=== PATIENT | male | born 1980 | race Caucasian/White ===

== ENCOUNTER 2016-05-23 23:56 | Emergency (ER) | payer OTHER ==
[~2016-05-23 23:56] MED LIST: /SENOSTA PO; AMBI10TA OR; AMBI5TAB; AMBIEN; ANAFRANIL; ANAFRANIL PO; ASPI325T OR; ATARAX OR; CAMPRAL PO; CLAR5CHW; CLAR5CHW OR; Campral PO; DEPA500T2 PO; FLEXERIL OR; HALO2TA PO; HYDR50TA8; HYDR50TA8 OR; HYDRO50TAB PO; INVE3TAB2 OR; INVE6TAB3 OR; KLON1TAB PO; LORA10TA2 PO; METO200T3 OR; NABU-42 PO; NABU750T OR; OXYC10TA97 OR; PAXI10TA; PAXI20TA OR; PAXI30TA; PAXI40TA; PAXIL; PERC5TAB8 OR; PRIL20CA; PRIL20CA PO; RISP1TAB21 PO; SERO200T PO; SERO400T PO; SEROQUEL PO; TOPR100T; TOPR200T; TOPR200T PO; TRAZ100T; TRAZ150T; TRAZ50TA; TRAZODONE; ZIPR80CAP PO; ZYPR10TA PO
[2016-05-24 01:40] LABS: BASO % 0.5 % (0.0-1.0); EOS % 0.5 % (0.0-3.0); LARGE UNSTAINED CELL # 0.2 K/mm3 (0.0-0.4); LARGE UNSTAINED CELL % 4.5 % (0.0-4.0); LYMPH # 1.3 K/mm3 (1.5-4.5); LYMPH % 23.2 % (24.0-44.0); MEAN CORPUSCULAR HEMOGLOBIN 31.1 pg (27.0-33.0); MEAN CORPUSCULAR HGB CONC 35.2 g/dl (32.0-36.5); MEAN CORPUSCULAR VOLUME 88.5 fl (80.0-96.0); MONO # 0.6 K/mm3 (0.0-0.8); MONO % 11.5 % (0.0-5.0); NEUTROPHILS # 3.2 K/mm3 (1.8-7.7); NEUTROPHILS % 59.8 % (36.0-66.0); PLATELET COUNT, AUTOMATED 113 k/mm3 (150-450); RED CELL DISTRIBUTION WIDTH 12.3 % (11.5-14.5); WHITE BLOOD COUNT 5.4 K/mm3 (4.0-10.0)
[2016-05-24 02:00] LABS: ANION GAP 11 MEQ/L (8-16); BLOOD UREA NITROGEN 17 MG/DL (7-18); CALCIUM LEVEL 9.1 MG/DL (8.5-10.1); CARBON DIOXIDE LEVEL 25 MEQ/L (21-32); CHLORIDE LEVEL 98 MEQ/L (98-107); CREATININE FOR GFR 1.26 MG/DL (0.70-1.30); GLOMERULAR FILTRATION RATE > 60.0 (>60); GLUCOSE, FASTING 106 MG/DL (70-105); POTASSIUM SERUM 3.7 MEQ/L (3.5-5.1); SODIUM LEVEL 134 MEQ/L (136-145)
--- NOTE | 2016-05-24 04:06 | EDDOCDS ---
Physician Documentation [facility] Name: Vishal Salmeron Age: 35 yrs Sex: Male : 1980 Arrival Date: 05/23/2016 Time: 23:56 Bed 5 Private MD: Jayla Abdalla Disposition: 05/24/16 03:52 Discharged to Home/Self Care. Impression: Other specified noninfective gastroenteritis and colitis. - Condition is Stable. - Discharge Instructions: Clear Liquid Diet. - Medication Reconciliation, Local Pharmacy Hours form. - Follow up: Private Physician; When: Call to arrange an appointment; Reason: Recheck today's complaints. - Problem is an ongoing problem. - Symptoms have improved. Historical: - Allergies: SULFA (SULFONAMIDES) (Hives); - Home Meds: 1. trazodone 50 mg Oral tab 1 tab at bedtime couple days ago 2. metoprolol succinate 200 mg Tb24 1 tab once daily (Last dose: 05/23/2016) 3. clonidine HCl 0.2 mg Oral tab 2 tabs 2 times per day (Last dose: 05/23/2016) 4. omeprazole 20 mg Oral TbEC (Last dose: 05/23/2016) 5. Ambien 10 mg Oral tab 1 tab once daily (Last dose: 05/23/2016) - PMHx: Hypertension; Anxiety Disorder; GERD; Bipolar disorder; Schizophrenia; - PSHx: right elbow; right ankle; Appendectomy; - Social history: Smoking status: Patient states was never smoker of tobacco. No barriers to communication noted, The patient speaks fluent Japanese, Speaks appropriately for age. - Family history: Not pertinent. - : The pt / caregiver states he / she is not on anticoagulants. Home medication list is obtained from the patient. - Exposure Risk Screening:: None identified. Vital Signs: 05/24 00:22 BP 146 / 90; Pulse 109; Resp 18; Temp 97.9(TE); Pulse Ox 97% ; Weight 154.22 kg / 340 ko2 lbs; Height 6 ft. 8 in. (203.20 cm); Pain 10/10; 01:35 BP 152 / 103 Supine; Pulse 107; mv5 01:35 BP 150 / 100 Sitting; Pulse 102; mv5 01:35 BP 144 / 98 Standing; Pulse 129; mv5 02:23 BP 166 / 109 (auto/); mv5 02:25 Pulse 76 MON; Pulse Ox 98% ; mv5 03:15 BP 166 / 102 (auto/); Pulse 69; Resp 16; Pulse Ox 99% ; mv5 03:44 BP 169 / 87 Supine; Pulse 73; mv5 03:44 BP 169 / 88 Sitting; Pulse 82; mv5 03:44 BP 147 / 93 Standing; Pulse 103; mv5 03:57 Temp 99.3(TE); cln 04:04 BP 164 / 104; Pulse 81; Resp 18; Temp 99.6(O); Pulse Ox 98% on R/A; Pain 10/10; nn1 00:22 Body Mass Index 37.35 (154.22 kg, 203.20 cm) ko2 MDM: 00:53 Orthostatic VS ordered. cs11 00:53 IV Saline Lock ordered. cs11 00:53 NS 0.9% 1000 ml IV at bolus once ordered. cs11 00:53 CBC with Diff Ordered. EDMS 00:53 MED Profile Ordered. EDMS 01:54 CBC with Diff Reviewed. cs11 02:20 MED Profile Reviewed. cs11 02:20 NS 0.9% 1000 ml IV at bolus once ordered. cs11 02:39 Financial registration complete. hs2 02:46 [facility] Payment Agreement was scanned into [employer] and attached to record. hs2 Administered Medications: 01:33 Drug: NS 0.9% 1000 ml [sodium chloride 0.9 % intravenous solution] Route: IV; Rate: mv5 bolus; Site: left antecubital; 02:26 Follow up: IV Status: Completed infusion mv5 02:25 Drug: NS 0.9% 1000 ml [sodium chloride 0.9 % intravenous solution] Route: IV; Rate: mv5 bolus; Site: left antecubital; 03:16 Follow up: IV Status: Completed infusion mv5 Signatures: Dispatcher [employer] EDMS Adolph Barroso DO DO cs11 Brenda Wyman RN RN ko2 Fior Boateng RN RN nn1 Agnieszka Ngo, Reg Reg hs2 Lynn Burgos RN RN mv5 The chart was reviewed and I authenticate all verbal orders and agree with the evaluation and treatment provided.Attachments: 02:46 [facility] Payment Agreement hs2 MTDD
--- NOTE | 2016-05-24 04:06 | EDDOCDS ---
Nurse's Notes [facility] Name: Vishal Salmeron Age: 35 yrs Sex: Male : 1980 Arrival Date: 05/23/2016 Time: 23:56 Bed 5 Private MD: Jayla Abdalla Diagnosis: Other specified noninfective gastroenteritis and colitis Presentation: 05/24 00:14 Presenting complaint: Patient states: has been taking ibuprofen 600 mgs three times a ko2 day for his back. Started having pain in stomach and had a dark tarry stool so quit taking ibuprofen. Started getting diarrhea and watery stools. Took an anti diarrhea medication today and "felt like his stomach was being sucked in and was dry heaving foam." Pt states he feels a constant pressure on the top of his head. Risk factors: the patient reports not having a history of previous torsion. Suicide/Homicide risk assessment- the patient denies having any suicidal and/or homicidal ideations and does not present with any other emotional, behavioral or mental health complaints. 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 Transition of care: patient was not received from another setting of care. 00:14 Acuity: ROBBIE Level 3 ko2 00:14 Method Of Arrival: Walkin/Carried/Asstd ko2 Triage Assessment: 00:21 General: Appears in no apparent distress. Pain: Location: abdomen Pain currently is 10 ko2 out of 10 on a pain scale. HIV screening NA for this visit Offered previously. Neurological: Level of Consciousness is awake, alert. Respiratory: Airway is patent Respiratory effort is even, unlabored. GI: Reports "stomach feels like its being sucked in". Derm: Skin is normal. Historical: - Allergies: SULFA (SULFONAMIDES) (Hives); - Home Meds: 1. trazodone 50 mg Oral tab 1 tab at bedtime couple days ago 2. metoprolol succinate 200 mg Tb24 1 tab once daily (Last dose: 05/23/2016) 3. clonidine HCl 0.2 mg Oral tab 2 tabs 2 times per day (Last dose: 05/23/2016) 4. omeprazole 20 mg Oral TbEC (Last dose: 05/23/2016) 5. Ambien 10 mg Oral tab 1 tab once daily (Last dose: 05/23/2016) - PMHx: Hypertension; Anxiety Disorder; GERD; Bipolar disorder; Schizophrenia; - PSHx: right elbow; right ankle; Appendectomy; - Social history: Smoking status: Patient states was never smoker of tobacco. No barriers to communication noted, The patient speaks fluent Wolof, Speaks appropriately for age. - Family history: Not pertinent. - : The pt / caregiver states he / she is not on anticoagulants. Home medication list is obtained from the patient. - Exposure Risk Screening:: None identified. Screenin:33 Screening information is obtained from the patient. Fall risk: No risks identified. mv5 Assistance ADL's: requires no assistance with activities of daily living. Abuse/DV Screen: The patient / caregiver reports he/she is: not in a situation that causes fear, pain or injury. Nutritional screening: No deficits noted. Advance Directives: There is no active DNR order. home support is adequate. Assessment: 01:33 General: Appears in no apparent distress, Behavior is cooperative, pleasant. mv5 Neurological: Level of Consciousness is awake, alert, Oriented to person, place, time. Cardiovascular: Capillary refill < 3 seconds. Respiratory: Airway is patent Respiratory effort is even, unlabored, Respiratory pattern is regular, symmetrical. GI: Abdomen is obese, Bowel sounds present X 4 quads. Abd is soft X 4 quads. Derm: Skin is pink, warm & dry. 02:26 General: Appears in no apparent distress, comfortable, Behavior is cooperative, mv5 pleasant. Neurological: Level of Consciousness is awake, alert, Oriented to person, place, time. Respiratory: Airway is patent Respiratory effort is even, unlabored, Respiratory pattern is regular, symmetrical. Derm: Skin is pink, warm & dry. 03:17 General: Appears in no apparent distress, comfortable. General: Behavior is mv5 cooperative, pleasant. Neurological: Level of Consciousness is awake, alert. Respiratory: Airway is patent Respiratory effort is even, unlabored, Respiratory pattern is regular, symmetrical. Derm: Skin is pink, warm & dry. 04:03 General: Appears in no apparent distress, comfortable, Behavior is appropriate for age, nn1 cooperative, pleasant. Pain: Location: abdomen Pain currently is 10 out of 10 on a pain scale. Respiratory: Airway is patent Respiratory effort is even, unlabored, Respiratory pattern is regular, symmetrical. Derm: Skin is pink, warm & dry. 04:05 Adult Sepsis Screening: The patient does not have new or worsening altered mentation. nn1 Patient's respiratory rate is less than 22. Systolic blood pressure is greater than 100. Patient has a qSOFA score of 0- Negative Sepsis Screen. Vital Signs: 00:22 BP 146 / 90; Pulse 109; Resp 18; Temp 97.9(TE); Pulse Ox 97% ; Weight 154.22 kg; Height ko2 6 ft. 8 in. (203.20 cm); Pain 10/10; 01:35 BP 152 / 103 Supine; Pulse 107; mv5 01:35 BP 150 / 100 Sitting; Pulse 102; mv5 01:35 BP 144 / 98 Standing; Pulse 129; mv5 02:23 BP 166 / 109 (auto/); mv5 02:25 Pulse 76 MON; Pulse Ox 98% ; mv5 03:15 BP 166 / 102 (auto/); Pulse 69; Resp 16; Pulse Ox 99% ; mv5 03:44 BP 169 / 87 Supine; Pulse 73; mv5 03:44 BP 169 / 88 Sitting; Pulse 82; mv5 03:44 BP 147 / 93 Standing; Pulse 103; mv5 03:57 Temp 99.3(TE); cln 04:04 BP 164 / 104; Pulse 81; Resp 18; Temp 99.6(O); Pulse Ox 98% on R/A; Pain 10/10; nn1 00:22 Body Mass Index 37.35 (154.22 kg, 203.20 cm) ko2 Vitals: 00:22 Log In Time: May 23, 2016 at 23:56. ko2 ED Course: 05/23 23:58 Patient visited by Rinku Rangel Reg. pm4 23:58 Jayla Abdalla is Private Physician. pm4 23:58 Patient moved to Waiting pm4 05/24 00:12 Patient moved to Triage 1 ko2 00:17 Triage Initiated ko2 00:30 Lynn Burgos,JACY is Primary Nurse. ko2 00:30 Patient moved to 5 ko2 00:52 Adolph Barroso DO is Attending Physician. cs11 00:52 Patient visited by Adolph Barroso DO. cs11 01:33 The patient / caregiver is instructed regarding the plan of care and ED course. mv5 01:33 MED Profile Sent. mv5 01:33 CBC with Diff Sent. mv5 01:33 Inserted saline lock: 20 gauge in left antecubital area and blood collected. The mv5 patient tolerated the procedure well. 01:37 Patient visited by Lynn Burgos RN. mv5 02:19 Patient visited by Lynn Burgos RN. mv5 02:46 [facility] Agreement was scanned into [employer] and attached to record. hs2 02:54 Patient visited by Lynn Burgos RN. mv5 03:36 Patient visited by Lynn Burgos RN. mv5 03:57 Patient visited by Georgiana Thakkar PCA. cln 04:04 Discontinued IV lock bleeding controlled, pressure dressing applied, No nn1 redness/swelling at site. No procedures done that require assistance. Administered Medications: 01:33 Drug: NS 0.9% 1000 ml [sodium chloride 0.9 % intravenous solution] Route: IV; Rate: mv5 bolus; Site: left antecubital; 02:26 Follow up: IV Status: Completed infusion mv5 02:25 Drug: NS 0.9% 1000 ml [sodium chloride 0.9 % intravenous solution] Route: IV; Rate: mv5 bolus; Site: left antecubital; 03:16 Follow up: IV Status: Completed infusion mv5 Order Results: Lab Order: CBC with Diff; SPEC'M 05/24/16 01:12 Test: WHITE BLOOD COUNT; Value: 5.4; Range: 4.0-10.0; Units: K/mm3; Status: F Test: RED BLOOD COUNT; Value: 5.82; Range: 4.30-6.10; Units: M/mm3; Status: F Test: HEMOGLOBIN; Value: 18.1; Range: 14.0-18.0; Abnormal: Above high normal; Units: g/dl; Status: F Test: HEMATOCRIT; Value: 51.5; Range: 42.0-52.0; Units: %; Status: F Test: MEAN CORPUSCULAR VOLUME; Value: 88.5; Range: 80.0-96.0; Units: fl; Status: F Test: MEAN CORPUSCULAR HEMOGLOBIN; Value: 31.1; Range: 27.0-33.0; Units: pg; Status: F Test: MEAN CORPUSCULAR HGB CONC; Value: 35.2; Range: 32.0-36.5; Units: g/dl; Status: F Test: RED CELL DISTRIBUTION WIDTH; Value: 12.3; Range: 11.5-14.5; Units: %; Status: F Test: PLATELET COUNT, AUTOMATED; Value: 113; Range: 150-450; Abnormal: Below low normal; Units: k/mm3; Status: F Test: NEUTROPHILS %; Value: 59.8; Range: 36.0-66.0; Units: %; Status: F Test: LYMPH %; Value: 23.2; Range: 24.0-44.0; Abnormal: Below low normal; Units: %; Status: F Test: MONO %; Value: 11.5; Range: 0.0-5.0; Abnormal: Above high normal; Units: %; Status: F Test: EOS %; Value: 0.5; Range: 0.0-3.0; Units: %; Status: F Test: BASO %; Value: 0.5; Range: 0.0-1.0; Units: %; Status: F Test: LARGE UNSTAINED CELL %; Value: 4.5; Range: 0.0-4.0; Abnormal: Above high normal; Units: %; Status: F Test: NEUTROPHILS #; Value: 3.2; Range: 1.8-7.7; Units: K/mm3; Status: F Test: LYMPH #; Value: 1.3; Range: 1.5-4.5; Abnormal: Below low normal; Units: K/mm3; Status: F Test: MONO #; Value: 0.6; Range: 0.0-0.8; Units: K/mm3; Status: F Test: EOS #; Value: 0.0; Range: 0.0-0.50; Units: K/mm3; Status: F Test: BASO #; Value: 0.0; Range: 0.0-0.2; Units: K/mm3; Status: F Test: LARGE UNSTAINED CELL #; Value: 0.2; Range: 0.0-0.4; Units: K/mm3; Status: F Lab Order: MED Profile; SPEC'05/24/16 01:12 Test: GLUCOSE, FASTING; Value: 106; Range: 70-105; Abnormal: Above high normal; Units: MG/DL; Status: F Test: BLOOD UREA NITROGEN; Value: 17; Range: 7-18; Units: MG/DL; Status: F Test: CREATININE FOR GFR; Value: 1.26; Range: 0.70-1.30; Units: MG/DL; Status: F Test: GLOMERULAR FILTRATION RATE; Value: > 60.0; Range: >60; Status: F Test: SODIUM LEVEL; Value: 134; Range: 136-145; Abnormal: Below low normal; Units: MEQ/L; Status: F Test: POTASSIUM SERUM; Value: 3.7; Range: 3.5-5.1; Units: MEQ/L; Status: F Test: CHLORIDE LEVEL; Value: 98; Range: 98-107; Units: MEQ/L; Status: F Test: CARBON DIOXIDE LEVEL; Value: 25; Range: 21-32; Units: MEQ/L; Status: F Test: ANION GAP; Value: 11; Range: 8-16; Units: MEQ/L; Status: F Test: CALCIUM LEVEL; Value: 9.1; Range: 8.5-10.1; Units: MG/DL; Status: F Test Note: ; Units are mL/min/1.73 m2 Chronic Kidney Disease Staging per NKF: Stage I & II GFR >=60 Normal to Mildly Decreased Stage III GFR 30-59 Moderately Decreased Stage IV GFR 15-29 Severely Decreased Stage V GFR <15 Very Little GFR Left ESRD GFR <15 on SKIN CARE THERAPIST Outcome: 03:52 Discharge ordered by Provider. cs11 04:04 Discharge Assessment: Patient awake, alert and oriented x 3. No cognitive and/or nn1 functional deficits noted. Patient verbalized understanding of disposition instructions. patient administered narcotics - no. The following High Risk Discharge criteria are identified: None. Discharged to home ambulatory, with parent. Condition: stable. No special radiology studies were completed. Property :Personal belongings accompany Pt. 04:05 Patient left the ED. nn1 Signatures: Adolph Barroso DO DO cs11 Brenda Wyman RN RN ko2 Fior Boateng RN RN nn1 Agnieszka Ngo, Reg Reg hs2 Georgiana Thakkar, CROP GRAIN OR LIVESTOCK FARMER CROP GRAIN OR LIVESTOCK FARMER cln Rinku Rangel, Reg Reg pm4 Lynn Burgos,RN RN mv5 MTDD
--- NOTE | 2016-05-26 05:06 | EDDOCDS ---
Physician Documentation [facility] Name: Vishal Salmeron Age: 35 yrs Sex: Male : 1980 Arrival Date: 05/23/2016 Time: 23:56 Bed 5 Private MD: Jayla Abdalla Disposition: 05/24/16 03:52 Discharged to Home/Self Care. Impression: Other specified noninfective gastroenteritis and colitis. - Condition is Stable. - Discharge Instructions: Clear Liquid Diet. - Medication Reconciliation, Local Pharmacy Hours form. - Follow up: Private Physician; When: Call to arrange an appointment; Reason: Recheck today's complaints. - Problem is an ongoing problem. - Symptoms have improved. Historical: - Allergies: SULFA (SULFONAMIDES) (Hives); - Home Meds: 1. trazodone 50 mg Oral tab 1 tab at bedtime couple days ago 2. metoprolol succinate 200 mg Tb24 1 tab once daily (Last dose: 05/23/2016) 3. clonidine HCl 0.2 mg Oral tab 2 tabs 2 times per day (Last dose: 05/23/2016) 4. omeprazole 20 mg Oral TbEC (Last dose: 05/23/2016) 5. Ambien 10 mg Oral tab 1 tab once daily (Last dose: 05/23/2016) - PMHx: Hypertension; Anxiety Disorder; GERD; Bipolar disorder; Schizophrenia; - PSHx: right elbow; right ankle; Appendectomy; - Social history: Smoking status: Patient states was never smoker of tobacco. No barriers to communication noted, The patient speaks fluent Romanian, Speaks appropriately for age. - Family history: Not pertinent. - : The pt / caregiver states he / she is not on anticoagulants. Home medication list is obtained from the patient. - Exposure Risk Screening:: None identified. Vital Signs: 05/24 00:22 BP 146 / 90; Pulse 109; Resp 18; Temp 97.9(TE); Pulse Ox 97% ; Weight 154.22 kg / 340 ko2 lbs; Height 6 ft. 8 in. (203.20 cm); Pain 10/10; 01:35 BP 152 / 103 Supine; Pulse 107; mv5 01:35 BP 150 / 100 Sitting; Pulse 102; mv5 01:35 BP 144 / 98 Standing; Pulse 129; mv5 02:23 BP 166 / 109 (auto/); mv5 02:25 Pulse 76 MON; Pulse Ox 98% ; mv5 03:15 BP 166 / 102 (auto/); Pulse 69; Resp 16; Pulse Ox 99% ; mv5 03:44 BP 169 / 87 Supine; Pulse 73; mv5 03:44 BP 169 / 88 Sitting; Pulse 82; mv5 03:44 BP 147 / 93 Standing; Pulse 103; mv5 03:57 Temp 99.3(TE); cln 04:04 BP 164 / 104; Pulse 81; Resp 18; Temp 99.6(O); Pulse Ox 98% on R/A; Pain 10/10; nn1 00:22 Body Mass Index 37.35 (154.22 kg, 203.20 cm) ko2 MDM: 00:53 Orthostatic VS ordered. cs11 00:53 IV Saline Lock ordered. cs11 00:53 NS 0.9% 1000 ml IV at bolus once ordered. cs11 00:53 CBC with Diff Ordered. EDMS 00:53 MED Profile Ordered. EDMS 01:54 CBC with Diff Reviewed. cs11 02:20 MED Profile Reviewed. cs11 02:20 NS 0.9% 1000 ml IV at bolus once ordered. cs11 02:39 Financial registration complete. hs2 02:46 [facility] Payment Agreement was scanned into [email or web address] and attached to record. hs2 09:52 T-Sheet-- Draft Copy was scanned into [email or web address] and attached to record. gb Administered Medications: 01:33 Drug: NS 0.9% 1000 ml [sodium chloride 0.9 % intravenous solution] Route: IV; Rate: mv5 bolus; Site: left antecubital; 02:26 Follow up: IV Status: Completed infusion mv5 02:25 Drug: NS 0.9% 1000 ml [sodium chloride 0.9 % intravenous solution] Route: IV; Rate: mv5 bolus; Site: left antecubital; 03:16 Follow up: IV Status: Completed infusion mv5 Signatures: Dispatcher [employer] EDMS Trupti Prather, Reg Reg gb Adolph Barroso, DO cs11 Brenda Wyman RN RN ko2 Fior Boateng RN RN nn1 Agnieszka Ngo, Reg Reg hs2 Lynn BurgosRN RN mv5 The chart was reviewed and I authenticate all verbal orders and agree with the evaluation and treatment provided.Attachments: 02:46 [facility] Payment Agreement hs2 09:52 T-Sheet-- Draft Copy gb Chart Complete MTDD
--- NOTE | 2016-05-26 05:06 | EDDOCDS ---
Nurse's Notes [facility] Name: Vishal Salmeron Age: 35 yrs Sex: Male : 1980 Arrival Date: 05/23/2016 Time: 23:56 Bed 5 Private MD: Jayla Abdalla Diagnosis: Other specified noninfective gastroenteritis and colitis Presentation: 05/24 00:14 Presenting complaint: Patient states: has been taking ibuprofen 600 mgs three times a ko2 day for his back. Started having pain in stomach and had a dark tarry stool so quit taking ibuprofen. Started getting diarrhea and watery stools. Took an anti diarrhea medication today and "felt like his stomach was being sucked in and was dry heaving foam." Pt states he feels a constant pressure on the top of his head. Risk factors: the patient reports not having a history of previous torsion. Suicide/Homicide risk assessment- the patient denies having any suicidal and/or homicidal ideations and does not present with any other emotional, behavioral or mental health complaints. Status: Patient is not a service delivery director or dependent. Transition of care: patient was not received from another setting of care. 00:14 Acuity: ROBBIE Level 3 ko2 00:14 Method Of Arrival: Walkin/Carried/Asstd ko2 Triage Assessment: 00:21 General: Appears in no apparent distress. Pain: Location: abdomen Pain currently is 10 ko2 out of 10 on a pain scale. HIV screening NA for this visit Offered previously. Neurological: Level of Consciousness is awake, alert. Respiratory: Airway is patent Respiratory effort is even, unlabored. GI: Reports "stomach feels like its being sucked in". Derm: Skin is normal. Historical: - Allergies: SULFA (SULFONAMIDES) (Hives); - Home Meds: 1. trazodone 50 mg Oral tab 1 tab at bedtime couple days ago 2. metoprolol succinate 200 mg Tb24 1 tab once daily (Last dose: 05/23/2016) 3. clonidine HCl 0.2 mg Oral tab 2 tabs 2 times per day (Last dose: 05/23/2016) 4. omeprazole 20 mg Oral TbEC (Last dose: 05/23/2016) 5. Ambien 10 mg Oral tab 1 tab once daily (Last dose: 05/23/2016) - PMHx: Hypertension; Anxiety Disorder; GERD; Bipolar disorder; Schizophrenia; - PSHx: right elbow; right ankle; Appendectomy; - Social history: Smoking status: Patient states was never smoker of tobacco. No barriers to communication noted, The patient speaks fluent Setswana, Speaks appropriately for age. - Family history: Not pertinent. - : The pt / caregiver states he / she is not on anticoagulants. Home medication list is obtained from the patient. - Exposure Risk Screening:: None identified. Screenin:33 Screening information is obtained from the patient. Fall risk: No risks identified. mv5 Assistance ADL's: requires no assistance with activities of daily living. Abuse/DV Screen: The patient / caregiver reports he/she is: not in a situation that causes fear, pain or injury. Nutritional screening: No deficits noted. Advance Directives: There is no active DNR order. home support is adequate. Assessment: 01:33 General: Appears in no apparent distress, Behavior is cooperative, pleasant. mv5 Neurological: Level of Consciousness is awake, alert, Oriented to person, place, time. Cardiovascular: Capillary refill < 3 seconds. Respiratory: Airway is patent Respiratory effort is even, unlabored, Respiratory pattern is regular, symmetrical. GI: Abdomen is obese, Bowel sounds present X 4 quads. Abd is soft X 4 quads. Derm: Skin is pink, warm & dry. 02:26 General: Appears in no apparent distress, comfortable, Behavior is cooperative, mv5 pleasant. Neurological: Level of Consciousness is awake, alert, Oriented to person, place, time. Respiratory: Airway is patent Respiratory effort is even, unlabored, Respiratory pattern is regular, symmetrical. Derm: Skin is pink, warm & dry. 03:17 General: Appears in no apparent distress, comfortable. General: Behavior is mv5 cooperative, pleasant. Neurological: Level of Consciousness is awake, alert. Respiratory: Airway is patent Respiratory effort is even, unlabored, Respiratory pattern is regular, symmetrical. Derm: Skin is pink, warm & dry. 04:03 General: Appears in no apparent distress, comfortable, Behavior is appropriate for age, nn1 cooperative, pleasant. Pain: Location: abdomen Pain currently is 10 out of 10 on a pain scale. Respiratory: Airway is patent Respiratory effort is even, unlabored, Respiratory pattern is regular, symmetrical. Derm: Skin is pink, warm & dry. 04:05 Adult Sepsis Screening: The patient does not have new or worsening altered mentation. nn1 Patient's respiratory rate is less than 22. Systolic blood pressure is greater than 100. Patient has a qSOFA score of 0- Negative Sepsis Screen. Vital Signs: 00:22 BP 146 / 90; Pulse 109; Resp 18; Temp 97.9(TE); Pulse Ox 97% ; Weight 154.22 kg; Height ko2 6 ft. 8 in. (203.20 cm); Pain 10/10; 01:35 BP 152 / 103 Supine; Pulse 107; mv5 01:35 BP 150 / 100 Sitting; Pulse 102; mv5 01:35 BP 144 / 98 Standing; Pulse 129; mv5 02:23 BP 166 / 109 (auto/); mv5 02:25 Pulse 76 MON; Pulse Ox 98% ; mv5 03:15 BP 166 / 102 (auto/); Pulse 69; Resp 16; Pulse Ox 99% ; mv5 03:44 BP 169 / 87 Supine; Pulse 73; mv5 03:44 BP 169 / 88 Sitting; Pulse 82; mv5 03:44 BP 147 / 93 Standing; Pulse 103; mv5 03:57 Temp 99.3(TE); cln 04:04 BP 164 / 104; Pulse 81; Resp 18; Temp 99.6(O); Pulse Ox 98% on R/A; Pain 10/10; nn1 00:22 Body Mass Index 37.35 (154.22 kg, 203.20 cm) ko2 Vitals: 00:22 Log In Time: May 23, 2016 at 23:56. ko2 ED Course: 05/23 23:58 Patient visited by Rinku Rangel Reg. pm4 23:58 Jayla Abdalla is Private Physician. pm4 23:58 Patient moved to Waiting pm4 05/24 00:12 Patient moved to Triage 1 ko2 00:17 Triage Initiated ko2 00:30 Lynn Burgos,JACY is Primary Nurse. ko2 00:30 Patient moved to 5 ko2 00:52 Adolph Barroso DO is Attending Physician. cs11 00:52 Patient visited by Adolph Barroso DO. cs11 01:33 The patient / caregiver is instructed regarding the plan of care and ED course. mv5 01:33 MED Profile Sent. mv5 01:33 CBC with Diff Sent. mv5 01:33 Inserted saline lock: 20 gauge in left antecubital area and blood collected. The mv5 patient tolerated the procedure well. 01:37 Patient visited by Lynn Burgos RN. mv5 02:19 Patient visited by Lynn Burgos RN. mv5 02:46 REPLACED BY [facility] Payment Agreement was scanned into [employer] and attached to record. hs2 02:54 Patient visited by Lynn Burgos RN. mv5 03:36 Patient visited by Lynn Burgos RN. mv5 03:57 Patient visited by Georgiana Thakkar PCA. cln 04:04 Discontinued IV lock bleeding controlled, pressure dressing applied, No nn1 redness/swelling at site. No procedures done that require assistance. 09:52 T-Sheet-- Draft Copy was scanned into [employer] and attached to record. gb Administered Medications: 01:33 Drug: NS 0.9% 1000 ml [sodium chloride 0.9 % intravenous solution] Route: IV; Rate: mv5 bolus; Site: left antecubital; 02:26 Follow up: IV Status: Completed infusion mv5 02:25 Drug: NS 0.9% 1000 ml [sodium chloride 0.9 % intravenous solution] Route: IV; Rate: mv5 bolus; Site: left antecubital; 03:16 Follow up: IV Status: Completed infusion mv5 Order Results: Lab Order: CBC with Diff; SPEC'M 05/24/16 01:12 Test: WHITE BLOOD COUNT; Value: 5.4; Range: 4.0-10.0; Units: K/mm3; Status: F Test: RED BLOOD COUNT; Value: 5.82; Range: 4.30-6.10; Units: M/mm3; Status: F Test: HEMOGLOBIN; Value: 18.1; Range: 14.0-18.0; Abnormal: Above high normal; Units: g/dl; Status: F Test: HEMATOCRIT; Value: 51.5; Range: 42.0-52.0; Units: %; Status: F Test: MEAN CORPUSCULAR VOLUME; Value: 88.5; Range: 80.0-96.0; Units: fl; Status: F Test: MEAN CORPUSCULAR HEMOGLOBIN; Value: 31.1; Range: 27.0-33.0; Units: pg; Status: F Test: MEAN CORPUSCULAR HGB CONC; Value: 35.2; Range: 32.0-36.5; Units: g/dl; Status: F Test: RED CELL DISTRIBUTION WIDTH; Value: 12.3; Range: 11.5-14.5; Units: %; Status: F Test: PLATELET COUNT, AUTOMATED; Value: 113; Range: 150-450; Abnormal: Below low normal; Units: k/mm3; Status: F Test: NEUTROPHILS %; Value: 59.8; Range: 36.0-66.0; Units: %; Status: F Test: LYMPH %; Value: 23.2; Range: 24.0-44.0; Abnormal: Below low normal; Units: %; Status: F Test: MONO %; Value: 11.5; Range: 0.0-5.0; Abnormal: Above high normal; Units: %; Status: F Test: EOS %; Value: 0.5; Range: 0.0-3.0; Units: %; Status: F Test: BASO %; Value: 0.5; Range: 0.0-1.0; Units: %; Status: F Test: LARGE UNSTAINED CELL %; Value: 4.5; Range: 0.0-4.0; Abnormal: Above high normal; Units: %; Status: F Test: NEUTROPHILS #; Value: 3.2; Range: 1.8-7.7; Units: K/mm3; Status: F Test: LYMPH #; Value: 1.3; Range: 1.5-4.5; Abnormal: Below low normal; Units: K/mm3; Status: F Test: MONO #; Value: 0.6; Range: 0.0-0.8; Units: K/mm3; Status: F Test: EOS #; Value: 0.0; Range: 0.0-0.50; Units: K/mm3; Status: F Test: BASO #; Value: 0.0; Range: 0.0-0.2; Units: K/mm3; Status: F Test: LARGE UNSTAINED CELL #; Value: 0.2; Range: 0.0-0.4; Units: K/mm3; Status: F Lab Order: MED Profile; SPEC05/24/16 01:12 Test: GLUCOSE, FASTING; Value: 106; Range: 70-105; Abnormal: Above high normal; Units: MG/DL; Status: F Test: BLOOD UREA NITROGEN; Value: 17; Range: 7-18; Units: MG/DL; Status: F Test: CREATININE FOR GFR; Value: 1.26; Range: 0.70-1.30; Units: MG/DL; Status: F Test: GLOMERULAR FILTRATION RATE; Value: > 60.0; Range: >60; Status: F Test: SODIUM LEVEL; Value: 134; Range: 136-145; Abnormal: Below low normal; Units: MEQ/L; Status: F Test: POTASSIUM SERUM; Value: 3.7; Range: 3.5-5.1; Units: MEQ/L; Status: F Test: CHLORIDE LEVEL; Value: 98; Range: 98-107; Units: MEQ/L; Status: F Test: CARBON DIOXIDE LEVEL; Value: 25; Range: 21-32; Units: MEQ/L; Status: F Test: ANION GAP; Value: 11; Range: 8-16; Units: MEQ/L; Status: F Test: CALCIUM LEVEL; Value: 9.1; Range: 8.5-10.1; Units: MG/DL; Status: F Test Note: ; Units are mL/min/1.73 m2 Chronic Kidney Disease Staging per NKF: Stage I & II GFR >=60 Normal to Mildly Decreased Stage III GFR 30-59 Moderately Decreased Stage IV GFR 15-29 Severely Decreased Stage V GFR <15 Very Little GFR Left ESRD GFR <15 on RN RADIATION Outcome: 03:52 Discharge ordered by Provider. cs11 04:04 Discharge Assessment: Patient awake, alert and oriented x 3. No cognitive and/or nn1 functional deficits noted. Patient verbalized understanding of disposition instructions. patient administered narcotics - no. The following High Risk Discharge criteria are identified: None. Discharged to home ambulatory, with parent. Condition: stable. No special radiology studies were completed. Property :Personal belongings accompany Pt. 04:05 Patient left the ED. nn1 Signatures: Trupti Prather, Reg Reg gb Adolph Barroso, DO cs11 Brenda Wyman RN RN ko2 Fior Boateng RN RN nn1 Agnieszka Ngo, Reg Reg hs2 Georgiana Thakkar, CRUCIBLE PACKER CRUCIBLE PACKER cln Rinku Rangel, Reg Reg pm4 Lynn Burgos,RN RN mv5 Chart Complete MTDD
--- NOTE | 2016-05-26 05:06 | EDDOCDS ---
Physician Documentation [facility] Name: Vishal Salmeron Age: 35 yrs Sex: Male : 1980 Arrival Date: 05/23/2016 Time: 23:56 Bed 5 Private MD: Jayla Abdalla Disposition: 05/24/16 03:52 Discharged to Home/Self Care. Impression: Other specified noninfective gastroenteritis and colitis. - Condition is Stable. - Discharge Instructions: Clear Liquid Diet. - Medication Reconciliation, Local Pharmacy Hours form. - Follow up: Private Physician; When: Call to arrange an appointment; Reason: Recheck today's complaints. - Problem is an ongoing problem. - Symptoms have improved. Historical: - Allergies: SULFA (SULFONAMIDES) (Hives); - Home Meds: 1. trazodone 50 mg Oral tab 1 tab at bedtime couple days ago 2. metoprolol succinate 200 mg Tb24 1 tab once daily (Last dose: 05/23/2016) 3. clonidine HCl 0.2 mg Oral tab 2 tabs 2 times per day (Last dose: 05/23/2016) 4. omeprazole 20 mg Oral TbEC (Last dose: 05/23/2016) 5. Ambien 10 mg Oral tab 1 tab once daily (Last dose: 05/23/2016) - PMHx: Hypertension; Anxiety Disorder; GERD; Bipolar disorder; Schizophrenia; - PSHx: right elbow; right ankle; Appendectomy; - Social history: Smoking status: Patient states was never smoker of tobacco. No barriers to communication noted, The patient speaks fluent Welsh, Speaks appropriately for age. - Family history: Not pertinent. - : The pt / caregiver states he / she is not on anticoagulants. Home medication list is obtained from the patient. - Exposure Risk Screening:: None identified. Vital Signs: 05/24 00:22 BP 146 / 90; Pulse 109; Resp 18; Temp 97.9(TE); Pulse Ox 97% ; Weight 154.22 kg / 340 ko2 lbs; Height 6 ft. 8 in. (203.20 cm); Pain 10/10; 01:35 BP 152 / 103 Supine; Pulse 107; mv5 01:35 BP 150 / 100 Sitting; Pulse 102; mv5 01:35 BP 144 / 98 Standing; Pulse 129; mv5 02:23 BP 166 / 109 (auto/); mv5 02:25 Pulse 76 MON; Pulse Ox 98% ; mv5 03:15 BP 166 / 102 (auto/); Pulse 69; Resp 16; Pulse Ox 99% ; mv5 03:44 BP 169 / 87 Supine; Pulse 73; mv5 03:44 BP 169 / 88 Sitting; Pulse 82; mv5 03:44 BP 147 / 93 Standing; Pulse 103; mv5 03:57 Temp 99.3(TE); cln 04:04 BP 164 / 104; Pulse 81; Resp 18; Temp 99.6(O); Pulse Ox 98% on R/A; Pain 10/10; nn1 00:22 Body Mass Index 37.35 (154.22 kg, 203.20 cm) ko2 MDM: 00:53 Orthostatic VS ordered. cs11 00:53 IV Saline Lock ordered. cs11 00:53 NS 0.9% 1000 ml IV at bolus once ordered. cs11 00:53 CBC with Diff Ordered. EDMS 00:53 MED Profile Ordered. EDMS 01:54 CBC with Diff Reviewed. cs11 02:20 MED Profile Reviewed. cs11 02:20 NS 0.9% 1000 ml IV at bolus once ordered. cs11 02:39 Financial registration complete. hs2 02:46 [facility] Payment Agreement was scanned into [employer] and attached to record. hs2 09:52 T-Sheet-- Draft Copy was scanned into [employer] and attached to record. gb Administered Medications: 01:33 Drug: NS 0.9% 1000 ml [sodium chloride 0.9 % intravenous solution] Route: IV; Rate: mv5 bolus; Site: left antecubital; 02:26 Follow up: IV Status: Completed infusion mv5 02:25 Drug: NS 0.9% 1000 ml [sodium chloride 0.9 % intravenous solution] Route: IV; Rate: mv5 bolus; Site: left antecubital; 03:16 Follow up: IV Status: Completed infusion mv5 Signatures: Dispatcher [employer] EDMS Trupti Prather, Reg Reg gb Adolph Barroso, DO cs11 Brenda Wyman RN RN ko2 Fior Boateng RN RN nn1 Agnieszka Ngo, Reg Reg hs2 Lynn BurgosRN RN mv5 The chart was reviewed and I authenticate all verbal orders and agree with the evaluation and treatment provided.Attachments: 02:46 [facility] Payment Agreement hs2 09:52 T-Sheet-- Draft Copy gb Chart Complete MTDD
== END 2016-05-24 04:05 | disposition home or self-care (01) ==
LOC: M ED 23:56
DX: K52.9 Noninfective gastroenteritis and colitis, unspecified (principal); I10 Essential (primary) hypertension; F31.9 Bipolar disorder, unspecified; F41.9 Anxiety disorder, unspecified; K21.9 Gastro-esophageal reflux disease without esophagitis; F20.9 Schizophrenia, unspecified; Z79.899 Other long term (current) drug therapy; Z88.2 Allergy status to sulfonamides

== ENCOUNTER 2016-06-14 23:27 | Emergency (ER) | payer OTHER ==
[~2016-06-14] VITALS: Ht 203.2 cm; Wt 163.3 kg
[2016-06-14] MEDS ORDERED: TRAZ50TA4 (23:44)
[2016-06-14] MEDS ORDERED: LATA5OPD (23:44)
[2016-06-14] MEDS ORDERED: ANTI2TAB (23:44)
[2016-06-14] MEDS ORDERED: CLON0.2T (23:44)
[2016-06-14] MEDS ORDERED: ZOLP10TA2 (23:44)
[2016-06-14] MEDS ORDERED: OMEP20CA3 (23:44)
[2016-06-15 02:19] LABS: BASO % 0.4 % (0.0-1.0); EOS % 0.4 % (0.0-3.0); LARGE UNSTAINED CELL % 0.5 % (0.0-4.0); LYMPH % 12.7 % (24.0-44.0); MEAN CORPUSCULAR HEMOGLOBIN 30.2 pg (27.0-33.0); MEAN CORPUSCULAR HGB CONC 34.3 g/dl (32.0-36.5); MEAN CORPUSCULAR VOLUME 87.8 fl (80.0-96.0); MONO # 0.4 K/mm3 (0.0-0.8); MONO % 4.7 % (0.0-5.0); NEUTROPHILS # 6.3 K/mm3 (1.8-7.7); NEUTROPHILS % 81.3 % (36.0-66.0); PLATELET COUNT, AUTOMATED 182 k/mm3 (150-450); RED CELL DISTRIBUTION WIDTH 12.6 % (11.5-14.5); WHITE BLOOD COUNT 7.8 K/mm3 (4.0-10.0)
[2016-06-15 02:34] LABS: ALBUMIN 3.9 GM/DL (3.2-5.2); ALBUMIN/GLOBULIN RATIO 1.15 (1.00-1.93); ALKALINE PHOSPHATASE 89 U/L (45-117); ALT/SGPT 48 U/L (12-78); ANION GAP 9 MEQ/L (8-16); AST/SGOT 46 U/L (15-37); BILIRUBIN,DIRECT 0.4 MG/DL (0.0-0.2); BILIRUBIN,TOTAL 1.5 MG/DL (0.2-1.0); BLOOD UREA NITROGEN 7 MG/DL (7-18); CALCIUM LEVEL 9.1 MG/DL (8.5-10.1); CARBON DIOXIDE LEVEL 26 MEQ/L (21-32); CHLORIDE LEVEL 94 MEQ/L (98-107); CREATININE FOR GFR 0.98 MG/DL (0.70-1.30); GLOMERULAR FILTRATION RATE > 60.0 (>60); GLUCOSE, FASTING 105 MG/DL (70-105); POTASSIUM SERUM 3.5 MEQ/L (3.5-5.1); SODIUM LEVEL 129 MEQ/L (136-145); TOTAL PROTEIN 7.3 GM/DL (6.4-8.2)
[2016-06-15] MEDS ORDERED: NS 1,000 ML IV ONE (02:45)
[2016-06-15] MEDS ORDERED: MORPHINE 4 MG/ML 1ML SYRINGE IV ONE (02:45)
[2016-06-15] MEDS ORDERED: ONDANSETRON 4MG/2ML VIAL (J2405) IV ONE (02:45)
[2016-06-15] MEDS ORDERED: GASTROGRAFIN SOLUTION 30ML (Q9963) PO ONE ×2 (03:00→03:30)
[2016-06-15] MEDS ORDERED: ISOVUE-370 76% 100ML VIAL (Q9967) As Ordered ONE (04:01)
--- NOTE | 2016-06-15 04:30 | REPUSA ---
CLINICAL HISTORY: Abdominal pain. TECHNIQUE: Multiple axial, sagittal and coronal CT images were obtained through the abdomen and pelvi s after administration of oral and intravenous contrast material. COMMENTS: The liver is of uniform attenuation without mass or defect. Mild hepatomegaly. There is no intra or e xtrahepatic biliary ductal dilatation. The spleen is normal. The gallbladder is within normal limits. The pancreas is of normal contour and attenuation characteristics. There is no evidence of adrenal m ass. Both kidneys demonstrate prompt and equal nephrograms. The kidneys are normal in size, shape and conf iguration. There is no evidence of renal or ureteral mass. No renal or ureteral calculi are identifie d. There is no hydroureter or hydronephrosis. No evidence for appendicitis. There is no bowel wall thickening. No evidence for small or large paulette l obstruction. There is no evidence of abdominal ascites or lymphadenopathy. There is no evidence of intrinsic or extrinsic bladder mass. There is no pelvic ascites or lymphadeno dmitry. Prior appendectomy. Images of the lung bases show no evidence of pleural or parenchymal mass. There are no pleural effusi ons. The bony structures are free of lytic or blastic lesions. Multilevel degenerative changes are seen in volving the thoracolumbar spine. Scattered calcifications are seen involving the aorta and major bran ches compatible with atherosclerosis. IMPRESSION: Mild hepatomegaly. Prior appendectomy. No evidence of acute abdominal or pelvic pathology. Thank you for your kind referral of this patient.
[2016-06-15 04:55] VITALS: BP 165/82
--- NOTE | 2016-06-15 09:42 | ED PDOC ---
Provider Note thompson curry faxed formal report of ct abd/p for fu Kortney Griffin MD Jun 15, 2016 09:41
== END 2016-06-15 04:58 | disposition home or self-care (01) ==
LOC: M ED 06-15 00:55
DX: R10.9 Unspecified abdominal pain (principal); I10 Essential (primary) hypertension; K21.9 Gastro-esophageal reflux disease without esophagitis; F31.9 Bipolar disorder, unspecified; F41.9 Anxiety disorder, unspecified; F20.9 Schizophrenia, unspecified; Z88.2 Allergy status to sulfonamides; Z79.899 Other long term (current) drug therapy
CPT/HCPCS: 74177; 80048; 80076; 81001; 83690; 85025; 87086; 96361; 96374; 96375; 99283; J2405; Q9963; Q9967

== ENCOUNTER → 2016-08-23 | Outpatient (REF) | payer OTHER ==
[~2016-08-23] MED LIST changes: +ANTI2TAB; +CLON0.2T; +LATA5OPD; +OMEP20CA3; +TRAZ50TA4; +ZOLP10TA2
[2016-08-23 12:07] LABS: BLOOD UREA NITROGEN 12 MG/DL (7-18); CREATININE FOR GFR 0.92 MG/DL (0.70-1.30); GLOMERULAR FILTRATION RATE > 60.0 (>60)
[2016-08-23 12:22] LABS: ERYTHROCYTE SEDIMENTATION RATE 1 mm/hr (0-15)
[2016-08-23 12:24] LABS: BASO % 0.7 % (0.0-1.0); EOS # 0.1 K/mm3 (0.0-0.50); LARGE UNSTAINED CELL # 0.1 K/mm3 (0.0-0.4); LARGE UNSTAINED CELL % 1.6 % (0.0-4.0); LYMPH # 2.5 K/mm3 (1.5-4.5); LYMPH % 42.1 % (24.0-44.0); MEAN CORPUSCULAR HEMOGLOBIN 32.4 pg (27.0-33.0); MEAN CORPUSCULAR HGB CONC 34.1 g/dl (32.0-36.5); MEAN CORPUSCULAR VOLUME 95.1 fl (80.0-96.0); MONO # 0.5 K/mm3 (0.0-0.8); MONO % 8.1 % (0.0-5.0); NEUTROPHILS # 2.7 K/mm3 (1.8-7.7); NEUTROPHILS % 45.5 % (36.0-66.0); PLATELET COUNT, AUTOMATED 204 k/mm3 (150-450); RED CELL DISTRIBUTION WIDTH 12.7 % (11.5-14.5); WHITE BLOOD COUNT 5.9 K/mm3 (4.0-10.0)
== END ==
LOC: M LABDRAW1 11:29
PROVIDERS: ATTEND Orthopaedic Surgery
DX: M54.5 Low back pain (principal)

== ENCOUNTER → 2016-09-02 | Outpatient (CLI) | payer OTHER ==
--- NOTE | 2016-09-02 10:58 | REP ---
MRI LUMBAR SPINE WITHOUT AND WITH CONTRAST: HISTORY: Back pain. CONTRAST: ProHance 20 mL COMPARISON: CT 06/07/2013. Decreased signal intensity on T2-weighted images is present in the L4-5 and L5-S1 intervertebral discs. The discs are decreased in height. These findings are consistent with disc degeneration. There is no disc bulge or herniation at the L1-2 through L3-4 levels. The nerves exit the neural foramina without compression. A diffuse disc bulge asymmetric to the left is present at the L4-5 level. There is mild compression of the thecal sac. The L4 nerves exit the neural foramina without compression. A diffuse disc bulge and small left paracentral and intraforaminal disc protrusion are present at the L5-S1 level. There is minimal compression of the thecal sac and left S1 nerve as it exits the thecal sac. The L5 nerves exit the neural foramina without compression. The conus medullaris is normal in appearance terminating at the level of the L1-2 intervertebral disc. Increased signal intensity on T2-weighted images is present in the endplates of the L4 and L5 vertebral bodies. This represents degenerative change. IMPRESSION: 1. Diffuse disc bulge at the L4-5 level with mild thecal sac compression. 2. Diffuse disc bulge and small left paracentral and intraforaminal disc protrusion at the L5-S1 level with minimal compression of the thecal sac and left S1 nerve as it exits the thecal sac. There is no significant change compared to the previous study. Signed by Manuel Nunez MD 09/02/2016 11:00 A
== END ==
LOC: M RAD 08:52
PROVIDERS: ATTEND Orthopaedic Surgery
DX: M54.5 Low back pain (principal)

== ENCOUNTER 2017-03-31 12:48 | Emergency (ER) | payer OTHER | END 2017-03-31 15:55 | disposition home or self-care (01) | LOC: M ED 12:48 | DX: S42.401A Unspecified fracture of lower end of right humerus, initial encounter for closed fracture (principal); W01.0XXA Fall on same level from slipping, tripping and stumbling without subsequent striking against object, initial encounter; Y92.410 Unspecified street and highway as the place of occurrence of the external cause; Y93.89 Activity, other specified; Y99.8 Other external cause status; I10 Essential (primary) hypertension; K21.9 Gastro-esophageal reflux disease without esophagitis; F31.9 Bipolar disorder, unspecified; M51.36 Other intervertebral disc degeneration, lumbar region; Z79.899 Other long term (current) drug therapy; Z88.2 Allergy status to sulfonamides; F17.210 Nicotine dependence, cigarettes, uncomplicated | CPT/HCPCS: 73080 ==

== ENCOUNTER → 2017-05-12 | Outpatient (CLI) | payer OTHER | LOC: M PAIN 14:00 | DX: M51.26 Other intervertebral disc displacement, lumbar region (principal); M54.16 Radiculopathy, lumbar region; I10 Essential (primary) hypertension; K21.9 Gastro-esophageal reflux disease without esophagitis; F17.290 Nicotine dependence, other tobacco product, uncomplicated; R51 Headache; Z79.899 Other long term (current) drug therapy; Z88.2 Allergy status to sulfonamides | CPT/HCPCS: G0463 ==

== ENCOUNTER → 2017-05-19 | Outpatient (CLI) | payer OTHER | LOC: M RAD 15:12 | DX: M51.26 Other intervertebral disc displacement, lumbar region (principal) | CPT/HCPCS: 72082 ==

== ENCOUNTER → 2017-05-26 | Outpatient (REF) | payer OTHER ==
[2017-05-26 12:45] LABS: BASO # 0.1 10^3/uL (0.0-0.2); BASO % 0.8 % (0.0-1.0); EOS # 0.2 10^3/uL (0.0-0.50); EOS % 3.3 % (0.0-3.0); HEMATOCRIT 47.6 % (42.0-52.0); HEMOGLOBIN 15.8 g/dl (14.0-18.0); IMMATURE GRANULOCYTE % 0.2 % (0-3.0); LYMPH # 1.8 10^3/uL (1.5-4.5); LYMPH % 28.8 % (24.0-44.0); MEAN CORPUSCULAR HEMOGLOBIN 28.8 pg (27.0-33.0); MEAN CORPUSCULAR HGB CONC 33.2 g/dl (32.0-36.5); MEAN CORPUSCULAR VOLUME 86.9 fl (80.0-96.0); MONO # 0.6 10^3/uL (0.0-0.8); MONO % 9.5 % (0.0-5.0); NEUTROPHILS # 3.5 10^3/uL (1.8-7.7); NEUTROPHILS % 57.4 % (36.0-66.0); PLATELET COUNT, AUTOMATED 178 10^3/uL (150-450); RED BLOOD COUNT 5.48 10^6/uL (4.30-6.10); RED CELL DISTRIBUTION WIDTH 11.8 % (11.5-14.5); WHITE BLOOD COUNT 6.1 10^3/uL (4.0-10.0)
[2017-05-26 13:13] LABS: ALBUMIN 3.5 GM/DL (3.2-5.2); ALBUMIN/GLOBULIN RATIO 1.06 (1.00-1.93); ALKALINE PHOSPHATASE 93 U/L (45-117); ALT/SGPT 18 U/L (12-78); ANION GAP 7 MEQ/L (8-16); AST/SGOT 13 U/L (7-37); BILIRUBIN,TOTAL 0.3 MG/DL (0.2-1.0); BLOOD UREA NITROGEN 18 MG/DL (7-18); CALCIUM LEVEL 8.4 MG/DL (8.5-10.1); CARBON DIOXIDE LEVEL 30 MEQ/L (21-32); CHLORIDE LEVEL 102 MEQ/L (98-107); CREATININE FOR GFR 0.92 MG/DL (0.70-1.30); GLOMERULAR FILTRATION RATE > 60.0 (>60); GLUCOSE, FASTING 98 MG/DL (70-100); RHEUMATOID FACTOR QUANT < 10.0 IU/ML (0-15.0); SODIUM LEVEL 139 MEQ/L (136-145); TOTAL PROTEIN 6.8 GM/DL (6.4-8.2)
[2017-05-26 13:34] LABS: ERYTHROCYTE SEDIMENTATION RATE 2 mm/hr (0-15)
[2017-05-27 14:10] LABS: ANTINUCLEAR ANTIBODIES DIRECT Negative (Negative)
== END ==
LOC: M LABNEURO 10:24
DX: R51 Headache (principal)

== ENCOUNTER → 2017-06-08 | Outpatient (CLI) | payer OTHER ==
[~2017-06-08] MED LIST changes: -/SENOSTA PO; -AMBI10TA OR; -AMBI5TAB; -AMBIEN; -ANAFRANIL; -ANAFRANIL PO; -ANTI2TAB; -ASPI325T OR; -ATARAX OR; -CAMPRAL PO; -CLAR5CHW; -CLAR5CHW OR; -CLON0.2T; -Campral PO; -DEPA500T2 PO; -FLEXERIL OR; -HALO2TA PO; -HYDR50TA8; -HYDR50TA8 OR; -HYDRO50TAB PO; -INVE3TAB2 OR; -INVE6TAB3 OR; +ISOVUE-M 300 61% 15ML VIAL (Q9967) As Ordered; -KLON1TAB PO; -LATA5OPD; +LIDOCAINE 1% SDV INJ 30 ML VIAL As Ordered; -LORA10TA2 PO; -METO200T3 OR; -NABU-42 PO; -NABU750T OR; -OMEP20CA3; -OXYC10TA97 OR; -PAXI10TA; -PAXI20TA OR; -PAXI30TA; -PAXI40TA; -PAXIL; -PERC5TAB8 OR; -PRIL20CA; -PRIL20CA PO; -RISP1TAB21 PO; -SERO200T PO; -SERO400T PO; -SEROQUEL PO; -TOPR100T; -TOPR200T; -TOPR200T PO; -TRAZ100T; -TRAZ150T; -TRAZ50TA; -TRAZ50TA4; -TRAZODONE; -ZIPR80CAP PO; -ZOLP10TA2; -ZYPR10TA PO; +diazePAM 5 MG TAB As Ordered; +methylPREDNISolone SUSP 40 MG/ML (DEPO-medrol) VIAL (J1030) As Ordered; +oxyCODONE 5MG TAB As Ordered
== END | disposition home or self-care (01) ==
LOC: M PAIN 13:45
DX: G89.29 Other chronic pain (principal); M51.26 Other intervertebral disc displacement, lumbar region; M51.16 Intervertebral disc disorders with radiculopathy, lumbar region; I10 Essential (primary) hypertension; K21.9 Gastro-esophageal reflux disease without esophagitis; Z79.899 Other long term (current) drug therapy; Z88.2 Allergy status to sulfonamides; F17.210 Nicotine dependence, cigarettes, uncomplicated
CPT/HCPCS: J1030

== ENCOUNTER → 2017-06-09 | Outpatient (CLI) | payer OTHER | LOC: M PLARAD 10:31 | DX: R51 Headache (principal) | CPT/HCPCS: 70551 ==

== ENCOUNTER → 2017-06-23 | Outpatient (CLI) | payer OTHER | LOC: M PAIN 13:45 | DX: M51.26 Other intervertebral disc displacement, lumbar region (principal); M51.16 Intervertebral disc disorders with radiculopathy, lumbar region; I10 Essential (primary) hypertension; K21.9 Gastro-esophageal reflux disease without esophagitis; F17.290 Nicotine dependence, other tobacco product, uncomplicated; Z79.899 Other long term (current) drug therapy; Z88.2 Allergy status to sulfonamides; Z88.8 Allergy status to other drugs, medicaments and biological substances; Z86.59 Personal history of other mental and behavioral disorders | CPT/HCPCS: G0463 ==

== ENCOUNTER → 2017-07-11 | Outpatient (CLI) | payer OTHER ==
[~2017-07-11] MED LIST changes: +BUPIVACAINE HCL 0.25% 10 ML VIAL As Ordered; +BUPIVACAINE HCL 0.25% 30 ML VIAL As Ordered; -ISOVUE-M 300 61% 15ML VIAL (Q9967) As Ordered; -LIDOCAINE 1% SDV INJ 30 ML VIAL As Ordered; +TRIAMCINOLONE ACETONIDE SUSP 40 MG/ML VIAL (J3301) As Ordered; -methylPREDNISolone SUSP 40 MG/ML (DEPO-medrol) VIAL (J1030) As Ordered
== END ==
LOC: M PAIN 10:15
DX: G89.29 Other chronic pain (principal); M79.1 Myalgia; M54.5 Low back pain; I10 Essential (primary) hypertension; K21.9 Gastro-esophageal reflux disease without esophagitis; F17.220 Nicotine dependence, chewing tobacco, uncomplicated; F17.290 Nicotine dependence, other tobacco product, uncomplicated; Z79.899 Other long term (current) drug therapy; Z88.2 Allergy status to sulfonamides; Z88.8 Allergy status to other drugs, medicaments and biological substances
CPT/HCPCS: J3301

== ENCOUNTER → 2017-07-25 | Outpatient (CLI) | payer OTHER | LOC: M PAIN 14:30 | DX: M79.1 Myalgia (principal); M51.26 Other intervertebral disc displacement, lumbar region; M51.16 Intervertebral disc disorders with radiculopathy, lumbar region; M25.552 Pain in left hip; I10 Essential (primary) hypertension; K21.9 Gastro-esophageal reflux disease without esophagitis; F17.228 Nicotine dependence, chewing tobacco, with other nicotine-induced disorders; Z79.899 Other long term (current) drug therapy; Z88.2 Allergy status to sulfonamides; Z88.8 Allergy status to other drugs, medicaments and biological substances | CPT/HCPCS: G0463 ==

== ENCOUNTER → 2017-08-01 | Outpatient (CLI) | payer OTHER | LOC: M RAD 15:49 | DX: M79.1 Myalgia (principal) | CPT/HCPCS: 73502 ==

== ENCOUNTER → 2017-08-10 | Outpatient (CLI) | payer OTHER ==
[~2017-08-10] MED LIST changes: -BUPIVACAINE HCL 0.25% 10 ML VIAL As Ordered; -BUPIVACAINE HCL 0.25% 30 ML VIAL As Ordered; +ISOVUE-M 300 61% 15ML VIAL (Q9967) As Ordered; +LIDOCAINE 1% SDV INJ 30 ML VIAL As Ordered; -TRIAMCINOLONE ACETONIDE SUSP 40 MG/ML VIAL (J3301) As Ordered; +methylPREDNISolone SUSP 40 MG/ML (DEPO-medrol) VIAL (J1030) As Ordered
== END ==
LOC: M PAIN 11:15
DX: G89.29 Other chronic pain (principal); M51.16 Intervertebral disc disorders with radiculopathy, lumbar region; I10 Essential (primary) hypertension; K21.9 Gastro-esophageal reflux disease without esophagitis; I73.00 Raynaud's syndrome without gangrene; H40.9 Unspecified glaucoma; E04.2 Nontoxic multinodular goiter; Z87.891 Personal history of nicotine dependence; Z79.891 Long term (current) use of opiate analgesic; Z79.899 Other long term (current) drug therapy; Z88.2 Allergy status to sulfonamides; Z88.8 Allergy status to other drugs, medicaments and biological substances
CPT/HCPCS: J1030

== ENCOUNTER → 2017-08-22 | Outpatient (CLI) | payer OTHER | LOC: M PAIN 14:00 | DX: M51.16 Intervertebral disc disorders with radiculopathy, lumbar region (principal); M25.552 Pain in left hip; I10 Essential (primary) hypertension; K21.9 Gastro-esophageal reflux disease without esophagitis; I73.00 Raynaud's syndrome without gangrene; Z79.899 Other long term (current) drug therapy; Z88.2 Allergy status to sulfonamides; Z88.8 Allergy status to other drugs, medicaments and biological substances; Z87.891 Personal history of nicotine dependence | CPT/HCPCS: G0463 ==

== ENCOUNTER → 2017-09-11 | Outpatient (REF) | payer OTHER | LOC: M LAB REF 18:34 | DX: E04.1 Nontoxic single thyroid nodule (principal) ==

== ENCOUNTER → 2017-09-12 | Outpatient (CLI) | payer OTHER ==
[~2017-09-12] MED LIST changes: +BUPIVACAINE HCL 0.25% 30 ML VIAL As Ordered; +TRIAMCINOLONE ACETONIDE SUSP 40 MG/ML VIAL (J3301) As Ordered; +dexameTHASONE 10 MG/1 ML VIAL PRES.FREE (J1100) As Ordered; -methylPREDNISolone SUSP 40 MG/ML (DEPO-medrol) VIAL (J1030) As Ordered
== END ==
LOC: M PAIN 14:00
DX: G89.29 Other chronic pain (principal); M51.16 Intervertebral disc disorders with radiculopathy, lumbar region; M51.17 Intervertebral disc disorders with radiculopathy, lumbosacral region; I10 Essential (primary) hypertension; K21.9 Gastro-esophageal reflux disease without esophagitis; I73.00 Raynaud's syndrome without gangrene; E04.1 Nontoxic single thyroid nodule; Z87.891 Personal history of nicotine dependence; Z79.891 Long term (current) use of opiate analgesic; Z79.899 Other long term (current) drug therapy; Z88.2 Allergy status to sulfonamides; Z88.8 Allergy status to other drugs, medicaments and biological substances
CPT/HCPCS: J1100

== ENCOUNTER → 2017-09-26 | Outpatient (CLI) | payer OTHER | LOC: M PAIN 14:30 | DX: M79.1 Myalgia (principal); M51.16 Intervertebral disc disorders with radiculopathy, lumbar region; I10 Essential (primary) hypertension; K21.9 Gastro-esophageal reflux disease without esophagitis; F17.210 Nicotine dependence, cigarettes, uncomplicated; Z79.891 Long term (current) use of opiate analgesic; Z79.899 Other long term (current) drug therapy; Z88.8 Allergy status to other drugs, medicaments and biological substances | CPT/HCPCS: G0463 ==

== ENCOUNTER → 2017-09-29 | Outpatient (CLI) | payer OTHER | LOC: M PLARAD 15:20 | DX: M51.16 Intervertebral disc disorders with radiculopathy, lumbar region (principal); M51.36 Other intervertebral disc degeneration, lumbar region; M51.26 Other intervertebral disc displacement, lumbar region | CPT/HCPCS: 72148 ==

== ENCOUNTER → 2017-11-15 | Outpatient (CLI) | payer OTHER | LOC: M PAIN 14:00 | DX: M54.14 Radiculopathy, thoracic region (principal); M54.6 Pain in thoracic spine; G89.29 Other chronic pain; I10 Essential (primary) hypertension; K21.9 Gastro-esophageal reflux disease without esophagitis; Z79.891 Long term (current) use of opiate analgesic; Z79.899 Other long term (current) drug therapy; Z88.2 Allergy status to sulfonamides; Z88.8 Allergy status to other drugs, medicaments and biological substances; Z90.89 Acquired absence of other organs; Z87.891 Personal history of nicotine dependence | CPT/HCPCS: G0463 ==

== ENCOUNTER → 2017-11-27 | Outpatient (CLI) | payer OTHER ==
[2017-11-27 18:23] LABS: FREE T4 0.98 NG/DL (0.76-1.46)
[2017-11-29 14:25] LABS: THRYOGLOBULIN ANTIBODIES (ATA) < 1.0 IU/mL (0.0-0.9); THYROGLOBULIN QUANTITATIVE 1.8 ng/mL (1.4-29.2)
== END ==
LOC: M LAB 17:06
DX: C73 Malignant neoplasm of thyroid gland (principal)
CPT/HCPCS: 84443

== ENCOUNTER → 2018-01-10 | Outpatient (CLI) | payer OTHER | LOC: M PAIN 14:00 | DX: G89.29 Other chronic pain (principal); M51.16 Intervertebral disc disorders with radiculopathy, lumbar region; M79.10 Myalgia, unspecified site; G43.709 Chronic migraine without aura, not intractable, without status migrainosus; I10 Essential (primary) hypertension; K21.9 Gastro-esophageal reflux disease without esophagitis; I73.00 Raynaud's syndrome without gangrene; E89.0 Postprocedural hypothyroidism; Z87.891 Personal history of nicotine dependence; Z88.2 Allergy status to sulfonamides; Z88.8 Allergy status to other drugs, medicaments and biological substances | CPT/HCPCS: G0463 ==

== ENCOUNTER → 2018-01-24 | Outpatient (CLI) | payer OTHER ==
[~2018-01-24] MED LIST changes: -BUPIVACAINE HCL 0.25% 30 ML VIAL As Ordered; -TRIAMCINOLONE ACETONIDE SUSP 40 MG/ML VIAL (J3301) As Ordered; -dexameTHASONE 10 MG/1 ML VIAL PRES.FREE (J1100) As Ordered; +methylPREDNISolone SUSP 40 MG/ML (DEPO-medrol) VIAL (J1030) As Ordered
== END ==
LOC: M PAIN 11:45
DX: G89.29 Other chronic pain (principal); M51.16 Intervertebral disc disorders with radiculopathy, lumbar region; I10 Essential (primary) hypertension; K21.9 Gastro-esophageal reflux disease without esophagitis; I73.00 Raynaud's syndrome without gangrene; Z79.891 Long term (current) use of opiate analgesic; Z79.899 Other long term (current) drug therapy; Z88.2 Allergy status to sulfonamides; Z88.8 Allergy status to other drugs, medicaments and biological substances; Z86.59 Personal history of other mental and behavioral disorders
CPT/HCPCS: J1030

== ENCOUNTER → 2018-01-26 | Outpatient (CLI) | payer OTHER | LOC: M PLARAD 13:07 | DX: M54.14 Radiculopathy, thoracic region (principal); R93.7 Abnormal findings on diagnostic imaging of other parts of musculoskeletal system | CPT/HCPCS: 72146 ==

== ENCOUNTER → 2018-02-07 | Outpatient (CLI) | payer OTHER | LOC: M PAIN 14:15 | DX: G89.29 Other chronic pain (principal); M51.16 Intervertebral disc disorders with radiculopathy, lumbar region; M79.18 Myalgia, other site; G43.709 Chronic migraine without aura, not intractable, without status migrainosus; I10 Essential (primary) hypertension; K21.9 Gastro-esophageal reflux disease without esophagitis; H40.9 Unspecified glaucoma; I73.00 Raynaud's syndrome without gangrene; E89.0 Postprocedural hypothyroidism; Z90.49 Acquired absence of other specified parts of digestive tract; Z87.891 Personal history of nicotine dependence; Z88.2 Allergy status to sulfonamides; Z88.8 Allergy status to other drugs, medicaments and biological substances; Z79.899 Other long term (current) drug therapy | CPT/HCPCS: G0463 ==

== ENCOUNTER → 2018-02-14 | Outpatient (CLI) | payer OTHER ==
[~2018-02-14] MED LIST changes: +BOTULINUM INJ 100 UNITS (J0585) IM; -ISOVUE-M 300 61% 15ML VIAL (Q9967) As Ordered; -LIDOCAINE 1% SDV INJ 30 ML VIAL As Ordered; -methylPREDNISolone SUSP 40 MG/ML (DEPO-medrol) VIAL (J1030) As Ordered
== END ==
LOC: M PAIN 14:00
DX: G43.709 Chronic migraine without aura, not intractable, without status migrainosus (principal); I10 Essential (primary) hypertension; K21.9 Gastro-esophageal reflux disease without esophagitis; M54.5 Low back pain; F17.210 Nicotine dependence, cigarettes, uncomplicated; H40.9 Unspecified glaucoma; I73.00 Raynaud's syndrome without gangrene; E04.2 Nontoxic multinodular goiter; Z88.2 Allergy status to sulfonamides; Z88.8 Allergy status to other drugs, medicaments and biological substances; Z79.891 Long term (current) use of opiate analgesic; Z79.899 Other long term (current) drug therapy
CPT/HCPCS: J0585

== ENCOUNTER → 2018-04-02 | Outpatient (REF) | payer OTHER ==
[~2018-04-02] MED LIST changes: +/SENOSTA PO; +AMBI10TA OR; +AMBI5TAB; +AMBIEN; +ANAFRANIL; +ANAFRANIL PO; +ANTI2TAB; +ASPI325T OR; +ATARAX OR; -BOTULINUM INJ 100 UNITS (J0585) IM; +CAMPRAL PO; +CLAR5CHW; +CLAR5CHW OR; +CLON0.2T; +Campral PO; +DEPA500T2 PO; +FLEXERIL OR; +GABA-843; +HALO2TA PO; +HYDR50TA8; +HYDR50TA8 OR; +HYDRO50TAB PO; +INVE3TAB2 OR; +INVE6TAB3 OR; +KLON1TAB PO; +LATA5OPD; +LORA10TA2 PO; +METO200T3 OR; +NABU-42 PO; +NABU750T OR; +OMEP20CA3; +OXYC10TA97 OR; +PAXI10TA; +PAXI20TA OR; +PAXI30TA; +PAXI40TA; +PAXIL; +PERC5TAB12 PO; +PERC5TAB8 OR; +PRIL20CA; +PRIL20CA PO; +RISP1TAB21 PO; +SERO200T PO; +SERO400T PO; +SEROQUEL PO; +TOPR100T; +TOPR200T; +TOPR200T PO; +TRAZ-160; +TRAZ100T; +TRAZ150T; +TRAZ50TA; +TRAZODONE; +ZIPR80CAP PO; +ZOLP10TA2; +ZYPR10TA PO; -diazePAM 5 MG TAB As Ordered; -oxyCODONE 5MG TAB As Ordered
[2018-04-02 13:19] LABS: THYROGLOBULIN ANTIBODY 46.8 U/ML (<60.0); THYROID PEROXIDASE ANTIBODY 942.8 U/ML (<60.0)
== END ==
LOC: M LAB REF 12:49
PROVIDERS: ATTEND Nurse Practitioner Adult Health
DX: E89.0 Postprocedural hypothyroidism (principal); C73 Malignant neoplasm of thyroid gland

== ENCOUNTER → 2018-04-09 | Outpatient (CLI) | payer OTHER ==
[2018-04-09 16:29] LABS: FREE T4 1.16 NG/DL (0.76-1.46); THYROID STIMULATING HORMONE 2.02 uIU/ML (0.358-3.740)
[2018-04-11 10:48] LABS: THYROGLOBULIN ANTIBODY 26.6 U/ML (<60.0)
[2018-04-12 10:12] LABS: THRYOGLOBULIN ANTIBODIES (ATA) < 1.0 IU/mL (0.0-0.9); THYROGLOBULIN QUANTITATIVE 0.3 ng/mL (1.4-29.2)
== END ==
LOC: M WUC 14:06
PROVIDERS: ATTEND Nurse Practitioner Family
DX: C73 Malignant neoplasm of thyroid gland (principal); E89.0 Postprocedural hypothyroidism

== ENCOUNTER → 2018-04-23 | Outpatient (CLI) | payer OTHER ==
[~2018-04-23] MED LIST changes: +ISOVUE-M 300 61% 15ML VIAL (Q9967) As Ordered ONE; +LIDOCAINE 1% SDV INJ 30 ML VIAL As Ordered ONE; +diazePAM 5 MG TAB As Ordered ONE; +methylPREDNISolone SUSP 40 MG/ML (DEPO-medrol) VIAL (J1030) As Ordered ONE; +oxyCODONE 5MG TAB As Ordered ONE
--- NOTE | 2018-04-23 17:13 | REP ---
Partial thoracic spine series: Two views. History: Thoracic epidural for pain. 9 seconds of fluoroscopy time is reported. Findings: Two last image hold fluoroscopically obtained spot radiographs of the thoracic spine document needle position and contrast injection associated with thoracic epidural injection procedure. Electronically Signed by Baltazar Hwang MD 04/23/2018 08:25 P
--- NOTE | 2018-05-08 01:35 | ECWPNPC ---
PATIENT NAME: MARCY AMOS : 1980 GENDER: MALE VISIT DATE: 04/23/2018 DISCHARGE DATE: 04/23/18 1449 VISIT LOCKED DATE TIME: PHYSICIAN: OSBALDO LOPEZ MD RESOURCE: OSBALDO LOPEZ MD REASON FOR APPOINTMENT 1. THORACIC EPIDURAL HISTORY OF PRESENT ILLNESS HISTORY OF PRESENT ILLNESS: PAIN THE PATIENT DESCRIBES THE PAIN... FALL RISK SCREENING: SCREENING :NO FALLS IN THE PAST YEAR CURRENT MEDICATIONS TAKING TRAZODONE HCL 50 MG TABLET 1 TABLET AT BEDTIME NEEDED ORALLY ONCE A DAY, NOTES: 04/22/18 PM TAKING ZOLPIDEM TARTRATE 10 MG TABLET 1 TABLET AT BEDTIME NEEDED ORALLY ONCE A DAY, NOTES: 04/22/18 PM TAKING CLONIDINE HCL 0.2 MG TABLET 2 ORALLY BID, NOTES: 04/22/18 PM TAKING METOPROLOL SUCCINATE 200 MG TABLET EXTENDED RELEASE ORALLY BEFORE BEDTIME, NOTES: 04/22/18 PM TAKING OMEPRAZOLE 40 MG CAPSULE DELAYED RELEASE 1 CAPSULE ORALLY ONCE A DAY, NOTES: 04/22/18 PM TAKING LATANOPROST 0.005 % SOLUTION 1 DROP INTO AFFECTED EYE IN THE EVENING OPHTHALMIC ONCE A DAY, NOTES: 04/22/18 PM TAKING AMLODIPINE BESYLATE 5 MG TABLET 1 TABLET ORALLY ONCE A DAY, NOTES: 04/22/18 PM TAKING BENTYL 10 MG CAPSULE 1 CAPSULES ORALLY ONCE DAILY, NOTES: NONE IN 3 DAYS TAKING LEVOTHROYXINE 200 MCG 1 TAB DAILY, NOTES: TO TOTAL 300MCG 04/23/18 900 TAKING LEVOTHYROXINE SODIUM 100 MCG TABLET 1 TABLET ON AN EMPTY STOMACH IN THE MORNING ORALLY ONCE A DAY, NOTES: TO TOTAL 300MCG 04/23/18 0900 TAKING REQUIP 1 MG TABLET 1 TABLET 1 TO 3 HOURS BEFORE BEDTIME ORALLY ONCE A DAY NEEDED, NOTES: NONE IN 3 DAYS TAKING TRAMADOL HCL 50 MG TABLET 1 -2 TABLET ORALLY TAKE 1-2 TABS Q 6 HRS PRN MDD=6, NOTES: 04/23/18 0400 TAKING CARISOPRODOL 350 MG TABLET 1 TABLET NEEDED ORALLY BID FOR PAIN/SPASM MDD=2, NOTES: 04/22/18 PM TAKING PAXIL 10 MG TABLET 1 TABLET IN THE MORNING ORALLY ONCE A DAY, NOTES: 04/22/18 NOT-TAKING VALIUM 10 MG TABLET 1 TABLET NEEDED ORALLY TAKE 1 TAB 1 HOUR PRIOR TO MRI, ONE ON ARRIVE AND 1 TAB DURING/AFTER IF NEEDED, NOTES: NONE RECENT NOT-TAKING FISH OIL OMEGA-3 1000 MG CAPSULE 1 CAPSULE ORALLY ONCE A DAY NOT-TAKING MAGNESIUM OXIDE 250 MG TABLET 1 TABLET NEEDED ORALLY ONCE A DAY NOT-TAKING DIAZEPAM 5 MG TABLET 1 TABLET NEEDED ORALLY TAKE 1 TAB 1 HR PRIOR TO TEST, AND 1 ON ARRIVE MDD=2 MEDICATION LIST REVIEWED AND RECONCILED WITH THE PATIENT PAST MEDICAL HISTORY HTN GERD LOW BACK PAIN GLAUCOMA - PER PT 3 CYSTS ON THYROID RAYNAUD'S ALLERGIES SULFA (FOR ALLERGY USE ONLY): HIVES: ALLERGY CYMBALTA: LEGS TITCHING: SIDE EFFECTS GABAPENTIN: ALTERED BALANCE: SIDE EFFECTS BACLOFEN: RESTLESS LEGS: SIDE EFFECTS ZANAFLEX: RESTLESS LEGS: SIDE EFFECTS TOPAMAX: "MESSED WITH HIS EYES": SIDE EFFECTS ROBAXIN: NAUSEA/VOMITING: ALLERGY SKELAXIN LYRICA: INSOMNIA: SIDE EFFECTS SURGICAL HISTORY T&A APPENDECTOMY REPAIR OF RIGHT ELBOW FRACTURE REPAIR OF RIGHT ANKLE FRACTURE 2000 THYROID REMOVAL 2017 FAMILY HISTORY FATHER: UNKNOWN MOTHER: UNKNOWN SIBLINGS: UNKNOWN 1 SISTER(S) . NO KNOWN FAMILY HISTORY OF ANY UROLOGICALLY RELATED DISEASES/CANCERS. SOCIAL HISTORY GENERAL: TOBACCO USE ARE YOU A:FORMER SMOKER ADDITIONAL FINDINGS: TOBACCO USERCIGAR SMOKER SMOKING CESSATION INFORMATION GIVEN01/10/2018 ADDITIONAL FINDINGS: TOBACCO CFA-JAJSSR-ZEDIOCE CIGARETTE SMOKER (<1/DAY) LUNG CANCER SCREENING SMOKING STATUS:CURRENT SMOKER ALCOHOL SCREENING DID YOU HAVE A DRINK CONTAINING ALCOHOL IN THE PAST YEAR?NO POINTS0 INTERPRETATIONNEGATIVE RECREATIONAL DRUG USE DRUG USE?NO CAFFEINE CAFFEINE USE?YES CHRISTIAN [id number] AGNOSTIC LANGUAGE LANGUAGES SPOKEN:KINYARWANDA EDUCATION LEVEL OF EDUCATION:NOT FINISHED HIGH SCHOOL LEARNING BARRIERS / SPECIAL NEEDS BARRIERS TO LEARNING?NO HEARING IMPAIRED?NO VISION IMPAIRED?YES :CORRECTIVE LENSES COGNITIVELY IMPAIRED?NO READINESS TO LEARN?YES LEARNING PREFERENCES?NO LEARNING CAPABILITIES PRESENT?YES EMOTIONAL BARRIERS?NO SPECIAL DEVICES?NO TRUCK STRIKER NEEDED?NO DOMESTIC VIOLENCE DO YOU FEEL SAFE IN YOUR ENVIRONMENT?YES OCCUPATION: UNEMPLOYED. DIET: REGULAR. EXERCISE: NONE. MARITAL STATUS: SINGLE. OTHERS AT HOME: NONE. NEW PATIENT PAIN DIARY FROM 0-10, WHAT LEVEL IS YOUR PAIN TODAY?8 PAIN CLINIC PFS, CLERGY, PUBLIC HEALTH REFERRALS PFS REFERRAL NEEDED?NO CLERGY REFERRAL NEEDED?NO PUBLIC HEALTH REFERRAL NEEDED?NO HAS THE PATIENT BEEN EDUCATED REGARDING HIS/HER PLAN OF CARE?YES HAS THE PATIENT BEEN EDUCATED REGARDING PAIN, THE RISK FOR PAIN, THE IMPORTANCE OF EFFECTIVE PAIN MANAGEMENT, AND THE PAIN ASSESSMENT PROCESS?YES ADVANCE DIRECTIVE ADVANCE DIRECTIVE DISCUSSED WITH PATIENT:YES NARENDRA BALDWIN [phone] REVEIWED WITH PT 02/14/18 1426 BVREVIEWED WITH PT 04/23/18 1318 BV. HOSPITALIZATION/MAJOR DIAGNOSTIC PROCEDURE SEVERAL [facility] REVIEW OF SYSTEMS REVIEWED BY: PROVIDER: . CONSTITUTIONAL: ANY CHANGE IN YOUR MEDICAL CONDITION? NO . CHILLS NO . FEVER NO . INFECTION: DO YOU HAVE NEW INFECTIONS? NO . DO YOU HAVE HISTORY OF MRSA? NO . MUSCULOSKELETAL: ANY NEW PATTERNS OF PAIN OR NUMBNESS? PT COMPLAINS OF INCREASING NUMBNESS/TINGLING IN BILATERAL ARMS, ESPECIALLY AT NIGHT . GASTROENTEROLOGY: ANY NEW CHANGE IN BOWEL CONTROL? NO . GENITOURINARY: ANY NEW CHANGE IN BLADDER CONTROL? NO . IS THERE A CHANCE YOU COULD BE ? NO . HEMATOLOGY/LYMPH: DO YOU TAKE ANY BLOOD THINNERS? (FOR EXAMPLE- COUMADIN, PLAVIX, AGGRENOX, PLATEL, PRADAXA, OR XARELTO) NO . WHEN WAS YOUR LAST DOSE? DATE: TIME: . NEUROLOGY: HAVE YOU FALLEN IN THE PAST 6 MONTHS? NO . ANY NEW EXTREMITY NUMBNESS OR WEAKNESS? NO . CARDIOLOGY: DO YOU HAVE A PACEMAKER OR DEFIBRILLATOR? NO . RESPIRATORY: HAVE YOU BEEN SICK IN THE PAST WEEK? NO . FEVER NO . FLU LIKE SYMPTOMS? NO . COUGH NO . INTEGUMENTARY: DO YOU HAVE ANY RASHES OR OPEN SORES? NO . ALLERGIC/IMMUNO: ARE YOU ALLERGIC TO SHELLFISH OR IV DYE? NO . ANY NEW ALLERGIES? NO . PSYCHIATRIC: DO YOU HAVE THOUGHTS OF HURTING YOURSELF OR SOMEONE ELSE? NO . ARE YOU ABUSED, NEGLECTED, OR IN AN UNSAFE ENVIRONMENT? NO . ENDOCRINOLOGY: ARE YOU DIABETIC? NO . OTHER: DO YOU NEED ANY PRESCRIPTIONS? NO . IF YES, PLEASE LIST: ____ . ANY NEW PROBLEMS WITH YOUR MEDICATIONS? NO . WHEN DID YOU LAST EAT? 04/23/18 0000 . WHEN DID YOU LAST DRINK? 04/23/18 0800 . WHAT DID YOU LAST DRINK? WATER . NAME OF PERSON DRIVING YOU HOME? PALMER FATHER . DO YOU HAVE ANY OTHER QUESTIONS OR CONCERNS NO . VITAL SIGNS WT 359.8 LBS, HT 6'8", BMI 39.52 INDEX, BP 140/94 MM HG, HR 64 /MIN, RR 18 /MIN, TEMP 97.5 F, OXYGEN SAT % 99%, NA INITIALS SC 11:50, REVIEWED BY: BV. 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 OSBALDO LOPEZ BIOINFORMATICS ASSOCIATE NONE ANESTHESIA LOCAL PRE PROCEDURE NOTE THE PATIENT HAS A HISTORY OF CHRONIC THORACIC PAIN. I EVALUATE THE PATIENT AND REVIEWED THE CHART. I WENT OVER THE RISKS, ALTERNATIVES, AND BENEFITS ASSOCIATED WITH THIS PROCEDURE. THE PATIENT WOULD LIKE TO PROCEED AND GIVE CONSENT TO PERFORMED THE PROCEDURE. THE PATIENT DENIES UNEXPLAINABLE WEIGHT LOSS, FEVER, CHILLS, OR NEW CHANGES IN URINARY OR BOWEL CONTROL. DESCRIPTION OF PROCEDURE THE PATIENT WAS BROUGHT TO THE PROCEDURE ROOM AND PLACED IN THE PRONE POSITION. THE THORACIC AREA WAS CLEANED WITH BETADINE SOLUTION AND DRAPED ASEPTICALLY. THE PROCEDURE WAS DONE UNDER STERILE CONDITIONS. I CHECKED LATERALITY AND THE LEVEL WHERE THE PROCEDURE WAS GOING TO BE PERFORMED WITH THE PATIENT AND THE SUPPORTING STAFF AT THE MOMENT OF THE TIME OUT IN THE PROCEDURE ROOM. UNDER FLUOROSCOPIC GUIDANCE, THE TARGET POINT WAS SELECTED AT THE INTERLAMINAR LEVEL OF T8-T9. LIDOCAINE WAS USED TO NUMB THE SKIN AND THE SUBCUTANEOUS TISSUE BELOW IT. EPIDURAL TUOHY NEEDLE, 17-GAUGE, WAS ADVANCED UNDER FLUOROSCOPIC GUIDANCE AND FOLLOWING PATIENT FEEDBACK UNTIL THE EPIDURAL SPACE WAS REACHED 6 CM DEEP INTO THE SKIN BY THE LOSS OF RESISTANCE TECHNIQUE. ISOVUE M DYE 30%, 0.25 ML, WAS INJECTED SHOWING ADEQUATE SPREAD OF THE DYE. THEN, A SOLUTION OF 3 ML OF NORMAL SALINE WITH DEPO-MEDROL 60 MG WAS INJECTED SLOWLY FOLLOWING PATIENT FEEDBACK. THERE WAS NO EVIDENCE OF BLOOD, PARESTHESIA OR CEREBROSPINAL FLUID DURING THE PROCEDURE. THE PATIENT WAS SENT TO THE RECOVERY ROOM. THE PATIENT WAS MOVING THE EXTREMITIES AND DOING WELL. THERE WAS NO COMPLICATION DURING THE PROCEDURE. FLUOROSCOPY TIME WAS 9 SECONDS POST PROCEDURE NOTE THE PATIENT WILL BE SEEN IN A FOLLOW UP IN THE NEXT FEW WEEKS. INSTRUCTIONS WERE GIVEN, QUESTIONS WERE ANSWERED, AND THE PATIENT EXPRESSED UNDERSTANDING AND AGREED WITH THE PLAN. I, ROSALVA RUVALCABA, DOCUMENTED THE ABOVE INFORMATION ACTING A SCRIBE FOR DR. LOPEZ. I HAVE REVIEWED THE ABOVE DOCUMENT, WRITTEN BY ROSALVA CARBONE AND I VERIFY THAT IT IS ACCURATE. DIAGNOSTIC IMAGING [facility] FLUORO GUIDE SPINE INJECTION (PAIN)[id number] PROCEDURE CODES 6045F RADXPS IN END [id number] PXD [id number] CERVICAL/THORACIC W/ IMAGING DISPOSITION & COMMUNICATION FOLLOW UP 3 WEEKS ELECTRONICALLY SIGNED BY OSBALDO LOPEZ MD, MD ON 05/07/2018 AT 11:41 AM EST DISCLAIMER : THIS IS A VISIT SUMMARY EXTRACTED FROM THE [employer] CHART. IT IS NOT A COPY OF THE [employer] PROGRESS NOTE. MTDD
== END ==
LOC: M PAIN 11:45
PROVIDERS: ATTEND Anesthesiology
DX: M51.14 Intervertebral disc disorders with radiculopathy, thoracic region (principal); I10 Essential (primary) hypertension; K21.9 Gastro-esophageal reflux disease without esophagitis; H40.9 Unspecified glaucoma; I73.00 Raynaud's syndrome without gangrene; F17.210 Nicotine dependence, cigarettes, uncomplicated; E89.0 Postprocedural hypothyroidism; Z90.49 Acquired absence of other specified parts of digestive tract; Z79.899 Other long term (current) drug therapy; Z88.2 Allergy status to sulfonamides; Z88.8 Allergy status to other drugs, medicaments and biological substances
CPT/HCPCS: 62321; J1030; Q9967

== ENCOUNTER → 2018-05-01 | Outpatient (CLI) | payer OTHER ==
[~2018-05-01] MED LIST changes: -ISOVUE-M 300 61% 15ML VIAL (Q9967) As Ordered ONE; -LIDOCAINE 1% SDV INJ 30 ML VIAL As Ordered ONE; -diazePAM 5 MG TAB As Ordered ONE; -methylPREDNISolone SUSP 40 MG/ML (DEPO-medrol) VIAL (J1030) As Ordered ONE; -oxyCODONE 5MG TAB As Ordered ONE
--- NOTE | 2018-05-02 06:13 | REP ---
Clinical: Back pain . Technique: AP, lateral, bilateral oblique, and coned-down views. Findings: Alignment and lordosis is maintained. There is no evidence for acute fracture / compression injury or subluxation. No obvious spondylolysis or spondylolisthesis. There is moderate focal degenerative disease at the L4-5 level including endplate sclerosis, marginal spurring, and disc space narrowing. There is mild disc space narrowing and endplate sclerosis at L5-S1. Impression: Mild to moderate degenerative disease at L5-S1 and L4-5 Electronically Signed by Sean Mancuso MD 05/02/2018 06:04 A
== END ==
LOC: M RAD 15:35
PROVIDERS: ATTEND Internal Medicine
DX: M51.37 Other intervertebral disc degeneration, lumbosacral region (principal); M51.36 Other intervertebral disc degeneration, lumbar region

== ENCOUNTER → 2018-05-02 | Outpatient (CLI) | payer OTHER ==
--- NOTE | 2018-05-15 02:02 | ECWPNPC ---
PATIENT NAME: MARCY AMOS : 1980 GENDER: MALE VISIT DATE: 05/02/2018 DISCHARGE DATE: 05/02/18 1532 VISIT LOCKED DATE TIME: PHYSICIAN: CALVIN CHAN RESOURCE: CALVIN CHAN REASON FOR APPOINTMENT 1. POST PROCSW PATIENT,BACK PAIN/MIGRAINE-PER RHYS''S 02-07-18 OV NOTE HISTORY OF PRESENT ILLNESS HISTORY OF PRESENT ILLNESS: HERE FOR F/U OF CHRONIC GENERALIZED BODY PAIN.RATING PAIN VAS 7/10.DESCRIBES PAIN CONTINUOUS,ACHING AND BURNING. PAIN THE PATIENT DESCRIBES THE PAIN... FALL RISK SCREENING: SCREENING :NO FALLS IN THE PAST YEAR CURRENT MEDICATIONS TAKING TRAZODONE HCL 50 MG TABLET 1 TABLET AT BEDTIME NEEDED ORALLY ONCE A DAY TAKING ZOLPIDEM TARTRATE 10 MG TABLET 1 TABLET AT BEDTIME NEEDED ORALLY ONCE A DAY TAKING CLONIDINE HCL 0.2 MG TABLET 2 ORALLY BID TAKING METOPROLOL SUCCINATE 200 MG TABLET EXTENDED RELEASE ORALLY BEFORE BEDTIME TAKING OMEPRAZOLE 40 MG CAPSULE DELAYED RELEASE 1 CAPSULE ORALLY ONCE A DAY TAKING LATANOPROST 0.005 % SOLUTION 1 DROP INTO AFFECTED EYE IN THE EVENING OPHTHALMIC ONCE A DAY TAKING AMLODIPINE BESYLATE 5 MG TABLET 1 TABLET ORALLY ONCE A DAY TAKING BENTYL 10 MG CAPSULE 1 CAPSULES ORALLY ONCE DAILY, NOTES: TAKES NEEDED TAKING LEVOTHROYXINE 200 MCG 1 TAB DAILY, NOTES: TO TOTAL 300MCG TAKING LEVOTHYROXINE SODIUM 100 MCG TABLET 1 TABLET ON AN EMPTY STOMACH IN THE MORNING ORALLY ONCE A DAY, NOTES: TO TOTAL 300MCG TAKING REQUIP 1 MG TABLET 1 TABLET 1 TO 3 HOURS BEFORE BEDTIME ORALLY ONCE A DAY NEEDED, NOTES: NONE IN 3 DAYS TAKING TRAMADOL HCL 50 MG TABLET 1 -2 TABLET ORALLY TAKE 1-2 TABS Q 6 HRS PRN MDD=6, NOTES: 04/23/18 0400 TAKING CARISOPRODOL 350 MG TABLET 1 TABLET NEEDED ORALLY BID FOR PAIN/SPASM MDD=2, NOTES: 04/22/18 PM TAKING PAXIL 20 MG TABLET 1 TABLET IN THE MORNING ORALLY ONCE A DAY NOT-TAKING VALIUM 10 MG TABLET 1 TABLET NEEDED ORALLY TAKE 1 TAB 1 HOUR PRIOR TO MRI, ONE ON ARRIVE AND 1 TAB DURING/AFTER IF NEEDED, NOTES: NONE RECENT NOT-TAKING FISH OIL OMEGA-3 1000 MG CAPSULE 1 CAPSULE ORALLY ONCE A DAY NOT-TAKING MAGNESIUM OXIDE 250 MG TABLET 1 TABLET NEEDED ORALLY ONCE A DAY NOT-TAKING DIAZEPAM 5 MG TABLET 1 TABLET NEEDED ORALLY TAKE 1 TAB 1 HR PRIOR TO TEST, AND 1 ON ARRIVE MDD=2 MEDICATION LIST REVIEWED AND RECONCILED WITH THE PATIENT PAST MEDICAL HISTORY HTN GERD LOW BACK PAIN GLAUCOMA - PER PT 3 CYSTS ON THYROID RAYNAUD'S ALLERGIES SULFA (FOR ALLERGY USE ONLY): HIVES: ALLERGY CYMBALTA: LEGS TITCHING: SIDE EFFECTS GABAPENTIN: ALTERED BALANCE: SIDE EFFECTS BACLOFEN: RESTLESS LEGS: SIDE EFFECTS ZANAFLEX: RESTLESS LEGS: SIDE EFFECTS TOPAMAX: "MESSED WITH HIS EYES": SIDE EFFECTS ROBAXIN: NAUSEA/VOMITING: ALLERGY SKELAXIN LYRICA: INSOMNIA: SIDE EFFECTS SURGICAL HISTORY T&A APPENDECTOMY REPAIR OF RIGHT ELBOW FRACTURE REPAIR OF RIGHT ANKLE FRACTURE 1999 THYROID REMOVAL 2017 FAMILY HISTORY FATHER: UNKNOWN MOTHER: UNKNOWN SIBLINGS: UNKNOWN 1 SISTER(S) . NO KNOWN FAMILY HISTORY OF ANY UROLOGICALLY RELATED DISEASES/CANCERS. SOCIAL HISTORY GENERAL: TOBACCO USE ARE YOU A:FORMER SMOKER ADDITIONAL FINDINGS: TOBACCO USERCIGAR SMOKER SMOKING CESSATION INFORMATION GIVEN01/10/2018 ADDITIONAL FINDINGS: TOBACCO [place]-COXHWD-U[place] CIGARETTE SMOKER (<1/DAY) LUNG CANCER SCREENING SMOKING STATUS:CURRENT SMOKER ALCOHOL SCREENING DID YOU HAVE A DRINK CONTAINING ALCOHOL IN THE PAST YEAR?NO POINTS0 INTERPRETATIONNEGATIVE RECREATIONAL DRUG USE DRUG USE?NO CAFFEINE CAFFEINE USE?YES RESTORATION [id number] AGNOSTIC LANGUAGE LANGUAGES SPOKEN:GREEK EDUCATION LEVEL OF EDUCATION:NOT FINISHED HIGH SCHOOL LEARNING BARRIERS / SPECIAL NEEDS BARRIERS TO LEARNING?NO HEARING IMPAIRED?NO VISION IMPAIRED?YES :CORRECTIVE LENSES COGNITIVELY IMPAIRED?NO READINESS TO LEARN?YES LEARNING PREFERENCES?NO LEARNING CAPABILITIES PRESENT?YES EMOTIONAL BARRIERS?NO SPECIAL DEVICES?NO ADULT MANAGER NEEDED?NO DOMESTIC VIOLENCE DO YOU FEEL SAFE IN YOUR ENVIRONMENT?YES OCCUPATION: UNEMPLOYED. DIET: REGULAR. EXERCISE: NONE. MARITAL STATUS: SINGLE. OTHERS AT HOME: NONE. NEW PATIENT PAIN DIARY FROM 0-10, WHAT LEVEL IS YOUR PAIN TODAY?7 PAIN CLINIC PFS, CLERGY, PUBLIC HEALTH REFERRALS PFS REFERRAL NEEDED?NO CLERGY REFERRAL NEEDED?NO PUBLIC HEALTH REFERRAL NEEDED?NO HAS THE PATIENT BEEN EDUCATED REGARDING HIS/HER PLAN OF CARE?YES HAS THE PATIENT BEEN EDUCATED REGARDING PAIN, THE RISK FOR PAIN, THE IMPORTANCE OF EFFECTIVE PAIN MANAGEMENT, AND THE PAIN ASSESSMENT PROCESS?YES ADVANCE DIRECTIVE ADVANCE DIRECTIVE DISCUSSED WITH PATIENT:YES NARENDRA AMOS-MOM [phone] REVEIWED WITH PT 02/14/18 1426 BVREVIEWED WITH PT 04/23/18 1318 BVREVIEWED WITH PT 05/02/18 1421 BV. HOSPITALIZATION/MAJOR DIAGNOSTIC PROCEDURE SEVERAL [facility] REVIEW OF SYSTEMS REVIEWED BY: PROVIDER: CALVIN INTERIANO . CONSTITUTIONAL: ANY CHANGE IN YOUR MEDICAL CONDITION? NO . CHILLS NO . FEVER NO . INFECTION: DO YOU HAVE NEW INFECTIONS? NO . DO YOU HAVE HISTORY OF MRSA? NO . MUSCULOSKELETAL: ANY NEW PATTERNS OF PAIN OR NUMBNESS? YES, PT HAS INTERMITENT PAIN IN POSTERIOR BILATERAL ARMS. ALSO COMPLAINS OF INCREASING NUMBNESS IN BILATERAL HANDS. . GASTROENTEROLOGY: ANY NEW CHANGE IN BOWEL CONTROL? NO . GENITOURINARY: ANY NEW CHANGE IN BLADDER CONTROL? NO . IS THERE A CHANCE YOU COULD BE ? NO . HEMATOLOGY/LYMPH: DO YOU TAKE ANY BLOOD THINNERS? (FOR EXAMPLE- COUMADIN, PLAVIX, AGGRENOX, PLATEL, PRADAXA, OR XARELTO) NO . WHEN WAS YOUR LAST DOSE? DATE: TIME: . NEUROLOGY: HAVE YOU FALLEN IN THE PAST 12 MONTHS? NO . ANY NEW EXTREMITY NUMBNESS OR WEAKNESS? NO . CARDIOLOGY: DO YOU HAVE A PACEMAKER OR DEFIBRILLATOR? NO . RESPIRATORY: HAVE YOU BEEN SICK IN THE PAST WEEK? NO . FEVER NO . FLU LIKE SYMPTOMS? NO . COUGH NO . INTEGUMENTARY: DO YOU HAVE ANY RASHES OR OPEN SORES? NO . ALLERGIC/IMMUNO: ARE YOU ALLERGIC TO IV DYE? NO . ANY NEW ALLERGIES? NO . PSYCHIATRIC: DO YOU HAVE THOUGHTS OF HURTING YOURSELF OR SOMEONE ELSE? NO . ARE YOU ABUSED, NEGLECTED, OR IN AN UNSAFE ENVIRONMENT? NO . ENDOCRINOLOGY: ARE YOU DIABETIC? NO . OTHER: DO YOU NEED ANY PRESCRIPTIONS? YES, TRAMADOL, SOMA . IF YES, PLEASE LIST: ____ . ANY NEW PROBLEMS WITH YOUR MEDICATIONS? NO . WHEN DID YOU LAST EAT? ____ . WHEN DID YOU LAST DRINK? ____ . WHAT DID YOU LAST DRINK? ____ . NAME OF PERSON DRIVING YOU HOME? ____ . DO YOU HAVE ANY OTHER QUESTIONS OR CONCERNS NO . VITAL SIGNS WT 359.8 LBS, HT 6'8", BMI 39.52 INDEX, BP 144/91 MM HG, HR 67 /MIN, RR 18 /MIN, TEMP 97.7 F, OXYGEN SAT % 99%, NA INITIALS SC 14:20, REVIEWED BY: BV. EXAMINATION GENERAL EXAMINATION: GENERAL APPEARANCE:AWAKE,ALERT ,PLEAASANT . PSYCHAFFECT NORMAL . LUNGS:LUNG CHLIDERS ARE CLEAR TO AUSCULTATION BILATERALLY. GOOD MOVEMENT OF AIR . HEART:S1, S2 IN A REGULAR RATE AND RHYTHM. NO SIGNIFICANT MURMURS, RUBS OR GALLOPS NOTED . 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 - M51.26 TREATMENT CERVICALGIA CONTINUE TRAMADOL HCL TABLET, 50 MG, 1 -2 TABLET, ORALLY, TAKE 1-2 TABS Q 6 HRS PRN MDD=6, 30 DAY(S), 180, REFILLS 1, NOTES: 04/23/18 0400 CONTINUE CARISOPRODOL TABLET, 350 MG, 1 TABLET NEEDED, ORALLY, BID FOR PAIN/SPASM MDD=2, 30 DAY(S), 60, REFILLS 1, NOTES: 04/22/18 PM REFILL VALIUM TABLET, 10 MG, 1 TABLET NEEDED, ORALLY, TAKE 1 TAB 1 HOUR PRIOR TO MRI, ONE ON ARRIVE AND 1 TAB DURING/AFTER IF NEEDED, 3 DOSES, 3, REFILLS 0, NOTES: NONE RECENT [facility] MRI SPINE, CERVICAL WITHOUT [id number] Nabila 05/07/2018 3:12:05 PM > JODY CASE 05/03/2018 11:45:09 AM > APPROVED FOR MRI C SPINE W/O CONTRAST ([id number]) REQUESTED TO GO TO THE MRI MACHINE AT [facility] NOTES: ISTOP REGISTRY REVIEWED AND DEMONSTRATES COMPLLIANCE. (REF #[id number] ) BRINGS IN MEDICATIONS WHICH IS APPROPRIATE FOR WHAT WAS DISPENSED. RECENT URINE TOXICOLOGY REVIEWED. NO UNAUTHORIZED MEDICATIONS. NO ILLICIT SUBSTANCES AND PRESCRIBED MEDICATIONS WERE PRESENT. , RISKS AND BENEFITS OF NARCOTIC/OPIOD MEDICATIONS WERE REVIEWED WITH PATIENT - THIS INCLUDES BUT IS NOT LIMITED TO RISK OF DEPENDANCE/DEVELOPMENT OF ADDICTION, MOOD DISTURBANCE AND DEPRESSION, OSTEOPOROSIS, HORMONAL AND LABIDAL CHANGES, RESPIRATORY DEPRESSION AND . PATIENT IS ADVISED NOT TO DRIVE OR DRINK ALCOHOL WHILE ON THESE MEDICATIONS. PROCEDURE CODES FA211 ESTABILISHED PATIENT [facility] FACILITY CHARGE DISPOSITION & COMMUNICATION FOLLOW UP 4-6WKS DR LOPEZ AND ALL FUTURE VISITS W DR LOPEZ ELECTRONICALLY SIGNED BY CALVIN INTERIANO, JAYDON ON 05/14/2018 AT 08:58 AM EST DISCLAIMER : THIS IS A VISIT SUMMARY EXTRACTED FROM THE [employer] CHART. IT IS NOT A COPY OF THE [employer] PROGRESS NOTE. ERENDIRA
== END ==
LOC: M PAIN 14:00
PROVIDERS: ATTEND Nurse Practitioner Family
DX: M54.2 Cervicalgia (principal); G43.709 Chronic migraine without aura, not intractable, without status migrainosus; M51.26 Other intervertebral disc displacement, lumbar region; G89.29 Other chronic pain; I10 Essential (primary) hypertension; K21.9 Gastro-esophageal reflux disease without esophagitis; I73.00 Raynaud's syndrome without gangrene; E03.9 Hypothyroidism, unspecified; F17.290 Nicotine dependence, other tobacco product, uncomplicated; E66.9 Obesity, unspecified; Z68.39 Body mass index [BMI] 39.0-39.9, adult; Z86.59 Personal history of other mental and behavioral disorders; Z88.2 Allergy status to sulfonamides; Z88.8 Allergy status to other drugs, medicaments and biological substances; Z79.891 Long term (current) use of opiate analgesic; Z79.899 Other long term (current) drug therapy

== ENCOUNTER → 2018-05-25 | Outpatient (CLI) | payer OTHER ==
--- NOTE | 2018-05-25 16:27 | REP ---
MR CERVICAL SPINE WITHOUT CONTRAST: HISTORY: Cervicalgia. A small left paracentral and intraforaminal disc protrusion is present at the C6-7 level. There is minimal effacement of the thecal sac without spinal cord compression. There is minimal narrowing of the left C6 neural foramen. The right C6 neural foramen is patent. There is no other disc bulge or herniation. The remaining neural foramina are patent. The spinal cord is normal in signal intensity. Normal signal intensity is present in the cervical vertebral bodies. IMPRESSION: There is cervical spondylosis at the C6-7 level without spinal cord compression. Electronically Signed by Manuel Nunez MD 05/25/2018 04:29 P
== END ==
LOC: M PLARAD 15:11
PROVIDERS: ATTEND Nurse Practitioner Family
DX: M47.812 Spondylosis without myelopathy or radiculopathy, cervical region (principal)

== ENCOUNTER → 2018-06-11 | Outpatient (CLI) | payer OTHER ==
--- NOTE | 2018-06-25 00:10 | ECWPNPC ---
PATIENT NAME: MARCY AMOS : 1980 GENDER: MALE VISIT DATE: 06/11/2018 DISCHARGE DATE: 06/11/18 1608 VISIT LOCKED DATE TIME: PHYSICIAN: OSBALDO LOPEZ MD RESOURCE: OSBALDO LOPEZ MD REASON FOR APPOINTMENT 1. 4-6WKS DR LOPEZ AND ALL FUTURE ISITS W DR LOPEZ HISTORY OF PRESENT ILLNESS HISTORY OF PRESENT ILLNESS: PAIN THE PATIENT DESCRIBES THE PAIN... 37 YEAR OLD MALE PATIENT WITH A HISTORY OF CHRONIC MULTIPLE BODY PAIN. THE PATIENT DESCRIBES THE PAIN ACHING, BURNING, SORE, TENDER, SHARP, STABBING, AND CONTINUOUS WITH A PAIN SCORE OF 7-10/10 DEPENDING ON PHYSICAL ACTIVITIES. THE PATIENT SAYS THAT HE HAS PAIN IN HIS HEAD, NECK, THORACIC, AND LOW BACK. THE PATIENT SAYS HIS PAIN IN HIS NECK RADIATES UP INTO HIS HEAD CAUSING HEADACHES AND HE ALSO HAS CHRONIC MIGRAINES. THE PATIENT SAYS THE PAIN IN HIS THORACIC AREA RADIATES AROUND TO HIS CHEST AND STOMACH. THE PATIENT HAD A LUMBAR EPIDURAL ON 01/24/2018 AND SAYS THAT HELPED HIS LOW BACK PAIN. PATIENT DENIES UNEXPLAINABLE WEIGHT LOSS, FEVER, CHILLS, NEW CHANGES ON HIS URINARY OR BOWEL CONTROL. FALL RISK SCREENING: SCREENING : NO FALLS IN THE PAST YEAR. CURRENT MEDICATIONS TAKING TRAZODONE HCL 50 MG TABLET 1 TABLET AT BEDTIME NEEDED ORALLY ONCE A DAY TAKING ZOLPIDEM TARTRATE 10 MG TABLET 1 TABLET AT BEDTIME NEEDED ORALLY ONCE A DAY TAKING CLONIDINE HCL 0.2 MG TABLET 2 ORALLY BID TAKING METOPROLOL SUCCINATE 200 MG TABLET EXTENDED RELEASE ORALLY BEFORE BEDTIME TAKING OMEPRAZOLE 40 MG CAPSULE DELAYED RELEASE 1 CAPSULE ORALLY ONCE A DAY TAKING LATANOPROST 0.005 % SOLUTION 1 DROP INTO AFFECTED EYE IN THE EVENING OPHTHALMIC ONCE A DAY TAKING AMLODIPINE BESYLATE 5 MG TABLET 1 TABLET ORALLY ONCE A DAY TAKING BENTYL 10 MG CAPSULE 1 CAPSULES ORALLY ONCE DAILY, NOTES: TAKES NEEDED TAKING LEVOTHROYXINE 200 MCG 1 TAB DAILY, NOTES: TO TOTAL 350MCG TAKING LEVOTHYROXINE SODIUM 150 MCG TABLET 1 TABLET ON AN EMPTY STOMACH IN THE MORNING ORALLY ONCE A DAY, NOTES: TO TOTAL 350MCG TAKING REQUIP 1 MG TABLET 1 TABLET 1 TO 3 HOURS BEFORE BEDTIME ORALLY ONCE A DAY NEEDED TAKING PAXIL 20 MG TABLET 1 TABLET IN THE MORNING ORALLY ONCE A DAY TAKING VALIUM 10 MG TABLET 1 TABLET NEEDED ORALLY TAKE 1 TAB 1 HOUR PRIOR TO MRI, ONE ON ARRIVE AND 1 TAB DURING/AFTER IF NEEDED, NOTES: NONE RECENT, FOR MRI'S TAKING CARISOPRODOL 350 MG TABLET 1 TABLET NEEDED ORALLY BID FOR PAIN/SPASM MDD=2 TAKING TRAMADOL HCL 50 MG TABLET 1 -2 TABLET ORALLY TAKE 1-2 TABS Q 6 HRS PRN MDD=6 NOT-TAKING FISH OIL OMEGA-3 1000 MG CAPSULE 1 CAPSULE ORALLY ONCE A DAY NOT-TAKING MAGNESIUM OXIDE 250 MG TABLET 1 TABLET NEEDED ORALLY ONCE A DAY NOT-TAKING DIAZEPAM 5 MG TABLET 1 TABLET NEEDED ORALLY TAKE 1 TAB 1 HR PRIOR TO TEST, AND 1 ON ARRIVE MDD=2 MEDICATION LIST REVIEWED AND RECONCILED WITH THE PATIENT PAST MEDICAL HISTORY HTN GERD LOW BACK PAIN GLAUCOMA - PER PT 3 CYSTS ON THYROID RAYNAUD'S THYROID CANCER ALLERGIES SULFA (FOR ALLERGY USE ONLY): HIVES: ALLERGY CYMBALTA: LEGS TITCHING: SIDE EFFECTS GABAPENTIN: ALTERED BALANCE: SIDE EFFECTS BACLOFEN: RESTLESS LEGS: SIDE EFFECTS ZANAFLEX: RESTLESS LEGS: SIDE EFFECTS TOPAMAX: "MESSED WITH HIS EYES": SIDE EFFECTS ROBAXIN: NAUSEA/VOMITING: ALLERGY SKELAXIN LYRICA: INSOMNIA: SIDE EFFECTS SURGICAL HISTORY T&A APPENDECTOMY REPAIR OF RIGHT ELBOW FRACTURE REPAIR OF RIGHT ANKLE FRACTURE 2000 THYROID REMOVAL 2017 FAMILY HISTORY FATHER: UNKNOWN MOTHER: UNKNOWN SIBLINGS: UNKNOWN 1 SISTER(S) . NO KNOWN FAMILY HISTORY OF ANY UROLOGICALLY RELATED DISEASES/CANCERS. SOCIAL HISTORY GENERAL: TOBACCO USE ARE YOU A:FORMER SMOKER ADDITIONAL FINDINGS: TOBACCO USERCIGAR SMOKER SMOKING CESSATION INFORMATION GIVEN01/10/2018 ADDITIONAL FINDINGS: TOBACCO [id number] CIGARETTE SMOKER (<1/DAY) LATEX QUESTIONNAIRE LATEX ALLERGY : HAVE YOU EVER DEVELOPED ANY TYPE OF REACTION AFTER HANDLING LATEX PRODUCTS SUCH RUBBER GLOVES, CONDOMS, DIAPHRAGMS, BALLOONS, SOCKS, OR UNDERWEAR?NO LATEX ALLERGY : HAVE YOU EVER DEVELOPED ANY TYPE OF REACTION DURING OR AFTER DENTAL APPOINTMENT, VAGINAL/RECTAL EXAMINATION, SURGICAL PROCEDURE, OR ANY OTHER EXPOSURE?NO LATEX RISK : HAVE YOU EVER HAD ANY DIFFICULTY BREATHING OR HIVES AFTER EATING OR HANDLING ANY FRUITS, OR VEGETABLES; SUCH KIWI, BANANAS, STONE FRUITS, OR CHESTNUTSNO LATEX RISK : DO YOU HAVE A PREVIOUS PERSONAL HISTORY OF MORE THAN NINE SURGERIES, SPINA BIFIDA, OR REPEATED CATHERTIZATIONS? NO LATEX RISK : ARE YOU FREQUENTLY EXPOSED TO LATEX PRODUCTS IN YOUR OCCUPATION?NO DATE ASKED : 06/11/2018 LUNG CANCER SCREENING SMOKING STATUS:FORMER SMOKER ALCOHOL SCREENING DID YOU HAVE A DRINK CONTAINING ALCOHOL IN THE PAST YEAR?NO POINTS0 INTERPRETATIONNEGATIVE RECREATIONAL DRUG USE DRUG USE?NO CAFFEINE CAFFEINE USE?YES [employer] [id number] AGNOSTIC LANGUAGE LANGUAGES SPOKEN:BELARUSIAN EDUCATION LEVEL OF EDUCATION:NOT FINISHED HIGH SCHOOL LEARNING BARRIERS / SPECIAL NEEDS BARRIERS TO LEARNING?NO HEARING IMPAIRED?NO VISION IMPAIRED?YES :CORRECTIVE LENSES COGNITIVELY IMPAIRED?NO READINESS TO LEARN?YES LEARNING PREFERENCES?NO LEARNING CAPABILITIES PRESENT?YES EMOTIONAL BARRIERS?NO SPECIAL DEVICES?NO SWAMPER NEEDED?NO DOMESTIC VIOLENCE DO YOU FEEL SAFE IN YOUR ENVIRONMENT?YES OCCUPATION: UNEMPLOYED. DIET: REGULAR. EXERCISE: NONE. MARITAL STATUS: SINGLE. OTHERS AT HOME: NONE. NEW PATIENT PAIN DIARY FROM 0-10, WHAT LEVEL IS YOUR PAIN TODAY?7 PAIN CLINIC PFS, CLERGY, PUBLIC HEALTH REFERRALS PFS REFERRAL NEEDED?NO CLERGY REFERRAL NEEDED?NO PUBLIC HEALTH REFERRAL NEEDED?NO HAS THE PATIENT BEEN EDUCATED REGARDING HIS/HER PLAN OF CARE?YES HAS THE PATIENT BEEN EDUCATED REGARDING PAIN, THE RISK FOR PAIN, THE IMPORTANCE OF EFFECTIVE PAIN MANAGEMENT, AND THE PAIN ASSESSMENT PROCESS?YES ADVANCE DIRECTIVE ADVANCE DIRECTIVE DISCUSSED WITH PATIENT:YES [facility] [place] [phone] REVEIWED WITH PT 02/14/18 1426 BVREVIEWED WITH PT 04/23/18 1318 BVREVIEWED WITH PT 05/02/18 1421 BVREVIEWED WITH PATIENT 06/11/18 1408 JS. HOSPITALIZATION/MAJOR DIAGNOSTIC PROCEDURE [facility] REVIEW OF SYSTEMS REVIEWED BY: PROVIDER: OSBALDO LOPEZ MD . CONSTITUTIONAL: ANY CHANGE IN YOUR MEDICAL CONDITION? NO . CHILLS NO . FEVER NO . INFECTION: DO YOU HAVE NEW INFECTIONS? NO . DO YOU HAVE HISTORY OF MRSA? NO . MUSCULOSKELETAL: ANY NEW PATTERNS OF PAIN OR NUMBNESS? YES, STATES NEW NUMBNESS TO RIGHT LEG, FROM HIP DOWN . GASTROENTEROLOGY: ANY NEW CHANGE IN BOWEL CONTROL? NO . GENITOURINARY: ANY NEW CHANGE IN BLADDER CONTROL? NO . IS THERE A CHANCE YOU COULD BE ? NO . HEMATOLOGY/LYMPH: DO YOU TAKE ANY BLOOD THINNERS? (FOR EXAMPLE- COUMADIN, PLAVIX, AGGRENOX, PLATEL, PRADAXA, OR XARELTO) NO . WHEN WAS YOUR LAST DOSE? DATE: TIME: . NEUROLOGY: HAVE YOU FALLEN IN THE PAST 12 MONTHS? NO . ANY NEW EXTREMITY NUMBNESS OR WEAKNESS? YES, STATES NEW NUMBNESS TO RIGHT LEG, FROM HIP DOWN. STATES IT STARTED ABOUT A WEEK AGO . CARDIOLOGY: DO YOU HAVE A PACEMAKER OR DEFIBRILLATOR? NO . RESPIRATORY: HAVE YOU BEEN SICK IN THE PAST WEEK? NO . FEVER NO . FLU LIKE SYMPTOMS? NO . COUGH NO . INTEGUMENTARY: DO YOU HAVE ANY RASHES OR OPEN SORES? NO . ALLERGIC/IMMUNO: ARE YOU ALLERGIC TO IV DYE? NO . ANY NEW ALLERGIES? NO . PSYCHIATRIC: DO YOU HAVE THOUGHTS OF HURTING YOURSELF OR SOMEONE ELSE? NO . ARE YOU ABUSED, NEGLECTED, OR IN AN UNSAFE ENVIRONMENT? NO . ENDOCRINOLOGY: ARE YOU DIABETIC? NO . OTHER: DO YOU NEED ANY PRESCRIPTIONS? NO . IF YES, PLEASE LIST: ____ . ANY NEW PROBLEMS WITH YOUR MEDICATIONS? NO . WHEN DID YOU LAST EAT? ____ . WHEN DID YOU LAST DRINK? ____ . WHAT DID YOU LAST DRINK? ____ . NAME OF PERSON DRIVING YOU HOME? ____ . DO YOU HAVE ANY OTHER QUESTIONS OR CONCERNS NO . VITAL SIGNS WT 364.2 LBS, HT 6'8", BMI 40.01 INDEX, BP 143/87 MM HG, HR 67 /MIN, RR 18 /MIN, TEMP 98.4 F, OXYGEN SAT % 99%, SAFE IN ENV? (Y/N) YES, NA INITIALS MI 13:57, REVIEWED BY: RADHA. EXAMINATION GENERAL EXAMINATION: PATIENT IS ALERT O X 3 AND COOPERATIVE. TENDERNESS OVER THE NECK AND THORACIC AREAS. PRESENCE OF TRIGGER POINTS AND BANDS OF TISSUE WITH RESTRICTION OF MOVEMENT OF THE NECK. MRI OF THE CERVICAL SPINE DONE ON 05/25/2018 SHOWS FACET ARTHROPATHY CHANGES AT C6-C7. MRI OF THE THORACIC SPINE DONE ON 01/26/2018 SHOWS BULGING DISCS AT FACET ARTHROPATHY CHANGES AT MULTIPLE LEVELS. 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 TREATMENT MYALGIA, OTHER SITE CLINICAL NOTES: WE DISCUSSED SEVERAL ISSUES WITH MR. AMOS'S PAIN MANAGEMENT CASE. DUE TO THE TRIGGER POINTS, BANDS OF TISSUE, AND RESTRICTION OF MOVEMENT, I WOULD LIKE TO MOVE FORWARD WITH A TRIGGER POINT INJECTION OVER THE NECK AT THIS TIME. WE DISCUSSED THE BENEFITS, RISKS, AND ALTERNATIVES OF THE INJECTION AND THE PATIENT WOULD LIKE TO PROCEED. I WOULD LIKE TO DISCUSS THE CASE WITH THE PATIENT'S PRIMARY CARE PHYSICIAN AND PSYCHOLOGIST. I WILL REFER THE PATIENT TO A NEUROLOGIST IN [place] AND A BIOLOGY ADJUNCT INSTRUCTOR FOR FURTHER EVALUATION. I WOULD LIKE TO GET COPIES OF THE PATIENT'S PREVIOUS NOTES FROM DR. GARRISON'S OFFICE. THE PATIENT WILL FOLLOW UP IN A FEW WEEKS. I WAS WITH THE PATIENT FOR OVER 25 MINUTES AND MORE THAN HALF OF THE TIME WAS SPENT IN COORDINATION OF CARE DISCUSSING THE PATIENT'S OPTIONS FOR MEDICATION MANAGEMENT, INJECTION THERAPY, AND SEEING OTHER SPECIALISTS. INSTRUCTIONS WERE GIVEN, QUESTIONS WERE ANSWERED, PATIENT REPORTS UNDERSTANDING AND AGREES WITH THE PLAN. I, ROSALVA RUVALCABA, DOCUMENTED THE ABOVE INFORMATION ACTING A SCRIBE FOR DR. LOPEZ. I HAVE REVIEWED THE ABOVE DOCUMENT, WRITTEN BY ROSALVA CARBONE AND I VERIFY THAT IT IS ACCURATE. OTHERS NOTES: TRIGGER POINT INJECTION: YOUR EXPERIENCE MATERIAL WAS PRINTED,TRIGGER POINT INJECTION MATERIAL WAS PRINTED. PREVENTIVE MEDICINE PAIN CLINIC TEACHING: PROCEDURE TEACHING PRINTED AND REVIEWED TRIGGER POINT INJECTION INFORMATION WITH PATIENT. ALSO REVIEWED PRE-PROCEDURE INSTRUCTIONS. PATIENT VERBALIZED AN UNDERSTANDING. JANETTE BHAGAT 06/11/2018 5:12:09 PM > . PROCEDURE CODES FA211 ESTABILISHED PATIENT [facility] FACILITY CHARGE G8427 CURRENT MEDS W/DOSAGES DOCUMENTED G8730 PAIN ASSESS POS TOOL F/U PLAN DOC DISPOSITION & COMMUNICATION FOLLOW UP 2 WEEKS ELECTRONICALLY SIGNED BY OSBALDO LOPEZ MD, MD ON 06/23/2018 AT 07:20 PM EDT DISCLAIMER : THIS IS A VISIT SUMMARY EXTRACTED FROM THE [employer] CHART. IT IS NOT A COPY OF THE [employer] PROGRESS NOTE. ERENDIRA
== END ==
LOC: M PAIN 13:15
PROVIDERS: ATTEND Anesthesiology
DX: M79.18 Myalgia, other site (principal); M54.2 Cervicalgia; M47.812 Spondylosis without myelopathy or radiculopathy, cervical region; M51.14 Intervertebral disc disorders with radiculopathy, thoracic region; I10 Essential (primary) hypertension; K21.9 Gastro-esophageal reflux disease without esophagitis; I73.00 Raynaud's syndrome without gangrene; F17.290 Nicotine dependence, other tobacco product, uncomplicated; E66.01 Morbid (severe) obesity due to excess calories; Z68.41 Body mass index [BMI] 40.0-44.9, adult; Z79.891 Long term (current) use of opiate analgesic; Z79.899 Other long term (current) drug therapy; Z88.2 Allergy status to sulfonamides; Z88.8 Allergy status to other drugs, medicaments and biological substances; Z86.59 Personal history of other mental and behavioral disorders

== ENCOUNTER → 2018-06-12 | Outpatient (CLI) | payer OTHER ==
[~2018-06-12] MED LIST changes: +BUPIVACAINE HCL 0.25% 10 ML VIAL As Ordered ONE; +BUPIVACAINE HCL 0.25% 30 ML VIAL As Ordered ONE; +TRIAMCINOLONE ACETONIDE SUSP 40 MG/ML VIAL (J3301) As Ordered ONE; +diazePAM 5 MG TAB As Ordered ONE; +oxyCODONE 5MG TAB As Ordered ONE
--- NOTE | 2018-06-24 00:01 | ECWPNPC ---
PATIENT NAME: MARCY AMOS : 1980 GENDER: MALE VISIT DATE: 06/12/2018 DISCHARGE DATE: 06/12/18 1300 VISIT LOCKED DATE TIME: PHYSICIAN: OSBALDO LOPEZ MD RESOURCE: OSBALDO LOPEZ MD REASON FOR APPOINTMENT 1. TPI NECK HISTORY OF PRESENT ILLNESS HISTORY OF PRESENT ILLNESS: PAIN THE PATIENT DESCRIBES THE PAIN... FALL RISK SCREENING: SCREENING : NO FALLS IN THE PAST YEAR. CURRENT MEDICATIONS TAKING TRAZODONE HCL 50 MG TABLET 1 TABLET AT BEDTIME NEEDED ORALLY ONCE A DAY, NOTES: 0000 TAKING ZOLPIDEM TARTRATE 10 MG TABLET 1 TABLET AT BEDTIME NEEDED ORALLY ONCE A DAY, NOTES: 06/11/18@2320 TAKING CLONIDINE HCL 0.2 MG TABLET 2 ORALLY BID, NOTES: 0000 TAKING METOPROLOL SUCCINATE 200 MG TABLET EXTENDED RELEASE ORALLY BEFORE BEDTIME, NOTES: 06/11/18@2245 TAKING OMEPRAZOLE 40 MG CAPSULE DELAYED RELEASE 1 CAPSULE ORALLY ONCE A DAY, NOTES: 06/11/18@2245 TAKING LATANOPROST 0.005 % SOLUTION 1 DROP INTO AFFECTED EYE IN THE EVENING OPHTHALMIC ONCE A DAY, NOTES: 06/11/18@2330 TAKING AMLODIPINE BESYLATE 5 MG TABLET 1 TABLET ORALLY ONCE A DAY, NOTES: 06/11/18@2245 TAKING BENTYL 10 MG CAPSULE 1 CAPSULES ORALLY ONCE DAILY, NOTES: TAKES NEEDED NONE RECENTLY TAKING LEVOTHROYXINE 200 MCG 1 TAB DAILY, NOTES: TO TOTAL 350MCG @0600 TAKING LEVOTHYROXINE SODIUM 150 MCG TABLET 1 TABLET ON AN EMPTY STOMACH IN THE MORNING ORALLY ONCE A DAY, NOTES: TO TOTAL 350MCG@0600 TAKING REQUIP 1 MG TABLET 1 TABLET 1 TO 3 HOURS BEFORE BEDTIME ORALLY ONCE A DAY NEEDED, NOTES: 0000 TAKING PAXIL 20 MG TABLET 1 TABLET IN THE MORNING ORALLY ONCE A DAY, NOTES: 0800 TAKING CARISOPRODOL 350 MG TABLET 1 TABLET NEEDED ORALLY BID FOR PAIN/SPASM MDD=2, NOTES: 0000 TAKING TRAMADOL HCL 50 MG TABLET 1 -2 TABLET ORALLY TAKE 1-2 TABS Q 6 HRS PRN MDD=6, NOTES: 0400 NOT-TAKING VALIUM 10 MG TABLET 1 TABLET NEEDED ORALLY TAKE 1 TAB 1 HOUR PRIOR TO MRI, ONE ON ARRIVE AND 1 TAB DURING/AFTER IF NEEDED, NOTES: NONE RECENT, FOR MRI'S DISCONTINUED FISH OIL OMEGA-3 1000 MG CAPSULE 1 CAPSULE ORALLY ONCE A DAY DISCONTINUED MAGNESIUM OXIDE 250 MG TABLET 1 TABLET NEEDED ORALLY ONCE A DAY DISCONTINUED DIAZEPAM 5 MG TABLET 1 TABLET NEEDED ORALLY TAKE 1 TAB 1 HR PRIOR TO TEST, AND 1 ON ARRIVE MDD=2 PAST MEDICAL HISTORY HTN GERD LOW BACK PAIN GLAUCOMA - PER PT 3 CYSTS ON THYROID RAYNAUD'S THYROID CANCER ALLERGIES SULFA (FOR ALLERGY USE ONLY): HIVES: ALLERGY CYMBALTA: LEGS TITCHING: SIDE EFFECTS GABAPENTIN: ALTERED BALANCE: SIDE EFFECTS BACLOFEN: RESTLESS LEGS: SIDE EFFECTS ZANAFLEX: RESTLESS LEGS: SIDE EFFECTS TOPAMAX: "MESSED WITH HIS EYES": SIDE EFFECTS ROBAXIN: NAUSEA/VOMITING: ALLERGY SKELAXIN LYRICA: INSOMNIA: SIDE EFFECTS SURGICAL HISTORY T&A APPENDECTOMY REPAIR OF RIGHT ELBOW FRACTURE REPAIR OF RIGHT ANKLE FRACTURE 2000 THYROID REMOVAL 2018 FAMILY HISTORY FATHER: ALIVE, UNKNOWN MOTHER: ALIVE, UNKNOWN SIBLINGS: UNKNOWN 1 SISTER(S) . NO KNOWN FAMILY HISTORY OF ANY UROLOGICALLY RELATED DISEASES/CANCERS. SOCIAL HISTORY GENERAL: TOBACCO USE ARE YOU A:FORMER SMOKER ADDITIONAL FINDINGS: [facility] SMO[facility] CESSATION INFORMATION GIVEN01/10/2018 ADDITIONAL FINDINGS: TOBACCO [id number] CIGARETTE SMOKER (<1/DAY) LATEX QUESTIONNAIRE LATEX ALLERGY : HAVE YOU EVER DEVELOPED ANY TYPE OF REACTION AFTER HANDLING LATEX PRODUCTS SUCH RUBBER GLOVES, CONDOMS, DIAPHRAGMS, BALLOONS, SOCKS, OR UNDERWEAR?NO LATEX ALLERGY : HAVE YOU EVER DEVELOPED ANY TYPE OF REACTION DURING OR AFTER DENTAL APPOINTMENT, VAGINAL/RECTAL EXAMINATION, SURGICAL PROCEDURE, OR ANY OTHER EXPOSURE?NO LATEX RISK : HAVE YOU EVER HAD ANY DIFFICULTY BREATHING OR HIVES AFTER EATING OR HANDLING ANY FRUITS, OR VEGETABLES; SUCH KIWI, BANANAS, STONE FRUITS, OR CHESTNUTSNO LATEX RISK : DO YOU HAVE A PREVIOUS PERSONAL HISTORY OF MORE THAN NINE SURGERIES, SPINA BIFIDA, OR REPEATED CATHERTIZATIONS? NO LATEX RISK : ARE YOU FREQUENTLY EXPOSED TO LATEX PRODUCTS IN YOUR OCCUPATION?NO DATE ASKED : 06/11/2018 LUNG CANCER SCREENING SMOKING STATUS:FORMER SMOKER ALCOHOL SCREENING DID YOU HAVE A DRINK CONTAINING ALCOHOL IN THE PAST YEAR?NO POINTS0 INTERPRETATIONNEGATIVE RECREATIONAL DRUG USE DRUG USE?NO CAFFEINE CAFFEINE USE?YES ISLAM [id number] AGNOSTIC LANGUAGE LANGUAGES SPOKEN:GREEK EDUCATION LEVEL OF EDUCATION:NOT FINISHED HIGH SCHOOL LEARNING BARRIERS / SPECIAL NEEDS BARRIERS TO LEARNING?NO HEARING IMPAIRED?NO VISION IMPAIRED?YES :CORRECTIVE LENSES COGNITIVELY IMPAIRED?NO READINESS TO LEARN?YES LEARNING PREFERENCES?NO LEARNING CAPABILITIES PRESENT?YES EMOTIONAL BARRIERS?NO SPECIAL DEVICES?NO RACK PULLER NEEDED?NO DOMESTIC VIOLENCE DO YOU FEEL SAFE IN YOUR ENVIRONMENT?YES OCCUPATION: UNEMPLOYED. DIET: REGULAR. EXERCISE: NONE. MARITAL STATUS: SINGLE. OTHERS AT HOME: NONE. NEW PATIENT PAIN DIARY FROM 0-10, WHAT LEVEL IS YOUR PAIN TODAY?7 PAIN CLINIC PFS, CLERGY, PUBLIC HEALTH REFERRALS PFS REFERRAL NEEDED?NO CLERGY REFERRAL NEEDED?NO PUBLIC HEALTH REFERRAL NEEDED?NO HAS THE PATIENT BEEN EDUCATED REGARDING HIS/HER PLAN OF CARE?YES HAS THE PATIENT BEEN EDUCATED REGARDING PAIN, THE RISK FOR PAIN, THE IMPORTANCE OF EFFECTIVE PAIN MANAGEMENT, AND THE PAIN ASSESSMENT PROCESS?YES ADVANCE DIRECTIVE ADVANCE DIRECTIVE DISCUSSED WITH PATIENT:YES NARENDRA AMOS-MOM [phone] REVEIWED WITH PT 02/14/18 1426 BVREVIEWED WITH PT 04/23/18 1318 BVREVIEWED WITH PT 05/02/18 1421 BVREVIEWED WITH PATIENT 06/11/18 1408 JS. HOSPITALIZATION/MAJOR DIAGNOSTIC PROCEDURE [facility] RE[facility] OF SYSTEMS REVIEWED BY: PROVIDER: . CONSTITUTIONAL: ANY CHANGE IN YOUR MEDICAL CONDITION? NO . CHILLS NO . FEVER NO . INFECTION: DO YOU HAVE NEW INFECTIONS? NO . DO YOU HAVE HISTORY OF MRSA? NO . MUSCULOSKELETAL: ANY NEW PATTERNS OF PAIN OR NUMBNESS? YES . GASTROENTEROLOGY: ANY NEW CHANGE IN BOWEL CONTROL? NO . GENITOURINARY: ANY NEW CHANGE IN BLADDER CONTROL? NO . IS THERE A CHANCE YOU COULD BE ? NO . HEMATOLOGY/LYMPH: DO YOU TAKE ANY BLOOD THINNERS? (FOR EXAMPLE- COUMADIN, PLAVIX, AGGRENOX, PLATEL, PRADAXA, OR XARELTO) NO . WHEN WAS YOUR LAST DOSE? DATE: TIME: . NEUROLOGY: HAVE YOU FALLEN IN THE PAST 12 MONTHS? NO . ANY NEW EXTREMITY NUMBNESS OR WEAKNESS? YES, RIGHT LEG NUMBNESS . CARDIOLOGY: DO YOU HAVE A PACEMAKER OR DEFIBRILLATOR? NO . RESPIRATORY: HAVE YOU BEEN SICK IN THE PAST WEEK? NO . FEVER NO . FLU LIKE SYMPTOMS? NO . COUGH NO . INTEGUMENTARY: DO YOU HAVE ANY RASHES OR OPEN SORES? NO . ALLERGIC/IMMUNO: ARE YOU ALLERGIC TO IV DYE? NO . ANY NEW ALLERGIES? NO . PSYCHIATRIC: DO YOU HAVE THOUGHTS OF HURTING YOURSELF OR SOMEONE ELSE? NO . ARE YOU ABUSED, NEGLECTED, OR IN AN UNSAFE ENVIRONMENT? NO . ENDOCRINOLOGY: ARE YOU DIABETIC? NO . OTHER: DO YOU NEED ANY PRESCRIPTIONS? NO . IF YES, PLEASE LIST: ____ . ANY NEW PROBLEMS WITH YOUR MEDICATIONS? NO . WHEN DID YOU LAST EAT? ____00000 . WHEN DID YOU LAST DRINK? ____0800 . WHAT DID YOU LAST DRINK? ____WATER . NAME OF PERSON DRIVING YOU HOME? ____ . DO YOU HAVE ANY OTHER QUESTIONS OR CONCERNS NO . VITAL SIGNS WT 364.2 LBS, HT 6'8", BMI 40.01 INDEX, BP 139/85 MM HG, HR 71 /MIN, RR 18 /MIN, TEMP 97.1 F, OXYGEN SAT % 98%, SAFE IN ENV? (Y/N) Y, NA INITIALS DE 11:01, REVIEWED BY: VD. ASSESSMENTS MYALGIA, OTHER SITE - M79.18 (PRIMARY) PROCEDURES PN TRIGGER POINT INJECTION WITH STEROIDS PRE PROCEDURE DIAGNOSIS 1. MYALGIA 2. PAIN AT BILATERAL NECK AREA POST PROCEDURE DIAGNOSIS 1. MYALGIA 2. PAIN AT BILATERAL NECK AREA PROCEDURE TRIGGER POINT INJECTION AT BILATERAL NECK AREA SURGEON DR. OSBALDO LOPEZ HANDY WORKER NONE ANESTHESIA LOCAL PRE PROCEDURE NOTE THE PATIENT HAS A HISTORY OF CHRONIC PAIN AT THE RIGHT AND LEFT NECK AREA. I EVALUATE THE PATIENT AND REVIEWED THE CHART. THERE IS EVIDENCE OF BANDS OF TISSUE WITH RESTRICTION OF MOVEMENT AND PRESENCE OF TRIGGER POINT AT THE AFFECTED AREA. I WENT OVER THE RISKS, ALTERNATIVES, AND BENEFITS ASSOCIATED WITH THIS PROCEDURE. THE PATIENT WOULD LIKE TO PROCEED AND GIVE CONSENT TO PERFORMED THE PROCEDURE. THE PATIENT DENIES UNEXPLAINABLE WEIGHT LOSS, FEVER, CHILLS, OR NEW CHANGES IN URINARY OR BOWEL CONTROL DESCRIPTION OF PROCEDURE THE PATIENT WAS BROUGHT TO THE PROCEDURE ROOM AND PLACED IN THE SITTING POSITION. THE AREA WAS CLEANED WITH ALCOHOL. THE PROCEDURE WAS DONE USING ASEPTIC STERILE TECHNIQUE. I CHECKED LATERALITY AND THE LEVEL WHERE THE PROCEDURE WAS GOING TO BE PERFORMED WITH THE PATIENT AND THE SUPPORTING STAFF AT THE MOMENT OF THE TIME OUT IN THE PROCEDURE ROOM. USING A 25-GAUGE NEEDLE, TRIGGER POINTS WERE INJECTED AT THE RIGHT AND LEFT NECK AREA WITH A TOTAL OF 40 ML OF BUPIVACAINE 0.25% AND KENALOG 40 MG. THERE WAS NO EVIDENCE OF BLOOD, PARESTHESIA OR CEREBROSPINAL FLUID DURING THE PROCEDURE. THE PATIENT WAS SENT TO THE RECOVERY ROOM. THE PATIENT WAS MOVING THE EXTREMITIES AND DOING WELL. THERE WAS NO COMPLICATION DURING THE PROCEDURE POST PROCEDURE NOTE THE PATIENT WILL BE SEEN IN A FOLLOW UP IN THE NEXT FEW WEEKS. INSTRUCTIONS WERE GIVEN, QUESTIONS WERE ANSWERED, AND THE PATIENT EXPRESSED UNDERSTANDING AND AGREES WITH THE PLAN. I, ROSALVA RUVALCABA, DOCUMENTED THE ABOVE INFORMATION ACTING A SCRIBE FOR DR. LOPEZ. I HAVE REVIEWED THE ABOVE DOCUMENT, WRITTEN BY ROSALVA AUSTINIBMichael AND I VERIFY THAT IT IS ACCURATE. PROCEDURE CODES 25669 INJ TRIGGER POINT / [facility] [place] DISPOSITION & COMMUNICATION FOLLOW UP 3 WEEKS ELECTRONICALLY SIGNED BY OSBALDO LOPEZ MD, MD ON 06/23/2018 AT 07:36 PM EDT DISCLAIMER : THIS IS A VISIT SUMMARY EXTRACTED FROM THE [employer] CHART. IT IS NOT A COPY OF THE [employer] PROGRESS NOTE. ERENDIRA
== END ==
LOC: M PAIN 10:45
PROVIDERS: ATTEND Anesthesiology
DX: M79.18 Myalgia, other site (principal); M54.2 Cervicalgia; I10 Essential (primary) hypertension; K21.9 Gastro-esophageal reflux disease without esophagitis; I73.00 Raynaud's syndrome without gangrene; E03.9 Hypothyroidism, unspecified; F17.290 Nicotine dependence, other tobacco product, uncomplicated; E66.01 Morbid (severe) obesity due to excess calories; Z68.41 Body mass index [BMI] 40.0-44.9, adult; Z79.891 Long term (current) use of opiate analgesic; Z79.899 Other long term (current) drug therapy; Z88.2 Allergy status to sulfonamides; Z88.8 Allergy status to other drugs, medicaments and biological substances; Z86.59 Personal history of other mental and behavioral disorders
CPT/HCPCS: 20552; J3301

== ENCOUNTER → 2018-06-26 | Outpatient (CLI) | payer OTHER ==
[~2018-06-26] MED LIST changes: -BUPIVACAINE HCL 0.25% 10 ML VIAL As Ordered ONE; -BUPIVACAINE HCL 0.25% 30 ML VIAL As Ordered ONE; +CARI1TAB7; +DICY10CA13; +LEVO300T21; +PARO20TA3; +ROPI1TAB; -TRIAMCINOLONE ACETONIDE SUSP 40 MG/ML VIAL (J3301) As Ordered ONE; -diazePAM 5 MG TAB As Ordered ONE; -oxyCODONE 5MG TAB As Ordered ONE
--- NOTE | 2018-07-06 01:07 | ECWPNPC ---
PATIENT NAME: MARCY AMOS : 1980 GENDER: MALE VISIT DATE: 06/26/2018 DISCHARGE DATE: 06/26/18 162 VISIT LOCKED DATE TIME: PHYSICIAN: OSBALDO LOPEZ MD RESOURCE: OSBALDO LOPEZ MD REASON FOR APPOINTMENT 1. POST TPI HISTORY OF PRESENT ILLNESS GENERAL: 37 YEAR OLD MALE PATIENT WITH A HISTORY OF CHRONIC LOW BACK PAIN. THE PATIENT DESCRIBES THE PAIN ACHING, BURNING, SORE, TENDER, SHARP, AND CONTINUOUS WITH A PAIN SCORE OF 5-7/10 DEPENDING ON PHYSICAL ACTIVITY. THE PATIENT SAYS THAT THE PAIN IS LOCATED MAINLY ON BOTH SIDES OF HIS LOW BACK AREA. THE PATIENT SAYS THAT THE PAIN WAKES HIM UP AT NIGHT WHEN IT IS SEVERE. PATIENT DENIES UNEXPLAINABLE WEIGHT LOSS, FEVER, CHILLS, NEW CHANGES ON HIS URINARY OR BOWEL CONTROL. CURRENT MEDICATIONS TAKING TRAZODONE HCL 50 MG TABLET 1 TABLET AT BEDTIME NEEDED ORALLY ONCE A DAY TAKING ZOLPIDEM TARTRATE 10 MG TABLET 1 TABLET AT BEDTIME NEEDED ORALLY ONCE A DAY TAKING CLONIDINE HCL 0.2 MG TABLET 2 ORALLY BID TAKING METOPROLOL SUCCINATE 200 MG TABLET EXTENDED RELEASE ORALLY BEFORE BEDTIME TAKING OMEPRAZOLE 40 MG CAPSULE DELAYED RELEASE 1 CAPSULE ORALLY ONCE A DAY TAKING LATANOPROST 0.005 % SOLUTION 1 DROP INTO AFFECTED EYE IN THE EVENING OPHTHALMIC ONCE A DAY TAKING AMLODIPINE BESYLATE 5 MG TABLET 1 TABLET ORALLY ONCE A DAY TAKING BENTYL 10 MG CAPSULE 1 CAPSULES ORALLY ONCE DAILY TAKING LEVOTHROYXINE 200 MCG 1 TAB DAILY TAKING LEVOTHYROXINE SODIUM 150 MCG TABLET 1 TABLET ON AN EMPTY STOMACH IN THE MORNING ORALLY ONCE A DAY TAKING REQUIP 1 MG TABLET 1 TABLET 1 TO 3 HOURS BEFORE BEDTIME ORALLY ONCE A DAY NEEDED TAKING PAXIL 20 MG TABLET 1 TABLET IN THE MORNING ORALLY ONCE A DAY TAKING CARISOPRODOL 350 MG TABLET 1 TABLET NEEDED ORALLY BID FOR PAIN/SPASM MDD=2 TAKING TRAMADOL HCL 50 MG TABLET 1 -2 TABLET ORALLY TAKE 1-2 TABS Q 6 HRS PRN MDD=6 NOT-TAKING VALIUM 10 MG TABLET 1 TABLET NEEDED ORALLY TAKE 1 TAB 1 HOUR PRIOR TO MRI, ONE ON ARRIVE AND 1 TAB DURING/AFTER IF NEEDED, NOTES: NONE RECENT, FOR MRI'S MEDICATION LIST REVIEWED AND RECONCILED WITH THE PATIENT PAST MEDICAL HISTORY HTN GERD LOW BACK PAIN GLAUCOMA - PER PT 3 CYSTS ON THYROID RAYNAUD'S THYROID CANCER ALLERGIES SULFA (FOR ALLERGY USE ONLY): HIVES - ALLERGY CYMBALTA: LEGS TITCHING - SIDE EFFECTS GABAPENTIN: ALTERED BALANCE - SIDE EFFECTS BACLOFEN: RESTLESS LEGS - SIDE EFFECTS ZANAFLEX: RESTLESS LEGS - SIDE EFFECTS TOPAMAX: "MESSED WITH HIS EYES" - SIDE EFFECTS ROBAXIN: NAUSEA/VOMITING - ALLERGY SKELAXIN LYRICA: INSOMNIA - SIDE EFFECTS SURGICAL HISTORY T&A APPENDECTOMY REPAIR OF RIGHT ELBOW FRACTURE REPAIR OF RIGHT ANKLE FRACTURE 2000 THYROID REMOVAL 2017 FAMILY HISTORY FATHER: ALIVE, UNKNOWN MOTHER: ALIVE, UNKNOWN SIBLINGS: UNKNOWN 1 SISTER(S) . NO KNOWN FAMILY HISTORY OF ANY UROLOGICALLY RELATED DISEASES\\/CANCERS. SOCIAL HISTORY GENERAL: TOBACCO USE ARE YOU A:FORMER SMOKER ADDITIONAL FINDINGS: TOBACCO USERCIGAR SMOKER SMOKING CESSATION INFORMATION GIVEN01/10/2018 ADDITIONAL FINDINGS: TOBACCO [id number] CIGARETTE SMOKER (<1/DAY) LATEX QUESTIONNAIRE LATEX ALLERGY : HAVE YOU EVER DEVELOPED ANY TYPE OF REACTION AFTER HANDLING LATEX PRODUCTS SUCH RUBBER GLOVES, CONDOMS, DIAPHRAGMS, BALLOONS, SOCKS, OR UNDERWEAR?NO LATEX ALLERGY : HAVE YOU EVER DEVELOPED ANY TYPE OF REACTION DURING OR AFTER DENTAL APPOINTMENT, VAGINAL/RECTAL EXAMINATION, SURGICAL PROCEDURE, OR ANY OTHER EXPOSURE?NO LATEX RISK : HAVE YOU EVER HAD ANY DIFFICULTY BREATHING OR HIVES AFTER EATING OR HANDLING ANY FRUITS, OR VEGETABLES; SUCH KIWI, BANANAS, STONE FRUITS, OR CHESTNUTSNO LATEX RISK : DO YOU HAVE A PREVIOUS PERSONAL HISTORY OF MORE THAN NINE SURGERIES, SPINA BIFIDA, OR REPEATED CATHERTIZATIONS? NO LATEX RISK : ARE YOU FREQUENTLY EXPOSED TO LATEX PRODUCTS IN YOUR OCCUPATION?NO DATE ASKED : 06/11/2018 LUNG CANCER SCREENING SMOKING STATUS:FORMER SMOKER ALCOHOL SCREENING DID YOU HAVE A DRINK CONTAINING ALCOHOL IN THE PAST YEAR?NO POINTS0 INTERPRETATIONNEGATIVE RECREATIONAL DRUG USE DRUG USE?NO CAFFEINE CAFFEINE USE?YES LATTER DAY [id number] AGNOSTIC LANGUAGE LANGUAGES SPOKEN:[place] EDUCATION LEVEL OF EDUCATION:NOT FINISHED HIGH SCHOOL LEARNING BARRIERS / SPECIAL NEEDS BARRIERS TO LEARNING?NO HEARING IMPAIRED?NO VISION IMPAIRED?YES :CORRECTIVE LENSES COGNITIVELY IMPAIRED?NO READINESS TO LEARN?YES LEARNING PREFERENCES?NO LEARNING CAPABILITIES PRESENT?YES EMOTIONAL BARRIERS?NO SPECIAL DEVICES?NO BRIDGE REPAIR CREW PERSON NEEDED?NO DOMESTIC VIOLENCE DO YOU FEEL SAFE IN YOUR ENVIRONMENT?YES OCCUPATION: UNEMPLOYED. DIET: REGULAR. EXERCISE: NONE. MARITAL STATUS: SINGLE. OTHERS AT HOME: NONE. NEW PATIENT PAIN DIARY FROM 0-10, WHAT LEVEL IS YOUR PAIN TODAY?7 PAIN CLINIC PFS, CLERGY, PUBLIC HEALTH REFERRALS PFS REFERRAL NEEDED?NO CLERGY REFERRAL NEEDED?NO PUBLIC HEALTH REFERRAL NEEDED?NO HAS THE PATIENT BEEN EDUCATED REGARDING HIS/HER PLAN OF CARE?YES HAS THE PATIENT BEEN EDUCATED REGARDING PAIN, THE RISK FOR PAIN, THE IMPORTANCE OF EFFECTIVE PAIN MANAGEMENT, AND THE PAIN ASSESSMENT PROCESS?YES ADVANCE DIRECTIVE ADVANCE DIRECTIVE DISCUSSED WITH PATIENT:YES NARENDRA AMOS-[facility] [phone] REVEIWED WITH PT 02/14/18 1426 BVREVIEWED WITH PT 04/23/18 1318 BVREVIEWED WITH PT 05/02/18 1421 BVREVIEWED WITH PATIENT 06/11/18 1408 JSREVEIWED WITH PATIENT 06/26/18 1510 BV. HOSPITALIZATION/MAJOR DIAGNOSTIC PROCEDURE SEVERAL HU REVIEW OF SYSTEMS REVIEWED BY: PROVIDER: OSBALDO LOPEZ MD . VITAL SIGNS WT 357.8 LBS, HT 6'8", BMI 39.30 INDEX, BP 139/90 MM HG, HR 73 /MIN, RR 18 /MIN, TEMP 96.0 F, OXYGEN SAT % 96%, NA INITIALS AW 1452, REVIEWED BY: BV. EXAMINATION GENERAL: PATIENT IS ALERT O X 3 AND COOPERATIVE. TENDERNESS IN THE LOW BACK AREA. PAIN INCREASES OVER THE LUMBAR FACET JOINTS WITH EXTENSION AND LATERAL ROTATION OF THE BACK. MRI OF THE LUMBAR SPINE DONE ON 09/29/2017 SHOWS FACET ARTHROPATHY CHANGES AT MULTIPLE LEVELS. ASSESSMENTS SPONDYLOSIS OF LUMBAR REGION WITHOUT MYELOPATHY OR RADICULOPATHY - M47.816 (PRIMARY) TREATMENT SPONDYLOSIS OF LUMBAR REGION WITHOUT MYELOPATHY OR RADICULOPATHY CLINICAL NOTES: WE DISCUSSED SEVERAL ISSUES WITH MR. AMOS'S PAIN MANAGEMENT CASE. DUE TO THE LUMBAR SPONDYLOSIS, I WOULD LIKE TO MOVE FORWARD WITH A BILATERAL DIAGNOSTIC LUMBAR FACET BLOCK AT THIS TIME TO CONSIDER RADIOFREQUENCY. WE DISCUSSED THE BENEFITS, RISKS, AND ALTERNATIVES OF THE PROCEDURE AND THE PATIENT WOULD LIKE TO PROCEED. THE PATIENT WILL FOLLOW UP WITH A NURSE PRACTITIONER 1 WEEK AFTER THE PROCEDURE. WE ALSO HAVE A LONG CONVERSATION IN HIS MEDICAL PAIN CONDITIONS, INCLUDING HEADACHES, JAW PAIN, BACK PAIN. ALSO DISCUSSED INVOLVEMENT AND COORDINATION OF SERVICE WITH OTHER PROVIDERS. INSTRUCTIONS WERE GIVEN, QUESTIONS WERE ANSWERED, PATIENT REPORTS UNDERSTANDING AND AGREES WITH THE PLAN. I, ROSALVA RUVALCABA, DOCUMENTED THE ABOVE INFORMATION ACTING A SCRIBE FOR DR. LOPEZ. I HAVE REVIEWED THE ABOVE DOCUMENT, WRITTEN BY ROSALVA CARBONE AND I VERIFY THAT IT IS ACCURATE. . OTHERS NOTES: FACET JOINT INJECTION MATERIAL WAS PRINTED,FACET JOINT INJECTION: YOUR EXPERIENCE MATERIAL WAS PRINTED. PREVENTIVE MEDICINE PAIN CLINIC TEACHING: PROCEDURE TEACHING PRE DIAGNOSTIC LUMBAR FACET BLOCK INSTRUCTIONS REVIEWED WITH PT. VERBALIZED UNDERSTANDING.. PROCEDURE CODES FA211 ESTABILISHED PATIENT [facility] CHARGE G8427 CURRENT MEDS W/DOSAGES DOCUMENTED G8730 PAIN ASSESS POS TOOL F/U PLAN DOC DISPOSITION & COMMUNICATION FOLLOW UP 1 WEEK AFTER WITH STEPHANI (REASON: BILATERAL LFBD #1) ELECTRONICALLY SIGNED BY OSBALDO LOPEZ MD, MD ON 07/05/2018 AT 10:27 AM EDT DISCLAIMER : THIS IS A VISIT SUMMARY EXTRACTED FROM THE [employer] CHART. IT IS NOT A COPY OF THE [employer] PROGRESS NOTE. ERENDIRA
== END ==
LOC: M PAIN 14:45
PROVIDERS: ATTEND Anesthesiology
DX: M47.816 Spondylosis without myelopathy or radiculopathy, lumbar region (principal); G89.29 Other chronic pain; I10 Essential (primary) hypertension; K21.9 Gastro-esophageal reflux disease without esophagitis; I73.00 Raynaud's syndrome without gangrene; F17.290 Nicotine dependence, other tobacco product, uncomplicated; Z79.891 Long term (current) use of opiate analgesic; Z79.899 Other long term (current) drug therapy; Z88.2 Allergy status to sulfonamides; Z88.8 Allergy status to other drugs, medicaments and biological substances

== ENCOUNTER 2018-07-02 14:45 | Emergency (ER) | payer OTHER ==
[~2018-07-02] VITALS: Ht 203.2 cm; Wt 163.6 kg
[~2018-07-02 14:45] MED LIST changes: -/SENOSTA PO; -ANTI2TAB; +ANTI2TAB16; -CARI1TAB7; -DICY10CA13; -HALO2TA PO; +HALO2TAB26 PO; +HYDR-4274 PO; -HYDRO50TAB PO; +LATA0.0013; -LATA5OPD; -LEVO300T21; +METO-745; +METO200T41; +METO200T41 PO; -PARO20TA3; -ROPI1TAB; +SENO1TAB PO; -TOPR100T; -TOPR200T; -TOPR200T PO
[2018-07-02] MEDS ORDERED: DICY10CA13 (14:55)
[2018-07-02] MEDS ORDERED: CARI1TAB7 (14:55)
[2018-07-02] MEDS ORDERED: PARO20TA3 (14:55)
[2018-07-02] MEDS ORDERED: ROPI1TAB (14:55)
[2018-07-02] MEDS ORDERED: LEVO300T21 (14:55)
[2018-07-02] MEDS ORDERED: KETOROLAC 30 MG/ML VIAL (J1885) IM ONE (16:15)
[2018-07-02 17:27] VITALS: BP 142/88
== END 2018-07-02 17:28 | disposition home or self-care (01) ==
LOC: M ED 14:45
DX: R68.84 Jaw pain (principal); I10 Essential (primary) hypertension; Z88.2 Allergy status to sulfonamides; Z79.899 Other long term (current) drug therapy
CPT/HCPCS: 96372; 99283; J1885

== ENCOUNTER → 2018-07-18 | Outpatient (CLI) | payer OTHER ==
[~2018-07-18] MED LIST changes: +BUPIVACAINE HCL 0.25% 30 ML VIAL As Ordered ONE; +CARI1TAB7; +DICY10CA13; +ISOVUE-M 300 61% 15ML VIAL (Q9967) As Ordered ONE; +LEVO300T21; +LIDOCAINE 1% SDV INJ 30 ML VIAL As Ordered ONE; +PARO20TA3; +ROPI1TAB
--- NOTE | 2018-07-18 14:58 | REP ---
Partial lumbar spine series: Two views . History: Injection procedure for pain. 52 seconds of fluoroscopy time is reported. Findings: A sequence of two fluoroscopically obtained last image hold procedural spot radiographs of the lumbar spine document needle position and contrast injection associated with injection procedure. Electronically Signed by Baltazar Hwang MD 07/18/2018 02:39 P
--- NOTE | 2018-08-06 00:41 | ECWPNPC ---
PATIENT NAME: MARCY AMOS : 1980 GENDER: MALE VISIT DATE: 07/18/2018 DISCHARGE DATE: 07/18/18 1407 VISIT LOCKED DATE TIME: PHYSICIAN: OSBALDO LOPEZ MD RESOURCE: OSBALDO LOPEZ MD REASON FOR APPOINTMENT 1. BILATERAL LFBD #1 HISTORY OF PRESENT ILLNESS HISTORY OF PRESENT ILLNESS: PAIN THE PATIENT DESCRIBES THE PAIN... FALL RISK SCREENING: SCREENING :NO FALLS REPORTED IN THE LAST YEAR CURRENT MEDICATIONS TAKING TRAZODONE HCL 50 MG TABLET 1 TABLET AT BEDTIME NEEDED ORALLY ONCE A DAY, NOTES: 07/18/18 0000 TAKING ZOLPIDEM TARTRATE 10 MG TABLET 1 TABLET AT BEDTIME NEEDED ORALLY ONCE A DAY, NOTES: 07/17/18 1120 PM TAKING CLONIDINE HCL 0.2 MG TABLET 2 ORALLY BID, NOTES: 07/18/18 0000 TAKING METOPROLOL SUCCINATE 200 MG TABLET EXTENDED RELEASE ORALLY BEFORE BEDTIME, NOTES: 07/17/18 TAKING OMEPRAZOLE 40 MG CAPSULE DELAYED RELEASE 1 CAPSULE ORALLY ONCE A DAY, NOTES: 07/17/18 TAKING LATANOPROST 0.005 % SOLUTION 1 DROP INTO AFFECTED EYE IN THE EVENING OPHTHALMIC ONCE A DAY, NOTES: 07/17/18 TAKING AMLODIPINE BESYLATE 5 MG TABLET 1 TABLET ORALLY ONCE A DAY, NOTES: 07/17/18 TAKING BENTYL 10 MG CAPSULE 1 CAPSULES ORALLY ONCE DAILY, NOTES: NONE LATELY TAKING LEVOTHROYXINE 200 MCG 1 TAB DAILY, NOTES: 07/18/18 TAKING LEVOTHYROXINE SODIUM 150 MCG TABLET 1 TABLET ON AN EMPTY STOMACH IN THE MORNING ORALLY ONCE A DAY, NOTES: 07/18/18 TAKING REQUIP 1 MG TABLET 1 TABLET 1 TO 3 HOURS BEFORE BEDTIME ORALLY ONCE A DAY NEEDED, NOTES: 07/17/18 TAKING PAXIL 20 MG TABLET 1 TABLET IN THE MORNING ORALLY ONCE A DAY, NOTES: 07/17/18 TAKING CARISOPRODOL 350 MG TABLET 1 TABLET NEEDED ORALLY BID FOR PAIN/SPASM MDD=2, NOTES: 07/17/18 TAKING TRAMADOL HCL 50 MG TABLET 1 -2 TABLET ORALLY TAKE 1-2 TABS Q 6 HRS PRN MDD=6, NOTES: 07/18/18 0400 TAKING VALIUM 10 MG TABLET 1 TABLET NEEDED ORALLY TAKE 1 TAB 1 HOUR PRIOR TO MRI, ONE ON ARRIVE AND 1 TAB DURING/AFTER IF NEEDED, NOTES: NONE RECENT, FOR MRI'S MEDICATION LIST REVIEWED AND RECONCILED WITH THE PATIENT PAST MEDICAL HISTORY HTN GERD LOW BACK PAIN GLAUCOMA - PER PT 3 CYSTS ON THYROID RAYNAUD'S THYROID CANCER ALLERGIES SULFA (FOR ALLERGY USE ONLY): HIVES - ALLERGY CYMBALTA: LEGS TITCHING - SIDE EFFECTS GABAPENTIN: ALTERED BALANCE - SIDE EFFECTS BACLOFEN: RESTLESS LEGS - SIDE EFFECTS ZANAFLEX: RESTLESS LEGS - SIDE EFFECTS TOPAMAX: "MESSED WITH HIS EYES" - SIDE EFFECTS ROBAXIN: NAUSEA/VOMITING - ALLERGY SKELAXIN LYRICA: INSOMNIA - SIDE EFFECTS SURGICAL HISTORY T&A APPENDECTOMY REPAIR OF RIGHT ELBOW FRACTURE REPAIR OF RIGHT ANKLE FRACTURE 2000 THYROID REMOVAL 2018 FAMILY HISTORY FATHER: ALIVE, UNKNOWN MOTHER: ALIVE, UNKNOWN SIBLINGS: UNKNOWN 1 SISTER(S) . NO KNOWN FAMILY HISTORY OF ANY UROLOGICALLY RELATED DISEASES\\\\\\/CANCERS. SOCIAL HISTORY GENERAL: TOBACCO USE ARE YOU A:FORMER SMOKER ADDITIONAL FINDINGS: TOBACCO USERCIGAR SMOKER SMOKING CESSATION INFORMATION GIVEN07/18/2018 ADDITIONAL FINDINGS: TOBACCO [id number] CIGARETTE SMOKER (<1/DAY) LATEX QUESTIONNAIRE LATEX ALLERGY : HAVE YOU EVER DEVELOPED ANY TYPE OF REACTION AFTER HANDLING LATEX PRODUCTS SUCH RUBBER GLOVES, CONDOMS, DIAPHRAGMS, BALLOONS, SOCKS, OR UNDERWEAR?NO LATEX ALLERGY : HAVE YOU EVER DEVELOPED ANY TYPE OF REACTION DURING OR AFTER DENTAL APPOINTMENT, VAGINAL/RECTAL EXAMINATION, SURGICAL PROCEDURE, OR ANY OTHER EXPOSURE?NO LATEX RISK : HAVE YOU EVER HAD ANY DIFFICULTY BREATHING OR HIVES AFTER EATING OR HANDLING ANY FRUITS, OR VEGETABLES; SUCH KIWI, BANANAS, STONE FRUITS, OR CHESTNUTSNO LATEX RISK : DO YOU HAVE A PREVIOUS PERSONAL HISTORY OF MORE THAN NINE SURGERIES, SPINA BIFIDA, OR REPEATED CATHERTIZATIONS? NO LATEX RISK : ARE YOU FREQUENTLY EXPOSED TO LATEX PRODUCTS IN YOUR OCCUPATION?NO DATE ASKED : 06/11/2018 LUNG CANCER SCREENING SMOKING STATUS:FORMER SMOKER ALCOHOL SCREENING DID YOU HAVE A DRINK CONTAINING ALCOHOL IN THE PAST YEAR?NO POINTS0 INTERPRETATIONNEGATIVE RECREATIONAL DRUG USE DRUG USE?NO CAFFEINE CAFFEINE USE?YES ALEVISM [id number] AGNOSTIC LANGUAGE LANGUAGES SPOKEN:NORTHER[place] IRISH EDUCATION LEVEL OF EDUCATION:NOT FINISHED HIGH SCHOOL LEARNING BARRIERS / SPECIAL NEEDS BARRIERS TO LEARNING?NO HEARING IMPAIRED?NO VISION IMPAIRED?YES :CORRECTIVE LENSES COGNITIVELY IMPAIRED?NO READINESS TO LEARN?YES LEARNING PREFERENCES?NO LEARNING CAPABILITIES PRESENT?YES EMOTIONAL BARRIERS?NO SPECIAL DEVICES?NO RN INTAKE NEEDED?NO DOMESTIC VIOLENCE DO YOU FEEL SAFE IN YOUR ENVIRONMENT?YES OCCUPATION: UNEMPLOYED. DIET: REGULAR. EXERCISE: NONE. MARITAL STATUS: SINGLE. OTHERS AT HOME: NONE. NEW PATIENT PAIN DIARY FROM 0-10, WHAT LEVEL IS YOUR PAIN TODAY?7 PAIN CLINIC PFS, CLERGY, PUBLIC HEALTH REFERRALS PFS REFERRAL NEEDED?NO CLERGY REFERRAL NEEDED?NO PUBLIC HEALTH REFERRAL NEEDED?NO HAS THE PATIENT BEEN EDUCATED REGARDING HIS/HER PLAN OF CARE?YES HAS THE PATIENT BEEN EDUCATED REGARDING PAIN, THE RISK FOR PAIN, THE IMPORTANCE OF EFFECTIVE PAIN MANAGEMENT, AND THE PAIN ASSESSMENT PROCESS?YES ADVANCE DIRECTIVE ADVANCE DIRECTIVE DISCUSSED WITH PATIENT:YES NARENDRA CHRISTENSENMOM [phone] REVEIWED WITH PT 02/14/18 1426 BVREVIEWED WITH PT 04/23/18 1318 BVREVIEWED WITH PT 05/02/18 1421 BVREVIEWED WITH PATIENT 06/11/18 1408 JSREVEIWED WITH PATIENT 06/26/18 1510 BV. HOSPITALIZATION/MAJOR DIAGNOSTIC PROCEDURE SEVERAL [facility] REVIEW OF SYSTEMS REVIEWED BY: PROVIDER: . CONSTITUTIONAL: ANY CHANGE IN YOUR MEDICAL CONDITION? NO . CHILLS NO . FEVER NO . INFECTION: DO YOU HAVE NEW INFECTIONS? NO . DO YOU HAVE HISTORY OF MRSA? NO . MUSCULOSKELETAL: ANY NEW PATTERNS OF PAIN OR NUMBNESS? YES, BILAT JAW PAIN UPPER AND LOWER . GASTROENTEROLOGY: ANY NEW CHANGE IN BOWEL CONTROL? NO . GENITOURINARY: ANY NEW CHANGE IN BLADDER CONTROL? NO . IS THERE A CHANCE YOU COULD BE ? NO . HEMATOLOGY/LYMPH: DO YOU TAKE ANY BLOOD THINNERS? (FOR EXAMPLE- COUMADIN, PLAVIX, AGGRENOX, PLATEL, PRADAXA, OR XARELTO) NO . WHEN WAS YOUR LAST DOSE? DATE: TIME: . NEUROLOGY: HAVE YOU FALLEN IN THE PAST 12 MONTHS? NO . ANY NEW EXTREMITY NUMBNESS OR WEAKNESS? NO . CARDIOLOGY: DO YOU HAVE A PACEMAKER OR DEFIBRILLATOR? NO . RESPIRATORY: HAVE YOU BEEN SICK IN THE PAST WEEK? NO . FEVER NO . FLU LIKE SYMPTOMS? NO . COUGH NO . INTEGUMENTARY: DO YOU HAVE ANY RASHES OR OPEN SORES? NO . ALLERGIC/IMMUNO: ARE YOU ALLERGIC TO IV DYE? NO . ANY NEW ALLERGIES? NO . PSYCHIATRIC: DO YOU HAVE THOUGHTS OF HURTING YOURSELF OR SOMEONE ELSE? NO . ARE YOU ABUSED, NEGLECTED, OR IN AN UNSAFE ENVIRONMENT? NO . ENDOCRINOLOGY: ARE YOU DIABETIC? NO . OTHER: DO YOU NEED ANY PRESCRIPTIONS? NO . IF YES, PLEASE LIST: ____ . ANY NEW PROBLEMS WITH YOUR MEDICATIONS? NO . WHEN DID YOU LAST EAT? 07/18/18 1200 . WHEN DID YOU LAST DRINK? 07/18/18 0800 . WHAT DID YOU LAST DRINK? WATER . NAME OF PERSON DRIVING YOU HOME? PALMER . DO YOU HAVE ANY OTHER QUESTIONS OR CONCERNS NO . VITAL SIGNS WT 359.8 LBS, HT 6'8", BMI 39.52 INDEX, BP 117/75 MM HG, HR 64 /MIN, RR 18 /MIN, TEMP 98.2 F, OXYGEN SAT % 99%, NA INITIALS AW 1147, REVIEWED BY: EM. ASSESSMENTS SPONDYLOSIS OF LUMBAR REGION WITHOUT MYELOPATHY OR RADICULOPATHY - M47.816 (PRIMARY) SPONDYLOSIS OF LUMBOSACRAL REGION WITHOUT MYELOPATHY OR RADICULOPATHY - M47.817 TREATMENT SPONDYLOSIS OF LUMBAR REGION WITHOUT MYELOPATHY OR RADICULOPATHY [facility] GUIDANCE (PAIN)[id number] PROCEDURES PN LUMBAR FACET BLOCK DIAGNOSTIC PRE PROCEDURE DIAGNOSIS LUMBAR SPONDYLOSIS, LUMBOSACRAL SPONDYLOSIS POST PROCEDURE DIAGNOSIS LUMBAR SPONDYLOSIS, LUMBOSACRAL SPONDYLOSIS PROCEDURE BILATERAL L4-L5 AND BILATERAL L5-S1 FACET BLOCK DIAGNOSTIC NUMBER [address] OSBALDO LOPEZ SHUTTLE FINAL INSPECTOR NONE ANESTHESIA LOCAL PRE PROCEDURE NOTE THE PATIENT WITH HISTORY OF CHRONIC LOW BACK PAIN. I EVALUATED THE PATIENT AND REVIEWED THE CHART. I WENT OVER THE RISKS, ALTERNATIVES, AND BENEFITS ASSOCIATED WITH THIS PROCEDURE. THE PATIENT WOULD LIKE TO PROCEED AND GAVE CONSENT TO PERFORM THE PROCEDURE. AGREED WITH THE PATIENT WE ARE DOING THIS PROCEDURE TO DETERMINE IF THE PATIENT IS A CANDIDATE FOR A RADIOFREQUENCY ABLATION OF THE FACETS JOINTS. THE PATIENT DENIES UNEXPLAINABLE WEIGHT LOSS, FEVER, CHILLS, OR NEW CHANGES IN URINARY OR BOWEL CONTROL DESCRIPTION OF PROCEDURE THE PATIENT WAS BROUGHT TO THE PROCEDURE ROOM AND PLACED IN THE PRONE POSITION. THE LUMBOSACRAL AREA WAS CLEANED WITH CHLORAPREP SOLUTION AND DRAPED ASEPTICALLY. THE PROCEDURE WAS DONE UNDER STERILE CONDITIONS. I CHECKED LATERALITY AND THE LEVEL WHERE THE PROCEDURE WAS GOING TO BE PERFORMED WITH THE PATIENT AND THE SUPPORTING STAFF AT THE MOMENT OF THE TIME OUT IN THE PROCEDURE ROOM. UNDER FLUOROSCOPIC GUIDANCE, TARGETS WERE SELECTED AT THE INTERSECTION OF THE RIGHT AND LEFT TRANSVERSE PROCESS OF L4, L5 AND ALA OF S1 WITH ITS RESPECTIVE SUPERIOR ARTICULAR PROCESS. LIDOCAINE WAS USED TO NUMB THE SKIN AND THE SUBCUTANEOUS TISSUE BELOW IT. SPINAL NEEDLE, 22-GAUGE WAS ADVANCED UNDER FLUOROSCOPIC GUIDANCE AND FOLLOWING PATIENT FEEDBACK UNTIL THE TARGETS WERE REACHED. POSITION OF THE NEEDLES WAS VERIFIED WITH AP AND LATERAL VIEWS. AFTER PROPER POSITION OF THE NEEDLES WAS ACHIEVED, ISOVUE-M DYE 30% 0.1 ML WAS INJECTED AT EACH SITE SHOWING ADEQUATE SPREAD OF THE DYE. THEN A SOLUTION OF 0.4 ML OF BUPIVACAINE 0.25% WAS INJECTED AT EACH SITE. THERE WAS NO EVIDENCE OF BLOOD, PARESTHESIA OR CEREBROSPINAL FLUID DURING THE PROCEDURE. THE PATIENT WAS SENT TO THE RECOVERY ROOM. THE PATIENT WAS MOVING THE EXTREMITIES AND DOING WELL. THERE WAS NO COMPLICATION DURING THE PROCEDURE. FLUOROSCOPY TIME WAS 52 SECONDS POST PROCEDURE NOTE THE PATIENT WILL DOCUMENT HIS PAIN LEVEL AND RESPONSE TO THIS PROCEDURE EVERY 30 MINUTES. THE PATIENT WILL BE SEEN IN A FOLLOW UP IN THE NEXT FEW WEEKS. FURTHER DETERMINATION FOR HIS CASE WILL BE DONE AT THE NEXT VISIT. INSTRUCTIONS WERE GIVEN, QUESTIONS WERE ANSWERED, AND THE PATIENT EXPRESSED UNDERSTANDING AND AGREED WITH THE PLAN. I, ROSALVA RUVALCABA, DOCUMENTED THE ABOVE INFORMATION ACTING A SCRIBE FOR DR. LOPEZ. I HAVE REVIEWED THE ABOVE DOCUMENT, WRITTEN BY ROSALVA RUVALCABA SCRIBMichael AND I VERIFY THAT IT IS ACCURATE. PROCEDURE CODES 6045F RADXPS IN END [id number] PXD [id number] INJ PARAVERT F JNT L/S 1 LEV, MODIFIERS: 50 [id number] INJ PARAVERT F JNT L/S 2 LEV, MODIFIERS: 50 DISPOSITION & COMMUNICATION FOLLOW UP 3 WEEKS ELECTRONICALLY SIGNED BY OSBALDO LOPEZ MD, MD ON 08/05/2018 AT 06:55 PM EDT DISCLAIMER : THIS IS A VISIT SUMMARY EXTRACTED FROM THE [employer] CHART. IT IS NOT A COPY OF THE [employer] PROGRESS NOTE. MTDD
== END ==
LOC: M PAIN 11:45
PROVIDERS: ATTEND Anesthesiology
DX: G89.29 Other chronic pain (principal); M47.816 Spondylosis without myelopathy or radiculopathy, lumbar region; M47.817 Spondylosis without myelopathy or radiculopathy, lumbosacral region; I10 Essential (primary) hypertension; K21.9 Gastro-esophageal reflux disease without esophagitis; I73.00 Raynaud's syndrome without gangrene; F17.290 Nicotine dependence, other tobacco product, uncomplicated; Z79.891 Long term (current) use of opiate analgesic; Z79.899 Other long term (current) drug therapy; Z88.2 Allergy status to sulfonamides; Z88.8 Allergy status to other drugs, medicaments and biological substances; Z86.59 Personal history of other mental and behavioral disorders
CPT/HCPCS: 64493; 64494; Q9967

== ENCOUNTER → 2018-07-27 | Outpatient (CLI) | payer OTHER ==
[~2018-07-27] MED LIST changes: -BUPIVACAINE HCL 0.25% 30 ML VIAL As Ordered ONE; -ISOVUE-M 300 61% 15ML VIAL (Q9967) As Ordered ONE; -LIDOCAINE 1% SDV INJ 30 ML VIAL As Ordered ONE
--- NOTE | 2018-08-08 23:44 | ECWPNPC ---
PATIENT NAME: MARCY AMOS : 1980 GENDER: MALE VISIT DATE: 07/27/2018 DISCHARGE DATE: 07/27/18 1705 VISIT LOCKED DATE TIME: PHYSICIAN: OSBALDO LOPEZ MD RESOURCE: OSBALDO LOPEZ MD REASON FOR APPOINTMENT 1. F/U [place]/ [facility] HISTORY OF PRESENT ILLNESS HISTORY OF PRESENT ILLNESS: PAIN THE PATIENT DESCRIBES THE PAIN... 37 YEAR OLD MALE PATIENT WITH A HISTORY OF CHRONIC MULTIPLE BODY PAIN. THE PATIENT DESCRIBES THE PAIN ACHING, BURNING, SORE, TENDER, SHARP, AND CONTINUOUS WITH A PAIN SCORE OF 7-10/10 DEPENDING ON PHYSICAL ACTIVITY. THE PATIENT SAID THE PAIN IS MAINLY IN HIS LOW BACK, THORACIC, NECK, AND HEAD AREAS. THE PATIENT HAS HAD DIFFERENT PROCEDURES PERFORMED IN THE PAST, BUT HE SAYS HIS PAIN STILL PERSISTS. THE PATIENT IS CURRENTLY USING 6 TRAMADOL AND 2 SOMAS DURING THE NIGHT, TRAZODONE, AMBIEN, CLONIDINE, AND PAXIL. HE HAS TRIED OTHER MEDICATIONS, INCLUDING TYLENOL WITH LITTLE IMPROVEMENT. HE SAID HE SUFFERS FROM STIFFNESS AND PAIN IN THE MORNING, PAIN IN LOCALIZED AREAS AT NIGHT, AND CONSTANT HEADACHES ON ALL SIDES OF HIS HEAD FOR 5 YEARS. PATIENT DENIES UNEXPLAINABLE WEIGHT LOSS, FEVER, CHILLS, NEW CHANGES ON HIS URINARY OR BOWEL CONTROL. FALL RISK SCREENING: SCREENING :NO FALLS REPORTED IN THE LAST YEAR CURRENT MEDICATIONS TAKING TRAZODONE HCL 50 MG TABLET 1 TABLET AT BEDTIME NEEDED ORALLY ONCE A DAY TAKING ZOLPIDEM TARTRATE 10 MG TABLET 1 TABLET AT BEDTIME NEEDED ORALLY ONCE A DAY TAKING CLONIDINE HCL 0.2 MG TABLET 2 ORALLY BID TAKING METOPROLOL SUCCINATE 200 MG TABLET EXTENDED RELEASE ORALLY BEFORE BEDTIME TAKING OMEPRAZOLE 40 MG CAPSULE DELAYED RELEASE 1 CAPSULE ORALLY ONCE A DAY TAKING LATANOPROST 0.005 % SOLUTION 1 DROP INTO AFFECTED EYE IN THE EVENING OPHTHALMIC ONCE A DAY TAKING AMLODIPINE BESYLATE 10 MG TABLET 1 TABLET ORALLY ONCE A DAY TAKING BENTYL 10 MG CAPSULE 1 CAPSULES ORALLY ONCE DAILY TAKING LEVOTHROYXINE 200 MCG 1 TAB DAILY TAKING LEVOTHYROXINE SODIUM 150 MCG TABLET 1 TABLET ON AN EMPTY STOMACH IN THE MORNING ORALLY ONCE A DAY TAKING REQUIP 1 MG TABLET 1 TABLET 1 TO 3 HOURS BEFORE BEDTIME ORALLY ONCE A DAY NEEDED TAKING PAXIL 20 MG TABLET 1 TABLET IN THE MORNING ORALLY ONCE A DAY TAKING CARISOPRODOL 350 MG TABLET 1 TABLET NEEDED ORALLY BID FOR PAIN/SPASM MDD=2 TAKING TRAMADOL HCL 50 MG TABLET 1 -2 TABLET ORALLY TAKE 1-2 TABS Q 6 HRS PRN MDD=6 TAKING VALIUM 10 MG TABLET 1 TABLET NEEDED ORALLY TAKE 1 TAB 1 HOUR PRIOR TO MRI, ONE ON ARRIVE AND 1 TAB DURING/AFTER IF NEEDED, NOTES: NONE RECENT, FOR MRI'S MEDICATION LIST REVIEWED AND RECONCILED WITH THE PATIENT PAST MEDICAL HISTORY HTN GERD LOW BACK PAIN GLAUCOMA - PER PT 3 CYSTS ON THYROID RAYNAUD'S THYROID CANCER ALLERGIES SULFA (FOR ALLERGY USE ONLY): HIVES - ALLERGY CYMBALTA: LEGS TITCHING - SIDE EFFECTS GABAPENTIN: ALTERED BALANCE - SIDE EFFECTS BACLOFEN: RESTLESS LEGS - SIDE EFFECTS ZANAFLEX: RESTLESS LEGS - SIDE EFFECTS TOPAMAX: "MESSED WITH HIS EYES" - SIDE EFFECTS ROBAXIN: NAUSEA/VOMITING - ALLERGY SKELAXIN LYRICA: INSOMNIA - SIDE EFFECTS SURGICAL HISTORY T&A APPENDECTOMY REPAIR OF RIGHT ELBOW FRACTURE REPAIR OF RIGHT ANKLE FRACTURE 2000 THYROID REMOVAL 2018 FAMILY HISTORY FATHER: ALIVE, UNKNOWN MOTHER: ALIVE, UNKNOWN SIBLINGS: UNKNOWN 1 SISTER(S) . NO KNOWN FAMILY HISTORY OF ANY UROLOGICALLY RELATED DISEASES\\\\\\\\\\\\\\/CANCERS. SOCIAL HISTORY GENERAL: TOBACCO USE ARE YOU A:FORMER SMOKER ADDITIONAL FINDINGS: TOBACCO USERCIGAR SMOKER SMOKING CESSATION INFORMATION GIVEN07/18/2018 ADDITIONAL FINDINGS: TOBACCO [id number] CIGARETTE SMOKER (<1/DAY) LATEX QUESTIONNAIRE LATEX ALLERGY : HAVE YOU EVER DEVELOPED ANY TYPE OF REACTION AFTER HANDLING LATEX PRODUCTS SUCH RUBBER GLOVES, CONDOMS, DIAPHRAGMS, BALLOONS, SOCKS, OR UNDERWEAR?NO LATEX ALLERGY : HAVE YOU EVER DEVELOPED ANY TYPE OF REACTION DURING OR AFTER DENTAL APPOINTMENT, VAGINAL/RECTAL EXAMINATION, SURGICAL PROCEDURE, OR ANY OTHER EXPOSURE?NO LATEX RISK : HAVE YOU EVER HAD ANY DIFFICULTY BREATHING OR HIVES AFTER EATING OR HANDLING ANY FRUITS, OR VEGETABLES; SUCH KIWI, BANANAS, STONE FRUITS, OR CHESTNUTSNO LATEX RISK : DO YOU HAVE A PREVIOUS PERSONAL HISTORY OF MORE THAN NINE SURGERIES, SPINA BIFIDA, OR REPEATED CATHERTIZATIONS? NO LATEX RISK : ARE YOU FREQUENTLY EXPOSED TO LATEX PRODUCTS IN YOUR OCCUPATION?NO DATE ASKED : 06/11/2018 LUNG CANCER SCREENING SMOKING STATUS:FORMER SMOKER ALCOHOL SCREENING DID YOU HAVE A DRINK CONTAINING ALCOHOL IN THE PAST YEAR?NO POINTS0 INTERPRETATIONNEGATIVE RECREATIONAL DRUG USE DRUG USE?NO CAFFEINE CAFFEINE USE?YES MUSLIM [id number] AGNOSTIC LANGUAGE LANGUAGES SPOKEN:[place] EDUCATION LEVEL OF EDUCATION:NOT FINISHED HIGH SCHOOL LEARNING BARRIERS / SPECIAL NEEDS BARRIERS TO LEARNING?NO HEARING IMPAIRED?NO VISION IMPAIRED?YES :CORRECTIVE LENSES COGNITIVELY IMPAIRED?NO READINESS TO LEARN?YES LEARNING PREFERENCES?NO LEARNING CAPABILITIES PRESENT?YES EMOTIONAL BARRIERS?NO SPECIAL DEVICES?NO SEISMIC ENGINEER NEEDED?NO DOMESTIC VIOLENCE DO YOU FEEL SAFE IN YOUR ENVIRONMENT?YES OCCUPATION: UNEMPLOYED. DIET: REGULAR. EXERCISE: NONE. MARITAL STATUS: SINGLE. OTHERS AT HOME: NONE. NEW PATIENT PAIN DIARY FROM 0-10, WHAT LEVEL IS YOUR PAIN TODAY?7 PAIN CLINIC PFS, CLERGY, PUBLIC HEALTH REFERRALS PFS REFERRAL NEEDED?NO CLERGY REFERRAL NEEDED?NO PUBLIC HEALTH REFERRAL NEEDED?NO HAS THE PATIENT BEEN EDUCATED REGARDING HIS/HER PLAN OF CARE?YES HAS THE PATIENT BEEN EDUCATED REGARDING PAIN, THE RISK FOR PAIN, THE IMPORTANCE OF EFFECTIVE PAIN MANAGEMENT, AND THE PAIN ASSESSMENT PROCESS?YES ADVANCE DIRECTIVE ADVANCE DIRECTIVE DISCUSSED WITH PATIENT:YES [facility] [place] [phone] REVEIWED WITH PT 02/14/18 1426 BVREVIEWED WITH PT 04/23/18 1318 BVREVIEWED WITH PT 05/02/18 1421 BVREVIEWED WITH PATIENT 06/11/18 1408 JSREVEIWED WITH PATIENT 06/26/18 1510 BVREVIEWED WITH PATIENT 07/27/18 1507 JS. HOSPITALIZATION/MAJOR DIAGNOSTIC PROCEDURE [facility] REVIEW OF SYSTEMS REVIEWED BY: PROVIDER: OSBALDO LOPEZ MD . CONSTITUTIONAL: ANY CHANGE IN YOUR MEDICAL CONDITION? NO . CHILLS NO . FEVER NO . INFECTION: DO YOU HAVE NEW INFECTIONS? NO . DO YOU HAVE HISTORY OF MRSA? NO . MUSCULOSKELETAL: ANY NEW PATTERNS OF PAIN OR NUMBNESS? NO . GASTROENTEROLOGY: ANY NEW CHANGE IN BOWEL CONTROL? NO . GENITOURINARY: ANY NEW CHANGE IN BLADDER CONTROL? NO . IS THERE A CHANCE YOU COULD BE ? NO . HEMATOLOGY/LYMPH: DO YOU TAKE ANY BLOOD THINNERS? (FOR EXAMPLE- COUMADIN, PLAVIX, AGGRENOX, PLATEL, PRADAXA, OR XARELTO) NO . WHEN WAS YOUR LAST DOSE? DATE: TIME: . NEUROLOGY: HAVE YOU FALLEN IN THE PAST 12 MONTHS? NO . ANY NEW EXTREMITY NUMBNESS OR WEAKNESS? NO . CARDIOLOGY: DO YOU HAVE A PACEMAKER OR DEFIBRILLATOR? NO . RESPIRATORY: HAVE YOU BEEN SICK IN THE PAST WEEK? NO . FEVER NO . FLU LIKE SYMPTOMS? NO . COUGH NO . INTEGUMENTARY: DO YOU HAVE ANY RASHES OR OPEN SORES? NO . ALLERGIC/IMMUNO: ARE YOU ALLERGIC TO IV DYE? NO . ANY NEW ALLERGIES? NO . PSYCHIATRIC: DO YOU HAVE THOUGHTS OF HURTING YOURSELF OR SOMEONE ELSE? NO . ARE YOU ABUSED, NEGLECTED, OR IN AN UNSAFE ENVIRONMENT? NO . ENDOCRINOLOGY: ARE YOU DIABETIC? NO . OTHER: DO YOU NEED ANY PRESCRIPTIONS? NO . IF YES, PLEASE LIST: ____ . ANY NEW PROBLEMS WITH YOUR MEDICATIONS? NO . WHEN DID YOU LAST EAT? ____ . WHEN DID YOU LAST DRINK? ____ . WHAT DID YOU LAST DRINK? ____ . NAME OF PERSON DRIVING YOU HOME? ____ . DO YOU HAVE ANY OTHER QUESTIONS OR CONCERNS NO . VITAL SIGNS WT 359.8 LBS, HT 6'8", BMI 39.52 INDEX, BP 147/93 MM HG, HR 81 /MIN, RR 20 /MIN, TEMP 98.6 F, OXYGEN SAT % 100%, SAFE IN ENV? (Y/N) YES, NA INITIALS HI 14:48, REVIEWED BY: RADHA/ DISCUSSED PATIENT'S ELEVATED BP. PATIENT STATES HIS AMLODIPINE WAS INCREASED RECENTLY TO 10 MG AND HE WILL CONTINUE TO MONITOR. JS. EXAMINATION GENERAL EXAMINATION: PATIENT IS ALERT O X 3 AND COOPERATIVE. GOOD SYMMETRY OF FACIAL MUSCLE MOVEMENT. TENDERNESS AND PAIN OVER THE THORACIC AREA. MRI OF THE CERVICAL SPINE DONE ON 05/25/2018 SHOWS FACET ARTHROPATHY CHANGES AT C6-C7. ASSESSMENTS SPONDYLOSIS OF CERVICAL REGION WITHOUT MYELOPATHY OR RADICULOPATHY - M47.812 (PRIMARY) CERVICALGIA - M54.2 PAIN IN THORACIC SPINE - M54.6 OTHER CHRONIC PAIN - G89.29 CHRONIC INTRACTABLE HEADACHE, UNSPECIFIED HEADACHE TYPE - R51 TREATMENT SPONDYLOSIS OF CERVICAL REGION WITHOUT MYELOPATHY OR RADICULOPATHY CLINICAL NOTES: WE DISCUSSED MANY ISSUES WITH MR. AMOS' PAIN MANAGEMENT CASE. I AM REFERRING THE PATIENT TO [facility] FOR ADVICE ON THE PATIENT'S CASE. THE PATIENT IS PENDING TO SEE A NEUROLOGIST FOR HIS HEADACHES. THE PATIENT HAS TRIED BOTOX IN THE PAST WITHOUT AVAIL. I SUGGESTED AIMOVIG AND MEDICAL MARIJUANA FOR THE PATIENT TO TRY PAIN RELIEF AND A RADIOFREQUENCY PROCEDURE AN ALTERNATIVE IN THE FUTURE. FOR NOW, THE PATIENT WILL STOP TRAMADOL AND START ON HYDROCODONE 5/325 MG. I WOULD LIKE TO DISCUSS THE CASE FURTHER WITH THE PATIENTS PRIMARY CARE, PABLO CADENA. THE PATIENT WILL FOLLOWUP IN 1 WEEK. I WAS THE PATIENT FOR OVER 45 MINUTES AND MORE THAN HALF OF THE TIME WAS SPENT IN COORDINATION OF CARE DISCUSSING THE PATIENT'S OPTIONS FOR MEDICATION MANAGEMENT, USE AND RISKS OF OPIOIDS, INJECTION THERAPY, REFERRING TO OTHER SPECIALISTS, AND PATIENT'S CONCERNS. INSTRUCTIONS WERE GIVEN, QUESTIONS WERE ANSWERED, PATIENT REPORTS UNDERSTANDING AND AGREES WITH THE PLAN. I, ANDRES MOORE, DOCUMENTED THE ABOVE INFORMATION ACTING A SCRIBE FOR DR. LOPEZ. I HAVE REVIEWED THE ABOVE DOCUMENT, WRITTEN BY ANDRES MOORE SCRIBMichael AND I VERIFY THAT IT IS ACCURATE. . OTHERS START HYDROCODONE-ACETAMINOPHEN TABLET, 5-325 MG, 1 TABLET NEEDED, ORALLY FOR PAIN, EVERY 8 HRS MDD3, 7 DAYS, 21, REFILLS 0 PREVENTIVE MEDICINE PAIN CLINIC TEACHING: MEDICATIONS PRINTED AND REVIEWED INFORMATION ON NEW MEDICATION, HYDROCODONE, WITH PATIENT. PATIENT VERBALIZED AN UNDERSTANDING. JANETTE BHAGAT 07/27/2018 5:04:30 PM > . PROCEDURE CODES FA211 ESTABILISHED PATIENT [facility] FACILITY CHARGE G8427 CURRENT MEDS W/DOSAGES DOCUMENTED G8730 PAIN ASSESS POS TOOL F/U PLAN DOC DISPOSITION & COMMUNICATION FOLLOW UP 1 WEEK ELECTRONICALLY SIGNED BY LEONIDAS MADDOX ON 08/08/2018 AT 12:37 PM EDT DISCLAIMER : THIS IS A VISIT SUMMARY EXTRACTED FROM THE [employer] CHART. IT IS NOT A COPY OF THE [employer]V PROGRESS NOTE. ERENDIRA
== END ==
LOC: M PAIN 14:30
PROVIDERS: ATTEND Anesthesiology
DX: M47.812 Spondylosis without myelopathy or radiculopathy, cervical region (principal); M54.2 Cervicalgia; M54.6 Pain in thoracic spine; G89.29 Other chronic pain; R51 Headache; I10 Essential (primary) hypertension; K21.9 Gastro-esophageal reflux disease without esophagitis; Z85.850 Personal history of malignant neoplasm of thyroid; Z87.891 Personal history of nicotine dependence; Z88.1 Allergy status to other antibiotic agents; Z88.2 Allergy status to sulfonamides; Z88.8 Allergy status to other drugs, medicaments and biological substances; Z86.59 Personal history of other mental and behavioral disorders; Z79.891 Long term (current) use of opiate analgesic; Z79.899 Other long term (current) drug therapy

== ENCOUNTER → 2018-08-02 | Outpatient (CLI) | payer OTHER ==
--- NOTE | 2018-08-19 23:55 | ECWPNPC ---
PATIENT NAME: MARCY AMOS : 1980 GENDER: MALE VISIT DATE: 08/02/2018 DISCHARGE DATE: 08/02/18 1616 VISIT LOCKED DATE TIME: PHYSICIAN: OSBALDO LOPEZ MD RESOURCE: OSBALDO LOPEZ MD REASON FOR APPOINTMENT 1. F/U BACK PAIN HISTORY OF PRESENT ILLNESS HISTORY OF PRESENT ILLNESS: PAIN THE PATIENT DESCRIBES THE PAIN... 37 YEAR OLD MALE PATIENT WITH A HISTORY OF CHRONIC MULTIPLE BODY PAIN. THE PATIENT DESCRIBES THE PAIN ACHING, BURNING, SORE, TENDER, SHARP, AND CONTINUOUS WITH A PAIN SCORE OF 6-9/10 DEPENDING ON PHYSICAL ACTIVITY. THE PATIENT SAYS THAT HIS PAIN IS LOCATED AT HIS NECK WITH HEADACHES, THORACIC AREA, AND HIS LOW BACK AREA WITH RADIATION TOWARDS HIS HIPS. THE PATIENT SAYS THAT HE HAS HAD THIS PAIN FOR SEVERAL YEARS. THE PATIENT SAYS THAT HE HAS DIFFICULTY SLEEPING DUE TO THIS PAIN IN HIS HIPS FROM HIS LOW BACK. THE PATIENT SAYS THAT DURING THE DAY HE HAS LINGERING HEADACHES FROM THE PAIN IN HIS NECK. THE PATIENT SAYS THAT TRIGGER POINT INJECTIONS HAVE HELPED HIS NECK PAIN AND REDUCED HIS HEADACHES IN THE PAST. THE PATIENT CURRENTLY USING 3 HYDROCODONE PER DAY, BUT SAYS THAT IT HAS NOT BEEN HELPING. THE PATIENT ALSO USES 2 SOMA PER DAY. THE PATIENT HAS SEEN MULTIPLE PROVIDERS AND TRIED SEVERAL MEDICATIONS, BUT SAYS HIS PAIN HAS PERSISTED. PATIENT DENIES UNEXPLAINABLE WEIGHT LOSS, FEVER, CHILLS, NEW CHANGES ON HIS URINARY OR BOWEL CONTROL. FALL RISK SCREENING: SCREENING :NO FALLS REPORTED IN THE LAST YEAR CURRENT MEDICATIONS TAKING TRAZODONE HCL 50 MG TABLET 1 TABLET AT BEDTIME NEEDED ORALLY ONCE A DAY TAKING ZOLPIDEM TARTRATE 10 MG TABLET 1 TABLET AT BEDTIME NEEDED ORALLY ONCE A DAY TAKING CLONIDINE HCL 0.2 MG TABLET 2 ORALLY BID TAKING METOPROLOL SUCCINATE 200 MG TABLET EXTENDED RELEASE ORALLY BEFORE BEDTIME TAKING OMEPRAZOLE 40 MG CAPSULE DELAYED RELEASE 1 CAPSULE ORALLY ONCE A DAY TAKING LATANOPROST 0.005 % SOLUTION 1 DROP INTO AFFECTED EYE IN THE EVENING OPHTHALMIC ONCE A DAY TAKING AMLODIPINE BESYLATE 10 MG TABLET 1 TABLET ORALLY ONCE A DAY TAKING BENTYL 10 MG CAPSULE 1 CAPSULES ORALLY ONCE DAILY TAKING LEVOTHROYXINE 200 MCG 1 TAB DAILY TAKING LEVOTHYROXINE SODIUM 150 MCG TABLET 1 TABLET ON AN EMPTY STOMACH IN THE MORNING ORALLY ONCE A DAY TAKING REQUIP 1 MG TABLET 1 TABLET 1 TO 3 HOURS BEFORE BEDTIME ORALLY ONCE A DAY NEEDED TAKING PAXIL 20 MG TABLET 1 TABLET IN THE MORNING ORALLY ONCE A DAY TAKING CARISOPRODOL 350 MG TABLET 1 TABLET NEEDED ORALLY BID FOR PAIN/SPASM MDD=2 TAKING TRAMADOL HCL 50 MG TABLET 1 -2 TABLET ORALLY TAKE 1-2 TABS Q 6 HRS PRN MDD=6 TAKING VALIUM 10 MG TABLET 1 TABLET NEEDED ORALLY TAKE 1 TAB 1 HOUR PRIOR TO MRI, ONE ON ARRIVE AND 1 TAB DURING/AFTER IF NEEDED, NOTES: NONE RECENT, FOR MRI'S TAKING HYDROCODONE-ACETAMINOPHEN 5-325 MG TABLET 1 TABLET NEEDED ORALLY FOR PAIN EVERY 8 HRS MDD3 MEDICATION LIST REVIEWED AND RECONCILED WITH THE PATIENT PAST MEDICAL HISTORY HTN GERD LOW BACK PAIN GLAUCOMA - PER PT 3 CYSTS ON THYROID RAYNAUD'S THYROID CANCER ALLERGIES SULFA (FOR ALLERGY USE ONLY): HIVES - ALLERGY CYMBALTA: LEGS TITCHING - SIDE EFFECTS GABAPENTIN: ALTERED BALANCE - SIDE EFFECTS BACLOFEN: RESTLESS LEGS - SIDE EFFECTS ZANAFLEX: RESTLESS LEGS - SIDE EFFECTS TOPAMAX: "MESSED WITH HIS EYES" - SIDE EFFECTS ROBAXIN: NAUSEA/VOMITING - ALLERGY SKELAXIN LYRICA: INSOMNIA - SIDE EFFECTS SURGICAL HISTORY T&A APPENDECTOMY REPAIR OF RIGHT ELBOW FRACTURE REPAIR OF RIGHT ANKLE FRACTURE 1999 THYROID REMOVAL 2018 FAMILY HISTORY FATHER: ALIVE, UNKNOWN MOTHER: ALIVE, UNKNOWN SIBLINGS: UNKNOWN 1 SISTER(S) . NO KNOWN FAMILY HISTORY OF ANY UROLOGICALLY RELATED DISEASES\\\\\\\\\\\\\\\\\\\\\\\\\\\\\\/CANCERS. SOCIAL HISTORY GENERAL: TOBACCO USE ARE YOU A:FORMER SMOKER ADDITIONAL FINDINGS: TOBACCO USERCIGAR SMOKER SMOKING CESSATION INFORMATION GIVEN07/18/2018 ADDITIONAL FINDINGS: TOBACCO EER-[id number] CIGARETTE SMOKER (<1/DAY) OTHERS AT HOME: NONE. EDUCATION LEVEL OF EDUCATION:NOT FINISHED HIGH SCHOOL DIET: REGULAR. LANGUAGE LANGUAGES SPOKEN:[place]AN DOMESTIC VIOLENCE DO YOU FEEL SAFE IN YOUR ENVIRONMENT?YES NEW PATIENT PAIN DIARY FROM 0-10, WHAT LEVEL IS YOUR PAIN TODAY?7 RECREATIONAL DRUG USE DRUG USE?NO EXERCISE: NONE. LEARNING BARRIERS / SPECIAL NEEDS BARRIERS TO LEARNING?NO HEARING IMPAIRED?NO VISION IMPAIRED?YES :CORRECTIVE LENSES COGNITIVELY IMPAIRED?NO READINESS TO LEARN?YES LEARNING PREFERENCES?NO LEARNING CAPABILITIES PRESENT?YES EMOTIONAL BARRIERS?NO SPECIAL DEVICES?NO ROPE MAKER NEEDED?NO LUNG CANCER SCREENING SMOKING STATUS:FORMER SMOKER PAIN CLINIC PFS, CLERGY, PUBLIC HEALTH REFERRALS PFS REFERRAL NEEDED?NO CLERGY REFERRAL NEEDED?NO PUBLIC HEALTH REFERRAL NEEDED?NO HAS THE PATIENT BEEN EDUCATED REGARDING HIS/HER PLAN OF CARE?YES HAS THE PATIENT BEEN EDUCATED REGARDING PAIN, THE RISK FOR PAIN, THE IMPORTANCE OF EFFECTIVE PAIN MANAGEMENT, AND THE PAIN ASSESSMENT PROCESS?YES LATEX QUESTIONNAIRE LATEX ALLERGY : HAVE YOU EVER DEVELOPED ANY TYPE OF REACTION AFTER HANDLING LATEX PRODUCTS SUCH RUBBER GLOVES, CONDOMS, DIAPHRAGMS, BALLOONS, SOCKS, OR UNDERWEAR?NO LATEX ALLERGY : HAVE YOU EVER DEVELOPED ANY TYPE OF REACTION DURING OR AFTER DENTAL APPOINTMENT, VAGINAL/RECTAL EXAMINATION, SURGICAL PROCEDURE, OR ANY OTHER EXPOSURE?NO LATEX RISK : HAVE YOU EVER HAD ANY DIFFICULTY BREATHING OR HIVES AFTER EATING OR HANDLING ANY FRUITS, OR VEGETABLES; SUCH KIWI, BANANAS, STONE FRUITS, OR CHESTNUTSNO LATEX RISK : DO YOU HAVE A PREVIOUS PERSONAL HISTORY OF MORE THAN NINE SURGERIES, SPINA BIFIDA, OR REPEATED CATHERTIZATIONS? NO LATEX RISK : ARE YOU FREQUENTLY EXPOSED TO LATEX PRODUCTS IN YOUR OCCUPATION?NO DATE ASKED : 06/11/2018 CAFFEINE CAFFEINE USE?YES ADVANCE DIRECTIVE ADVANCE DIRECTIVE DISCUSSED WITH PATIENT:YES NARENDRA AMOS-[facility] [phone] [facility] [id number] AGNOSTIC MARITAL STATUS: SINGLE. ALCOHOL SCREENING DID YOU HAVE A DRINK CONTAINING ALCOHOL IN THE PAST YEAR?NO POINTS0 INTERPRETATIONNEGATIVE OCCUPATION: UNEMPLOYED. REVEIWED WITH PT 02/14/18 1426 BVREVIEWED WITH PT 04/23/18 1318 BVREVIEWED WITH PT 05/02/18 1421 BVREVIEWED WITH PATIENT 06/11/18 1408 JSREVEIWED WITH PATIENT 06/26/18 1510 BVREVIEWED WITH PATIENT 08/02/18 1308 JSREVIEWED WITH PATIENT 07/27/18 1507 JS. HOSPITALIZATION/MAJOR DIAGNOSTIC PROCEDURE SEVERAL [facility] REVIEW OF SYSTEMS REVIEWED BY: PROVIDER: OSBALDO LOPEZ MD . CONSTITUTIONAL: ANY CHANGE IN YOUR MEDICAL CONDITION? NO . CHILLS NO . FEVER NO . INFECTION: DO YOU HAVE NEW INFECTIONS? NO . DO YOU HAVE HISTORY OF MRSA? NO . MUSCULOSKELETAL: ANY NEW PATTERNS OF PAIN OR NUMBNESS? NO . GASTROENTEROLOGY: ANY NEW CHANGE IN BOWEL CONTROL? NO . GENITOURINARY: ANY NEW CHANGE IN BLADDER CONTROL? NO . IS THERE A CHANCE YOU COULD BE ? NO . HEMATOLOGY/LYMPH: DO YOU TAKE ANY BLOOD THINNERS? (FOR EXAMPLE- COUMADIN, PLAVIX, AGGRENOX, PLATEL, PRADAXA, OR XARELTO) NO . WHEN WAS YOUR LAST DOSE? DATE: TIME: . NEUROLOGY: HAVE YOU FALLEN IN THE PAST 12 MONTHS? NO . ANY NEW EXTREMITY NUMBNESS OR WEAKNESS? YES, STATES WEAKNESS TO BILATERAL LEGS, WORSE IN WARMER WEATHER . CARDIOLOGY: DO YOU HAVE A PACEMAKER OR DEFIBRILLATOR? NO . RESPIRATORY: HAVE YOU BEEN SICK IN THE PAST WEEK? NO . FEVER NO . FLU LIKE SYMPTOMS? NO . COUGH NO . INTEGUMENTARY: DO YOU HAVE ANY RASHES OR OPEN SORES? NO . ALLERGIC/IMMUNO: ARE YOU ALLERGIC TO IV DYE? NO . ANY NEW ALLERGIES? NO . PSYCHIATRIC: DO YOU HAVE THOUGHTS OF HURTING YOURSELF OR SOMEONE ELSE? NO . ARE YOU ABUSED, NEGLECTED, OR IN AN UNSAFE ENVIRONMENT? NO . ENDOCRINOLOGY: ARE YOU DIABETIC? NO . OTHER: DO YOU NEED ANY PRESCRIPTIONS? YES . IF YES, PLEASE LIST: ____HYDROCODONE . ANY NEW PROBLEMS WITH YOUR MEDICATIONS? NO . WHEN DID YOU LAST EAT? ____ . WHEN DID YOU LAST DRINK? ____ . WHAT DID YOU LAST DRINK? ____ . NAME OF PERSON DRIVING YOU HOME? ____ . DO YOU HAVE ANY OTHER QUESTIONS OR CONCERNS NO . VITAL SIGNS WT 363.4 LBS, HT 6'8", BMI 39.92 INDEX, BP 146/85 MM HG, HR 64 /MIN, RR 18 /MIN, TEMP 98.0 F, OXYGEN SAT % 99%, SAFE IN ENV? (Y/N) YES, NA INITIALS AW 1310, REVIEWED BY: RADHA. EXAMINATION GENERAL EXAMINATION: PATIENT IS ALERT O X 3 AND COOPERATIVE. TENDERNESS IN THE NECK AREA. PRESENCE OF TRIGGER POINTS AND BANDS OF TISSUE WITH RESTRICTION OF MOVEMENT OF THE NECK. TENDERNESS IN THE LOW BACK AREA. WEAKNESS IN BOTH LEGS. MRI OF THE LUMBAR SPINE DONE ON 09/29/2017 SHOWS A BULGING DISC AT L4-L5, FACET ARTHROPATHY CHANGES, AND STENOSIS. 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 TREATMENT INTERVERTEBRAL DISC DISORDER WITH RADICULOPATHY OF LUMBAR REGION CLINICAL NOTES: WE DISCUSSED SEVERAL ISSUE WITH MR. AMOS'S PAIN MANAGEMENT CASE. I WILL REFER THE PATIENT TO A FOLDED CLOTH TAPER FOR FURTHER EVALUATION BECAUSE HE IS A YOUNG PATIENT AND HAS PAIN OVER SEVERAL AREAS. THE PATIENT SAYS THAT HE IS GOING TO BE SEEING A NEUROLOGIST IN NOVEMBER. THE PATIENT IS GOING TO CONSIDER MEDICAL MARIJUANA, SEEING ENT FOR HIS TMJ, AND POSSIBLY PALLIATIVE CARE IN THE FUTURE. THE PATIENT HAS TRIED IBUPROFEN, DICLOFENAC, AND NAPROXEN IN THE PAST BUT THEY HAVE NOT HELPED SO I WOULD LIKE THE PATIENT TO START USING CELEBREX. THE PATIENT HAS HAD SIDE EFFECTS FROM SEVERAL MEDICATIONS INCLUDING CYMBALTA, GABAPENTIN, BACLOFEN, ZANAFLEX, TOPAMAX, AND LYRICA IN THE PAST, SO I WOULD LIKE THE PATIENT TO USE OXYCODONE MDD3 AND A TRIAL OF BELBUCA WITH THE INTENTION OF REDUCING THE OXYCODONE TO 1 TABLET PER DAY WITH THE BELBUCA. DUE TO THE LUMBAR RADICULOPATHY, I WOULD LIKE TO MOVE FORWARD WITH A LUMBAR EPIDURAL STEROID INJECTION AT THIS TIME. WE DISCUSSED THE BENEFITS, RISKS, AND ALTERNATIVES OF THE INJECTION AND THE PATIENT WOULD LIKE TO PROCEED. THE PATIENT WILL CONSIDER A TRIGGER POINT INJECTION IN THE FUTURE. THE PATIENT WILL FOLLOW UP NEXT WEEK. I WAS WITH THE PATIENT FOR OVER 45 MINUTES AND MORE THAN HALF OF THE TIME WAS SPENT DISCUSSING ALTERNATIVES WITH THE PATIENT AND HIS MOTHER. INSTRUCTIONS WERE GIVEN, QUESTIONS WERE ANSWERED, PATIENT REPORTS UNDERSTANDING AND AGREES WITH THE PLAN. I, ROSALVA RUVALCABA, DOCUMENTED THE ABOVE INFORMATION ACTING A SCRIBE FOR DR. LOPEZ. I HAVE REVIEWED THE ABOVE DOCUMENT, WRITTEN BY ROSALVA CARBONE AND I VERIFY THAT IT IS ACCURATE. . CERVICALGIA REFILL CARISOPRODOL TABLET, 350 MG, 1 TABLET NEEDED, ORALLY, BID FOR PAIN/SPASM MDD=2, 30 DAY(S), 60, REFILLS 1 START CELEBREX CAPSULE, 200 MG, 1 CAPSULE WITH FOOD, ORALLY FOR FOOD, ONCE A DAY, 30 DAY(S), 30, REFILLS 0 START BUPRENORPHINE HCL FILM, 75 MCG, 1 FILM TO THE GUM, BUCALLY FOR PAIN, EVERY 12 HRS, 30 DAYS, 60, REFILLS 0 CLINICAL NOTES: BELBUCA IS MEDICALLY NECESSARY FOR MARCY TO TREAT HIS CHRONIC PAIN THAT REQUIRES AROUND THE CLOCK MEDICATION MANAGENET. HE HAS TRIED AND FAILED MULTIPLE MEDICATIONS AND HAS MULTIPLE ALLERGIES/ADVERSE REACTIONS TO MULTIPLE MEDICATIONS. OTHERS START BUPRENORPHINE HCL SOLUTION, 0.3 MG/ML, 0.5 ML NEEDED, INJECTION, EVERY 8 HRS START OXYCODONE HCL TABLET, 5 MG, 1 TABLET NEEDED, ORALLY FOR PAIN, EVERY 8 HRS MDD3, 7 DAYS, 21, REFILLS 0 PREVENTIVE MEDICINE PAIN CLINIC TEACHING: MEDICATIONS CELEBREX, OXYCODONE, BALBUCA HANDOUTS PRINTED, REVIEWED AND GIVEN TO PT. EM. PROCEDURE CODES FA211 ESTABILISHED PATIENT [facility] CHARGE G8427 CURRENT MEDS W/DOSAGES DOCUMENTED G8730 PAIN ASSESS POS TOOL F/U PLAN DOC DISPOSITION & COMMUNICATION FOLLOW UP 1 WEEK ELECTRONICALLY SIGNED BY OSBALDO LOPEZ MD, ON 08/19/2018 AT 04:16 PM EDT DISCLAIMER : THIS IS A VISIT SUMMARY EXTRACTED FROM THE [employer] CHART. IT IS NOT A COPY OF THE [employer] PROGRESS NOTE. ERENDIRA
== END ==
LOC: M PAIN 13:00
PROVIDERS: ATTEND Anesthesiology
DX: M51.16 Intervertebral disc disorders with radiculopathy, lumbar region (principal); M54.2 Cervicalgia; M79.18 Myalgia, other site; M26.609 Unspecified temporomandibular joint disorder, unspecified side; I10 Essential (primary) hypertension; K21.9 Gastro-esophageal reflux disease without esophagitis; I73.00 Raynaud's syndrome without gangrene; Z79.891 Long term (current) use of opiate analgesic; Z79.899 Other long term (current) drug therapy; Z88.2 Allergy status to sulfonamides; Z88.8 Allergy status to other drugs, medicaments and biological substances; Z87.891 Personal history of nicotine dependence; Z86.59 Personal history of other mental and behavioral disorders

== ENCOUNTER → 2018-08-07 | Outpatient (CLI) | payer OTHER ==
--- NOTE | 2018-08-19 23:42 | ECWPNPC ---
PATIENT NAME: MARCY AMOS : 1980 GENDER: MALE VISIT DATE: 08/07/2018 DISCHARGE DATE: 08/07/18 1627 VISIT LOCKED DATE TIME: PHYSICIAN: OSBALDO LOPEZ MD RESOURCE: OSBALDO LOPEZ MD REASON FOR APPOINTMENT 1. THORACIC PAIN HISTORY OF PRESENT ILLNESS HISTORY OF PRESENT ILLNESS: PAIN THE PATIENT DESCRIBES THE PAIN... 37 YEAR OLD MALE PATIENT WITH A HISTORY OF CHRONIC MULTIPLE BODY PAIN. THE PATIENT DESCRIBES THE PAIN ACHING, BURNING, SHARP, SORE, TENDER, AND CONTINUOUS WITH A PAIN SCORE OF 6-9/10 DEPENDING ON PHYSICAL ACTIVITY. THE PATIENT SAYS HIS PAIN IS LOCATED IN HIS NECK WITH HEADACHES, THORACIC AREA, LOW BACK AREA, AND HIPS. THE PATIENT IS CURRENTLY USING OXYCODONE AND SAYS HE NO LONGER EXPERIENCES HIP PAIN BECAUSE OF THE MEDICATION. PATIENT DENIES UNEXPLAINABLE WEIGHT LOSS, FEVER, CHILLS, NEW CHANGES ON HIS URINARY OR BOWEL CONTROL. FALL RISK SCREENING: SCREENING :NO FALLS REPORTED IN THE LAST YEAR CURRENT MEDICATIONS TAKING TRAZODONE HCL 50 MG TABLET 1 TABLET AT BEDTIME NEEDED ORALLY ONCE A DAY TAKING ZOLPIDEM TARTRATE 10 MG TABLET 1 TABLET AT BEDTIME NEEDED ORALLY ONCE A DAY TAKING CLONIDINE HCL 0.2 MG TABLET 2 ORALLY BID TAKING METOPROLOL SUCCINATE 200 MG TABLET EXTENDED RELEASE ORALLY BEFORE BEDTIME TAKING OMEPRAZOLE 40 MG CAPSULE DELAYED RELEASE 1 CAPSULE ORALLY ONCE A DAY TAKING LATANOPROST 0.005 % SOLUTION 1 DROP INTO AFFECTED EYE IN THE EVENING OPHTHALMIC ONCE A DAY TAKING AMLODIPINE BESYLATE 10 MG TABLET 1 TABLET ORALLY ONCE A DAY TAKING LEVOTHROYXINE _ 300 MCGS 1 TAB ORALLY DAILY TAKING LEVOTHYROXINE SODIUM 50 MCG TABLET 1 TABLET ON AN EMPTY STOMACH IN THE MORNING ORALLY ONCE A DAY TAKING REQUIP 1 MG TABLET 1 TABLET 1 TO 3 HOURS BEFORE BEDTIME ORALLY ONCE A DAY NEEDED TAKING PAXIL 40 MG TABLET 1 TABLET IN THE MORNING ORALLY ONCE A DAY TAKING TRAMADOL HCL 50 MG TABLET 1 -2 TABLET ORALLY TAKE 1-2 TABS Q 6 HRS PRN MDD=6 TAKING OXYCODONE HCL 5 MG TABLET 1 TABLET NEEDED ORALLY FOR PAIN EVERY 8 HRS MDD3 TAKING CARISOPRODOL 350 MG TABLET 1 TABLET NEEDED ORALLY BID FOR PAIN/SPASM MDD=2 NOT-TAKING BENTYL 10 MG CAPSULE 1 CAPSULES ORALLY ONCE DAILY NOT-TAKING VALIUM 10 MG TABLET 1 TABLET NEEDED ORALLY TAKE 1 TAB 1 HOUR PRIOR TO MRI, ONE ON ARRIVE AND 1 TAB DURING/AFTER IF NEEDED, NOTES: NONE RECENT, FOR MRI'S NOT-TAKING HYDROCODONE-ACETAMINOPHEN 5-325 MG TABLET 1 TABLET NEEDED ORALLY FOR PAIN EVERY 8 HRS MDD3 NOT-TAKING CELEBREX 200 MG CAPSULE 1 CAPSULE WITH FOOD ORALLY FOR FOOD ONCE A DAY, NOTES: INSURANCE HASN'T AUTHORIZED YET DISCONTINUED BUPRENORPHINE HCL 0.3 MG/ML SOLUTION 0.5 ML NEEDED INJECTION EVERY 8 HRS, NOTES: INSURANCE HASN'T AUTHORIZED YET DISCONTINUED BUPRENORPHINE HCL 75 MCG FILM 1 FILM TO THE GUM BUCALLY FOR PAIN EVERY 12 HRS, NOTES: INSURANCE HASN'T AUTHORIZED YET DISCONTINUED BELBUCA 75 MCG 75 MCG FILM 1 FILM BUCCAL FOR PAIN Q12H DISCONTINUED BUPRENORPHINE HCL 75 MCG FILM 1 FILM TO THE GUM BUCALLY FOR PAIN BID DISCONTINUED BUPRENORPHINE HCL 75 MCG FILM 1 FILM TO THE GUM BUCALLY FOR PAIN BID MEDICATION LIST REVIEWED AND RECONCILED WITH THE PATIENT PAST MEDICAL HISTORY HTN GERD BACK PAIN GLAUCOMA - PER PT 3 CYSTS ON THYROID RAYNAUD'S THYROID CANCER NECK PAIN BILATERAL HIP PAIN CHRONIC HEADACHES ALLERGIES SULFA (FOR ALLERGY USE ONLY): HIVES - ALLERGY CYMBALTA: LEGS TWITCHING - SIDE EFFECTS GABAPENTIN: ALTERED BALANCE - SIDE EFFECTS BACLOFEN: RESTLESS LEGS - SIDE EFFECTS ZANAFLEX: RESTLESS LEGS - SIDE EFFECTS TOPAMAX: "MESSED WITH HIS EYES" - SIDE EFFECTS ROBAXIN: NAUSEA/SEVERE DIARRHEA - SIDE EFFECTS SKELAXIN: NAUSEA/SEVERE DIARRHEA LYRICA: INSOMNIA - SIDE EFFECTS SURGICAL HISTORY T&A APPENDECTOMY REPAIR OF RIGHT ELBOW FRACTURE REPAIR OF RIGHT ANKLE FRACTURE 1999 THYROID REMOVAL 2018 FAMILY HISTORY FATHER: ALIVE, UNKNOWN MOTHER: ALIVE, UNKNOWN SIBLINGS: UNKNOWN 1 SISTER(S) . NO KNOWN FAMILY HISTORY OF ANY UROLOGICALLY RELATED DISEASES\\\\\\\\\\\\\\\\\\\\\\\\\\\\\\\\\\\\\\\\\\\\\\\\\\\\\\\\\\\\\\/CANCERS. SOCIAL HISTORY GENERAL: TOBACCO USE ARE YOU A:FORMER SMOKER OTHERS AT HOME: NONE. EDUCATION LEVEL OF EDUCATION:NOT FINISHED HIGH SCHOOL DIET: REGULAR. LANGUAGE LANGUAGES SPOKEN:CZECH DOMESTIC VIOLENCE DO YOU FEEL SAFE IN YOUR ENVIRONMENT?YES NEW PATIENT PAIN DIARY PATIENT DESCRIBES PAIN :ACHING, BURNING, SHARP, TENDER, SORE FROM 0-10, WHAT LEVEL IS YOUR PAIN TODAY?6 RECREATIONAL DRUG USE DRUG USE?NO EXERCISE: NONE. LEARNING BARRIERS / SPECIAL NEEDS BARRIERS TO LEARNING?NO HEARING IMPAIRED?NO VISION IMPAIRED?YES :CORRECTIVE LENSES COGNITIVELY IMPAIRED?NO READINESS TO LEARN?YES LEARNING PREFERENCES?NO LEARNING CAPABILITIES PRESENT?YES EMOTIONAL BARRIERS?NO SPECIAL DEVICES?NO BANQUET LINE COOK NEEDED?NO LUNG CANCER SCREENING SMOKING STATUS:FORMER SMOKER PAIN CLINIC PFS, CLERGY, PUBLIC HEALTH REFERRALS PFS REFERRAL NEEDED?NO CLERGY REFERRAL NEEDED?NO PUBLIC HEALTH REFERRAL NEEDED?NO HAS THE PATIENT BEEN EDUCATED REGARDING HIS/HER PLAN OF CARE?YES HAS THE PATIENT BEEN EDUCATED REGARDING PAIN, THE RISK FOR PAIN, THE IMPORTANCE OF EFFECTIVE PAIN MANAGEMENT, AND THE PAIN ASSESSMENT PROCESS?YES LATEX QUESTIONNAIRE LATEX ALLERGY : HAVE YOU EVER DEVELOPED ANY TYPE OF REACTION AFTER HANDLING LATEX PRODUCTS SUCH RUBBER GLOVES, CONDOMS, DIAPHRAGMS, BALLOONS, SOCKS, OR UNDERWEAR?NO LATEX ALLERGY : HAVE YOU EVER DEVELOPED ANY TYPE OF REACTION DURING OR AFTER DENTAL APPOINTMENT, VAGINAL/RECTAL EXAMINATION, SURGICAL PROCEDURE, OR ANY OTHER EXPOSURE?NO LATEX RISK : HAVE YOU EVER HAD ANY DIFFICULTY BREATHING OR HIVES AFTER EATING OR HANDLING ANY FRUITS, OR VEGETABLES; SUCH KIWI, BANANAS, STONE FRUITS, OR CHESTNUTSNO LATEX RISK : DO YOU HAVE A PREVIOUS PERSONAL HISTORY OF MORE THAN NINE SURGERIES, SPINA BIFIDA, OR REPEATED CATHERTIZATIONS? NO LATEX RISK : ARE YOU FREQUENTLY EXPOSED TO LATEX PRODUCTS IN YOUR OCCUPATION?NO DATE ASKED : 08/07/2018 CAFFEINE CAFFEINE USE?YES ADVANCE DIRECTIVE ADVANCE DIRECTIVE DISCUSSED WITH PATIENT:YES [facility] [place] [phone] [facility] [id number] AGNOSTIC MARITAL STATUS: SINGLE. ALCOHOL SCREENING DID YOU HAVE A DRINK CONTAINING ALCOHOL IN THE PAST YEAR?NO POINTS0 INTERPRETATIONNEGATIVE OCCUPATION: UNEMPLOYED. REVEIWED WITH PT 02/14/18 1426 BVREVIEWED WITH PT 04/23/18 1318 BVREVIEWED WITH PT 05/02/18 1421 BVREVIEWED WITH PATIENT 06/11/18 1408 JSREVEIWED WITH PATIENT 06/26/18 1510 BVREVIEWED WITH PATIENT 08/02/18 1308 JSREVIEWED WITH PATIENT 07/27/18 1507 JS. HOSPITALIZATION/MAJOR DIAGNOSTIC PROCEDURE [facility] TH[facility] SURGERY REVIEW OF SYSTEMS REVIEWED BY: PROVIDER: OSBALDO LOPEZ MD . CONSTITUTIONAL: ANY CHANGE IN YOUR MEDICAL CONDITION? NO . CHILLS NO . FEVER NO . INFECTION: DO YOU HAVE NEW INFECTIONS? NO . DO YOU HAVE HISTORY OF MRSA? NO . MUSCULOSKELETAL: ANY NEW PATTERNS OF PAIN OR NUMBNESS? NO . GASTROENTEROLOGY: ANY NEW CHANGE IN BOWEL CONTROL? NO . GENITOURINARY: ANY NEW CHANGE IN BLADDER CONTROL? NO . IS THERE A CHANCE YOU COULD BE ? NO . HEMATOLOGY/LYMPH: DO YOU TAKE ANY BLOOD THINNERS? (FOR EXAMPLE- COUMADIN, PLAVIX, AGGRENOX, PLATEL, PRADAXA, OR XARELTO) NO . WHEN WAS YOUR LAST DOSE? DATE: TIME: . NEUROLOGY: HAVE YOU FALLEN IN THE PAST 12 MONTHS? NO . ANY NEW EXTREMITY NUMBNESS OR WEAKNESS? NO . CARDIOLOGY: DO YOU HAVE A PACEMAKER OR DEFIBRILLATOR? NO . RESPIRATORY: HAVE YOU BEEN SICK IN THE PAST WEEK? NO . FEVER NO . FLU LIKE SYMPTOMS? NO . COUGH NO . INTEGUMENTARY: DO YOU HAVE ANY RASHES OR OPEN SORES? NO . ALLERGIC/IMMUNO: ARE YOU ALLERGIC TO IV DYE? NO . ANY NEW ALLERGIES? NO . PSYCHIATRIC: DO YOU HAVE THOUGHTS OF HURTING YOURSELF OR SOMEONE ELSE? NO . ARE YOU ABUSED, NEGLECTED, OR IN AN UNSAFE ENVIRONMENT? NO . ENDOCRINOLOGY: ARE YOU DIABETIC? NO . OTHER: DO YOU NEED ANY PRESCRIPTIONS? NO . IF YES, PLEASE LIST: ____ . ANY NEW PROBLEMS WITH YOUR MEDICATIONS? NO . WHEN DID YOU LAST EAT? ____ . WHEN DID YOU LAST DRINK? ____ . WHAT DID YOU LAST DRINK? ____ . NAME OF PERSON DRIVING YOU HOME? ____ . DO YOU HAVE ANY OTHER QUESTIONS OR CONCERNS NO INSURANCE HASN'T AUTHORIZED BELBUCA OR CELEBREX . VITAL SIGNS WT 361.8 LBS, HT 6'8", BMI 39.74 INDEX, BP 146/101 MM HG, REPEAT BP 148/83 MM HG, HR 68 /MIN, RR 20 /MIN, TEMP 97.7 F, OXYGEN SAT % 94%, SAFE IN ENV? (Y/N) Y, NA INITIALS SC 15:00, REVIEWED BY: ADRN IS AWARE OF PT'S BP .WILL REPEAT IT. EXAMINATION GENERAL EXAMINATION: PATIENT IS ALERT O X 3 AND COOPERATIVE. TENDERNESS IN BACK. PAIN WITH PRESSURE NEAR T6-T7 THAT INCREASES TOWARDS CHEST WALL. MRI OF THE THORACIC SPINE DONE ON 01/26/2018 SHOWS BULGING DISCS AT MULTIPLE LEVELS. 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 AMOS' PAIN MANAGEMENT CASE. DUE TO THE THORACIC RADICULOPATHY, I WOULD LIKE TO MOVE FORWARD WITH A THORACIC EPIDURAL STEROID INJECTION AT THIS TIME. WE DISCUSSED THE BENEFITS, RISKS, AND ALTERNATIVES OF THE INJECTION AND THE PATIENT WOULD LIKE TO PROCEED. THE PATIENT WILL CONTINUE WITH OXYCODONE 3 TABLETS NEEDED, WITH NO MORE THAN 80 TABLETS PER MONTH. THE PATIENT WILL ALSO BE REFERRED FOR PHYSICAL THERAPY AND A COTTON TIPPER. THE PATIENT WILL BE SEEN BY A NEUROLOGIST IN NOVEMBER. I WOULD LIKE THE PATIENT TO SEE AN ENT FOR HIS TMJ DISORDER, HOWEVER THE PATIENT IS NOT INTERESTED AT THIS TIME. I AM PRESCRIBING CELEBREX 200 MG, 1 CAPSULE, PER DAY. THE PATIENT WILL TRY A TENS UNIT TO SEE IF IT AIDS WITH PAIN RELIEF. THE PATIENT WILL FOLLOW UP IN 3 WEEKS AFTER THE INJECTION. I, ANDRES MOORE, DOCUMENTED THE ABOVE INFORMATION ACTING A SCRIBE FOR DR. LOPEZ. I HAVE REVIEWED THE ABOVE DOCUMENT, WRITTEN BY ANDRES CARBONE AND I VERIFY THAT IT IS ACCURATE.. OTHERS REFILL OXYCODONE HCL TABLET, 5 MG, 1 TABLET NEEDED, ORALLY FOR PAIN, EVERY 8 HRS MDD3, 30 DAYS, 80, REFILLS 0 PROCEDURE CODES FA211 ESTABILISHED PATIENT [facility] FACILITY CHARGE G8427 CURRENT MEDS W/DOSAGES DOCUMENTED G8730 PAIN ASSESS POS TOOL F/U PLAN DOC DISPOSITION & COMMUNICATION FOLLOW UP 3 WEEKS ELECTRONICALLY SIGNED BY OSBALDO LOPEZ MD, MD ON 08/19/2018 AT 05:06 PM EDT DISCLAIMER : THIS IS A VISIT SUMMARY EXTRACTED FROM THE [employer] CHART. IT IS NOT A COPY OF THE [employer] PROGRESS NOTE. MTDD
== END ==
LOC: M PAIN 14:45
PROVIDERS: ATTEND Anesthesiology
DX: M51.14 Intervertebral disc disorders with radiculopathy, thoracic region (principal); M54.2 Cervicalgia; G89.29 Other chronic pain; I10 Essential (primary) hypertension; K21.9 Gastro-esophageal reflux disease without esophagitis; I73.00 Raynaud's syndrome without gangrene; Z79.891 Long term (current) use of opiate analgesic; Z79.899 Other long term (current) drug therapy; Z88.2 Allergy status to sulfonamides; Z88.8 Allergy status to other drugs, medicaments and biological substances; Z87.891 Personal history of nicotine dependence

== ENCOUNTER → 2018-08-13 | Outpatient (REF) | payer OTHER | LOC: M LAB REF 16:59 | PROVIDERS: ATTEND Nurse Practitioner Adult Health | DX: C73 Malignant neoplasm of thyroid gland (principal) ==

== ENCOUNTER → 2018-08-21 | Outpatient (REF) | payer OTHER ==
[2018-08-27 08:08] LABS: THRYOGLOBULIN ANTIBODIES (ATA) 4.5 IU/mL (0.0-0.9); THYROGLOBULIN RIA < 2.0 ng/mL (.)
== END ==
LOC: M LAB REF 16:53
PROVIDERS: ATTEND Nurse Practitioner Family
DX: C73 Malignant neoplasm of thyroid gland (principal)

== ENCOUNTER → 2018-10-05 | Outpatient (CLI) | payer OTHER ==
[~2018-10-05] MED LIST changes: -OMEP20CA3; +OMEP20CA4; -TRAZ-160; +TRAZ-252
--- NOTE | 2018-11-01 00:38 | ECWPNPC ---
PATIENT NAME: MARCY AMOS : 1980 GENDER: MALE VISIT DATE: 10/05/2018 DISCHARGE DATE: 10/05/18 1702 VISIT LOCKED DATE TIME: PHYSICIAN: LONA HOLLOWAY RESOURCE: LONA HOLLOWAY REASON FOR APPOINTMENT 1. POST LESI HISTORY OF PRESENT ILLNESS HISTORY OF PRESENT ILLNESS: 37 YEAR OLD MALE PATIENT WITH A HISTORY OF CHRONIC MULTIPLE BODY PAIN. THE PATIENT DESCRIBES THE PAIN ACHING, BURNING, SHARP, SORE, TENDER, AND CONTINUOUS WITH A PAIN SCORE OF 7/10 DEPENDING ON PHYSICAL ACTIVITY. THE PATIENT SAYS HIS PAIN IS LOCATED IN HIS NECK WITH HEADACHES, THORACIC AREA, LOW BACK AREA, AND HIPS. THE PATIENT IS CURRENTLY USING OXYCODONE AND ADMITS THAT HIS SLEEP HAS BEEN BETTER. HE PRESENTS TODAY POST THORACIC EPIDURAL STATING HE RECEIVED NO RELIEF FROM THE PROCEDURE. PAIN THE PATIENT DESCRIBES THE PAIN... THE PATIENT DESCRIBES THE PAIN... FALL RISK SCREENING: SCREENING :NO FALLS REPORTED IN THE LAST YEAR CURRENT MEDICATIONS TAKING CELEBREX 200 MG CAPSULE 1 CAPSULE WITH FOOD ORALLY FOR FOOD ONCE A DAY TAKING TRAZODONE HCL 50 MG TABLET 1 TABLET AT BEDTIME NEEDED ORALLY ONCE A DAY TAKING ZOLPIDEM TARTRATE 10 MG TABLET 1 TABLET AT BEDTIME NEEDED ORALLY ONCE A DAY TAKING CLONIDINE HCL 0.2 MG TABLET 2 ORALLY BID TAKING METOPROLOL SUCCINATE 200 MG TABLET EXTENDED RELEASE ORALLY BEFORE BEDTIME TAKING OMEPRAZOLE 40 MG CAPSULE DELAYED RELEASE 1 CAPSULE ORALLY ONCE A DAY TAKING LATANOPROST 0.005 % SOLUTION 1 DROP INTO AFFECTED EYE IN THE EVENING OPHTHALMIC ONCE A DAY TAKING AMLODIPINE BESYLATE 10 MG TABLET 1 TABLET ORALLY ONCE A DAY TAKING LEVOTHROYXINE _ 300 MCGS 1 TAB ORALLY DAILY TAKING LEVOTHYROXINE SODIUM 50 MCG TABLET 1 TABLET ON AN EMPTY STOMACH IN THE MORNING ORALLY ONCE A DAY, NOTES: 08/29/18 AM TAKING REQUIP 1 MG TABLET 1 TABLET 1 TO 3 HOURS BEFORE BEDTIME ORALLY ONCE A DAY NEEDED, NOTES: 08/28/18 TAKING PAXIL 30 MG TABLET 1 TABLET IN THE MORNING ORALLY ONCE A DAY, NOTES: 08/29/18 AM TAKING OXYCODONE HCL 5 MG TABLET 1 TABLET NEEDED ORALLY FOR PAIN EVERY 8 HRS MDD3, NOTES: 08/28/18 TAKING CARISOPRODOL 350 MG TABLET 1 TABLET NEEDED ORALLY BID FOR PAIN/SPASM MDD=2, NOTES: 08/28/18 NOT-TAKING TRAMADOL HCL 50 MG TABLET 1 -2 TABLET ORALLY TAKE 1-2 TABS Q 6 HRS PRN MDD=6, NOTES: 08/28/18 NOT-TAKING BENTYL 10 MG CAPSULE 1 CAPSULES ORALLY ONCE DAILY NOT-TAKING VALIUM 10 MG TABLET 1 TABLET NEEDED ORALLY TAKE 1 TAB 1 HOUR PRIOR TO MRI, ONE ON ARRIVE AND 1 TAB DURING/AFTER IF NEEDED, NOTES: NONE RECENT, FOR MRI'S NOT-TAKING HYDROCODONE-ACETAMINOPHEN 5-325 MG TABLET 1 TABLET NEEDED ORALLY FOR PAIN EVERY 8 HRS MDD3 MEDICATION LIST REVIEWED AND RECONCILED WITH THE PATIENT ALLERGIES NO[ALLERGIES VERIFIED] REVIEW OF SYSTEMS REVIEWED BY: PROVIDER: BRISA MORFIN . CONSTITUTIONAL: ANY CHANGE IN YOUR MEDICAL CONDITION? NO . CHILLS NO . FEVER NO . INFECTION: DO YOU HAVE NEW INFECTIONS? NO . DO YOU HAVE HISTORY OF MRSA? NO . MUSCULOSKELETAL: ANY NEW PATTERNS OF PAIN OR NUMBNESS? NO . GASTROENTEROLOGY: ANY NEW CHANGE IN BOWEL CONTROL? NO . GENITOURINARY: ANY NEW CHANGE IN BLADDER CONTROL? NO . IS THERE A CHANCE YOU COULD BE ? NO . HEMATOLOGY/LYMPH: DO YOU TAKE ANY BLOOD THINNERS? (FOR EXAMPLE- COUMADIN, PLAVIX, AGGRENOX, PLATEL, PRADAXA, OR XARELTO) NO . WHEN WAS YOUR LAST DOSE? DATE: TIME: . NEUROLOGY: HAVE YOU FALLEN IN THE PAST 12 MONTHS? NO . ANY NEW EXTREMITY NUMBNESS OR WEAKNESS? NO . CARDIOLOGY: DO YOU HAVE A PACEMAKER OR DEFIBRILLATOR? NO . RESPIRATORY: HAVE YOU BEEN SICK IN THE PAST WEEK? NO . FEVER NO . FLU LIKE SYMPTOMS? NO . COUGH NO . INTEGUMENTARY: DO YOU HAVE ANY RASHES OR OPEN SORES? NO . ALLERGIC/IMMUNO: ARE YOU ALLERGIC TO IV DYE? NO . ANY NEW ALLERGIES? NO . PSYCHIATRIC: DO YOU HAVE THOUGHTS OF HURTING YOURSELF OR SOMEONE ELSE? NO . ARE YOU ABUSED, NEGLECTED, OR IN AN UNSAFE ENVIRONMENT? NO . ENDOCRINOLOGY: ARE YOU DIABETIC? NO . OTHER: DO YOU NEED ANY PRESCRIPTIONS? YES . IF YES, PLEASE LIST: ____ . ANY NEW PROBLEMS WITH YOUR MEDICATIONS? NO . WHEN DID YOU LAST EAT? ____ . WHEN DID YOU LAST DRINK? ____ . WHAT DID YOU LAST DRINK? ____ . NAME OF PERSON DRIVING YOU HOME? ____ . DO YOU HAVE ANY OTHER QUESTIONS OR CONCERNS NO . VITAL SIGNS WT 366.4 LBS, HT 6'8", BMI 40.25 INDEX, BP 145/100 MM HG, HR 70 /MIN, RR 20 /MIN, TEMP 97.5 F, OXYGEN SAT % 100%, NA INITIALS SC 14:53, REVIEWED BY: KGRN IS AWARE OF PT'S BP. EXAMINATION GENERAL EXAMINATION: GENERALNO ACUTE DISTRESS, WELL NOURISHED AND HYDRATED. PSYCHAPPROPRIATE MOOD AND AFFECT . LUNGS:CLEAR TO AUSCULTATION BILATERALLY, NO WHEEZES, RHONCHI, RALES. HEART:NO MURMURS, REGULAR RATE AND RHYTHM. BACK: POINT TENDER THORACIC REGION. SURROUNDING SKIN SHOWS NO SIGNS OF ERYTHEMA, INCREASED REDNESS, AND/OR SKIN ERUPTIONS. DOES HAVE INCREASED PAIN WITH FACET LOADING.. ASSESSMENTS CERVICALGIA - M54.2 (PRIMARY) TREATMENT CERVICALGIA REFILL CARISOPRODOL TABLET, 350 MG, 1 TABLET NEEDED, ORALLY, BID FOR PAIN/SPASM MDD=2, 30 DAY(S), 60, REFILLS 0, NOTES: 08/28/18 NOTES: THORACIC EPIDURAL. CLINICAL NOTES: 37 YEAR OLD MALE IN POST THROACIC EPIDURAL. WHEN ASKED HE STATES THE PROCEDURE WAS INEFFECTIVE AND DID NOT HELP HIS PAIN AT ALL. CONSULT WITH DR. LOPEZ AND IT WAS SUGGESTED THAT WE TRY THE THORACIC EPDIURAL AGAIN WITH A STIFFER CATHETER. ATTEMPTED TO START PATIENT ON ARTHROTEC HOWEVER HIS INSURANCE COMPANY WOULD NOT COVER IT SO AN ORDER FOR 75MG OF DICLOFENAC AND 40MG OF PANTROPRAZOLE WAS SENT. PATIENT TO START MEDICATION AND THEN FOLLOW UP POST PROCEDURE. PATIENT HAS EXPRESSED UNDERSTANDING OF AND WAS IN AGREEMENT WITH TX PLAN. , ISTOP REGISTRY REVIEWED AND DEMONSTRATES COMPLLIANCE. (REF # ) BRINGS IN MEDICATIONS WHICH IS APPROPRIATE FOR WHAT WAS DISPENSED. RECENT URINE TOXICOLOGY REVIEWED. NO UNAUTHORIZED MEDICATIONS. NO ILLICIT SUBSTANCES AND PRESCRIBED MEDICATIONS WERE PRESENT. , RISKS AND BENEFITS OF NARCOTIC/OPIOD MEDICATIONS WERE REVIEWED WITH PATIENT - THIS INCLUDES BUT IS NOT LIMITED TO RISK OF DEPENDANCE/DEVELOPMENT OF ADDICTION, MOOD DISTURBANCE AND DEPRESSION, OSTEOPOROSIS, HORMONAL AND LABIDAL CHANGES, RESPIRATORY DEPRESSION AND . PATIENT IS ADVISED NOT TO DRIVE OR DRINK ALCOHOL WHILE ON THESE MEDICATIONSADDENDUM: PATIENT ALREADY ON PPI SO PANTOPRAZOLE NOT NEEDED PATIENT MADEA AWARE. OTHERS STOP ARTHROTEC TABLET DELAYED RELEASE, 75-0.2 MG, 1 TABLET WITH FOOD, ORALLY FOR PAIN, TWICE A DAY MDD2, 30 DAY(S), 60 REFILL OXYCODONE HCL TABLET, 5 MG, 1 TABLET NEEDED, ORALLY FOR PAIN, EVERY 8 HRS MDD3, 30 DAYS, 90, REFILLS 0, NOTES: 08/28/18 START DICLOFENAC SODIUM TABLET DELAYED RELEASE, 75 MG, 1 TABLET WITH FOOD OR MILK, ORALLY, TWICE A DAY, 30 DAY(S), 60 START PANTOPRAZOLE SODIUM TABLET DELAYED RELEASE, 40 MG, 1 TABLET, ORALLY, ONCE A DAY, 30 DAY(S), 30 PROCEDURE CODES [id number] ESTABILISHED PATIENT [facility] CHARGE DISPOSITION & COMMUNICATION FOLLOW UP POST PROCEDURE (REASON: THORACIC EPIDURAL ) ELECTRONICALLY SIGNED BY JAYDON HENRY ON 10/31/2018 AT 12:37 PM EDT DISCLAIMER : THIS IS A VISIT SUMMARY EXTRACTED FROM THE [employer] CHART. IT IS NOT A COPY OF THE [employer] PROGRESS NOTE. ERENDIRA
== END ==
LOC: M PAIN 14:30
PROVIDERS: ATTEND Family Medicine
DX: M54.2 Cervicalgia (principal); G89.29 Other chronic pain; Z79.891 Long term (current) use of opiate analgesic; Z79.899 Other long term (current) drug therapy; Z88.2 Allergy status to sulfonamides; Z88.8 Allergy status to other drugs, medicaments and biological substances

== ENCOUNTER → 2018-10-09 | Outpatient (CLI) | payer OTHER ==
[~2018-10-09] MED LIST changes: +OMEP1CAP73; -OMEP20CA4
--- NOTE | 2018-10-17 23:41 | ECWPNPC ---
PATIENT NAME: MARCY AMOS : 1980 GENDER: MALE VISIT DATE: 10/09/2018 DISCHARGE DATE: 10/09/18 1349 VISIT LOCKED DATE TIME: PHYSICIAN: LONA HOLLOWAY RESOURCE: LONA HOLLOWAY REASON FOR APPOINTMENT 1. MEDICATION MANAGEMENT HISTORY OF PRESENT ILLNESS HISTORY OF PRESENT ILLNESS: 37 YEAR OLD MALE PATIENT WITH A HISTORY OF CHRONIC MULTIPLE BODY PAIN. THE PATIENT DESCRIBES THE PAIN ACHING, BURNING, SHARP, SORE, TENDER, AND CONTINUOUS WITH A PAIN SCORE OF 7/10 DEPENDING ON PHYSICAL ACTIVITY. THE PATIENT SAYS HIS PAIN IS LOCATED IN HIS NECK WITH HEADACHES, THORACIC AREA, LOW BACK AREA, AND HIPS. PAIN THE PATIENT DESCRIBES THE PAIN... THE PATIENT DESCRIBES THE PAIN... THE PATIENT DESCRIBES THE PAIN... FALL RISK SCREENING: SCREENING :NO FALLS REPORTED IN THE LAST YEAR CURRENT MEDICATIONS TAKING TRAZODONE HCL 50 MG TABLET 1 TABLET AT BEDTIME NEEDED ORALLY ONCE A DAY TAKING ZOLPIDEM TARTRATE 10 MG TABLET 1 TABLET AT BEDTIME NEEDED ORALLY ONCE A DAY TAKING CLONIDINE HCL 0.2 MG TABLET 2 ORALLY BID TAKING METOPROLOL SUCCINATE 200 MG TABLET EXTENDED RELEASE ORALLY BEFORE BEDTIME TAKING OMEPRAZOLE 40 MG CAPSULE DELAYED RELEASE 1 CAPSULE ORALLY ONCE A DAY TAKING LATANOPROST 0.005 % SOLUTION 1 DROP INTO AFFECTED EYE IN THE EVENING OPHTHALMIC ONCE A DAY TAKING AMLODIPINE BESYLATE 10 MG TABLET 1 TABLET ORALLY ONCE A DAY TAKING LEVOTHROYXINE _ 300 MCGS 1 TAB ORALLY DAILY TAKING LEVOTHYROXINE SODIUM 50 MCG TABLET 1 TABLET ON AN EMPTY STOMACH IN THE MORNING ORALLY ONCE A DAY TAKING REQUIP 1 MG TABLET 1 TABLET 1 TO 3 HOURS BEFORE BEDTIME ORALLY ONCE A DAY NEEDED TAKING PAXIL 30 MG TABLET 1 TABLET IN THE MORNING ORALLY ONCE A DAY TAKING CARISOPRODOL 350 MG TABLET 1 TABLET NEEDED ORALLY BID FOR PAIN/SPASM MDD=2 TAKING OXYCODONE HCL 5 MG TABLET 1 TABLET NEEDED ORALLY FOR PAIN EVERY 8 HRS MDD3 TAKING DICLOFENAC SODIUM 75 MG TABLET DELAYED RELEASE 1 TABLET WITH FOOD OR MILK ORALLY TWICE A DAY TAKING PANTOPRAZOLE SODIUM 40 MG TABLET DELAYED RELEASE 1 TABLET ORALLY ONCE A DAY NOT-TAKING CELEBREX 200 MG CAPSULE 1 CAPSULE WITH FOOD ORALLY FOR FOOD ONCE A DAY NOT-TAKING TRAMADOL HCL 50 MG TABLET 1 -2 TABLET ORALLY TAKE 1-2 TABS Q 6 HRS PRN MDD=6 NOT-TAKING BENTYL 10 MG CAPSULE 1 CAPSULES ORALLY ONCE DAILY NOT-TAKING VALIUM 10 MG TABLET 1 TABLET NEEDED ORALLY TAKE 1 TAB 1 HOUR PRIOR TO MRI, ONE ON ARRIVE AND 1 TAB DURING/AFTER IF NEEDED, NOTES: NONE RECENT, FOR MRI'S NOT-TAKING HYDROCODONE-ACETAMINOPHEN 5-325 MG TABLET 1 TABLET NEEDED ORALLY FOR PAIN EVERY 8 HRS MDD3 MEDICATION LIST REVIEWED AND RECONCILED WITH THE PATIENT PAST MEDICAL HISTORY HTN GERD BACK PAIN GLAUCOMA - PER PT 3 CYSTS ON THYROID RAYNAUD'S THYROID CANCER NECK PAIN BILATERAL HIP PAIN CHRONIC HEADACHES ALLERGIES SULFA (FOR ALLERGY USE ONLY): HIVES - ALLERGY CYMBALTA: LEGS TWITCHING - SIDE EFFECTS GABAPENTIN: ALTERED BALANCE - SIDE EFFECTS BACLOFEN: RESTLESS LEGS - SIDE EFFECTS ZANAFLEX: RESTLESS LEGS - SIDE EFFECTS TOPAMAX: "MESSED WITH HIS EYES" - SIDE EFFECTS ROBAXIN: NAUSEA/SEVERE DIARRHEA - SIDE EFFECTS SKELAXIN: NAUSEA/SEVERE DIARRHEA - SIDE EFFECTS LYRICA: INSOMNIA - SIDE EFFECTS SURGICAL HISTORY T&A APPENDECTOMY REPAIR OF RIGHT ELBOW FRACTURE REPAIR OF RIGHT ANKLE FRACTURE 1999 THYROID REMOVAL 2018 FAMILY HISTORY FATHER: ALIVE, UNKNOWN MOTHER: ALIVE, UNKNOWN SIBLINGS: UNKNOWN 1 SISTER(S) . NO KNOWN FAMILY HISTORY OF ANY UROLOGICALLY RELATED DISEASES CANCERS. SOCIAL HISTORY GENERAL: TOBACCO USE ARE YOU A:FORMER SMOKER OTHERS AT HOME: NONE. EDUCATION LEVEL OF EDUCATION:NOT FINISHED HIGH SCHOOL DIET: REGULAR. LANGUAGE LANGUAGES SPOKEN:CUB[place] DOMESTIC VIOLENCE DO YOU FEEL SAFE IN YOUR ENVIRONMENT?YES RECREATIONAL DRUG USE DRUG USE?NO EXERCISE: NONE. LEARNING BARRIERS / SPECIAL NEEDS BARRIERS TO LEARNING?NO HEARING IMPAIRED?NO VISION IMPAIRED?YES :CORRECTIVE LENSES COGNITIVELY IMPAIRED?NO READINESS TO LEARN?YES LEARNING PREFERENCES?NO LEARNING CAPABILITIES PRESENT?YES EMOTIONAL BARRIERS?NO SPECIAL DEVICES?NO APPLICATION COORDINATOR NEEDED?NO LUNG CANCER SCREENING SMOKING STATUS:FORMER SMOKER PAIN CLINIC PFS, CLERGY, PUBLIC HEALTH REFERRALS PFS REFERRAL NEEDED?NO CLERGY REFERRAL NEEDED?NO PUBLIC HEALTH REFERRAL NEEDED?NO HAS THE PATIENT BEEN EDUCATED REGARDING HIS/HER PLAN OF CARE?YES HAS THE PATIENT BEEN EDUCATED REGARDING PAIN, THE RISK FOR PAIN, THE IMPORTANCE OF EFFECTIVE PAIN MANAGEMENT, AND THE PAIN ASSESSMENT PROCESS?YES LATEX QUESTIONNAIRE LATEX ALLERGY : HAVE YOU EVER DEVELOPED ANY TYPE OF REACTION AFTER HANDLING LATEX PRODUCTS SUCH RUBBER GLOVES, CONDOMS, DIAPHRAGMS, BALLOONS, SOCKS, OR UNDERWEAR?NO LATEX ALLERGY : HAVE YOU EVER DEVELOPED ANY TYPE OF REACTION DURING OR AFTER DENTAL APPOINTMENT, VAGINAL/RECTAL EXAMINATION, SURGICAL PROCEDURE, OR ANY OTHER EXPOSURE?NO LATEX RISK : HAVE YOU EVER HAD ANY DIFFICULTY BREATHING OR HIVES AFTER EATING OR HANDLING ANY FRUITS, OR VEGETABLES; SUCH KIWI, BANANAS, STONE FRUITS, OR CHESTNUTSNO LATEX RISK : DO YOU HAVE A PREVIOUS PERSONAL HISTORY OF MORE THAN NINE SURGERIES, SPINA BIFIDA, OR REPEATED CATHERTIZATIONS? NO LATEX RISK : ARE YOU FREQUENTLY EXPOSED TO LATEX PRODUCTS IN YOUR OCCUPATION?NO DATE ASKED : 10/09/2018 CAFFEINE CAFFEINE USE?YES ADVANCE DIRECTIVE ADVANCE DIRECTIVE DISCUSSED WITH PATIENT:YES NARENDRA BALDWIN [phone] [employer] [id number] AGNOSTIC MARITAL STATUS: SINGLE. ALCOHOL SCREENING DID YOU HAVE A DRINK CONTAINING ALCOHOL IN THE PAST YEAR?NO POINTS0 INTERPRETATIONNEGATIVE OCCUPATION: UNEMPLOYED. REVEIWED WITH PT 02/14/18 1426 BVREVIEWED WITH PT 04/23/18 1318 BVREVIEWED WITH PT 05/02/18 1421 BVREVIEWED WITH PATIENT 06/11/18 1408 JSREVEIWED WITH PATIENT 06/26/18 1510 BVREVIEWED WITH PT. 10/09/18 ADREVIEWED WITH PATIENT 08/02/18 1308 JSREVIEWED WITH PATIENT 07/27/18 1507 JS. HOSPITALIZATION/MAJOR DIAGNOSTIC PROCEDURE SEVERAL [facility] THYROID SURGERY REVIEW OF SYSTEMS REVIEWED BY: PROVIDER: BRISA INTERIANO-[place] . CONSTITUTIONAL: ANY CHANGE IN YOUR MEDICAL CONDITION? NO . CHILLS NO . FEVER NO . INFECTION: DO YOU HAVE NEW INFECTIONS? NO . DO YOU HAVE HISTORY OF MRSA? NO . MUSCULOSKELETAL: ANY NEW PATTERNS OF PAIN OR NUMBNESS? NO . GASTROENTEROLOGY: ANY NEW CHANGE IN BOWEL CONTROL? NO . GENITOURINARY: ANY NEW CHANGE IN BLADDER CONTROL? NO . IS THERE A CHANCE YOU COULD BE ? NO . HEMATOLOGY/LYMPH: DO YOU TAKE ANY BLOOD THINNERS? (FOR EXAMPLE- COUMADIN, PLAVIX, AGGRENOX, PLATEL, PRADAXA, OR XARELTO) NO . WHEN WAS YOUR LAST DOSE? DATE: TIME: . NEUROLOGY: HAVE YOU FALLEN IN THE PAST 12 MONTHS? NO . ANY NEW EXTREMITY NUMBNESS OR WEAKNESS? NO . CARDIOLOGY: DO YOU HAVE A PACEMAKER OR DEFIBRILLATOR? NO . RESPIRATORY: HAVE YOU BEEN SICK IN THE PAST WEEK? NO . FEVER NO . FLU LIKE SYMPTOMS? NO . COUGH NO . INTEGUMENTARY: DO YOU HAVE ANY RASHES OR OPEN SORES? NO . ALLERGIC/IMMUNO: ARE YOU ALLERGIC TO IV DYE? NO . ANY NEW ALLERGIES? NO . PSYCHIATRIC: DO YOU HAVE THOUGHTS OF HURTING YOURSELF OR SOMEONE ELSE? NO . ARE YOU ABUSED, NEGLECTED, OR IN AN UNSAFE ENVIRONMENT? NO . ENDOCRINOLOGY: ARE YOU DIABETIC? NO . OTHER: DO YOU NEED ANY PRESCRIPTIONS? NO . IF YES, PLEASE LIST: ____ . ANY NEW PROBLEMS WITH YOUR MEDICATIONS? NO . WHEN DID YOU LAST EAT? ____ . WHEN DID YOU LAST DRINK? ____ . WHAT DID YOU LAST DRINK? ____ . NAME OF PERSON DRIVING YOU HOME? ____ . DO YOU HAVE ANY OTHER QUESTIONS OR CONCERNS NO . VITAL SIGNS WT 366.4 LBS, HT 6'8", BMI 40.25 INDEX, BP 129/82 MM HG, HR 65 /MIN, RR 16 /MIN, TEMP 98 F, OXYGEN SAT % 95, SAFE IN ENV? (Y/N) Y, REVIEWED BY: AD 1320. EXAMINATION GENERAL EXAMINATION: GENERALNO ACUTE DISTRESS, WELL NOURISHED AND HYDRATED. PSYCHAPPROPRIATE MOOD AND AFFECT . LUNGS:CLEAR TO AUSCULTATION BILATERALLY, NO WHEEZES, RHONCHI, RALES. HEART:NO MURMURS, REGULAR RATE AND RHYTHM. ASSESSMENTS BULGING OF LUMBAR INTERVERTEBRAL DISC WITHOUT MYELOPATHY - M51.26 (PRIMARY) LUMBAR DISC DISPLACEMENT WITHOUT MYELOPATHY - M51.26 INTERVERTEBRAL DISC DISORDERS WITH RADICULOPATHY, LUMBAR REGION - M51.16 TREATMENT BULGING OF LUMBAR INTERVERTEBRAL DISC WITHOUT MYELOPATHY START BELBUCA FILM, 75 MCG, 1 FILM TO THE GUM, BUCALLY, ONCE A DAY, 30 DAYS, 30 CLINICAL NOTES: 37 YEAR OLD MALE WITH A HX OF CHRONIC PAIN. HE IS CURRENTLY TAKING OXYCODONE AT NIGHT WHICH HAS BEEN EFFECTIVE IN HELPING HIM MANAGE HIS PAIN AND SLEEP HOWEVER, HE ADMITS TO INCREASED PAIN THROUGHOUT THE DAY. DISCUSSED SYMPTOMS WITH PATIENT AND DR. LOPEZ AND GIVEN PRESENTING SYMPTOMS AND RESULTS OF PHYSICAL EXAMINATION BELBUCA 75MG DAILY IS RECOMMENDED. THE USE OF BELBUCA WOULD ASSIST IN MEETING CDC GUIDELINES WHICH RECOMMENDS THE LOWEST MORPHINE SULFATE EQUIVALENT BE USED. EVEN AT'S HIGHEST DOSAGE OF 900MCG EVERY 12 HRS MULTIPLIED BY A .03 FACTOR RESULTS IN A 54 MG EQUIVALENT DAILY. THE CDC FURTHER STATES "WHEN A LONG ACTING OPIOID IS PRESCRIBED , USING ONE WITH PREDICTABLE PHARMACOKINETICS AND PHARMACODYNAMICS IS PREFERRED TO MINIMIZE UNINTENTIONAL OVERDOSE RISK. PARTICULARLY THE UNUSUAL CHARACTERISTICS OF TRANSDERMAL FENTANYL AND METHADONE MAKE SAFE PRESCRIBING OF THESE MEDICATIONS CHALLENGING. FURTHERMORE, WE ARE IN THE MIDST OF AN OPIOID CRISIS; THEREFORE IT IS IRRESPONSIBLE OF THE INSURANCE COMPANY TO ASK OUR PATIENTS TO FAIL ON A SCHEDULE 2 DRUG PRIOR TO TRYING A SCHEDULE 3. PATIENT HAS EXPRESSED UNDERSTANDING OF AND WAS IN AGREEMENT WITH TX PLAN. GIVEN TIME TO ASK QUESTIONS AND EXPRESS CONCERNS. . PREVENTIVE MEDICINE PAIN CLINIC TEACHING: MEDICATIONS PT. DECLINED PRINTED INFORMATION ON [employer] STATING HE RECEIVED THE INFORMATION IN THE PAST. THE MEDICATION WAS REVIEWED WITH PT. AND HE VERBALIZED UNDERSTANDING. AD. PROCEDURE CODES FA211 ESTABILISHED PATIENT [facility] FACILITY CHARGE DISPOSITION & COMMUNICATION FOLLOW UP 4 WEEKS (REASON: MEDICATION EVALUATION ) ELECTRONICALLY SIGNED BY JAYDON HENRY ON 10/17/2018 AT 04:27 PM EDT DISCLAIMER : THIS IS A VISIT SUMMARY EXTRACTED FROM THE [employer] CHART. IT IS NOT A COPY OF THE [employer] PROGRESS NOTE. MTDD
== END ==
LOC: M PAIN 13:00
PROVIDERS: ATTEND Family Medicine
DX: M51.26 Other intervertebral disc displacement, lumbar region (principal); I10 Essential (primary) hypertension; K21.9 Gastro-esophageal reflux disease without esophagitis; H40.9 Unspecified glaucoma; E89.0 Postprocedural hypothyroidism; M54.2 Cervicalgia; M25.551 Pain in right hip; M25.552 Pain in left hip; R51 Headache; Z87.891 Personal history of nicotine dependence; I73.00 Raynaud's syndrome without gangrene; Z85.850 Personal history of malignant neoplasm of thyroid; Z79.891 Long term (current) use of opiate analgesic; Z79.899 Other long term (current) drug therapy; Z90.49 Acquired absence of other specified parts of digestive tract; Z88.2 Allergy status to sulfonamides; Z88.8 Allergy status to other drugs, medicaments and biological substances

== ENCOUNTER → 2018-10-17 | Outpatient (CLI) | payer OTHER ==
[~2018-10-17] MED LIST changes: -OMEP1CAP73; +OMEP20CA4
--- NOTE | 2018-10-17 21:59 | REP ---
Clinical: thoracic pain. Technique: AP, lateral, and swimmers views. Findings: Alignment and kyphosis is maintained. Vertebral bodies intact. No acute fracture / compression injury or subluxation. No degenerative changes. Paravertebral soft tissues are normal. Impression: Normal thoracic spine series. Electronically Signed by Sean Mancuso MD 10/17/2018 09:51 P
== END ==
LOC: M RAD 14:43
PROVIDERS: ATTEND Family Medicine
DX: M54.6 Pain in thoracic spine (principal)

== ENCOUNTER → 2018-10-24 | Outpatient (CLI) | payer OTHER ==
--- NOTE | 2018-10-26 00:22 | ECWPNPC ---
PATIENT NAME: MARCY AMOS : 1980 GENDER: MALE VISIT DATE: 10/24/2018 DISCHARGE DATE: 10/24/18 1434 VISIT LOCKED DATE TIME: PHYSICIAN: LONA HOLLOWAY RESOURCE: LONA HOLLOWAY REASON FOR APPOINTMENT 1. MEDICATION MANAGEMENT HISTORY OF PRESENT ILLNESS HISTORY OF PRESENT ILLNESS: 37 YEAR OLD MALE PATIENT WITH A HISTORY OF CHRONIC MULTIPLE BODY PAIN. THE PATIENT DESCRIBES THE PAIN ACHING, BURNING, SHARP, SORE, TENDER, AND CONTINUOUS WITH A PAIN SCORE OF 7/10 DEPENDING ON PHYSICAL ACTIVITY. THE PATIENT SAYS HIS PAIN IS LOCATED IN HIS NECK WITH HEADACHES, THORACIC AREA, LOW BACK AREA, AND HIPS. PAIN THE PATIENT DESCRIBES THE PAIN... THE PATIENT DESCRIBES THE PAIN... THE PATIENT DESCRIBES THE PAIN... THE PATIENT DESCRIBES THE PAIN... PAIN THE PATIENT DESCRIBES THE PAIN... THE PATIENT DESCRIBES THE PAIN... THE PATIENT DESCRIBES THE PAIN... THE PATIENT DESCRIBES THE PAIN... FALL RISK SCREENING: SCREENING :NO FALLS REPORTED IN THE LAST YEAR CURRENT MEDICATIONS TAKING TRAZODONE HCL 50 MG TABLET 1 TABLET AT BEDTIME NEEDED ORALLY ONCE A DAY TAKING ZOLPIDEM TARTRATE 10 MG TABLET 1 TABLET AT BEDTIME NEEDED ORALLY ONCE A DAY TAKING CLONIDINE HCL 0.2 MG TABLET 2 ORALLY BID TAKING METOPROLOL SUCCINATE 200 MG TABLET EXTENDED RELEASE ORALLY BEFORE BEDTIME TAKING OMEPRAZOLE 40 MG CAPSULE DELAYED RELEASE 1 CAPSULE ORALLY ONCE A DAY TAKING LATANOPROST 0.005 % SOLUTION 1 DROP INTO AFFECTED EYE IN THE EVENING OPHTHALMIC ONCE A DAY TAKING AMLODIPINE BESYLATE 10 MG TABLET 1 TABLET ORALLY ONCE A DAY TAKING LEVOTHROYXINE _ 300 MCGS 1 TAB ORALLY DAILY TAKING LEVOTHYROXINE SODIUM 50 MCG TABLET 1 TABLET ON AN EMPTY STOMACH IN THE MORNING ORALLY ONCE A DAY TAKING REQUIP 1 MG TABLET 1 TABLET 1 TO 3 HOURS BEFORE BEDTIME ORALLY ONCE A DAY NEEDED TAKING PAXIL 30 MG TABLET 1 TABLET IN THE MORNING ORALLY ONCE A DAY TAKING CARISOPRODOL 350 MG TABLET 1 TABLET NEEDED ORALLY BID FOR PAIN/SPASM MDD=2 TAKING OXYCODONE HCL 5 MG TABLET 1 TABLET NEEDED ORALLY FOR PAIN EVERY 8 HRS MDD3 TAKING PANTOPRAZOLE SODIUM 40 MG TABLET DELAYED RELEASE 1 TABLET ORALLY ONCE A DAY TAKING BUTRANS 5 MCG/HR PATCH WEEKLY 1 PATCH TO SKIN TRANSDERMAL WEEKLY NOT-TAKING CELEBREX 200 MG CAPSULE 1 CAPSULE WITH FOOD ORALLY FOR FOOD ONCE A DAY NOT-TAKING TRAMADOL HCL 50 MG TABLET 1 -2 TABLET ORALLY TAKE 1-2 TABS Q 6 HRS PRN MDD=6 NOT-TAKING BENTYL 10 MG CAPSULE 1 CAPSULES ORALLY ONCE DAILY NOT-TAKING VALIUM 10 MG TABLET 1 TABLET NEEDED ORALLY TAKE 1 TAB 1 HOUR PRIOR TO MRI, ONE ON ARRIVE AND 1 TAB DURING/AFTER IF NEEDED, NOTES: NONE RECENT, FOR MRI'S NOT-TAKING HYDROCODONE-ACETAMINOPHEN 5-325 MG TABLET 1 TABLET NEEDED ORALLY FOR PAIN EVERY 8 HRS MDD3 DISCONTINUED DICLOFENAC SODIUM 75 MG TABLET DELAYED RELEASE 1 TABLET WITH FOOD OR MILK ORALLY TWICE A DAY MEDICATION LIST REVIEWED AND RECONCILED WITH THE PATIENT PAST MEDICAL HISTORY HTN GERD BACK PAIN GLAUCOMA - PER PT 3 CYSTS ON THYROID RAYNAUD'S THYROID CANCER NECK PAIN BILATERAL HIP PAIN CHRONIC HEADACHES ALLERGIES SULFA (FOR ALLERGY USE ONLY): HIVES - ALLERGY CYMBALTA: LEGS TWITCHING - SIDE EFFECTS GABAPENTIN: ALTERED BALANCE - SIDE EFFECTS BACLOFEN: RESTLESS LEGS - SIDE EFFECTS ZANAFLEX: RESTLESS LEGS - SIDE EFFECTS TOPAMAX: "MESSED WITH HIS EYES" - SIDE EFFECTS ROBAXIN: NAUSEA/SEVERE DIARRHEA - SIDE EFFECTS SKELAXIN: NAUSEA/SEVERE DIARRHEA - SIDE EFFECTS LYRICA: INSOMNIA - SIDE EFFECTS SURGICAL HISTORY T&A APPENDECTOMY REPAIR OF RIGHT ELBOW FRACTURE REPAIR OF RIGHT ANKLE FRACTURE 2000 THYROID REMOVAL 2018 FAMILY HISTORY FATHER: ALIVE, UNKNOWN MOTHER: ALIVE, UNKNOWN SIBLINGS: UNKNOWN 1 SISTER(S) . NO KNOWN FAMILY HISTORY OF ANY UROLOGICALLY RELATED DISEASES CANCERS. SOCIAL HISTORY GENERAL: TOBACCO USE ARE YOU A:FORMER SMOKER OTHERS AT HOME: NONE. EDUCATION LEVEL OF EDUCATION:NOT FINISHED HIGH SCHOOL DIET: REGULAR. LANGUAGE LANGUAGES SPOKEN:ITALIAN DOMESTIC VIOLENCE DO YOU FEEL SAFE IN YOUR ENVIRONMENT?YES RECREATIONAL DRUG USE DRUG USE?NO EXERCISE: NONE. LEARNING BARRIERS / SPECIAL NEEDS BARRIERS TO LEARNING?NO HEARING IMPAIRED?NO VISION IMPAIRED?YES :CORRECTIVE LENSES COGNITIVELY IMPAIRED?NO READINESS TO LEARN?YES LEARNING PREFERENCES?NO LEARNING CAPABILITIES PRESENT?YES EMOTIONAL BARRIERS?NO SPECIAL DEVICES?NO CATHODIC PROTECTION TECHNICIAN NEEDED?NO LUNG CANCER SCREENING SMOKING STATUS:FORMER SMOKER PAIN CLINIC PFS, CLERGY, PUBLIC HEALTH REFERRALS PFS REFERRAL NEEDED?NO CLERGY REFERRAL NEEDED?NO PUBLIC HEALTH REFERRAL NEEDED?NO HAS THE PATIENT BEEN EDUCATED REGARDING HIS/HER PLAN OF CARE?YES HAS THE PATIENT BEEN EDUCATED REGARDING PAIN, THE RISK FOR PAIN, THE IMPORTANCE OF EFFECTIVE PAIN MANAGEMENT, AND THE PAIN ASSESSMENT PROCESS?YES LATEX QUESTIONNAIRE LATEX ALLERGY : HAVE YOU EVER DEVELOPED ANY TYPE OF REACTION AFTER HANDLING LATEX PRODUCTS SUCH RUBBER GLOVES, CONDOMS, DIAPHRAGMS, BALLOONS, SOCKS, OR UNDERWEAR?NO LATEX ALLERGY : HAVE YOU EVER DEVELOPED ANY TYPE OF REACTION DURING OR AFTER DENTAL APPOINTMENT, VAGINAL/RECTAL EXAMINATION, SURGICAL PROCEDURE, OR ANY OTHER EXPOSURE?NO LATEX RISK : HAVE YOU EVER HAD ANY DIFFICULTY BREATHING OR HIVES AFTER EATING OR HANDLING ANY FRUITS, OR VEGETABLES; SUCH KIWI, BANANAS, STONE FRUITS, OR CHESTNUTSNO LATEX RISK : DO YOU HAVE A PREVIOUS PERSONAL HISTORY OF MORE THAN NINE SURGERIES, SPINA BIFIDA, OR REPEATED CATHERTIZATIONS? NO LATEX RISK : ARE YOU FREQUENTLY EXPOSED TO LATEX PRODUCTS IN YOUR OCCUPATION?NO DATE ASKED : 10/09/2018 CAFFEINE CAFFEINE USE?YES ADVANCE DIRECTIVE ADVANCE DIRECTIVE DISCUSSED WITH PATIENT:YES NARENDRA BALDWIN [phone] TAOIST [id number] AGNOSTIC MARITAL STATUS: SINGLE. ALCOHOL SCREENING DID YOU HAVE A DRINK CONTAINING ALCOHOL IN THE PAST YEAR?NO POINTS0 INTERPRETATIONNEGATIVE OCCUPATION: UNEMPLOYED. REVEIWED WITH PT 02/14/18 1426 BVREVIEWED WITH PT 04/23/18 1318 BVREVIEWED WITH PT 05/02/18 1421 BVREVIEWED WITH PATIENT 06/11/18 1408 JSREVEIWED WITH PATIENT 06/26/18 1510 BVREVIEWED WITH PT. 10/09/18 ADREVIEWED WITH PATIENT 08/02/18 1308 JSREVIEWED WITH PATIENT 07/27/18 1507 JS. HOSPITALIZATION/MAJOR DIAGNOSTIC PROCEDURE SEVERAL [facility] THYROID SURGERY REVIEW OF SYSTEMS REVIEWED BY: PROVIDER: BRISA INTERIANO-C . CONSTITUTIONAL: ANY CHANGE IN YOUR MEDICAL CONDITION? NO . CHILLS NO . FEVER NO . INFECTION: DO YOU HAVE NEW INFECTIONS? NO . DO YOU HAVE HISTORY OF MRSA? NO . MUSCULOSKELETAL: ANY NEW PATTERNS OF PAIN OR NUMBNESS? NO . GASTROENTEROLOGY: ANY NEW CHANGE IN BOWEL CONTROL? NO . GENITOURINARY: ANY NEW CHANGE IN BLADDER CONTROL? NO . IS THERE A CHANCE YOU COULD BE ? NO . HEMATOLOGY/LYMPH: DO YOU TAKE ANY BLOOD THINNERS? (FOR EXAMPLE- COUMADIN, PLAVIX, AGGRENOX, PLATEL, PRADAXA, OR XARELTO) NO . WHEN WAS YOUR LAST DOSE? DATE: TIME: . NEUROLOGY: HAVE YOU FALLEN IN THE PAST 12 MONTHS? NO . ANY NEW EXTREMITY NUMBNESS OR WEAKNESS? NO . CARDIOLOGY: DO YOU HAVE A PACEMAKER OR DEFIBRILLATOR? NO . RESPIRATORY: HAVE YOU BEEN SICK IN THE PAST WEEK? NO . FEVER NO . FLU LIKE SYMPTOMS? NO . COUGH NO . INTEGUMENTARY: DO YOU HAVE ANY RASHES OR OPEN SORES? NO . ALLERGIC/IMMUNO: ARE YOU ALLERGIC TO IV DYE? NO . ANY NEW ALLERGIES? NO . PSYCHIATRIC: DO YOU HAVE THOUGHTS OF HURTING YOURSELF OR SOMEONE ELSE? NO . ARE YOU ABUSED, NEGLECTED, OR IN AN UNSAFE ENVIRONMENT? NO . ENDOCRINOLOGY: ARE YOU DIABETIC? NO . OTHER: DO YOU NEED ANY PRESCRIPTIONS? NOT SURE . IF YES, PLEASE LIST: ____ . ANY NEW PROBLEMS WITH YOUR MEDICATIONS? NO . WHEN DID YOU LAST EAT? ____ . WHEN DID YOU LAST DRINK? ____ . WHAT DID YOU LAST DRINK? ____ . NAME OF PERSON DRIVING YOU HOME? ____ . DO YOU HAVE ANY OTHER QUESTIONS OR CONCERNS NO . VITAL SIGNS WT 366.4 LBS, HT 6'8", BMI 40.25 INDEX, BP 133/84 MM HG, HR 72 /MIN, RR 16 /MIN, TEMP 96.6 F, OXYGEN SAT % 99%, NA INITIALS AW 1410, REVIEWED BY: EM. EXAMINATION GENERAL EXAMINATION: GENERALNO ACUTE DISTRESS, WELL NOURISHED AND HYDRATED. PSYCHAPPROPRIATE MOOD AND AFFECT . LUNGS:CLEAR TO AUSCULTATION BILATERALLY, NO WHEEZES, RHONCHI, RALES. HEART:NO MURMURS, REGULAR RATE AND RHYTHM. 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 UPON EXAM TODAY PATIENT REPORTS ADVERSE REACTIONS OF SLEEP DISTURBANCES WITH THE PATCH. GIVEN PRESENTING SYMPTOMS AND RESULTS OF PHYSICAL EXAMINATION RECOMMENDED BELBUCA WITH FOLLOW UP IN 1 MONTH TO DETERMINE EFFICACY OF TREATMENT. PATIENT HAS EXPRESSED UNDERSTANDING OF AND WAS IN AGREEMENT WITH TX PLAN. . OTHERS CONTINUE BELBUCA FILM, 75 MCG, 1 FILM TO THE GUM, BUCALLY, ONCE A DAY STOP BUTRANS PATCH WEEKLY, 5 MCG/HR, 1 PATCH TO SKIN, TRANSDERMAL, WEEKLY DISPOSITION & COMMUNICATION FOLLOW UP 4 WEEKS (REASON: NEW MEDICATION ) ELECTRONICALLY SIGNED BY JAYDON HENRY ON 10/25/2018 AT 08:59 AM EDT DISCLAIMER : THIS IS A VISIT SUMMARY EXTRACTED FROM THE ECLINICALWORKS CHART. IT IS NOT A COPY OF THE STWAINICAL[employer]KS PROGRESS NOTE. GUANAKITOD
== END ==
LOC: M PAIN 14:00
PROVIDERS: ATTEND Family Medicine
DX: M51.16 Intervertebral disc disorders with radiculopathy, lumbar region (principal); I10 Essential (primary) hypertension; K21.9 Gastro-esophageal reflux disease without esophagitis; H40.9 Unspecified glaucoma; E04.2 Nontoxic multinodular goiter; I73.00 Raynaud's syndrome without gangrene; R51 Headache; M25.551 Pain in right hip; M25.552 Pain in left hip; Z87.891 Personal history of nicotine dependence; Z79.899 Other long term (current) drug therapy; Z87.81 Personal history of (healed) traumatic fracture; Z90.49 Acquired absence of other specified parts of digestive tract; Z88.2 Allergy status to sulfonamides; Z88.8 Allergy status to other drugs, medicaments and biological substances

== ENCOUNTER → 2018-11-21 | Outpatient (CLI) | payer OTHER ==
--- NOTE | 2018-11-22 23:57 | ECWPNPC ---
PATIENT NAME: MARCY AMOS : 1980 GENDER: MALE VISIT DATE: 11/21/2018 DISCHARGE DATE: 11/21/18 1522 VISIT LOCKED DATE TIME: PHYSICIAN: LONA HOLLOWAY RESOURCE: LONA HOLLOWAY REASON FOR APPOINTMENT 1. MEDS HISTORY OF PRESENT ILLNESS HISTORY OF PRESENT ILLNESS: PAIN THE PATIENT DESCRIBES THE PAIN... 37 YEAR OLD MALE IN FOR CHRONIC PAIN FOLLOW UP. HE RATES HIS PAIN AT A 7/10 CURRENTLY AND DESCRIBES IT ACHING, BURNING, SORE, TENDER, SHARP, AND STABBING. HE STATES HE CANNOT TAKE THE MEDICATION AT NIGHT IT KEEPS HIM AWAKE. FALL RISK SCREENING: SCREENING :NO FALLS REPORTED IN THE LAST YEAR CURRENT MEDICATIONS TAKING TRAZODONE HCL 50 MG TABLET 1 TABLET AT BEDTIME NEEDED ORALLY ONCE A DAY TAKING ZOLPIDEM TARTRATE 10 MG TABLET 1 TABLET AT BEDTIME NEEDED ORALLY ONCE A DAY TAKING CLONIDINE HCL 0.2 MG TABLET 2 ORALLY BID TAKING METOPROLOL SUCCINATE 200 MG TABLET EXTENDED RELEASE ORALLY BEFORE BEDTIME TAKING OMEPRAZOLE 40 MG CAPSULE DELAYED RELEASE 1 CAPSULE ORALLY ONCE A DAY TAKING LATANOPROST 0.005 % SOLUTION 1 DROP INTO AFFECTED EYE IN THE EVENING OPHTHALMIC ONCE A DAY TAKING AMLODIPINE BESYLATE 10 MG TABLET 1 TABLET ORALLY ONCE A DAY TAKING LEVOTHROYXINE _ 300 MCGS 1 TAB ORALLY DAILY TAKING LEVOTHYROXINE SODIUM 50 MCG TABLET 1 TABLET ON AN EMPTY STOMACH IN THE MORNING ORALLY ONCE A DAY TAKING REQUIP 1 MG TABLET 1 TABLET 1 TO 3 HOURS BEFORE BEDTIME ORALLY ONCE A DAY NEEDED TAKING PAXIL 30 MG TABLET 1 TABLET IN THE MORNING ORALLY ONCE A DAY TAKING PANTOPRAZOLE SODIUM 40 MG TABLET DELAYED RELEASE 1 TABLET ORALLY ONCE A DAY TAKING CARISOPRODOL 350 MG TABLET 1 TABLET NEEDED ORALLY BID FOR PAIN/SPASM MDD=2 TAKING OXYCODONE HCL 5 MG TABLET 1 TABLET NEEDED ORALLY FOR PAIN EVERY 8 HRS MDD3 TAKING BELBUCA 75 MCG FILM 1 FILM TO THE GUM BUCALLY ONCE A DAY NOT-TAKING CELEBREX 200 MG CAPSULE 1 CAPSULE WITH FOOD ORALLY FOR FOOD ONCE A DAY NOT-TAKING TRAMADOL HCL 50 MG TABLET 1 -2 TABLET ORALLY TAKE 1-2 TABS Q 6 HRS PRN MDD=6 NOT-TAKING BENTYL 10 MG CAPSULE 1 CAPSULES ORALLY ONCE DAILY NOT-TAKING VALIUM 10 MG TABLET 1 TABLET NEEDED ORALLY TAKE 1 TAB 1 HOUR PRIOR TO MRI, ONE ON ARRIVE AND 1 TAB DURING/AFTER IF NEEDED, NOTES: NONE RECENT, FOR MRI'S NOT-TAKING HYDROCODONE-ACETAMINOPHEN 5-325 MG TABLET 1 TABLET NEEDED ORALLY FOR PAIN EVERY 8 HRS MDD3 MEDICATION LIST REVIEWED AND RECONCILED WITH THE PATIENT PAST MEDICAL HISTORY HTN GERD BACK PAIN GLAUCOMA - PER PT 3 CYSTS ON THYROID RAYNAUD'S THYROID CANCER NECK PAIN BILATERAL HIP PAIN CHRONIC HEADACHES ALLERGIES SULFA (FOR ALLERGY USE ONLY): HIVES - ALLERGY CYMBALTA: LEGS TWITCHING - SIDE EFFECTS GABAPENTIN: ALTERED BALANCE - SIDE EFFECTS BACLOFEN: RESTLESS LEGS - SIDE EFFECTS ZANAFLEX: RESTLESS LEGS - SIDE EFFECTS TOPAMAX: "MESSED WITH HIS EYES" - SIDE EFFECTS ROBAXIN: NAUSEA/SEVERE DIARRHEA - SIDE EFFECTS SKELAXIN: NAUSEA/SEVERE DIARRHEA - SIDE EFFECTS LYRICA: INSOMNIA - SIDE EFFECTS SURGICAL HISTORY T&A APPENDECTOMY REPAIR OF RIGHT ELBOW FRACTURE REPAIR OF RIGHT ANKLE FRACTURE 1999 THYROID REMOVAL 2018 FAMILY HISTORY FATHER: ALIVE, UNKNOWN MOTHER: ALIVE, UNKNOWN SIBLINGS: UNKNOWN 1 SISTER(S) . NO KNOWN FAMILY HISTORY OF ANY UROLOGICALLY RELATED DISEASES CANCERS. SOCIAL HISTORY GENERAL: TOBACCO USE ARE YOU A:FORMER SMOKER OTHERS AT HOME: NONE. EDUCATION LEVEL OF EDUCATION:NOT FINISHED HIGH SCHOOL DIET: REGULAR. LANGUAGE LANGUAGES SPOKEN:MARSHALLESE DOMESTIC VIOLENCE DO YOU FEEL SAFE IN YOUR ENVIRONMENT?YES RECREATIONAL DRUG USE DRUG USE?NO EXERCISE: NONE. LEARNING BARRIERS / SPECIAL NEEDS BARRIERS TO LEARNING?NO HEARING IMPAIRED?NO VISION IMPAIRED?YES :CORRECTIVE LENSES COGNITIVELY IMPAIRED?NO READINESS TO LEARN?YES LEARNING PREFERENCES?NO LEARNING CAPABILITIES PRESENT?YES EMOTIONAL BARRIERS?NO SPECIAL DEVICES?NO MACHINE SEWER NEEDED?NO LUNG CANCER SCREENING SMOKING STATUS:FORMER SMOKER PAIN CLINIC PFS, CLERGY, PUBLIC HEALTH REFERRALS PFS REFERRAL NEEDED?NO CLERGY REFERRAL NEEDED?NO PUBLIC HEALTH REFERRAL NEEDED?NO HAS THE PATIENT BEEN EDUCATED REGARDING HIS/HER PLAN OF CARE?YES HAS THE PATIENT BEEN EDUCATED REGARDING PAIN, THE RISK FOR PAIN, THE IMPORTANCE OF EFFECTIVE PAIN MANAGEMENT, AND THE PAIN ASSESSMENT PROCESS?YES LATEX QUESTIONNAIRE LATEX ALLERGY : HAVE YOU EVER DEVELOPED ANY TYPE OF REACTION AFTER HANDLING LATEX PRODUCTS SUCH RUBBER GLOVES, CONDOMS, DIAPHRAGMS, BALLOONS, SOCKS, OR UNDERWEAR?NO LATEX ALLERGY : HAVE YOU EVER DEVELOPED ANY TYPE OF REACTION DURING OR AFTER DENTAL APPOINTMENT, VAGINAL/RECTAL EXAMINATION, SURGICAL PROCEDURE, OR ANY OTHER EXPOSURE?NO LATEX RISK : HAVE YOU EVER HAD ANY DIFFICULTY BREATHING OR HIVES AFTER EATING OR HANDLING ANY FRUITS, OR VEGETABLES; SUCH KIWI, BANANAS, STONE FRUITS, OR CHESTNUTSNO LATEX RISK : DO YOU HAVE A PREVIOUS PERSONAL HISTORY OF MORE THAN NINE SURGERIES, SPINA BIFIDA, OR REPEATED CATHERIZATIONS? NO LATEX RISK : ARE YOU FREQUENTLY EXPOSED TO LATEX PRODUCTS IN YOUR OCCUPATION?NO DATE ASKED : 10/09/2018 CAFFEINE CAFFEINE USE?YES ADVANCE DIRECTIVE ADVANCE DIRECTIVE DISCUSSED WITH PATIENT:YES NARENDRA AMOS-MOM [phone] ANGLICAN [id number] AGNOSTIC MARITAL STATUS: SINGLE. ALCOHOL SCREENING DID YOU HAVE A DRINK CONTAINING ALCOHOL IN THE PAST YEAR?NO POINTS0 INTERPRETATIONNEGATIVE OCCUPATION: UNEMPLOYED. REVEIWED WITH PT 02/14/18 1426 BVREVIEWED WITH PT 04/23/18 1318 BVREVIEWED WITH PT 05/02/18 1421 BVREVIEWED WITH PATIENT 06/11/18 1408 JSREVEIWED WITH PATIENT 06/26/18 1510 BVREVIEWED WITH PATIENT 11/21/18 1443 NLJREVIEWED WITH PT. 10/09/18 ADREVIEWED WITH PATIENT 08/02/18 1308 JSREVIEWED WITH PATIENT 07/27/18 1507 JS. HOSPITALIZATION/MAJOR DIAGNOSTIC PROCEDURE SEVERAL [facility] THYROID SURGERY REVIEW OF SYSTEMS REVIEWED BY: PROVIDER: BRISA MORFIN . CONSTITUTIONAL: ANY CHANGE IN YOUR MEDICAL CONDITION? NO . CHILLS NO . FEVER NO . INFECTION: DO YOU HAVE NEW INFECTIONS? NO . DO YOU HAVE HISTORY OF MRSA? NO . MUSCULOSKELETAL: ANY NEW PATTERNS OF PAIN OR NUMBNESS? YES, LBP . GASTROENTEROLOGY: ANY NEW CHANGE IN BOWEL CONTROL? NO . GENITOURINARY: ANY NEW CHANGE IN BLADDER CONTROL? NO . IS THERE A CHANCE YOU COULD BE ? NO . HEMATOLOGY/LYMPH: DO YOU TAKE ANY BLOOD THINNERS? (FOR EXAMPLE- COUMADIN, PLAVIX, AGGRENOX, PLATEL, PRADAXA, OR XARELTO) NO . WHEN WAS YOUR LAST DOSE? DATE: TIME: . NEUROLOGY: HAVE YOU FALLEN IN THE PAST 12 MONTHS? NO . ANY NEW EXTREMITY NUMBNESS OR WEAKNESS? NO . CARDIOLOGY: DO YOU HAVE A PACEMAKER OR DEFIBRILLATOR? NO . RESPIRATORY: HAVE YOU BEEN SICK IN THE PAST WEEK? NO . FEVER NO . FLU LIKE SYMPTOMS? NO . COUGH NO . INTEGUMENTARY: DO YOU HAVE ANY RASHES OR OPEN SORES? NO . ALLERGIC/IMMUNO: ARE YOU ALLERGIC TO IV DYE? NO . ANY NEW ALLERGIES? NO . PSYCHIATRIC: DO YOU HAVE THOUGHTS OF HURTING YOURSELF OR SOMEONE ELSE? NO . ARE YOU ABUSED, NEGLECTED, OR IN AN UNSAFE ENVIRONMENT? NO . ENDOCRINOLOGY: ARE YOU DIABETIC? NO . OTHER: DO YOU NEED ANY PRESCRIPTIONS? NO . IF YES, PLEASE LIST: ____ . ANY NEW PROBLEMS WITH YOUR MEDICATIONS? NO . WHEN DID YOU LAST EAT? ____ . WHEN DID YOU LAST DRINK? ____ . WHAT DID YOU LAST DRINK? ____ . NAME OF PERSON DRIVING YOU HOME? ____ . DO YOU HAVE ANY OTHER QUESTIONS OR CONCERNS NO . VITAL SIGNS WT 378.2 LBS, HT 6'8", BMI 41.54 INDEX, BP 147/79 MM HG, HR 69 /MIN, RR 16 /MIN, TEMP 96.4 F, OXYGEN SAT % 98%, NA INITIALS AW 1439, REVIEWED BY: HAILEY. EXAMINATION GENERAL EXAMINATION: GENERALNO ACUTE DISTRESS, WELL NOURISHED AND HYDRATED. PSYCHAPPROPRIATE MOOD AND AFFECT . LUNGS:CLEAR TO AUSCULTATION BILATERALLY, NO WHEEZES, RHONCHI, RALES. HEART:NO MURMURS, REGULAR RATE AND RHYTHM. DIAGNOSTIC TESTS REVIEWEDTHORACIC X-RAY REVIEWED WITH PATIENT. ASSESSMENTS INTERVERTEBRAL DISC DISORDERS WITH RADICULOPATHY, LUMBAR REGION - M51.16 (PRIMARY) TREATMENT OTHERS REFILL BELBUCA FILM, 150 MCG, 1 FILM TO THE GUM, BUCALLY, ONCE A DAY, 30 DAYS, 30 CLINICAL NOTES: 37 YEAR OLD MALE IN FOR CHRONIC PAIN FOLLOW UP. GIVEN PRESENTING SYMPTOMS AND RESULTS OF PHYSICAL EXAMINATION RECOMMENDED BELBUCA 150 MCG ORALLY DAILY WITH FOLLOW UP IN 2 MONTHS. PATIENT HAS EXPRESSED UNDERSTANDING OF AND WAS IN AGREEMENT WITH TREATMENT PLAN. GIVEN TIME TO ASK QUESTIONS AND EXPRESS CONCERNS. , ISTOP REGISTRY REVIEWED AND DEMONSTRATES COMPLLIANCE. (REF #[id number] ) BRINGS IN MEDICATIONS WHICH IS APPROPRIATE FOR WHAT WAS DISPENSED. RECENT URINE TOXICOLOGY REVIEWED. NO UNAUTHORIZED MEDICATIONS. NO ILLICIT SUBSTANCES AND PRESCRIBED MEDICATIONS WERE PRESENT. PROCEDURE CODES FA211 ESTABILISHED PATIENT [facility] CHARGE DISPOSITION & COMMUNICATION FOLLOW UP 2 MONTHS (REASON: CHRONIC PAIN ) ELECTRONICALLY SIGNED BY JAYDON HENRY ON 11/22/2018 AT 10:52 AM EDT DISCLAIMER : THIS IS A VISIT SUMMARY EXTRACTED FROM THE [employer] CHART. IT IS NOT A COPY OF THE [employer] PROGRESS NOTE. ERENDIRA
== END ==
LOC: M PAIN 14:30
PROVIDERS: ATTEND Family Medicine
DX: M51.16 Intervertebral disc disorders with radiculopathy, lumbar region (principal); G89.29 Other chronic pain; I10 Essential (primary) hypertension; K21.9 Gastro-esophageal reflux disease without esophagitis; Z87.891 Personal history of nicotine dependence; Z88.1 Allergy status to other antibiotic agents; Z88.2 Allergy status to sulfonamides; Z88.8 Allergy status to other drugs, medicaments and biological substances; Z86.59 Personal history of other mental and behavioral disorders; E66.01 Morbid (severe) obesity due to excess calories; Z68.41 Body mass index [BMI] 40.0-44.9, adult; Z79.891 Long term (current) use of opiate analgesic; Z79.899 Other long term (current) drug therapy

== ENCOUNTER → 2018-12-13 | Outpatient (CLI) | payer OTHER ==
[2018-12-13 19:11] LABS: FREE T4 1.46 NG/DL (0.76-1.46); THYROID STIMULATING HORMONE < 0.005 uIU/ML (0.358-3.740)
== END ==
LOC: M LAB 18:13
PROVIDERS: ATTEND Nurse Practitioner Family
DX: E89.0 Postprocedural hypothyroidism (principal)

== ENCOUNTER → 2018-12-28 | Outpatient (CLI) | payer OTHER | LOC: M LAB 16:32 | PROVIDERS: ATTEND Nurse Practitioner Family | DX: C73 Malignant neoplasm of thyroid gland (principal) ==

== ENCOUNTER → 2019-01-21 | Outpatient (CLI) | payer OTHER | LOC: M PAIN 14:30 | PROVIDERS: ATTEND Family Medicine | DX: M51.14 Intervertebral disc disorders with radiculopathy, thoracic region (principal); G89.29 Other chronic pain; E66.01 Morbid (severe) obesity due to excess calories; Z68.41 Body mass index [BMI] 40.0-44.9, adult; Z79.891 Long term (current) use of opiate analgesic; Z79.899 Other long term (current) drug therapy ==

== ENCOUNTER → 2019-04-22 | Outpatient (CLI) | payer OTHER ==
[~2019-04-22] MED LIST changes: +OMEP1CAP73; -OMEP20CA4
--- NOTE | 2019-04-24 05:18 | ECWPNPC ---
PATIENT NAME: MARCY AMOS : 1980 GENDER: MALE VISIT DATE: 04/22/2019 DISCHARGE DATE: 04/22/19 1547 VISIT LOCKED DATE TIME: PHYSICIAN: LONA HOLLOWAY RESOURCE: LONA HOLLOWAY REASON FOR APPOINTMENT 1. 3 MONTHS HISTORY OF PRESENT ILLNESS HISTORY OF PRESENT ILLNESS: PAIN THE PATIENT DESCRIBES THE PAIN... 38-YEAR-OLD MALE PATIENT IN FOR CHRONIC PAIN FOLLOW-UP. HIS PAIN CURRENTLY AT A 7 OUT OF 10 AND DESCRIBES IT SHARP, AND BURNING, SORE, AND TENDER. HE DOES STATE TODAY THAT HE FEELS THE BELBUCA IS INEFFECTIVE IN CONTROLLING HIS PAIN. HE FURTHER STATES THAT AND REFERRAL HAS BEEN PLACED WITH A NEUROSURGEON REGARDING HIS BACK AND POTENTIAL SURGERY. FALL RISK SCREENING: SCREENING :NO FALLS REPORTED IN THE LAST YEAR CURRENT MEDICATIONS TAKING TRAZODONE HCL 50 MG TABLET 1 TABLET AT BEDTIME NEEDED ORALLY ONCE A DAY TAKING ZOLPIDEM TARTRATE 10 MG TABLET 1 TABLET AT BEDTIME NEEDED ORALLY ONCE A DAY TAKING CLONIDINE HCL 0.2 MG TABLET 2 ORALLY BID TAKING METOPROLOL SUCCINATE 200 MG TABLET EXTENDED RELEASE ORALLY BEFORE BEDTIME TAKING OMEPRAZOLE 40 MG CAPSULE DELAYED RELEASE 1 CAPSULE ORALLY ONCE A DAY TAKING LATANOPROST 0.005 % SOLUTION 1 DROP INTO AFFECTED EYE IN THE EVENING OPHTHALMIC ONCE A DAY TAKING AMLODIPINE BESYLATE 10 MG TABLET 1 TABLET ORALLY ONCE A DAY TAKING LEVOTHROYXINE _ 300 MCGS 1 TAB ORALLY DAILY TAKING LEVOTHYROXINE SODIUM 50 MCG TABLET 1 TABLET ON AN EMPTY STOMACH IN THE MORNING ORALLY ONCE A DAY TAKING REQUIP 1 MG TABLET 1 TABLET 1 TO 3 HOURS BEFORE BEDTIME ORALLY ONCE A DAY NEEDED TAKING PAXIL 30 MG TABLET 1 TABLET IN THE MORNING ORALLY ONCE A DAY TAKING BELBUCA 150 MCG FILM 1 FILM TO THE GUM BUCALLY ONCE A DAY TAKING OXYCODONE HCL 5 MG TABLET 1 TABLET NEEDED ORALLY FOR PAIN EVERY 8 HRS MDD3 TAKING CARISOPRODOL 350 MG TABLET 1 TABLET NEEDED ORALLY BID FOR PAIN/SPASM MDD=2 TAKING EPLERENONE 25 MG TABLET 1 TABLET ORALLY ONCE A DAY TAKING ENALAPRIL MALEATE 10 MG TABLET 1 TABLET ORALLY ONCE A DAY NOT-TAKING PANTOPRAZOLE SODIUM 40 MG TABLET DELAYED RELEASE 1 TABLET ORALLY ONCE A DAY NOT-TAKING CELEBREX 200 MG CAPSULE 1 CAPSULE WITH FOOD ORALLY FOR FOOD ONCE A DAY NOT-TAKING TRAMADOL HCL 50 MG TABLET 1 -2 TABLET ORALLY TAKE 1-2 TABS Q 6 HRS PRN MDD=6 NOT-TAKING BENTYL 10 MG CAPSULE 1 CAPSULES ORALLY ONCE DAILY NOT-TAKING VALIUM 10 MG TABLET 1 TABLET NEEDED ORALLY TAKE 1 TAB 1 HOUR PRIOR TO MRI, ONE ON ARRIVE AND 1 TAB DURING/AFTER IF NEEDED, NOTES: NONE RECENT, FOR MRI'S NOT-TAKING HYDROCODONE-ACETAMINOPHEN 5-325 MG TABLET 1 TABLET NEEDED ORALLY FOR PAIN EVERY 8 HRS MDD3 MEDICATION LIST REVIEWED AND RECONCILED WITH THE PATIENT PAST MEDICAL HISTORY HTN GERD BACK PAIN GLAUCOMA - PER PT 3 CYSTS ON THYROID RAYNAUD'S THYROID CANCER NECK PAIN BILATERAL HIP PAIN CHRONIC HEADACHES ALLERGIES SULFA (FOR ALLERGY USE ONLY): HIVES - ALLERGY CYMBALTA: LEGS TWITCHING - SIDE EFFECTS GABAPENTIN: ALTERED BALANCE - SIDE EFFECTS BACLOFEN: RESTLESS LEGS - SIDE EFFECTS ZANAFLEX: RESTLESS LEGS - SIDE EFFECTS TOPAMAX: "MESSED WITH HIS EYES" - SIDE EFFECTS ROBAXIN: NAUSEA/SEVERE DIARRHEA - SIDE EFFECTS SKELAXIN: NAUSEA/SEVERE DIARRHEA - SIDE EFFECTS LYRICA: INSOMNIA - SIDE EFFECTS SURGICAL HISTORY T&A APPENDECTOMY REPAIR OF RIGHT ELBOW FRACTURE REPAIR OF RIGHT ANKLE FRACTURE 2000 THYROID REMOVAL 2018 FAMILY HISTORY FATHER: ALIVE, UNKNOWN MOTHER: ALIVE, UNKNOWN SIBLINGS: UNKNOWN 1 SISTER(S) . NO KNOWN FAMILY HISTORY OF ANY UROLOGICALLY RELATED DISEASES CANCERS. SOCIAL HISTORY GENERAL: TOBACCO USE ARE YOU A:FORMER SMOKER OTHERS AT HOME: NONE. EDUCATION LEVEL OF EDUCATION:NOT FINISHED HIGH SCHOOL DIET: REGULAR. LANGUAGE LANGUAGES SPOKEN:UGANDAN DOMESTIC VIOLENCE DO YOU FEEL SAFE IN YOUR ENVIRONMENT?YES RECREATIONAL DRUG USE DRUG USE?NO EXERCISE: NONE. LEARNING BARRIERS / SPECIAL NEEDS BARRIERS TO LEARNING?NO HEARING IMPAIRED?NO VISION IMPAIRED?YES COGNITIVELY IMPAIRED?NO :CORRECTIVE LENSES READINESS TO LEARN?YES LEARNING PREFERENCES?NO LEARNING CAPABILITIES PRESENT?YES EMOTIONAL BARRIERS?NO SPECIAL DEVICES?NO EDUCATION NURSE NEEDED?NO LUNG CANCER SCREENING SMOKING STATUS:FORMER SMOKER PAIN CLINIC PFS, CLERGY, PUBLIC HEALTH REFERRALS PFS REFERRAL NEEDED?NO CLERGY REFERRAL NEEDED?NO PUBLIC HEALTH REFERRAL NEEDED?NO WAS THE PROVIDER NOTIFIED OF ANY PERTINENT INFO?YES HAS THE PATIENT BEEN EDUCATED REGARDING HIS/HER PLAN OF CARE?YES HAS THE PATIENT BEEN EDUCATED REGARDING PAIN, THE RISK FOR PAIN, THE IMPORTANCE OF EFFECTIVE PAIN MANAGEMENT, AND THE PAIN ASSESSMENT PROCESS?YES LATEX QUESTIONNAIRE LATEX ALLERGY : HAVE YOU EVER DEVELOPED ANY TYPE OF REACTION AFTER HANDLING LATEX PRODUCTS SUCH RUBBER GLOVES, CONDOMS, DIAPHRAGMS, BALLOONS, SOCKS, OR UNDERWEAR?NO LATEX ALLERGY : HAVE YOU EVER DEVELOPED ANY TYPE OF REACTION DURING OR AFTER DENTAL APPOINTMENT, VAGINAL/RECTAL EXAMINATION, SURGICAL PROCEDURE, OR ANY OTHER EXPOSURE?NO LATEX RISK : HAVE YOU EVER HAD ANY DIFFICULTY BREATHING OR HIVES AFTER EATING OR HANDLING ANY FRUITS, OR VEGETABLES; SUCH KIWI, BANANAS, STONE FRUITS, OR CHESTNUTSNO LATEX RISK : DO YOU HAVE A PREVIOUS PERSONAL HISTORY OF MORE THAN NINE SURGERIES, SPINA BIFIDA, OR REPEATED CATHERIZATIONS? NO LATEX RISK : ARE YOU FREQUENTLY EXPOSED TO LATEX PRODUCTS IN YOUR OCCUPATION?NO DATE ASKED : 04/22/2019 CAFFEINE CAFFEINE USE?YES ADVANCE DIRECTIVE ADVANCE DIRECTIVE DISCUSSED WITH PATIENT:YES NARENDRA AMOS-MOM [phone] CATHOLIC [id number] AGNOSTIC MARITAL STATUS: SINGLE. ALCOHOL SCREENING DID YOU HAVE A DRINK CONTAINING ALCOHOL IN THE PAST YEAR?NO POINTS0 INTERPRETATIONNEGATIVE OCCUPATION: UNEMPLOYED. REVEIWED WITH PT 02/14/18 1426 BVREVIEWED WITH PT 04/23/18 1318 BVREVIEWED WITH PT 05/02/18 1421 BVREVIEWED WITH PATIENT 06/11/18 1408 JSREVEIWED WITH PATIENT 06/26/18 1510 BVREVIEWED WITH PATIENT 11/21/18 1443 NLJREVIEWED WITH PT. 10/09/18 ADREVIEWED WITH PATIENT 08/02/18 1308 JSREVIEWED WITH PATIENT 07/27/18 1507 JSREVIEWED WITH PATIENT 04/22/19 DS. HOSPITALIZATION/MAJOR DIAGNOSTIC PROCEDURE SEVERAL [facility] THYROID SURGERY REVIEW OF SYSTEMS REVIEWED BY: PROVIDER: BRISA INTERIANO-[place] . CONSTITUTIONAL: ANY CHANGE IN YOUR MEDICAL CONDITION? NO . CHILLS NO . FEVER NO . INFECTION: DO YOU HAVE NEW INFECTIONS? NO . DO YOU HAVE HISTORY OF MRSA? NO . MUSCULOSKELETAL: ANY NEW PATTERNS OF PAIN OR NUMBNESS? NO . GASTROENTEROLOGY: ANY NEW CHANGE IN BOWEL CONTROL? NO . GENITOURINARY: ANY NEW CHANGE IN BLADDER CONTROL? NO . IS THERE A CHANCE YOU COULD BE ? NO . HEMATOLOGY/LYMPH: DO YOU TAKE ANY BLOOD THINNERS? (FOR EXAMPLE- COUMADIN, PLAVIX, AGGRENOX, PLATEL, PRADAXA, OR XARELTO) NO . WHEN WAS YOUR LAST DOSE? DATE: TIME: . NEUROLOGY: HAVE YOU FALLEN IN THE PAST 12 MONTHS? NO . ANY NEW EXTREMITY NUMBNESS OR WEAKNESS? NO . CARDIOLOGY: DO YOU HAVE A PACEMAKER OR DEFIBRILLATOR? NO . RESPIRATORY: HAVE YOU BEEN SICK IN THE PAST WEEK? NO . FEVER NO . FLU LIKE SYMPTOMS? NO . COUGH NO . INTEGUMENTARY: DO YOU HAVE ANY RASHES OR OPEN SORES? NO . ALLERGIC/IMMUNO: ARE YOU ALLERGIC TO IV DYE? NO . ANY NEW ALLERGIES? NO . PSYCHIATRIC: DO YOU HAVE THOUGHTS OF HURTING YOURSELF OR SOMEONE ELSE? NO . ARE YOU ABUSED, NEGLECTED, OR IN AN UNSAFE ENVIRONMENT? NO . ENDOCRINOLOGY: ARE YOU DIABETIC? NO . OTHER: DO YOU NEED ANY PRESCRIPTIONS? YES, BELBUCA, OXYCODONE, SOMA . IF YES, PLEASE LIST: ____ . ANY NEW PROBLEMS WITH YOUR MEDICATIONS? NO . WHEN DID YOU LAST EAT? ____ . WHEN DID YOU LAST DRINK? ____ . WHAT DID YOU LAST DRINK? ____ . NAME OF PERSON DRIVING YOU HOME? ____ . DO YOU HAVE ANY OTHER QUESTIONS OR CONCERNS YES, THORACIC PAIN THAT WRAPS AROUND INTO STOMACH . VITAL SIGNS WT 408.4 LBS, HT 6'8", BMI 44.86 INDEX, BP 155/92 MM HG, HR 77 /MIN, RR 16 /MIN, TEMP 98.2 F, OXYGEN SAT % 97, SAFE IN ENV? (Y/N) Y, REVIEWED BY: LAVELL. EXAMINATION GENERAL EXAMINATION: GENERALNO ACUTE DISTRESS, WELL NOURISHED AND HYDRATED. PSYCHAPPROPRIATE MOOD AND AFFECT . LUNGS:CLEAR TO AUSCULTATION BILATERALLY, NO WHEEZES, RHONCHI, RALES. HEART:NO MURMURS, REGULAR RATE AND RHYTHM. ASSESSMENTS INTERVERTEBRAL DISC DISORDERS WITH RADICULOPATHY, LUMBAR REGION - M51.16 (PRIMARY) THORACIC RADICULOPATHY - M54.14 TREATMENT INTERVERTEBRAL DISC DISORDERS WITH RADICULOPATHY, LUMBAR REGION STOP BELBUCA FILM, 150 MCG, 1 FILM TO THE GUM, BUCALLY, ONCE A DAY START LYRICA CAPSULE, 75 MG, 1 CAPSULE, ORALLY, ONCE A DAY, 30 DAYS, 30 CAPSULE REFILL OXYCODONE HCL TABLET, 5 MG, 1 TABLET NEEDED, ORALLY FOR PAIN, EVERY 8 HRS MDD3, 30 DAYS, 90, REFILLS 0 REFILL CARISOPRODOL TABLET, 350 MG, 1 TABLET NEEDED, ORALLY, BID FOR PAIN/SPASM MDD=2, 30 DAY(S), 60, REFILLS 0 NOTES: REVIEWED AND DISCUSSED TREATMENT PLAN WITH PATIENT, PT ACKNOWLEDGED UNDERSTANDING, DSDESTROYED BELBUCA PER EXECUTIVE DIRECTOR [employer]ING ORDER. DS . CLINICAL NOTES: 39-YEAR-OLD MALE IN FOR CHRONIC PAIN FOLLOW-UP. GIVEN PRESENTING SYMPTOMS AND RESULTS PHYSICAL EXAMINATION RECOMMENDED STOPPING BELBUCA AND STARTING LYRICA 75 MG DAILY. FURTHER RECOMMENDED FOLLOW-UP AFTER PATIENT'S CONSULT WITH NEUROSURGERY. PATIENT HAS EXPRESSED UNDERSTANDING OF AND WAS IN AGREEMENT WITH TREATMENT PLAN. GIVEN TIME TO ASK QUESTIONS AND EXPRESS CONCERNS., ISTOP REGISTRY REVIEWED AND DEMONSTRATES COMPLLIANCE. (REF # [id number] ) BRINGS IN MEDICATIONS WHICH IS APPROPRIATE FOR WHAT WAS DISPENSED. RECENT URINE TOXICOLOGY REVIEWED. NO UNAUTHORIZED MEDICATIONS. NO ILLICIT SUBSTANCES AND PRESCRIBED MEDICATIONS WERE PRESENT. PREVENTIVE MEDICINE PAIN CLINIC TEACHING: THE PATIENT HAS BEEN EDUCATED REGARDING PAIN, THE RISK FOR PAIN, THE IMPORTANCE OF EFFECTIVE PAIN MANAGEMENT, AND THE PAIN ASSESSMENT PROCESS. : REVIEWED WRITTEN AND VERBAL INSTRUCTION WITH PATIENT, DISCUSSED TREATMENT PLAN, PT ACKNOWLEDGED UNDERSTANDING. DS PROCEDURE CODES FA211 ESTABILISHED PATIENT [facility] CHARGE DISPOSITION & COMMUNICATION FOLLOW UP AFTER SEEN BY NEUROLOGIST ELECTRONICALLY SIGNED BY JAYDON HENRY ON 04/23/2019 AT 10:28 AM EST DISCLAIMER : THIS IS A VISIT SUMMARY EXTRACTED FROM THE [employer] CHART. IT IS NOT A COPY OF THE [employer] PROGRESS NOTE. GUANAKITOD
== END ==
LOC: M PAIN 14:30
PROVIDERS: ATTEND Family Medicine
DX: M51.16 Intervertebral disc disorders with radiculopathy, lumbar region (principal); M54.14 Radiculopathy, thoracic region

== ENCOUNTER → 2019-05-03 | Outpatient (CLI) | payer OTHER ==
--- NOTE | 2019-05-03 15:25 | REP ---
MRI THORACIC SPINE WITHOUT CONTRAST: HISTORY: Pain in the thoracic spine. Comparison radiographs, October 17, 2018. Comparison MRI thoracic spine study January 26, 2018. Technique: Sagittal and axial T1 and T2-weighted scans are acquired in the usual fashion with and without fat saturation. Sequences include spin echo, turbo spin-echo, and STIR imaging sequences. MRI FINDINGS: Thoracic vertebral body heights are preserved. Alignment is normal. Cortical and medullary bone signal intensity is normal. There is no evidence of fracture or collapse seen. No evidence of spinal stenosis is seen in the thoracic canal. The thoracic cord is normal in course, caliber, and signal intensity on T1- and T2-weighted scans. It extends off the bottom of the field of view at the mid L1 level. This is unchanged. There are minimal degenerative disc changes with narrowing of the T3-4, T4-5, T5-6, and T8-9 discs. This is mild and unchanged. At T3-4, axial T2-weighted scans and sagittal T2-weighted scans demonstrate a small left posterior focal disc protrusion. This appears slightly more prominent effacing the left ventral margin of the thecal sac. There is suggestion of left posterior uncovertebral spurring at T1-T2. There is mild diffuse disc bulging at the T8-9 disc level, unchanged from the prior study. No other focal disc protrusion is seen. No foraminal narrowing is observed. No paravertebral soft-tissue process is seen. IMPRESSION: Minimal degenerative disc changes. Small left posterior focal disc protrusion at T3-T4. Mild disc bulging and T8-T9. Electronically Signed by Baltazar Hwang MD 05/03/2019 06:39 P
== END ==
LOC: M PLARAD 10:56
PROVIDERS: ATTEND Nurse Practitioner Adult Health
DX: M51.24 Other intervertebral disc displacement, thoracic region (principal)

== ENCOUNTER → 2019-06-14 | Outpatient (CLI) | payer OTHER ==
[~2019-06-14] MED LIST changes: -ROPI1TAB; +ROPI1TAB3
[2019-06-14 16:40] LABS: FREE T4 1.46 NG/DL (0.76-1.46); THYROID STIMULATING HORMONE 0.024 uIU/ML (0.358-3.740)
[2019-06-14 16:42] LABS: THYROGLOBULIN ANTIBODY 32.7 U/ML (<60.0)
== END ==
LOC: M LAB 15:32
PROVIDERS: ATTEND Internal Medicine Endocrinology, Diabetes & Metabolism
DX: C73 Malignant neoplasm of thyroid gland (principal); E89.0 Postprocedural hypothyroidism

== ENCOUNTER → 2019-06-24 | Outpatient (CLI) | payer OTHER ==
--- NOTE | 2019-06-26 04:12 | ECWPNPC ---
PATIENT NAME: MARCY AMOS : 1980 GENDER: MALE VISIT DATE: 06/24/2019 DISCHARGE DATE: 06/24/19 1501 VISIT LOCKED DATE TIME: PHYSICIAN: LONA HOLLOWAY RESOURCE: LONA HOLLOWAY REASON FOR APPOINTMENT 1. 2 MONTHS- PT REQUESTING A RM WITH A WINDOW HE IS CLAUSTROPHOBIC HISTORY OF PRESENT ILLNESS HISTORY OF PRESENT ILLNESS: PAIN THE PATIENT DESCRIBES THE PAINDURING THE LAST MONTH SEVERITY - PAIN SCORE OF7/10 LOCATIONSHEAD, CERVICAL QUALITYACHING , BURNING, SHARP, TENDER, SORE DURATIONCONTINUOUS, ALL DAY, AWAKENS FROM SLEEEP 38-YEAR-OLD MALE IN FOR CHRONIC PAIN FOLLOW-UP. AT LAST CLINIC VISIT HE WAS STARTED ON LYRICA AND ADMITS THAT IT HAS BEEN HELPFUL HOWEVER HE IS QUESTIONING IF AN INCREASE IN DOSAGE WOULD BE MORE BENEFICIAL. HE RATES HIS PAIN CURRENTLY AT A 7 OUT OF 10 AND DESCRIBES IT ACHING, SHARP, BURNING, SORE, AND TENDER. FALL RISK SCREENING: SCREENING :NO FALLS REPORTED IN THE LAST YEAR CURRENT MEDICATIONS TAKING TRAZODONE HCL 50 MG TABLET 1 TABLET AT BEDTIME NEEDED ORALLY ONCE A DAY TAKING ZOLPIDEM TARTRATE 10 MG TABLET 1 TABLET AT BEDTIME NEEDED ORALLY ONCE A DAY TAKING CLONIDINE HCL 0.2 MG TABLET 2 ORALLY BID TAKING METOPROLOL SUCCINATE 200 MG TABLET EXTENDED RELEASE ORALLY BEFORE BEDTIME TAKING OMEPRAZOLE 40 MG CAPSULE DELAYED RELEASE 1 CAPSULE ORALLY ONCE A DAY TAKING LATANOPROST 0.005 % SOLUTION 1 DROP INTO AFFECTED EYE IN THE EVENING OPHTHALMIC ONCE A DAY TAKING AMLODIPINE BESYLATE 10 MG TABLET 1 TABLET ORALLY ONCE A DAY TAKING LEVOTHROYXINE _ 300 MCGS 1 TAB ORALLY DAILY TAKING LEVOTHYROXINE SODIUM 50 MCG TABLET 1 TABLET ON AN EMPTY STOMACH IN THE MORNING ORALLY ONCE A DAY TAKING REQUIP 1 MG TABLET 1 TABLET 1 TO 3 HOURS BEFORE BEDTIME ORALLY ONCE A DAY NEEDED TAKING PAXIL 30 MG TABLET 1 TABLET IN THE MORNING ORALLY ONCE A DAY TAKING EPLERENONE 25 MG TABLET 1 TABLET ORALLY ONCE A DAY TAKING ENALAPRIL MALEATE 10 MG TABLET 1 TABLET ORALLY ONCE A DAY TAKING VALIUM 10 MG TABLET 1 TABLET NEEDED ORALLY TAKE 1 TAB 1 HOUR PRIOR TO MRI, ONE ON ARRIVE AND 1 TAB DURING/AFTER IF NEEDED, NOTES: NONE RECENT, FOR MRI'S TAKING OXYCODONE HCL 5 MG TABLET 1 TABLET NEEDED ORALLY FOR PAIN EVERY 8 HRS MDD3 TAKING CARISOPRODOL 350 MG TABLET 1 TABLET NEEDED ORALLY BID FOR PAIN/SPASM MDD=2 TAKING LYRICA 150 MG CAPSULE 1 CAPSULE ORALLY ONCE A DAY NOT-TAKING PANTOPRAZOLE SODIUM 40 MG TABLET DELAYED RELEASE 1 TABLET ORALLY ONCE A DAY NOT-TAKING CELEBREX 200 MG CAPSULE 1 CAPSULE WITH FOOD ORALLY FOR FOOD ONCE A DAY NOT-TAKING TRAMADOL HCL 50 MG TABLET 1 -2 TABLET ORALLY TAKE 1-2 TABS Q 6 HRS PRN MDD=6 NOT-TAKING BENTYL 10 MG CAPSULE 1 CAPSULES ORALLY ONCE DAILY NOT-TAKING HYDROCODONE-ACETAMINOPHEN 5-325 MG TABLET 1 TABLET NEEDED ORALLY FOR PAIN EVERY 8 HRS MDD3 MEDICATION LIST REVIEWED AND RECONCILED WITH THE PATIENT PAST MEDICAL HISTORY HTN GERD BACK PAIN GLAUCOMA - PER PT 3 CYSTS ON THYROID RAYNAUD'S THYROID CANCER NECK PAIN BILATERAL HIP PAIN CHRONIC HEADACHES ALLERGIES SULFA (FOR ALLERGY USE ONLY): HIVES - ALLERGY CYMBALTA: LEGS TWITCHING - SIDE EFFECTS GABAPENTIN: ALTERED BALANCE - SIDE EFFECTS BACLOFEN: RESTLESS LEGS - SIDE EFFECTS ZANAFLEX: RESTLESS LEGS - SIDE EFFECTS TOPAMAX: "MESSED WITH HIS EYES" - SIDE EFFECTS ROBAXIN: NAUSEA/SEVERE DIARRHEA - SIDE EFFECTS SKELAXIN: NAUSEA/SEVERE DIARRHEA - SIDE EFFECTS LYRICA: INSOMNIA - SIDE EFFECTS SURGICAL HISTORY T&A APPENDECTOMY REPAIR OF RIGHT ELBOW FRACTURE REPAIR OF RIGHT ANKLE FRACTURE 2000 THYROID REMOVAL 2018 FAMILY HISTORY FATHER: ALIVE, UNKNOWN MOTHER: ALIVE, UNKNOWN SIBLINGS: UNKNOWN 1 SISTER(S) . NO KNOWN FAMILY HISTORY OF ANY UROLOGICALLY RELATED DISEASES CANCERS. SOCIAL HISTORY GENERAL: TOBACCO USE ARE YOU A:FORMER SMOKER OTHERS AT HOME: NONE. EDUCATION LEVEL OF EDUCATION:NOT FINISHED HIGH SCHOOL DIET: REGULAR. LANGUAGE LANGUAGES SPOKEN:[place]SWA[place] DOMESTIC VIOLENCE DO YOU FEEL SAFE IN YOUR ENVIRONMENT?YES RECREATIONAL DRUG USE DRUG USE?NO EXERCISE: NONE. LEARNING BARRIERS / SPECIAL NEEDS BARRIERS TO LEARNING?NO HEARING IMPAIRED?NO VISION IMPAIRED?YES COGNITIVELY IMPAIRED?NO :CORRECTIVE LENSES READINESS TO LEARN?YES LEARNING PREFERENCES?NO LEARNING CAPABILITIES PRESENT?YES EMOTIONAL BARRIERS?NO SPECIAL DEVICES?NO GRIEVANCE AND APPEALS COORDINATOR NEEDED?NO LUNG CANCER SCREENING SMOKING STATUS:FORMER SMOKER PAIN CLINIC PFS, CLERGY, PUBLIC HEALTH REFERRALS PFS REFERRAL NEEDED?NO CLERGY REFERRAL NEEDED?NO PUBLIC HEALTH REFERRAL NEEDED?NO WAS THE PROVIDER NOTIFIED OF ANY PERTINENT INFO?YES HAS THE PATIENT BEEN EDUCATED REGARDING HIS/HER PLAN OF CARE?YES HAS THE PATIENT BEEN EDUCATED REGARDING PAIN, THE RISK FOR PAIN, THE IMPORTANCE OF EFFECTIVE PAIN MANAGEMENT, AND THE PAIN ASSESSMENT PROCESS?YES LATEX QUESTIONNAIRE LATEX ALLERGY : HAVE YOU EVER DEVELOPED ANY TYPE OF REACTION AFTER HANDLING LATEX PRODUCTS SUCH RUBBER GLOVES, CONDOMS, DIAPHRAGMS, BALLOONS, SOCKS, OR UNDERWEAR?NO LATEX ALLERGY : HAVE YOU EVER DEVELOPED ANY TYPE OF REACTION DURING OR AFTER DENTAL APPOINTMENT, VAGINAL/RECTAL EXAMINATION, SURGICAL PROCEDURE, OR ANY OTHER EXPOSURE?NO DATE ASKED : 04/22/2019 LATEX RISK : HAVE YOU EVER HAD ANY DIFFICULTY BREATHING OR HIVES AFTER EATING OR HANDLING ANY FRUITS, OR VEGETABLES; SUCH KIWI, BANANAS, STONE FRUITS, OR CHESTNUTSNO LATEX RISK : DO YOU HAVE A PREVIOUS PERSONAL HISTORY OF MORE THAN NINE SURGERIES, SPINA BIFIDA, OR REPEATED CATHERIZATIONS? NO LATEX RISK : ARE YOU FREQUENTLY EXPOSED TO LATEX PRODUCTS IN YOUR OCCUPATION?NO CAFFEINE CAFFEINE USE?YES ADVANCE DIRECTIVE ADVANCE DIRECTIVE DISCUSSED WITH PATIENT:YES NARENDRA AMOS-[facility] [phone] GNOSTICISM [id number] AGNOSTIC MARITAL STATUS: SINGLE. ALCOHOL SCREENING DID YOU HAVE A DRINK CONTAINING ALCOHOL IN THE PAST YEAR?NO POINTS0 INTERPRETATIONNEGATIVE OCCUPATION: UNEMPLOYED. HOSPITALIZATION/MAJOR DIAGNOSTIC PROCEDURE SEVERAL [facility] THYROID SURGERY REVIEW OF SYSTEMS REVIEWED BY: PROVIDER: BRISA INTERIANO-C . CONSTITUTIONAL: ANY CHANGE IN YOUR MEDICAL CONDITION? NO . CHILLS NO . FEVER NO . INFECTION: DO YOU HAVE NEW INFECTIONS? NO . DO YOU HAVE HISTORY OF MRSA? NO . MUSCULOSKELETAL: ANY NEW PATTERNS OF PAIN OR NUMBNESS? NO . GASTROENTEROLOGY: ANY NEW CHANGE IN BOWEL CONTROL? NO . GENITOURINARY: ANY NEW CHANGE IN BLADDER CONTROL? NO . IS THERE A CHANCE YOU COULD BE ? NO . HEMATOLOGY/LYMPH: DO YOU TAKE ANY BLOOD THINNERS? (FOR EXAMPLE- COUMADIN, PLAVIX, AGGRENOX, PLATEL, PRADAXA, OR XARELTO) NO . WHEN WAS YOUR LAST DOSE? DATE: TIME: . NEUROLOGY: HAVE YOU FALLEN IN THE PAST 12 MONTHS? NO . ANY NEW EXTREMITY NUMBNESS OR WEAKNESS? NO . CARDIOLOGY: DO YOU HAVE A PACEMAKER OR DEFIBRILLATOR? NO . RESPIRATORY: HAVE YOU BEEN SICK IN THE PAST WEEK? NO . FEVER NO . FLU LIKE SYMPTOMS? NO . COUGH NO . INTEGUMENTARY: DO YOU HAVE ANY RASHES OR OPEN SORES? NO . ALLERGIC/IMMUNO: ARE YOU ALLERGIC TO IV DYE? NO . ANY NEW ALLERGIES? NO . PSYCHIATRIC: DO YOU HAVE THOUGHTS OF HURTING YOURSELF OR SOMEONE ELSE? NO . ARE YOU ABUSED, NEGLECTED, OR IN AN UNSAFE ENVIRONMENT? NO . ENDOCRINOLOGY: ARE YOU DIABETIC? NO . OTHER: DO YOU NEED ANY PRESCRIPTIONS? YES,CARISOPRODOL, OXYCODONE, LYRICA . IF YES, PLEASE LIST: ____ . ANY NEW PROBLEMS WITH YOUR MEDICATIONS? NO . WHEN DID YOU LAST EAT? ____ . WHEN DID YOU LAST DRINK? ____ . WHAT DID YOU LAST DRINK? ____ . NAME OF PERSON DRIVING YOU HOME? ____ . DO YOU HAVE ANY OTHER QUESTIONS OR CONCERNS YES, JUST PAIN . VITAL SIGNS WT 414.6 LBS, HT 6'8", BMI 45.54 INDEX, BP 165/93 MM HG, HR 68 /MIN, RR 16 /MIN, TEMP 98.6 F, OXYGEN SAT % 98%, SAFE IN ENV? (Y/N) YES, NA INITIALS AW 1427, REVIEWED BY: NATIVIDAD JESSICA LPN. EXAMINATION GENERAL EXAMINATION: GENERALNO ACUTE DISTRESS, WELL NOURISHED AND HYDRATED. PSYCHAPPROPRIATE MOOD AND AFFECT . LUNGS:CLEAR TO AUSCULTATION BILATERALLY, NO WHEEZES, RHONCHI, RALES. HEART:NO MURMURS, REGULAR RATE AND RHYTHM. ASSESSMENTS INTERVERTEBRAL DISC DISORDERS WITH RADICULOPATHY, LUMBAR REGION - M51.16 (PRIMARY) TREATMENT INTERVERTEBRAL DISC DISORDERS WITH RADICULOPATHY, LUMBAR REGION REFILL LYRICA CAPSULE, 150 MG, 1 CAPSULE, ORALLY, TWICE DAILY, 30 DAYS, 60 REFILL OXYCODONE HCL TABLET, 5 MG, 1 TABLET NEEDED, ORALLY FOR PAIN, EVERY 8 HRS MDD3, 30 DAYS, 90, REFILLS 0 REFILL CARISOPRODOL TABLET, 350 MG, 1 TABLET NEEDED, ORALLY, BID FOR PAIN/SPASM MDD=2, 30 DAY(S), 60, REFILLS 0 CLINICAL NOTES: 38-YEAR-OLD MALE IN FOR CHRONIC PAIN FOLLOW-UP. GIVEN PRESENTING SYMPTOMS AND RESULTS OF PHYSICAL EXAMINATION RECOMMENDED INCREASING LYRICA WITH FOLLOW-UP IN ONE MONTH TO DETERMINE EFFICACY OF TREATMENT. PATIENT HAS EXPRESSED UNDERSTANDING OF AND WAS IN AGREEMENT WITH TREATMENT PLAN. GIVEN TIME TO ASK QUESTIONS AND ADDRESS CONCERNS., ISTOP REGISTRY REVIEWED AND DEMONSTRATES COMPLLIANCE. (REF # [id number] ) BRINGS IN MEDICATIONS WHICH IS APPROPRIATE FOR WHAT WAS DISPENSED. RECENT URINE TOXICOLOGY REVIEWED. NO UNAUTHORIZED MEDICATIONS. NO ILLICIT SUBSTANCES AND PRESCRIBED MEDICATIONS WERE PRESENT. PROCEDURE CODES FA211 ESTABILISHED PATIENT [facility] FACILITY CHARGE DISPOSITION & COMMUNICATION FOLLOW UP 4 WEEKS (REASON: MED INCREASE BACK PAIN ) ELECTRONICALLY SIGNED BY JAYDON HENRY ON 06/25/2019 AT 09:34 AM EDT DISCLAIMER : THIS IS A VISIT SUMMARY EXTRACTED FROM THE [employer] CHART. IT IS NOT A COPY OF THE [employer] PROGRESS NOTE. ERENDIRA
== END ==
LOC: M PAIN 14:30
PROVIDERS: ATTEND Family Medicine
DX: M51.16 Intervertebral disc disorders with radiculopathy, lumbar region (principal); G89.29 Other chronic pain; I10 Essential (primary) hypertension; K21.9 Gastro-esophageal reflux disease without esophagitis; Z87.891 Personal history of nicotine dependence; Z88.1 Allergy status to other antibiotic agents; Z88.2 Allergy status to sulfonamides; Z88.8 Allergy status to other drugs, medicaments and biological substances; Z86.59 Personal history of other mental and behavioral disorders; E66.01 Morbid (severe) obesity due to excess calories; Z68.42 Body mass index [BMI] 45.0-49.9, adult; Z79.899 Other long term (current) drug therapy

== ENCOUNTER → 2019-07-22 | Outpatient (CLI) | payer OTHER ==
--- NOTE | 2019-07-24 03:21 | ECWPNPC ---
PATIENT NAME: MARCY AMOS : 1980 GENDER: MALE VISIT DATE: 07/22/2019 DISCHARGE DATE: 07/22/19 1603 VISIT LOCKED DATE TIME: PHYSICIAN: LONA HOLLOWAY RESOURCE: LONA HOLLOWAY REASON FOR APPOINTMENT 1. 4 WEEKS, MED INCREASE/ BACK PAIN -[phone] JUSTYNA HAS NO CAMERA AND HE HAS AN OLD PHONE. HISTORY OF PRESENT ILLNESS HISTORY OF PRESENT ILLNESS: PAIN THE PATIENT DESCRIBES THE PAIN... PERMISSION REQUESTED AND RECEIVED FROM PATIENT TO PERFORM TELEHEALTH VISIT. 38-YEAR-OLD MALE IN FOR CHRONIC PAIN FOLLOW-UP. AT LAST CLINIC VISIT HIS LYRICA WAS INCREASED TO 150 MG TWICE A DAY. HE ADMITS THAT HE HAS NOT NOTICED ANY SIGNIFICANT CHANGE IN HIS PAIN SINCE THE INCREASE. HE RATES PAIN CURRENTLY AT A 6 OUT OF 10 AND DESCRIBES IT ACHING, BURNING, AND STABBING. HE FEELS MEDICATIONS ARE HELPFUL AND DENIES MED SIDE EFFECTS AT THIS TIME. FALL RISK SCREENING: SCREENING :NO FALLS REPORTED IN THE LAST YEAR CURRENT MEDICATIONS TAKING TRAZODONE HCL 50 MG TABLET 1 TABLET AT BEDTIME NEEDED ORALLY ONCE A DAY TAKING ZOLPIDEM TARTRATE 10 MG TABLET 1 TABLET AT BEDTIME NEEDED ORALLY ONCE A DAY TAKING CLONIDINE HCL 0.2 MG TABLET 2 ORALLY BID TAKING METOPROLOL SUCCINATE 200 MG TABLET EXTENDED RELEASE ORALLY BEFORE BEDTIME TAKING OMEPRAZOLE 40 MG CAPSULE DELAYED RELEASE 1 CAPSULE ORALLY ONCE A DAY TAKING LATANOPROST 0.005 % SOLUTION 1 DROP INTO AFFECTED EYE IN THE EVENING OPHTHALMIC ONCE A DAY TAKING AMLODIPINE BESYLATE 10 MG TABLET 1 TABLET ORALLY ONCE A DAY TAKING LEVOTHROYXINE _ 300 MCGS 1 TAB ORALLY DAILY TAKING LEVOTHYROXINE SODIUM 50 MCG TABLET 1 TABLET ON AN EMPTY STOMACH IN THE MORNING ORALLY ONCE A DAY TAKING REQUIP 1 MG TABLET 1 TABLET 1 TO 3 HOURS BEFORE BEDTIME ORALLY ONCE A DAY NEEDED TAKING PAXIL 30 MG TABLET 1 TABLET IN THE MORNING ORALLY ONCE A DAY TAKING EPLERENONE 25 MG TABLET 1 TABLET ORALLY ONCE A DAY TAKING ENALAPRIL MALEATE 10 MG TABLET 1 TABLET ORALLY ONCE A DAY TAKING VALIUM 10 MG TABLET 1 TABLET NEEDED ORALLY TAKE 1 TAB 1 HOUR PRIOR TO MRI, ONE ON ARRIVE AND 1 TAB DURING/AFTER IF NEEDED, NOTES: NONE RECENT, FOR MRI'S TAKING LYRICA 150 MG CAPSULE 1 CAPSULE ORALLY TWICE DAILY TAKING OXYCODONE HCL 5 MG TABLET 1 TABLET NEEDED ORALLY FOR PAIN EVERY 8 HRS MDD3 TAKING CARISOPRODOL 350 MG TABLET 1 TABLET NEEDED ORALLY BID FOR PAIN/SPASM MDD=2 NOT-TAKING PANTOPRAZOLE SODIUM 40 MG TABLET DELAYED RELEASE 1 TABLET ORALLY ONCE A DAY NOT-TAKING CELEBREX 200 MG CAPSULE 1 CAPSULE WITH FOOD ORALLY FOR FOOD ONCE A DAY NOT-TAKING TRAMADOL HCL 50 MG TABLET 1 -2 TABLET ORALLY TAKE 1-2 TABS Q 6 HRS PRN MDD=6 NOT-TAKING BENTYL 10 MG CAPSULE 1 CAPSULES ORALLY ONCE DAILY NOT-TAKING HYDROCODONE-ACETAMINOPHEN 5-325 MG TABLET 1 TABLET NEEDED ORALLY FOR PAIN EVERY 8 HRS MDD3 MEDICATION LIST REVIEWED AND RECONCILED WITH THE PATIENT PAST MEDICAL HISTORY HTN GERD BACK PAIN GLAUCOMA - PER PT 3 CYSTS ON THYROID RAYNAUD'S THYROID CANCER NECK PAIN BILATERAL HIP PAIN CHRONIC HEADACHES ALLERGIES SULFA (FOR ALLERGY USE ONLY): HIVES - ALLERGY CYMBALTA: LEGS TWITCHING - SIDE EFFECTS GABAPENTIN: ALTERED BALANCE - SIDE EFFECTS BACLOFEN: RESTLESS LEGS - SIDE EFFECTS ZANAFLEX: RESTLESS LEGS - SIDE EFFECTS TOPAMAX: "MESSED WITH HIS EYES" - SIDE EFFECTS ROBAXIN: NAUSEA/SEVERE DIARRHEA - SIDE EFFECTS SKELAXIN: NAUSEA/SEVERE DIARRHEA - SIDE EFFECTS LYRICA: INSOMNIA - SIDE EFFECTS SURGICAL HISTORY T&A APPENDECTOMY REPAIR OF RIGHT ELBOW FRACTURE REPAIR OF RIGHT ANKLE FRACTURE 2000 THYROID REMOVAL 2018 FAMILY HISTORY FATHER: ALIVE, UNKNOWN MOTHER: ALIVE, UNKNOWN SIBLINGS: UNKNOWN 1 SISTER(S) . NO KNOWN FAMILY HISTORY OF ANY UROLOGICALLY RELATED DISEASES CANCERS. SOCIAL HISTORY GENERAL: TOBACCO USE ARE YOU A:FORMER SMOKER OTHERS AT HOME: NONE. EDUCATION LEVEL OF EDUCATION:NOT FINISHED HIGH SCHOOL DIET: REGULAR. LANGUAGE LANGUAGES SPOKEN:FINNISH DOMESTIC VIOLENCE DO YOU FEEL SAFE IN YOUR ENVIRONMENT?YES NEW PATIENT PAIN DIARY PATIENT DESCRIBES PAIN :ACHING, BURNING, HAVE IT ALL THE TIME, STABBING FROM 0-10, WHAT LEVEL IS YOUR PAIN TODAY?6 PRECIPITATING FACTORS GETTING OUT OF BED ALLEVIATING FACTORS OXY IMPACT ON FUNCTION YES RECREATIONAL DRUG USE DRUG USE?NO EXERCISE: NONE. LEARNING BARRIERS / SPECIAL NEEDS BARRIERS TO LEARNING?NO HEARING IMPAIRED?NO VISION IMPAIRED?YES COGNITIVELY IMPAIRED?NO :CORRECTIVE LENSES READINESS TO LEARN?YES LEARNING PREFERENCES?NO LEARNING CAPABILITIES PRESENT?YES EMOTIONAL BARRIERS?NO SPECIAL DEVICES?NO BUFFER COPPER NEEDED?NO LUNG CANCER SCREENING SMOKING STATUS:FORMER SMOKER PAIN CLINIC PFS, CLERGY, PUBLIC HEALTH REFERRALS PFS REFERRAL NEEDED?NO CLERGY REFERRAL NEEDED?NO PUBLIC HEALTH REFERRAL NEEDED?NO WAS THE PROVIDER NOTIFIED OF ANY PERTINENT INFO?YES HAS THE PATIENT BEEN EDUCATED REGARDING HIS/HER PLAN OF CARE?YES HAS THE PATIENT BEEN EDUCATED REGARDING PAIN, THE RISK FOR PAIN, THE IMPORTANCE OF EFFECTIVE PAIN MANAGEMENT, AND THE PAIN ASSESSMENT PROCESS?YES LATEX QUESTIONNAIRE LATEX ALLERGY : HAVE YOU EVER DEVELOPED ANY TYPE OF REACTION AFTER HANDLING LATEX PRODUCTS SUCH RUBBER GLOVES, CONDOMS, DIAPHRAGMS, BALLOONS, SOCKS, OR UNDERWEAR?NO LATEX ALLERGY : HAVE YOU EVER DEVELOPED ANY TYPE OF REACTION DURING OR AFTER DENTAL APPOINTMENT, VAGINAL/RECTAL EXAMINATION, SURGICAL PROCEDURE, OR ANY OTHER EXPOSURE?NO DATE ASKED : 04/22/2019 LATEX RISK : HAVE YOU EVER HAD ANY DIFFICULTY BREATHING OR HIVES AFTER EATING OR HANDLING ANY FRUITS, OR VEGETABLES; SUCH KIWI, BANANAS, STONE FRUITS, OR CHESTNUTSNO LATEX RISK : DO YOU HAVE A PREVIOUS PERSONAL HISTORY OF MORE THAN NINE SURGERIES, SPINA BIFIDA, OR REPEATED CATHERIZATIONS? NO LATEX RISK : ARE YOU FREQUENTLY EXPOSED TO LATEX PRODUCTS IN YOUR OCCUPATION?NO CAFFEINE CAFFEINE USE?YES ADVANCE DIRECTIVE ADVANCE DIRECTIVE DISCUSSED WITH PATIENT:YES NARENDRA AMOS-MOM [phone] SABIANIST [id number] AGNOSTIC MARITAL STATUS: SINGLE. ALCOHOL SCREENING DID YOU HAVE A DRINK CONTAINING ALCOHOL IN THE PAST YEAR?NO POINTS0 INTERPRETATIONNEGATIVE OCCUPATION: UNEMPLOYED. HOSPITALIZATION/MAJOR DIAGNOSTIC PROCEDURE SEVERAL [facility] THYROID SURGERY REVIEW OF SYSTEMS REVIEWED BY: PROVIDER: BRISA INTERIANO-[place] . CONSTITUTIONAL: ANY CHANGE IN YOUR MEDICAL CONDITION? NO . CHILLS NO . FEVER NO . INFECTION: DO YOU HAVE NEW INFECTIONS? NO . DO YOU HAVE HISTORY OF MRSA? NO . MUSCULOSKELETAL: ANY NEW PATTERNS OF PAIN OR NUMBNESS? NO . GASTROENTEROLOGY: ANY NEW CHANGE IN BOWEL CONTROL? NO . GENITOURINARY: ANY NEW CHANGE IN BLADDER CONTROL? NO . IS THERE A CHANCE YOU COULD BE ? NO . HEMATOLOGY/LYMPH: DO YOU TAKE ANY BLOOD THINNERS? (FOR EXAMPLE- COUMADIN, PLAVIX, AGGRENOX, PLATEL, PRADAXA, OR XARELTO) NO . WHEN WAS YOUR LAST DOSE? DATE: TIME: . NEUROLOGY: HAVE YOU FALLEN IN THE PAST 12 MONTHS? NO . ANY NEW EXTREMITY NUMBNESS OR WEAKNESS? NO . CARDIOLOGY: DO YOU HAVE A PACEMAKER OR DEFIBRILLATOR? NO . RESPIRATORY: HAVE YOU BEEN SICK IN THE PAST WEEK? NO . FEVER NO . FLU LIKE SYMPTOMS? NO . COUGH NO . INTEGUMENTARY: DO YOU HAVE ANY RASHES OR OPEN SORES? NO . ALLERGIC/IMMUNO: ARE YOU ALLERGIC TO IV DYE? NO . ANY NEW ALLERGIES? NO . PSYCHIATRIC: DO YOU HAVE THOUGHTS OF HURTING YOURSELF OR SOMEONE ELSE? NO . ARE YOU ABUSED, NEGLECTED, OR IN AN UNSAFE ENVIRONMENT? NO . ENDOCRINOLOGY: ARE YOU DIABETIC? NO . OTHER: DO YOU NEED ANY PRESCRIPTIONS? LYRICA . IF YES, PLEASE LIST: ____ . ANY NEW PROBLEMS WITH YOUR MEDICATIONS? NO . WHEN DID YOU LAST EAT? ____ . WHEN DID YOU LAST DRINK? ____ . WHAT DID YOU LAST DRINK? ____ . NAME OF PERSON DRIVING YOU HOME? ____ . DO YOU HAVE ANY OTHER QUESTIONS OR CONCERNS NO . EXAMINATION GENERAL EXAMINATION: PSYCHAPPROPRIATE MOOD AND AFFECT , ORIENTED X 3 . ASSESSMENTS INTERVERTEBRAL DISC DISORDERS WITH RADICULOPATHY, LUMBOSACRAL REGION - M51.17 (PRIMARY) TREATMENT INTERVERTEBRAL DISC DISORDERS WITH RADICULOPATHY, LUMBOSACRAL REGION INCREASE LYRICA CAPSULE, 200 MG, 1 CAPSULE, ORALLY, TWICE DAILY, 30 DAYS, 60 CLINICAL NOTES: 38-YEAR-OLD MALE IN FOR CHRONIC PAIN FOLLOW-UP. GIVEN PRESENTING SYMPTOMS RECOMMEND INCREASING LYRICA TO 200 MG TWICE A DAY WITH FOLLOW-UP IN ONE MONTH TO DETERMINE EFFICACY OF TREATMENT. PATIENT HAS EXPRESSED UNDERSTANDING OF AND WAS IN AGREEMENT WITH TREATMENT PLAN. GIVEN TIME TO ASK QUESTIONS AND EXPRESS CONCERNS., ISTOP REGISTRY REVIEWED AND DEMONSTRATES COMPLLIANCE. (REF # [id number] ) BRINGS IN MEDICATIONS WHICH IS APPROPRIATE FOR WHAT WAS DISPENSED. RECENT URINE TOXICOLOGY REVIEWED. NO UNAUTHORIZED MEDICATIONS. NO ILLICIT SUBSTANCES AND PRESCRIBED MEDICATIONS WERE PRESENT. VISIT TO BE BILLED BASED ON TIME SPENT WITH PATIENT. TIME SPENT WITH PATIENT 11 MINUTES. DISPOSITION & COMMUNICATION FOLLOW UP 4 WEEKS (REASON: BACK PAIN, MEDICATION INCREASE) ELECTRONICALLY SIGNED BY JAYDON HENRY ON 07/23/2019 AT 08:57 AM EDT DISCLAIMER : THIS IS A VISIT SUMMARY EXTRACTED FROM THE [employer] CHART. IT IS NOT A COPY OF THE [employer] PROGRESS NOTE. ERENDIRA
== END ==
LOC: M PAIN 11:30
PROVIDERS: ATTEND Family Medicine
DX: M51.17 Intervertebral disc disorders with radiculopathy, lumbosacral region (principal)

== ENCOUNTER → 2019-08-20 | Outpatient (CLI) | payer OTHER ==
--- NOTE | 2019-09-24 03:45 | ECWPNPC ---
PATIENT NAME: MARCY AMOS : 1980 GENDER: MALE VISIT DATE: 08/20/2019 DISCHARGE DATE: 08/20/19 1434 VISIT LOCKED DATE TIME: PHYSICIAN: LONA HOLLOWAY RESOURCE: LONA HOLLOWAY REASON FOR APPOINTMENT 1. [phone]- DOES NOT HAVE ZOOM PAT DONE HISTORY OF PRESENT ILLNESS HISTORY OF PRESENT ILLNESS: PAIN THE PATIENT DESCRIBES THE PAIN... PERMISSION REQUESTED AND RECEIVED FROM PATIENT TO PERFORM TELEPHONE VISIT. 38 YEAR OLD MALE IN FOR CHRONIC PAIN FOLLOW UP. AT LAST VISIT HIS LYRICA WAS INCREASED AND THE PATIENT ADMITS THAT HE DOES NOT FEEL IT WAS OVERLY HELPFUL. HE RATES HIS PAIN AT A 7/10 AND DESCRIBES IT STABBING AND BURNING. HE FEELS HIS MEDICATIONS ARE HELPFUL AND DENIES MED SIDE EFFECTS AT THIS TIME. FALL RISK SCREENING: SCREENING :NO FALLS REPORTED IN THE LAST YEAR CURRENT MEDICATIONS TAKING TRAZODONE HCL 50 MG TABLET 1 TABLET AT BEDTIME NEEDED ORALLY ONCE A DAY TAKING ZOLPIDEM TARTRATE 10 MG TABLET 1 TABLET AT BEDTIME NEEDED ORALLY ONCE A DAY TAKING CLONIDINE HCL 0.2 MG TABLET 2 ORALLY BID TAKING METOPROLOL SUCCINATE 200 MG TABLET EXTENDED RELEASE ORALLY BEFORE BEDTIME TAKING OMEPRAZOLE 40 MG CAPSULE DELAYED RELEASE 1 CAPSULE ORALLY ONCE A DAY TAKING LATANOPROST 0.005 % SOLUTION 1 DROP INTO AFFECTED EYE IN THE EVENING OPHTHALMIC ONCE A DAY TAKING AMLODIPINE BESYLATE 10 MG TABLET 1 TABLET ORALLY ONCE A DAY TAKING LEVOTHROYXINE _ 300 MCGS 1 TAB ORALLY DAILY TAKING LEVOTHYROXINE SODIUM 50 MCG TABLET 1 TABLET ON AN EMPTY STOMACH IN THE MORNING ORALLY ONCE A DAY TAKING REQUIP 1 MG TABLET 1 TABLET 1 TO 3 HOURS BEFORE BEDTIME ORALLY ONCE A DAY NEEDED TAKING PAXIL 30 MG TABLET 1 TABLET IN THE MORNING ORALLY ONCE A DAY TAKING EPLERENONE 25 MG TABLET 1 TABLET ORALLY ONCE A DAY TAKING ENALAPRIL MALEATE 10 MG TABLET 1 TABLET ORALLY ONCE A DAY TAKING LYRICA 200 MG CAPSULE 1 CAPSULE ORALLY TWICE DAILY TAKING OXYCODONE HCL 5 MG TABLET 1 TABLET NEEDED ORALLY FOR PAIN EVERY 8 HRS MDD3 TAKING CARISOPRODOL 350 MG TABLET 1 TABLET NEEDED ORALLY BID FOR PAIN/SPASM MDD=2 NOT-TAKING VALIUM 10 MG TABLET 1 TABLET NEEDED ORALLY TAKE 1 TAB 1 HOUR PRIOR TO MRI, ONE ON ARRIVE AND 1 TAB DURING/AFTER IF NEEDED, NOTES: NONE RECENT, FOR MRI'S NOT-TAKING PANTOPRAZOLE SODIUM 40 MG TABLET DELAYED RELEASE 1 TABLET ORALLY ONCE A DAY NOT-TAKING CELEBREX 200 MG CAPSULE 1 CAPSULE WITH FOOD ORALLY FOR FOOD ONCE A DAY NOT-TAKING TRAMADOL HCL 50 MG TABLET 1 -2 TABLET ORALLY TAKE 1-2 TABS Q 6 HRS PRN MDD=6 NOT-TAKING BENTYL 10 MG CAPSULE 1 CAPSULES ORALLY ONCE DAILY NOT-TAKING HYDROCODONE-ACETAMINOPHEN 5-325 MG TABLET 1 TABLET NEEDED ORALLY FOR PAIN EVERY 8 HRS MDD3 MEDICATION LIST REVIEWED AND RECONCILED WITH THE PATIENT PAST MEDICAL HISTORY HTN GERD BACK PAIN GLAUCOMA - PER PT 3 CYSTS ON THYROID RAYNAUD'S THYROID CANCER NECK PAIN BILATERAL HIP PAIN CHRONIC HEADACHES ALLERGIES SULFA (FOR ALLERGY USE ONLY): HIVES - ALLERGY CYMBALTA: LEGS TWITCHING - SIDE EFFECTS GABAPENTIN: ALTERED BALANCE - SIDE EFFECTS BACLOFEN: RESTLESS LEGS - SIDE EFFECTS ZANAFLEX: RESTLESS LEGS - SIDE EFFECTS TOPAMAX: "MESSED WITH HIS EYES" - SIDE EFFECTS ROBAXIN: NAUSEA/SEVERE DIARRHEA - SIDE EFFECTS SKELAXIN: NAUSEA/SEVERE DIARRHEA - SIDE EFFECTS SURGICAL HISTORY T&A APPENDECTOMY REPAIR OF RIGHT ELBOW FRACTURE REPAIR OF RIGHT ANKLE FRACTURE 2000 THYROID REMOVAL 2018 FAMILY HISTORY FATHER: ALIVE, UNKNOWN MOTHER: ALIVE, UNKNOWN SIBLINGS: UNKNOWN 1 SISTER(S) . NO KNOWN FAMILY HISTORY OF ANY UROLOGICALLY RELATED DISEASES CANCERS. SOCIAL HISTORY GENERAL: TOBACCO USE ARE YOU A:FORMER SMOKER LATEX QUESTIONNAIRE LATEX ALLERGY : HAVE YOU EVER DEVELOPED ANY TYPE OF REACTION AFTER HANDLING LATEX PRODUCTS SUCH RUBBER GLOVES, CONDOMS, DIAPHRAGMS, BALLOONS, SOCKS, OR UNDERWEAR?NO LATEX ALLERGY : HAVE YOU EVER DEVELOPED ANY TYPE OF REACTION DURING OR AFTER DENTAL APPOINTMENT, VAGINAL/RECTAL EXAMINATION, SURGICAL PROCEDURE, OR ANY OTHER EXPOSURE?NO LATEX RISK : HAVE YOU EVER HAD ANY DIFFICULTY BREATHING OR HIVES AFTER EATING OR HANDLING ANY FRUITS, OR VEGETABLES; SUCH KIWI, BANANAS, STONE FRUITS, OR CHESTNUTSNO LATEX RISK : DO YOU HAVE A PREVIOUS PERSONAL HISTORY OF MORE THAN NINE SURGERIES, SPINA BIFIDA, OR REPEATED CATHERIZATIONS? NO LATEX RISK : ARE YOU FREQUENTLY EXPOSED TO LATEX PRODUCTS IN YOUR OCCUPATION?NO DATE ASKED : 08/19/2019 LUNG CANCER SCREENING SMOKING STATUS:FORMER SMOKER ALCOHOL SCREENING DID YOU HAVE A DRINK CONTAINING ALCOHOL IN THE PAST YEAR?NO POINTS0 INTERPRETATIONNEGATIVE RECREATIONAL DRUG USE DRUG USE?NO CAFFEINE CAFFEINE USE?YES SCIENTOLOGIST [id number] AGNOSTIC LANGUAGE LANGUAGES SPOKEN:AMHARIC EDUCATION LEVEL OF EDUCATION:NOT FINISHED HIGH SCHOOL LEARNING BARRIERS / SPECIAL NEEDS BARRIERS TO LEARNING?NO HEARING IMPAIRED?NO VISION IMPAIRED?YES COGNITIVELY IMPAIRED?NO :CORRECTIVE LENSES READINESS TO LEARN?YES LEARNING PREFERENCES?NO LEARNING CAPABILITIES PRESENT?YES EMOTIONAL BARRIERS?NO SPECIAL DEVICES?NO AEROTRIANGULATION SPECIALIST NEEDED?NO DOMESTIC VIOLENCE DO YOU FEEL SAFE IN YOUR ENVIRONMENT?YES OCCUPATION: UNEMPLOYED. DIET: REGULAR. EXERCISE: NONE. MARITAL STATUS: SINGLE. OTHERS AT HOME: NONE. NEW PATIENT PAIN DIARY TODAY'S VISITNOTES 08/19/19 PATIENT DESCRIBES PAIN :ACHING, BURNING, HAVE IT ALL THE TIME, STABBING, SHOOTING FROM 0-10, WHAT LEVEL IS YOUR PAIN TODAY?7 PRECIPITATING FACTORS GETTING OUT OF BED ALLEVIATING FACTORS OXY IMPACT ON FUNCTION YES PAIN CLINIC PFS, CLERGY, PUBLIC HEALTH REFERRALS PFS REFERRAL NEEDED?NO CLERGY REFERRAL NEEDED?NO PUBLIC HEALTH REFERRAL NEEDED?NO WAS THE PROVIDER NOTIFIED OF ANY PERTINENT INFO?YES HAS THE PATIENT BEEN EDUCATED REGARDING HIS/HER PLAN OF CARE?YES HAS THE PATIENT BEEN EDUCATED REGARDING PAIN, THE RISK FOR PAIN, THE IMPORTANCE OF EFFECTIVE PAIN MANAGEMENT, AND THE PAIN ASSESSMENT PROCESS?YES ADVANCE DIRECTIVE ADVANCE DIRECTIVE DISCUSSED WITH PATIENT:YES [facility] [place] [phone] HOSPITALIZATION/MAJOR DIAGNOSTIC PROCEDURE SEVERAL [facility] THYROID SURGERY REVIEW OF SYSTEMS REVIEWED BY: PROVIDER: BRISA HOLLOWAY MOBILE NURSE-C . CONSTITUTIONAL: ANY CHANGE IN YOUR MEDICAL CONDITION? NO . CHILLS NO . FEVER NO . INFECTION: DO YOU HAVE NEW INFECTIONS? NO . DO YOU HAVE HISTORY OF MRSA? NO . MUSCULOSKELETAL: ANY NEW PATTERNS OF PAIN OR NUMBNESS? NO . GASTROENTEROLOGY: ANY NEW CHANGE IN BOWEL CONTROL? NO . GENITOURINARY: ANY NEW CHANGE IN BLADDER CONTROL? NO . IS THERE A CHANCE YOU COULD BE ? NO . HEMATOLOGY/LYMPH: DO YOU TAKE ANY BLOOD THINNERS? (FOR EXAMPLE- COUMADIN, PLAVIX, AGGRENOX, PLATEL, PRADAXA, OR XARELTO) NO . WHEN WAS YOUR LAST DOSE? DATE: TIME: . NEUROLOGY: HAVE YOU FALLEN IN THE PAST 12 MONTHS? NO . ANY NEW EXTREMITY NUMBNESS OR WEAKNESS? NO . CARDIOLOGY: DO YOU HAVE A PACEMAKER OR DEFIBRILLATOR? NO . RESPIRATORY: HAVE YOU BEEN SICK IN THE PAST WEEK? NO . FEVER NO . FLU LIKE SYMPTOMS? NO . COUGH NO . INTEGUMENTARY: DO YOU HAVE ANY RASHES OR OPEN SORES? NO . ALLERGIC/IMMUNO: ARE YOU ALLERGIC TO IV DYE? NO . ANY NEW ALLERGIES? NO . PSYCHIATRIC: DO YOU HAVE THOUGHTS OF HURTING YOURSELF OR SOMEONE ELSE? NO . ARE YOU ABUSED, NEGLECTED, OR IN AN UNSAFE ENVIRONMENT? NO . ENDOCRINOLOGY: ARE YOU DIABETIC? NO . OTHER: DO YOU NEED ANY PRESCRIPTIONS? NO . IF YES, PLEASE LIST: ____ . ANY NEW PROBLEMS WITH YOUR MEDICATIONS? NO . WHEN DID YOU LAST EAT? ____ . WHEN DID YOU LAST DRINK? ____ . WHAT DID YOU LAST DRINK? ____ . NAME OF PERSON DRIVING YOU HOME? ____ . DO YOU HAVE ANY OTHER QUESTIONS OR CONCERNS NO . EXAMINATION GENERAL EXAMINATION: PSYCHAPPROPRIATE MOOD AND AFFECT , ORIENTED X 3. ASSESSMENTS SPONDYLOSIS OF LUMBOSACRAL REGION WITHOUT MYELOPATHY OR RADICULOPATHY - M47.817 (PRIMARY) THORACIC RADICULOPATHY - M54.14 TREATMENT SPONDYLOSIS OF LUMBOSACRAL REGION WITHOUT MYELOPATHY OR RADICULOPATHY CLINICAL NOTES: 38 YEAR OLD MALE IN FOR CHRONIC PAIN FOLLOW UP. 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 LOPEZ FOR GUIDANCE REGARDING ADDITIONAL MEDICAITON TO HELP REDUCE PATIENT'S PAIN SYMPTOMS. PATIENT HAS EXPRESSED UNDERSTANDING OF AND WAS IN AGREEMENT WITH TX PLAN. , ISTOP REGISTRY REVIEWED AND DEMONSTRATES COMPLLIANCE. (REF # [id number] ) BRINGS IN MEDICATIONS WHICH IS APPROPRIATE FOR WHAT WAS DISPENSED. RECENT URINE TOXICOLOGY REVIEWED. NO UNAUTHORIZED MEDICATIONS. NO ILLICIT SUBSTANCES AND PRESCRIBED MEDICATIONS WERE PRESENT. VISIT TO BE BILLED BASED ON TIME SPENT WITH PATIENT. TIME SPENT WITH PATIENT 11 MINUTES. DISPOSITION & COMMUNICATION FOLLOW UP 2 MONTHS (REASON: BACK PAIN ) ELECTRONICALLY SIGNED BY JAYDON HENRY ON 09/23/2019 AT 02:11 PM EDT DISCLAIMER : THIS IS A VISIT SUMMARY EXTRACTED FROM THE [employer] CHART. IT IS NOT A COPY OF THE [employer] PROGRESS NOTE. ERENDIRA
== END ==
LOC: M PAIN 13:15
PROVIDERS: ATTEND Family Medicine
DX: M47.817 Spondylosis without myelopathy or radiculopathy, lumbosacral region (principal); M54.14 Radiculopathy, thoracic region

== ENCOUNTER → 2019-10-18 | Outpatient (CLI) | payer OTHER ==
[2019-10-18 19:27] LABS: FREE T4 1.16 NG/DL (0.76-1.46); THYROID STIMULATING HORMONE 0.354 uIU/ML (0.358-3.740)
== END ==
LOC: M LAB 17:38
PROVIDERS: ATTEND Nurse Practitioner Family
DX: E89.0 Postprocedural hypothyroidism (principal)

== ENCOUNTER → 2019-10-21 | Outpatient (CLI) | payer OTHER ==
--- NOTE | 2019-10-23 05:17 | ECWPNPC ---
PATIENT NAME: MARCY AMOS : 1980 GENDER: MALE VISIT DATE: 10/21/2019 DISCHARGE DATE: 10/21/19 1541 VISIT LOCKED DATE TIME: PHYSICIAN: LONA HOLLOWAY RESOURCE: LONA HOLLOWAY REASON FOR APPOINTMENT 1. BACK PAIN HISTORY OF PRESENT ILLNESS GENERAL: - 38-YEAR-OLD MALE IN FOR CHRONIC PAIN FOLLOW-UP. HE RATES HIS PAIN CURRENTLY AT A 7 OUT OF 10 AND DESCRIBES IT ACHING, BURNING, CONTINUOUS, SHARP, TENDER, AND SORE. PATIENT HAS BEEN ON DICLOFENAC WHICH WAS STARTED AT LAST CLINIC VISIT AND HE ADMITS TODAY THAT HE HAS BEEN UNABLE TO TAKE IT IT MAKES HIM AYON. FALL RISK SCREENING: SCREENING :NO FALLS REPORTED IN THE LAST YEAR PAIN SCREENING: PATIENT HAS A COMPLAINT OF ACUTE OR CHRONIC PAIN :YES LOCATION OF PAIN:ABDOMEN, CHEST, UPPER BACK, MID BACK INTENSITY OF PAIN (SCALE OF 1 TO 10):7 AVERAGE 7 WHAT DOES YOUR PAIN FEEL LIKE:ACHING, BURNING, CONTINOUS, SHARP, TENDER, SORE DURATION:CONTINOUS, CONSTANT, STEADY, ALL DAY PAIN IS INCREASED BY: GETTING OUT OF BED, TAKING SHOWER, MOVEMENT PAIN IS DECREASED BY: OXYCODONE, SOMA NURSING NOTE: -. PAIN CENTER INTAKE QUESTIONS: DO YOU HAVE A HISTORY OF MRSA? :NO DO YOU TAKE A BLOOD THINNERS? :NO DO YOU HAVE ANY BLEEDING DISORDERS? :NO ANY NEW NUMBNESS OR WEAKNESS IN YOUR LEGS OR ARMS? :NO ANY PACEMAKER,DEFIBRILLATOR, OR DORSAL COLUMN STIMULATOR? :NO DO YOU HAVE ANY RASHES OR OPEN SORES? :YES PSORIOSIS ARE YOU ALLERGIC TO IV DYE? :NO ARE YOU DIABETIC? :NO ANY NEW PROBLEMS WITH YOUR MEDICATIONS? :YES DICLOFENAC PUT HIM IN A BAD MOOD SO HE STOPPED TAKING IT HAVE YOU RECEIVED A VACCINE IN THE PAST 30 DAYS? :NO DO YOU PLAN TO RECEIVE A VACCINE IN THE NEXT 21 DAYS? :NO DO YOU NEED ANY PRESCRIPTION? :YES ALL OF THEM DO YOU TAKE ANY IMMUNOSUPPRESSIVE MEDICATIONS? :YES BETHAMETHASONE CREAM IS THERE A CHANCE YOU COULD BE ? :NO ARE YOU BREAST FEEDING? :NO CURRENT MEDICATIONS TAKING TRAZODONE HCL 50 MG TABLET 1 TABLET AT BEDTIME NEEDED ORALLY ONCE A DAY TAKING ZOLPIDEM TARTRATE 10 MG TABLET 1 TABLET AT BEDTIME NEEDED ORALLY ONCE A DAY TAKING CLONIDINE HCL 0.2 MG TABLET 2 ORALLY BID TAKING METOPROLOL SUCCINATE 200 MG TABLET EXTENDED RELEASE ORALLY BEFORE BEDTIME TAKING OMEPRAZOLE 40 MG CAPSULE DELAYED RELEASE 1 CAPSULE ORALLY ONCE A DAY TAKING LATANOPROST 0.005 % SOLUTION 1 DROP INTO AFFECTED EYE IN THE EVENING OPHTHALMIC ONCE A DAY TAKING AMLODIPINE BESYLATE 10 MG TABLET 1 TABLET ORALLY ONCE A DAY TAKING LEVOTHROYXINE _ 300 MCGS 1 TAB ORALLY DAILY TAKING LEVOTHYROXINE SODIUM 50 MCG TABLET 1 TABLET ON AN EMPTY STOMACH IN THE MORNING ORALLY ONCE A DAY TAKING REQUIP 1 MG TABLET 1 TABLET 1 TO 3 HOURS BEFORE BEDTIME ORALLY ONCE A DAY NEEDED TAKING PAXIL 30 MG TABLET 1 TABLET IN THE MORNING ORALLY ONCE A DAY TAKING EPLERENONE 25 MG TABLET 1 TABLET ORALLY ONCE A DAY TAKING ENALAPRIL MALEATE 10 MG TABLET 1 TABLET ORALLY ONCE A DAY TAKING CARISOPRODOL 350 MG TABLET 1 TABLET NEEDED ORALLY BID FOR PAIN/SPASM MDD=2 TAKING OXYCODONE HCL 5 MG TABLET 1 TABLET NEEDED ORALLY FOR PAIN EVERY 8 HRS MDD3 TAKING LYRICA 200 MG CAPSULE 1 CAPSULE ORALLY TWICE DAILY TAKING BETAMETHASONE DIPROPIONATE 0.05 % CREAM 1 APPLICATION EXTERNALLY TWICE DAILY TO RASH ON ABDOMEN, BACK, ARMS AND LEGS FOR 2 WEEK. PLEASE COMPOUND INTO 1/2 JAR OF CERAVE CREAM NOT-TAKING DICLOFENAC SODIUM 50 MG TABLET DELAYED RELEASE 1 TABLET ORALLY TWICE A DAY NOT-TAKING VALIUM 10 MG TABLET 1 TABLET NEEDED ORALLY TAKE 1 TAB 1 HOUR PRIOR TO MRI, ONE ON ARRIVE AND 1 TAB DURING/AFTER IF NEEDED, NOTES: NONE RECENT, FOR MRI'S NOT-TAKING PANTOPRAZOLE SODIUM 40 MG TABLET DELAYED RELEASE 1 TABLET ORALLY ONCE A DAY NOT-TAKING CELEBREX 200 MG CAPSULE 1 CAPSULE WITH FOOD ORALLY FOR FOOD ONCE A DAY NOT-TAKING TRAMADOL HCL 50 MG TABLET 1 -2 TABLET ORALLY TAKE 1-2 TABS Q 6 HRS PRN MDD=6 NOT-TAKING BENTYL 10 MG CAPSULE 1 CAPSULES ORALLY ONCE DAILY NOT-TAKING HYDROCODONE-ACETAMINOPHEN 5-325 MG TABLET 1 TABLET NEEDED ORALLY FOR PAIN EVERY 8 HRS MDD3 MEDICATION LIST REVIEWED AND RECONCILED WITH THE PATIENT PAST MEDICAL HISTORY HTN GERD BACK PAIN GLAUCOMA - PER PT 3 CYSTS ON THYROID RAYNAUD'S THYROID CANCER NECK PAIN BILATERAL HIP PAIN CHRONIC HEADACHES PSORIOSIS ALLERGIES SULFA (FOR ALLERGY USE ONLY): HIVES - ALLERGY CYMBALTA: LEGS TWITCHING - SIDE EFFECTS GABAPENTIN: ALTERED BALANCE - SIDE EFFECTS BACLOFEN: RESTLESS LEGS - SIDE EFFECTS ZANAFLEX: RESTLESS LEGS - SIDE EFFECTS TOPAMAX: "MESSED WITH HIS EYES" - SIDE EFFECTS ROBAXIN: NAUSEA/SEVERE DIARRHEA - SIDE EFFECTS SKELAXIN: NAUSEA/SEVERE DIARRHEA - SIDE EFFECTS DICLOFENAC: PUT HIM IN A BAD MOOD - SIDE EFFECTS SURGICAL HISTORY T&A APPENDECTOMY REPAIR OF RIGHT ELBOW FRACTURE REPAIR OF RIGHT ANKLE FRACTURE 2000 THYROID REMOVAL 2018 FAMILY HISTORY FATHER: ALIVE, UNKNOWN MOTHER: ALIVE, UNKNOWN SIBLINGS: UNKNOWN 1 SISTER(S) . NO KNOWN FAMILY HISTORY OF ANY UROLOGICALLY RELATED DISEASES CANCERS. DENIES FAMILY HX OF SKIN CANCER AND MELENOMA. SOCIAL HISTORY GENERAL: TOBACCO USE ARE YOU A:FORMER SMOKER LATEX QUESTIONNAIRE LATEX ALLERGY : HAVE YOU EVER DEVELOPED ANY TYPE OF REACTION AFTER HANDLING LATEX PRODUCTS SUCH RUBBER GLOVES, CONDOMS, DIAPHRAGMS, BALLOONS, SOCKS, OR UNDERWEAR?NO LATEX ALLERGY : HAVE YOU EVER DEVELOPED ANY TYPE OF REACTION DURING OR AFTER DENTAL APPOINTMENT, VAGINAL/RECTAL EXAMINATION, SURGICAL PROCEDURE, OR ANY OTHER EXPOSURE?NO LATEX RISK : HAVE YOU EVER HAD ANY DIFFICULTY BREATHING OR HIVES AFTER EATING OR HANDLING ANY FRUITS, OR VEGETABLES; SUCH KIWI, BANANAS, STONE FRUITS, OR CHESTNUTSNO LATEX RISK : DO YOU HAVE A PREVIOUS PERSONAL HISTORY OF MORE THAN NINE SURGERIES, SPINA BIFIDA, OR REPEATED CATHERIZATIONS? NO LATEX RISK : ARE YOU FREQUENTLY EXPOSED TO LATEX PRODUCTS IN YOUR OCCUPATION?NO DATE ASKED : 10/21/2019 LUNG CANCER SCREENING SMOKING STATUS:FORMER SMOKER ALCOHOL SCREENING DID YOU HAVE A DRINK CONTAINING ALCOHOL IN THE PAST YEAR?NO POINTS0 INTERPRETATIONNEGATIVE RECREATIONAL DRUG USE DRUG USE?NO CAFFEINE CAFFEINE USE?YES FAITH [id number] AGNOSTIC LANGUAGE LANGUAGES SPOKEN:ZAMBIAN EDUCATION LEVEL OF EDUCATION:NOT FINISHED HIGH SCHOOL LEARNING BARRIERS / SPECIAL NEEDS CHANGE FROM LAST VISIT?NO 10/07/2019 BARRIERS TO LEARNING?NO HEARING IMPAIRED?NO VISION IMPAIRED?YES :CORRECTIVE LENSES COGNITIVELY IMPAIRED?NO READINESS TO LEARN?YES LEARNING PREFERENCES?NO LEARNING CAPABILITIES PRESENT?YES EMOTIONAL BARRIERS?NO SPECIAL DEVICES?NO COMPUTER CLERK NEEDED?NO DOMESTIC VIOLENCE DO YOU FEEL SAFE IN YOUR ENVIRONMENT?YES OCCUPATION: UNEMPLOYED. DIET: REGULAR. EXERCISE: NONE. MARITAL STATUS: SINGLE. OTHERS AT HOME: NONE. NEW PATIENT PAIN DIARY TODAY'S VISIT NOTES 08/19/19, PATIENT DESCRIBES PAIN : ACHING, BURNING, HAVE IT ALL THE TIME, STABBING, SHOOTING , FROM 0-10, WHAT LEVEL IS YOUR PAIN TODAY? 7 , PRECIPITATING FACTORS GETTING OUT OF BED, ALLEVIATING FACTORS OXY, IMPACT ON FUNCTION YES. PAIN CLINIC PFS, CLERGY, PUBLIC HEALTH REFERRALS PFS REFERRAL NEEDED?NO CLERGY REFERRAL NEEDED?NO PUBLIC HEALTH REFERRAL NEEDED?NO HAS THE PATIENT BEEN EDUCATED REGARDING HIS/HER PLAN OF CARE?YES HAS THE PATIENT BEEN EDUCATED REGARDING PAIN, THE RISK FOR PAIN, THE IMPORTANCE OF EFFECTIVE PAIN MANAGEMENT, AND THE PAIN ASSESSMENT PROCESS?YES ADVANCE DIRECTIVE ADVANCE DIRECTIVE DISCUSSED WITH PATIENT:YES PT HAS HCP-NARENDRA AMOS[facility] [place] [phone] HOSPITALIZATION/MAJOR DIAGNOSTIC PROCEDURE SEVERAL [facility] THYROID SURGERY REVIEW OF SYSTEMS CONSTITUTIONAL: ANY RECENT FEVER NO . CHILLS NO . WEIGHT CHANGE OF UNKNOWN REASONS NO . GASTROENTEROLOGY: NEW UNEXPLAINABLE CHANGES IN BOWEL CONTROL NO . CONSTIPATION NO . GENITOURINARY: ANY NEW CHANGE IN BLADDER CONTROL? NO . NEUROLOGY: NEW ONSET DIZZINESS OR NEUROLOGICAL CHANGES NOT MENTIONED NO . NEW NUMBNESS OR PAIN PATTERNS NOT MENTIONED AND PERTINENT TO TODAY'S VISIT NO . CARDIOLOGY: NEW CHEST PRESSURE NO . NEW CHEST PAIN NO . RESPIRATORY: UNEXPLAINABLE COUGH NO . NEW SHORTNESS OF BREATH NO . VITAL SIGNS WT 440.2 LBS, HT 6'8", BMI 48.35 INDEX, BP 137/83 MM HG, HR 76 /MIN, RR 18 /MIN, TEMP 98.0 F, OXYGEN SAT % 98%, SAFE IN ENV? (Y/N) Y, NA INITIALS AW 1424, REVIEWED BY: RUSTY. EXAMINATION GENERAL EXAMINATION: GENERALNO ACUTE DISTRESS, WELL NOURISHED AND HYDRATED. PSYCHAPPROPRIATE MOOD AND AFFECT . LUNGS:CLEAR TO AUSCULTATION BILATERALLY, NO WHEEZES, RHONCHI, RALES. HEART:NO MURMURS, REGULAR RATE AND RHYTHM. ASSESSMENTS INTERVERTEBRAL DISC DISORDERS WITH RADICULOPATHY, LUMBOSACRAL REGION - M51.17 (PRIMARY) TREATMENT INTERVERTEBRAL DISC DISORDERS WITH RADICULOPATHY, LUMBOSACRAL REGION START NUCYNTA ER TABLET EXTENDED RELEASE 12 HOUR, 100 MG, 1 TABLET, ORALLY, DAILY, 30 DAYS, 30 STOP DICLOFENAC SODIUM TABLET DELAYED RELEASE, 50 MG, 1 TABLET, ORALLY, TWICE A DAY CLINICAL NOTES: 38-YEAR-OLD MALE IN FOR CHRONIC PAIN FOLLOW-UP. GIVEN PRESENTING SYMPTOMS RECOMMEND STARTING NUCYNTA 75 MG DAILY WITH FOLLOW-UP IN 2 MONTHS TO DETERMINE EFFICACY OF TREATMENT. PATIENT HAS EXPRESSED UNDERSTANDING OF AND WAS IN AGREEMENT WITH TREATMENT PLAN. GIVEN TIME TO ASK QUESTIONS AND EXPRESS CONCERNS. , ISTOP REGISTRY REVIEWED AND DEMONSTRATES COMPLLIANCE. (REF # [id number] ) BRINGS IN MEDICATIONS WHICH IS APPROPRIATE FOR WHAT WAS DISPENSED. RECENT URINE TOXICOLOGY REVIEWED. NO UNAUTHORIZED MEDICATIONS. NO ILLICIT SUBSTANCES AND PRESCRIBED MEDICATIONS WERE PRESENT. PREVENTIVE MEDICINE PAIN CLINIC TEACHING: MEDICATIONS PRINTED INFORMATION ON NUCYNTA GIVEN TO AND REVIEWED WITH PATIENT AND HE VERBALIZED UNDERSTANDING. AD. PROCEDURE CODES [id number] ESTABILISHED PATIENT [facility] CHARGE DISPOSITION & COMMUNICATION FOLLOW UP 2 MONTHS (REASON: BACK PAIN, NEW MED) ELECTRONICALLY SIGNED BY JAYDON HENRY ON 10/22/2019 AT 03:34 PM EDT DISCLAIMER : THIS IS A VISIT SUMMARY EXTRACTED FROM THE [employer] CHART. IT IS NOT A COPY OF THE [employer] PROGRESS NOTE. GUANAKITOD
== END ==
LOC: M PAIN 14:15
PROVIDERS: ATTEND Family Medicine
DX: M51.17 Intervertebral disc disorders with radiculopathy, lumbosacral region (principal)

== ENCOUNTER → 2019-12-23 | Outpatient (CLI) | payer OTHER | LOC: M PAIN 14:16 | PROVIDERS: ATTEND Family Medicine | DX: M51.17 Intervertebral disc disorders with radiculopathy, lumbosacral region (principal) ==

== ENCOUNTER → 2019-12-29 | Outpatient (CLI) | payer OTHER ==
[2020-01-06 02:07] LABS: THRYOGLOBULIN ANTIBODIES (ATA) 4.3 IU/mL (0.0-0.9)
== END ==
LOC: M LAB 15:47
PROVIDERS: ATTEND Nurse Practitioner Family
DX: C73 Malignant neoplasm of thyroid gland (principal)

== ENCOUNTER → 2020-01-22 | Outpatient (CLI) | payer OTHER ==
--- NOTE | 2020-01-30 10:03 | ECWPNPC ---
PATIENT NAME: MARCY AMOS : 1980 GENDER: MALE VISIT DATE: 01/22/2020 DISCHARGE DATE: 01/22/20 1537 VISIT LOCKED DATE TIME: PHYSICIAN: LONA HOLLOWAY RESOURCE: LONA HOLLOWAY REASON FOR APPOINTMENT 1. BACK PAIN -1 MONTH FU HISTORY OF PRESENT ILLNESS DEPRESSION SCREENING: PHQ-9 LITTLE INTEREST OR PLEASURE IN DOING THINGSNEARLY EVERY DAY FEELING DOWN, DEPRESSED, OR HOPELESSNOT AT ALL TROUBLE FALLING OR STAYING ASLEEP, OR SLEEPING TOO MUCHMORE THAN HALF THE DAYS FEELING TIRED OR HAVING LITTLE ENERGYSEVERAL DAYS POOR APPETITE OR OVEREATING SEVERAL DAYS FEELING BAD ABOUT YOURSELF-OR THAT YOU ARE A FAILURE OR HAVE LET YOURSELF OR YOUR FAMILY DOWN NOT AT ALL TROUBLE CONCENTRATING ON THINGS, SUCH READING THE NEWSPAPER OR WATCHING TELEVISION NEARLY EVERY DAY MOVING OR SPEAKING SO SLOWLY THAT OTHER PEOPLE COULD HAVE NOTICED. OR THE OPPOSITE- BEING SO FIDGETY OR RESTLESS THAT YOU HAVE BEEN MOVING AROUND A LOT MORE THAN USUALNOT AT ALL THOUGHTS THAT YOU WOULD BE BETTER OFF , OR OF HURTING YOURSELF IN SOME WAY?NOT AT ALL TOTAL SCORE:10 INTERPRETATIONMODERATE DEPRESSION PHQ-2 (2015 EDITION) LITTLE INTEREST OR PLEASURE IN DOING THINGS?NEARLY EVERY DAY FEELING DOWN, DEPRESSED, OR HOPELESS?DECLINED TO SPECIFY TOTAL SCORE3 39-YEAR-OLD MALE IN FOR CHRONIC PAIN FOLLOW-UP. HE RATES HIS PAIN CURRENTLY AT A 7 OUT OF 10 AND DESCRIBES IT ACHING, BURNING, SHARP, STABBING, AND THROBBING. PATIENT ADMITS TO INCREASED PAIN AND SAYS HIS CURRENT DOSAGE IS NOT COVERING HIS PAIN. GENERAL: -. FALL RISK SCREENING: SCREENING :NO FALLS REPORTED IN THE LAST YEAR PAIN SCREENING: PATIENT HAS A COMPLAINT OF ACUTE OR CHRONIC PAIN :YES LOCATION OF PAIN:HEAD, NECK, UPPER BACK INTENSITY OF PAIN (SCALE OF 1 TO 10):7 WHAT DOES YOUR PAIN FEEL LIKE:ACHING, BURNING, SHARP, STABBING, THROBBING DURATION:CONTINOUS PAIN IS INCREASED BY:ACTIVITIES PAIN IS DECREASED BY:USE OF PAIN MEDICATIONS TREATMENT/MEDICATIONS USED TO MANAGE PAIN:OTC PAIN RELIEVERS, OPIOIDS LEVEL OF RELIEF FROM PAIN TREATMENTS IN THE PAST:50% PAIN HAS INTERFERED WITH THE FOLLOWING:BATHING/DRESSING, WALKING ABILITY, HOUSEWORK, TOILETING NURSING NOTE: -. PAIN CENTER INTAKE QUESTIONS: DO YOU HAVE A HISTORY OF MRSA? :NO DO YOU TAKE A BLOOD THINNERS? :NO DO YOU HAVE ANY BLEEDING DISORDERS? :NO ANY NEW NUMBNESS OR WEAKNESS IN YOUR LEGS OR ARMS? :NO ANY PACEMAKER,DEFIBRILLATOR, OR DORSAL COLUMN STIMULATOR? :NO DO YOU HAVE ANY RASHES OR OPEN SORES? :NO ARE YOU ALLERGIC TO IV DYE? :NO ARE YOU DIABETIC? :NO ANY NEW PROBLEMS WITH YOUR MEDICATIONS? :NO HAVE YOU RECEIVED A VACCINE IN THE PAST 30 DAYS? :NO DO YOU PLAN TO RECEIVE A VACCINE IN THE NEXT 21 DAYS? :YES IF SO WHAT VACCINE AND WHEN? MAYBE FLU DO YOU NEED ANY PRESCRIPTION? :YES OXYCODONE WAS FILLED FOR 90# WAS SUPPOSED TO BE 105# DO YOU TAKE ANY IMMUNOSUPPRESSIVE MEDICATIONS? :NO IS THERE A CHANCE YOU COULD BE ? :NO ARE YOU BREAST FEEDING? :NO CURRENT MEDICATIONS TAKING TRAZODONE HCL 50 MG TABLET 1 TABLET AT BEDTIME NEEDED ORALLY ONCE A DAY TAKING ZOLPIDEM TARTRATE 10 MG TABLET 1 TABLET AT BEDTIME NEEDED ORALLY ONCE A DAY TAKING CLONIDINE HCL 0.2 MG TABLET 2 ORALLY BID TAKING METOPROLOL SUCCINATE 200 MG TABLET EXTENDED RELEASE ORALLY BEFORE BEDTIME TAKING OMEPRAZOLE 40 MG CAPSULE DELAYED RELEASE 1 CAPSULE ORALLY ONCE A DAY TAKING LATANOPROST 0.005 % SOLUTION 1 DROP INTO AFFECTED EYE IN THE EVENING OPHTHALMIC ONCE A DAY TAKING AMLODIPINE BESYLATE 10 MG TABLET 1 TABLET ORALLY ONCE A DAY TAKING LEVOTHROYXINE _ 300 MCGS 1 TAB ORALLY DAILY TAKING LEVOTHYROXINE SODIUM 50 MCG TABLET 1 TABLET ON AN EMPTY STOMACH IN THE MORNING ORALLY ONCE A DAY TAKING REQUIP 1 MG TABLET 1 TABLET 1 TO 3 HOURS BEFORE BEDTIME ORALLY ONCE A DAY NEEDED TAKING PAXIL 30 MG TABLET 1 TABLET IN THE MORNING ORALLY ONCE A DAY TAKING EPLERENONE 25 MG TABLET 1 TABLET ORALLY ONCE A DAY TAKING ENALAPRIL MALEATE 10 MG TABLET 1 TABLET ORALLY ONCE A DAY TAKING LYRICA 200 MG CAPSULE 1 CAPSULE ORALLY TWICE DAILY TAKING CARISOPRODOL 350 MG TABLET 1 TABLET NEEDED ORALLY BID FOR PAIN/SPASM MDD=2 TAKING OXYCODONE HCL 5 MG TABLET 1 TABLET NEEDED ORALLY FOR PAIN EVERY 8 HRS MDD4 NOT-TAKING NUCYNTA ER 100 MG TABLET EXTENDED RELEASE 12 HOUR 1 TABLET ORALLY DAILY NOT-TAKING BETAMETHASONE DIPROPIONATE 0.05 % CREAM 1 APPLICATION EXTERNALLY TWICE DAILY TO RASH ON ABDOMEN, BACK, ARMS AND LEGS FOR 2 WEEK. PLEASE COMPOUND INTO 1/2 JAR OF CERAVE CREAM NOT-TAKING VALIUM 10 MG TABLET 1 TABLET NEEDED ORALLY TAKE 1 TAB 1 HOUR PRIOR TO MRI, ONE ON ARRIVE AND 1 TAB DURING/AFTER IF NEEDED, NOTES: NONE RECENT, FOR MRI'S NOT-TAKING PANTOPRAZOLE SODIUM 40 MG TABLET DELAYED RELEASE 1 TABLET ORALLY ONCE A DAY NOT-TAKING CELEBREX 200 MG CAPSULE 1 CAPSULE WITH FOOD ORALLY FOR FOOD ONCE A DAY NOT-TAKING TRAMADOL HCL 50 MG TABLET 1 -2 TABLET ORALLY TAKE 1-2 TABS Q 6 HRS PRN MDD=6 NOT-TAKING BENTYL 10 MG CAPSULE 1 CAPSULES ORALLY ONCE DAILY NOT-TAKING HYDROCODONE-ACETAMINOPHEN 5-325 MG TABLET 1 TABLET NEEDED ORALLY FOR PAIN EVERY 8 HRS MDD3 MEDICATION LIST REVIEWED AND RECONCILED WITH THE PATIENT PAST MEDICAL HISTORY HTN GERD BACK PAIN GLAUCOMA - PER PT 3 CYSTS ON THYROID RAYNAUD'S THYROID CANCER NECK PAIN BILATERAL HIP PAIN CHRONIC HEADACHES PSORIOSIS ALLERGIES SULFA (FOR ALLERGY USE ONLY): HIVES - ALLERGY CYMBALTA: LEGS TWITCHING - SIDE EFFECTS GABAPENTIN: ALTERED BALANCE - SIDE EFFECTS BACLOFEN: RESTLESS LEGS - SIDE EFFECTS ZANAFLEX: RESTLESS LEGS - SIDE EFFECTS TOPAMAX: "MESSED WITH HIS EYES" - SIDE EFFECTS ROBAXIN: NAUSEA/SEVERE DIARRHEA - SIDE EFFECTS SKELAXIN: NAUSEA/SEVERE DIARRHEA - SIDE EFFECTS DICLOFENAC: PUT HIM IN A BAD MOOD - SIDE EFFECTS SURGICAL HISTORY T&A APPENDECTOMY REPAIR OF RIGHT ELBOW FRACTURE REPAIR OF RIGHT ANKLE FRACTURE 2000 THYROID REMOVAL 2018 FAMILY HISTORY FATHER: ALIVE, UNKNOWN MOTHER: ALIVE, UNKNOWN SIBLINGS: UNKNOWN 1 SISTER(S) . NO KNOWN FAMILY HISTORY OF ANY UROLOGICALLY RELATED DISEASES CANCERS. DENIES FAMILY HX OF SKIN CANCER AND MELENOMA. SOCIAL HISTORY GENERAL: TOBACCO USE ARE YOU A:FORMER SMOKER LATEX QUESTIONNAIRE LATEX ALLERGY : HAVE YOU EVER DEVELOPED ANY TYPE OF REACTION AFTER HANDLING LATEX PRODUCTS SUCH RUBBER GLOVES, CONDOMS, DIAPHRAGMS, BALLOONS, SOCKS, OR UNDERWEAR?NO LATEX ALLERGY : HAVE YOU EVER DEVELOPED ANY TYPE OF REACTION DURING OR AFTER DENTAL APPOINTMENT, VAGINAL/RECTAL EXAMINATION, SURGICAL PROCEDURE, OR ANY OTHER EXPOSURE?NO LATEX RISK : HAVE YOU EVER HAD ANY DIFFICULTY BREATHING OR HIVES AFTER EATING OR HANDLING ANY FRUITS, OR VEGETABLES; SUCH KIWI, BANANAS, STONE FRUITS, OR CHESTNUTSNO LATEX RISK : DO YOU HAVE A PREVIOUS PERSONAL HISTORY OF MORE THAN NINE SURGERIES, SPINA BIFIDA, OR REPEATED CATHERIZATIONS? NO LATEX RISK : ARE YOU FREQUENTLY EXPOSED TO LATEX PRODUCTS IN YOUR OCCUPATION?NO DATE ASKED : 10/21/2019 LUNG CANCER SCREENING SMOKING STATUS:FORMER SMOKER ALCOHOL SCREENING DID YOU HAVE A DRINK CONTAINING ALCOHOL IN THE PAST YEAR?NO POINTS0 INTERPRETATIONNEGATIVE RECREATIONAL DRUG USE DRUG USE?NO CAFFEINE CAFFEINE USE?YES RESTORATIONIST [id number] AGNOSTIC LANGUAGE LANGUAGES SPOKEN:SERBIAN EDUCATION LEVEL OF EDUCATION:NOT FINISHED HIGH SCHOOL LEARNING BARRIERS / SPECIAL NEEDS CHANGE FROM LAST VISIT?NO 10/07/2019 BARRIERS TO LEARNING?NO HEARING IMPAIRED?NO VISION IMPAIRED?YES COGNITIVELY IMPAIRED?NO :CORRECTIVE LENSES READINESS TO LEARN?YES LEARNING PREFERENCES?NO LEARNING CAPABILITIES PRESENT?YES EMOTIONAL BARRIERS?NO SPECIAL DEVICES?NO HONEYCOMB DECAPPER NEEDED?NO DOMESTIC VIOLENCE DO YOU FEEL SAFE IN YOUR ENVIRONMENT?YES OCCUPATION: UNEMPLOYED. DIET: REGULAR. EXERCISE: NONE. MARITAL STATUS: SINGLE. OTHERS AT HOME: NONE. NEW PATIENT PAIN DIARY TODAY'S VISIT NOTES 08/19/19, PATIENT DESCRIBES PAIN : ACHING, BURNING, HAVE IT ALL THE TIME, STABBING, SHOOTING , FROM 0-10, WHAT LEVEL IS YOUR PAIN TODAY? 7 , PRECIPITATING FACTORS GETTING OUT OF BED, ALLEVIATING FACTORS OXY, IMPACT ON FUNCTION YES. PAIN CLINIC PFS, CLERGY, PUBLIC HEALTH REFERRALS PFS REFERRAL NEEDED?NO CLERGY REFERRAL NEEDED?NO PUBLIC HEALTH REFERRAL NEEDED?NO HAS THE PATIENT BEEN EDUCATED REGARDING HIS/HER PLAN OF CARE?YES HAS THE PATIENT BEEN EDUCATED REGARDING PAIN, THE RISK FOR PAIN, THE IMPORTANCE OF EFFECTIVE PAIN MANAGEMENT, AND THE PAIN ASSESSMENT PROCESS?YES ADVANCE DIRECTIVE ADVANCE DIRECTIVE DISCUSSED WITH PATIENT:YES [facility] [place] [phone]ATION/MAJOR DIAGNOSTIC PROCEDURE [facility] THYROID SURGERY REVIEW OF SYSTEMS CONSTITUTIONAL: ANY RECENT FEVER NO . CHILLS NO . WEIGHT CHANGE OF UNKNOWN REASONS NO . GASTROENTEROLOGY: NEW UNEXPLAINABLE CHANGES IN BOWEL CONTROL NO . CONSTIPATION NO . GENITOURINARY: ANY NEW CHANGE IN BLADDER CONTROL? NO . NEUROLOGY: NEW ONSET DIZZINESS OR NEUROLOGICAL CHANGES NOT MENTIONED NO . NEW NUMBNESS OR PAIN PATTERNS NOT MENTIONED AND PERTINENT TO TODAY'S VISIT NO . CARDIOLOGY: NEW CHEST PRESSURE NO . NEW CHEST PAIN NO . RESPIRATORY: UNEXPLAINABLE COUGH NO . NEW SHORTNESS OF BREATH NO . VITAL SIGNS WT 437 LBS, HT 6'8", BMI 48.00 INDEX, BP 166/100 MM HG, HR 78 /MIN, RR 16 /MIN, TEMP 97.0 F, OXYGEN SAT % 98, REVIEWED BY: EM. EXAMINATION GENERAL EXAMINATION: GENERALNO ACUTE DISTRESS, WELL NOURISHED AND HYDRATED. PSYCHAPPROPRIATE MOOD AND AFFECT . LUNGS:CLEAR TO AUSCULTATION BILATERALLY, NO WHEEZES, RHONCHI, RALES. HEART:NO MURMURS, REGULAR RATE AND RHYTHM. ASSESSMENTS INTERVERTEBRAL DISC DISORDERS WITH RADICULOPATHY, LUMBOSACRAL REGION - M51.17 (PRIMARY) TREATMENT INTERVERTEBRAL DISC DISORDERS WITH RADICULOPATHY, LUMBOSACRAL REGION INCREASE OXYCODONE HCL TABLET, 10 MG, 1 TABLET NEEDED, ORALLY, EVERY 8 HRS MDD3, 30 DAYS, 90, REFILLS 0 CLINICAL NOTES: 39-YEAR-OLD MALE IN FOR CHRONIC PAIN FOLLOW-UP. GIVEN PRESENTING SYMPTOMS RECOMMEND INCREASING OXYCODONE 10 MG 3 TIMES A DAY WITH FOLLOW-UP IN 2 MONTHS TO DETERMINE EFFICACY OF TREATMENT. PATIENT HAS EXPRESSED UNDERSTANDING OF AND WAS IN AGREEMENT WITH TREATMENT PLAN. GIVEN TIME TO ASK QUESTIONS AND EXPRESS CONCERNS. , ISTOP REGISTRY REVIEWED AND DEMONSTRATES COMPLLIANCE. (REF # ) BRINGS IN MEDICATIONS WHICH IS APPROPRIATE FOR WHAT WAS DISPENSED. RECENT URINE TOXICOLOGY REVIEWED. NO UNAUTHORIZED MEDICATIONS. NO ILLICIT SUBSTANCES AND PRESCRIBED MEDICATIONS WERE PRESENT. PROCEDURE CODES [id number] ESTABILISHED PATIENT [facility] FACILITY CHARGE DISPOSITION & COMMUNICATION FOLLOW UP 2 MONTHS (REASON: CHRONIC PAIN, MEDICATION INCREASE) ELECTRONICALLY SIGNED BY JAYDON HENRY ON 01/30/2020 AT 09:05 AM EDT DISCLAIMER : THIS IS A VISIT SUMMARY EXTRACTED FROM THE [employer] CHART. IT IS NOT A COPY OF THE [employer] PROGRESS NOTE. ERENDIRA
== END ==
LOC: M PAIN 14:45
PROVIDERS: ATTEND Family Medicine
DX: M51.17 Intervertebral disc disorders with radiculopathy, lumbosacral region (principal); I10 Essential (primary) hypertension; K21.9 Gastro-esophageal reflux disease without esophagitis; H40.9 Unspecified glaucoma; E89.0 Postprocedural hypothyroidism; I73.00 Raynaud's syndrome without gangrene; L40.9 Psoriasis, unspecified; R51.9 Headache, unspecified; Z85.850 Personal history of malignant neoplasm of thyroid; Z87.891 Personal history of nicotine dependence; Z88.2 Allergy status to sulfonamides; Z88.8 Allergy status to other drugs, medicaments and biological substances

== ENCOUNTER → 2020-03-18 | Outpatient (CLI) | payer OTHER ==
[2020-03-18 17:49] LABS: FREE T4 0.97 NG/DL (0.76-1.46); THYROID STIMULATING HORMONE 1.06 uIU/ML (0.358-3.740)
== END ==
LOC: M LAB 16:06
PROVIDERS: ATTEND Nurse Practitioner Family
DX: E89.0 Postprocedural hypothyroidism (principal)

== ENCOUNTER → 2020-04-01 | Outpatient (CLI) | payer OTHER ==
--- NOTE | 2020-04-07 00:04 | ECWPNPC ---
PATIENT NAME: MARCY AMOS : 1980 GENDER: MALE VISIT DATE: 04/01/2020 DISCHARGE DATE: 04/01/20 1354 VISIT LOCKED DATE TIME: PHYSICIAN: LONA HOLLOWAY RESOURCE: LONA HOLLOWAY REASON FOR APPOINTMENT 1. CHRONIC PAIN, MEDICATION INCREASE HISTORY OF PRESENT ILLNESS FALL RISK SCREENING: SCREENING :NO FALLS REPORTED IN THE LAST YEAR 39-YEAR-OLD MALE IN FOR CHRONIC PAIN FOLLOW-UP. AT LAST CLINIC VISIT PATIENT'S OXYCODONE WAS INCREASED AND HE ADMITS TODAY THAT THIS HAS BEEN HELPFUL. HE RATES PAIN CURRENTLY AT A 7 OUT OF 10 AND DESCRIBES IT ACHING, BURNING, SHARP, STABBING, AND THROBBING. PAIN SCREENING: PATIENT HAS A COMPLAINT OF ACUTE OR CHRONIC PAIN :YES LOCATION OF PAIN:HEAD, NECK, UPPER BACK INTENSITY OF PAIN (SCALE OF 1 TO 10):7 WHAT DOES YOUR PAIN FEEL LIKE:ACHING, BURNING, SHARP, STABBING, THROBBING DURATION:CONTINOUS PAIN IS INCREASED BY:ACTIVITIES PAIN IS DECREASED BY:USE OF PAIN MEDICATIONS TREATMENT/MEDICATIONS USED TO MANAGE PAIN:OTC PAIN RELIEVERS, OPIOIDS LEVEL OF RELIEF FROM PAIN TREATMENTS IN THE PAST:50% PAIN HAS INTERFERED WITH THE FOLLOWING:BATHING/DRESSING, WALKING ABILITY, HOUSEWORK, TOILETING PAIN CENTER INTAKE QUESTIONS: DO YOU HAVE A HISTORY OF MRSA? :NO DO YOU TAKE A BLOOD THINNERS? :NO DO YOU HAVE ANY BLEEDING DISORDERS? :NO ANY NEW NUMBNESS OR WEAKNESS IN YOUR LEGS OR ARMS? :NO ANY PACEMAKER,DEFIBRILLATOR, OR DORSAL COLUMN STIMULATOR? :NO DO YOU HAVE ANY RASHES OR OPEN SORES? :NO ECZEMA ARE YOU ALLERGIC TO IV DYE? :NO ARE YOU DIABETIC? :NO ANY NEW PROBLEMS WITH YOUR MEDICATIONS? :NO HAVE YOU RECEIVED A VACCINE IN THE PAST 30 DAYS? :NO DO YOU PLAN TO RECEIVE A VACCINE IN THE NEXT 21 DAYS? :NO DO YOU NEED ANY PRESCRIPTION? :NO DO YOU TAKE ANY IMMUNOSUPPRESSIVE MEDICATIONS? :NO IS THERE A CHANCE YOU COULD BE ? :NO ARE YOU BREAST FEEDING? :NO CURRENT MEDICATIONS TAKING TRAZODONE HCL 50 MG TABLET 1 TABLET AT BEDTIME NEEDED ORALLY ONCE A DAY TAKING ZOLPIDEM TARTRATE 10 MG TABLET 1 TABLET AT BEDTIME NEEDED ORALLY ONCE A DAY TAKING CLONIDINE HCL 0.2 MG TABLET 2 ORALLY BID TAKING METOPROLOL SUCCINATE 200 MG TABLET EXTENDED RELEASE ORALLY BEFORE BEDTIME TAKING OMEPRAZOLE 40 MG CAPSULE DELAYED RELEASE 1 CAPSULE ORALLY ONCE A DAY TAKING LATANOPROST 0.005 % SOLUTION 1 DROP INTO AFFECTED EYE IN THE EVENING OPHTHALMIC ONCE A DAY TAKING AMLODIPINE BESYLATE 10 MG TABLET 1 TABLET ORALLY ONCE A DAY TAKING LEVOTHROYXINE _ 300 MCGS 1 TAB ORALLY DAILY TAKING LEVOTHYROXINE SODIUM 50 MCG TABLET 1 TABLET ON AN EMPTY STOMACH IN THE MORNING ORALLY ONCE A DAY TAKING REQUIP 1 MG TABLET 1 TABLET 1 TO 3 HOURS BEFORE BEDTIME ORALLY ONCE A DAY NEEDED TAKING PAXIL 30 MG TABLET 1 TABLET IN THE MORNING ORALLY ONCE A DAY TAKING EPLERENONE 25 MG TABLET 1 TABLET ORALLY ONCE A DAY TAKING ENALAPRIL MALEATE 10 MG TABLET 1 TABLET ORALLY ONCE A DAY TAKING LYRICA 200 MG CAPSULE 1 CAPSULE ORALLY TWICE DAILY TAKING CARISOPRODOL 350 MG TABLET 1 TABLET NEEDED ORALLY BID FOR PAIN/SPASM MDD=2 TAKING OXYCODONE HCL 10 MG TABLET 1 TABLET NEEDED ORALLY EVERY 8 HRS MDD3 TAKING BETAMETHASONE DIPROPIONATE 0.05 % CREAM 1 APPLICATION EXTERNALLY TWICE DAILY TO RASH ON ABDOMEN, BACK, ARMS AND LEGS FOR 2 WEEK. PLEASE COMPOUND INTO 1/2 JAR OF CERAVE CREAM TAKING VALIUM 10 MG TABLET 1 TABLET NEEDED ORALLY TAKE 1 TAB 1 HOUR PRIOR TO MRI, ONE ON ARRIVE AND 1 TAB DURING/AFTER IF NEEDED, NOTES: NONE RECENT, FOR MRI'S TAKING TRAMADOL HCL 50 MG TABLET 1 -2 TABLET ORALLY TAKE 1-2 TABS Q 6 HRS PRN MDD=6 TAKING CARISOPRODOL 350 MG TABLET 1 TABLET NEEDED ORALLY FOUR TIMES A DAY NOT-TAKING PANTOPRAZOLE SODIUM 40 MG TABLET DELAYED RELEASE 1 TABLET ORALLY ONCE A DAY NOT-TAKING CELEBREX 200 MG CAPSULE 1 CAPSULE WITH FOOD ORALLY FOR FOOD ONCE A DAY NOT-TAKING BENTYL 10 MG CAPSULE 1 CAPSULES ORALLY ONCE DAILY NOT-TAKING HYDROCODONE-ACETAMINOPHEN 5-325 MG TABLET 1 TABLET NEEDED ORALLY FOR PAIN EVERY 8 HRS MDD3 UNKNOWN NUCYNTA ER 100 MG TABLET EXTENDED RELEASE 12 HOUR 1 TABLET ORALLY DAILY MEDICATION LIST REVIEWED AND RECONCILED WITH THE PATIENT PAST MEDICAL HISTORY HTN GERD BACK PAIN GLAUCOMA - PER PT 3 CYSTS ON THYROID RAYNAUD'S THYROID CANCER NECK PAIN BILATERAL HIP PAIN CHRONIC HEADACHES PSORIOSIS ALLERGIES SULFA (FOR ALLERGY USE ONLY): HIVES - ALLERGY CYMBALTA: LEGS TWITCHING - SIDE EFFECTS GABAPENTIN: ALTERED BALANCE - SIDE EFFECTS BACLOFEN: RESTLESS LEGS - SIDE EFFECTS ZANAFLEX: RESTLESS LEGS - SIDE EFFECTS TOPAMAX: "MESSED WITH HIS EYES" - SIDE EFFECTS ROBAXIN: NAUSEA/SEVERE DIARRHEA - SIDE EFFECTS SKELAXIN: NAUSEA/SEVERE DIARRHEA - SIDE EFFECTS DICLOFENAC: PUT HIM IN A BAD MOOD - SIDE EFFECTS SURGICAL HISTORY T&A APPENDECTOMY REPAIR OF RIGHT ELBOW FRACTURE REPAIR OF RIGHT ANKLE FRACTURE 2000 THYROID REMOVAL 2018 FAMILY HISTORY FATHER: ALIVE, UNKNOWN MOTHER: ALIVE, UNKNOWN SIBLINGS: UNKNOWN 1 SISTER(S) . NO KNOWN FAMILY HISTORY OF ANY UROLOGICALLY RELATED DISEASES CANCERS. DENIES FAMILY HX OF SKIN CANCER AND MELENOMA. SOCIAL HISTORY GENERAL: TOBACCO USE ARE YOU A:FORMER SMOKER LATEX QUESTIONNAIRE LATEX ALLERGY : HAVE YOU EVER DEVELOPED ANY TYPE OF REACTION AFTER HANDLING LATEX PRODUCTS SUCH RUBBER GLOVES, CONDOMS, DIAPHRAGMS, BALLOONS, SOCKS, OR UNDERWEAR?NO LATEX ALLERGY : HAVE YOU EVER DEVELOPED ANY TYPE OF REACTION DURING OR AFTER DENTAL APPOINTMENT, VAGINAL/RECTAL EXAMINATION, SURGICAL PROCEDURE, OR ANY OTHER EXPOSURE?NO LATEX RISK : HAVE YOU EVER HAD ANY DIFFICULTY BREATHING OR HIVES AFTER EATING OR HANDLING ANY FRUITS, OR VEGETABLES; SUCH KIWI, BANANAS, STONE FRUITS, OR CHESTNUTSNO LATEX RISK : DO YOU HAVE A PREVIOUS PERSONAL HISTORY OF MORE THAN NINE SURGERIES, SPINA BIFIDA, OR REPEATED CATHERIZATIONS? NO LATEX RISK : ARE YOU FREQUENTLY EXPOSED TO LATEX PRODUCTS IN YOUR OCCUPATION?NO DATE ASKED : 04/01/2020 LUNG CANCER SCREENING SMOKING STATUS:FORMER SMOKER ALCOHOL SCREENING DID YOU HAVE A DRINK CONTAINING ALCOHOL IN THE PAST YEAR?NO POINTS0 INTERPRETATIONNEGATIVE RECREATIONAL DRUG USE DRUG USE?NO CAFFEINE CAFFEINE USE?YES GNOSTICISM [id number] AGNOSTIC LANGUAGE LANGUAGES SPOKEN:FRENCH EDUCATION LEVEL OF EDUCATION:NOT FINISHED HIGH SCHOOL LEARNING BARRIERS / SPECIAL NEEDS CHANGE FROM LAST VISIT?NO 10/07/2019 BARRIERS TO LEARNING?NO HEARING IMPAIRED?NO VISION IMPAIRED?YES :CORRECTIVE LENSES COGNITIVELY IMPAIRED?NO READINESS TO LEARN?YES LEARNING PREFERENCES?NO LEARNING CAPABILITIES PRESENT?YES EMOTIONAL BARRIERS?NO SPECIAL DEVICES?NO PORTAINER OPERATOR NEEDED?NO DOMESTIC VIOLENCE DO YOU FEEL SAFE IN YOUR ENVIRONMENT?YES OCCUPATION: UNEMPLOYED. DIET: REGULAR. EXERCISE: NONE. MARITAL STATUS: SINGLE. OTHERS AT HOME: NONE. TODAY'S VISIT NOTES 08/19/19, PATIENT DESCRIBES PAIN : ACHING, BURNING, HAVE IT ALL THE TIME, STABBING, SHOOTING , FROM 0-10, WHAT LEVEL IS YOUR PAIN TODAY? 7 , PRECIPITATING FACTORS GETTING OUT OF BED, ALLEVIATING FACTORS OXY, IMPACT ON FUNCTION YES. PAIN CLINIC PFS, CLERGY, PUBLIC HEALTH REFERRALS PFS REFERRAL NEEDED?NO CLERGY REFERRAL NEEDED?NO PUBLIC HEALTH REFERRAL NEEDED?NO HAS THE PATIENT BEEN EDUCATED REGARDING HIS/HER PLAN OF CARE?YES HAS THE PATIENT BEEN EDUCATED REGARDING PAIN, THE RISK FOR PAIN, THE IMPORTANCE OF EFFECTIVE PAIN MANAGEMENT, AND THE PAIN ASSESSMENT PROCESS?YES ADVANCE DIRECTIVE ADVANCE DIRECTIVE DISCUSSED WITH PATIENT:YES PT HAS HCP-[facility] [place] [phone] HOSPITALIZATION/MAJOR DIAGNOSTIC PROCEDURE SEVERAL [facility] THYROID SURGERY REVIEW OF SYSTEMS CONSTITUTIONAL: ANY RECENT FEVER NO . CHILLS NO . WEIGHT CHANGE OF UNKNOWN REASONS NO . GASTROENTEROLOGY: NEW UNEXPLAINABLE CHANGES IN BOWEL CONTROL NO . CONSTIPATION NO . GENITOURINARY: ANY NEW CHANGE IN BLADDER CONTROL? NO . NEUROLOGY: NEW ONSET DIZZINESS OR NEUROLOGICAL CHANGES NOT MENTIONED NO . NEW NUMBNESS OR PAIN PATTERNS NOT MENTIONED AND PERTINENT TO TODAY'S VISIT NO . CARDIOLOGY: NEW CHEST PRESSURE NO . NEW CHEST PAIN NO . RESPIRATORY: UNEXPLAINABLE COUGH NO . NEW SHORTNESS OF BREATH NO . VITAL SIGNS WT 452.4 LBS, HT 6'8", BMI 49.69 INDEX, BP 156/103 MM HG, REPEAT BP 136/84 MANUAL RIGHT ARM, HR 70 /MIN, RR 18 /MIN, TEMP 96.7 F, OXYGEN SAT % 98%, SAFE IN ENV? (Y/N) YES, NA INITIALS [place] 13:23J. TODD ALVARENGA. EXAMINATION GENERAL EXAMINATION: GENERALNO ACUTE DISTRESS, WELL NOURISHED AND HYDRATED. PSYCHAPPROPRIATE MOOD AND AFFECT . LUNGS:CLEAR TO AUSCULTATION BILATERALLY, NO WHEEZES, RHONCHI, RALES. HEART:NO MURMURS, REGULAR RATE AND RHYTHM. ASSESSMENTS OTHER CHRONIC PAIN - G89.29 (PRIMARY) SPONDYLOSIS OF LUMBOSACRAL REGION WITHOUT MYELOPATHY OR RADICULOPATHY - M47.817 TREATMENT OTHER CHRONIC PAIN PAIN PROCEDURE LOG NOTES: 39-YEAR-OLD MALE IN FOR CHRONIC PAIN FOLLOW-UP. GIVEN PRESENTING SYMPTOMS RECOMMEND CONTINUATION OF CURRENT MEDICATION REGIMEN WITH FOLLOW-UP IN 3 MONTHS. PATIENT HAS EXPRESSED UNDERSTANDING OF AND WAS IN AGREEMENT WITH TREATMENT PLAN. GIVEN TIME TO ASK QUESTIONS AND EXPRESS CONCERNS. , ISTOP REGISTRY REVIEWED AND DEMONSTRATES COMPLLIANCE. (REF # [id number] ) BRINGS IN MEDICATIONS WHICH IS APPROPRIATE FOR WHAT WAS DISPENSED. RECENT URINE TOXICOLOGY REVIEWED. NO UNAUTHORIZED MEDICATIONS. NO ILLICIT SUBSTANCES AND PRESCRIBED MEDICATIONS WERE PRESENT. PROCEDURE CODES FA211 ESTABILISHED PATIENT [facility] FACILITY CHARGE DISPOSITION & COMMUNICATION FOLLOW UP 3 MONTHS (REASON: BACK PAIN) ELECTRONICALLY SIGNED BY JAYDON HENRY ON 04/06/2020 AT 10:12 AM EST DISCLAIMER : THIS IS A VISIT SUMMARY EXTRACTED FROM THE [employer] CHART. IT IS NOT A COPY OF THE [employer] PROGRESS NOTE. ERENDIRA
== END ==
LOC: M PAIN 13:00
PROVIDERS: ATTEND Family Medicine
DX: M47.817 Spondylosis without myelopathy or radiculopathy, lumbosacral region (principal); G89.29 Other chronic pain; K21.9 Gastro-esophageal reflux disease without esophagitis; Z87.891 Personal history of nicotine dependence; Z88.2 Allergy status to sulfonamides; Z88.8 Allergy status to other drugs, medicaments and biological substances; E66.01 Morbid (severe) obesity due to excess calories; Z68.42 Body mass index [BMI] 45.0-49.9, adult; Z79.891 Long term (current) use of opiate analgesic; Z79.899 Other long term (current) drug therapy

== ENCOUNTER → 2020-05-19 | Outpatient (CLI) | payer OTHER ==
[~2020-05-19] MED LIST changes: +GABA-282; -GABA-843
[2020-05-19 16:40] LABS: FREE T4 0.99 NG/DL (0.76-1.46); THYROID STIMULATING HORMONE 0.114 uIU/ML (0.358-3.740)
== END ==
LOC: M LAB 15:31
PROVIDERS: ATTEND Nurse Practitioner Family
DX: E89.0 Postprocedural hypothyroidism (principal)

== ENCOUNTER → 2020-06-30 | Outpatient (CLI) | payer OTHER ==
--- NOTE | 2020-07-10 08:07 | ECWPNPC ---
PATIENT NAME: MARCY AMOS : 1980 GENDER: MALE VISIT DATE: 06/30/2020 DISCHARGE DATE: 06/30/20 1531 VISIT LOCKED DATE TIME: PHYSICIAN: LONA HOLLOWAY RESOURCE: LONA HOLLOWAY REASON FOR APPOINTMENT 1. BACK PAIN HISTORY OF PRESENT ILLNESS DEPRESSION SCREENING: PHQ-2 (2015 EDITION) LITTLE INTEREST OR PLEASURE IN DOING THINGS?NOT AT ALL FEELING DOWN, DEPRESSED, OR HOPELESS?NOT AT ALL TOTAL SCORE0 39-YEAR-OLD MALE IN FOR CHRONIC PAIN FOLLOW-UP. HE RATES HIS PAIN CURRENTLY AT A 6 OUT OF 10 AND DESCRIBES IT ACHING, BURNING, AND SORE. PATIENT FEELS HIS MEDICATIONS ARE NO LONGER HELPING TO MANAGE HIS PAIN STATING THAT HE CONTINUES TO HAVE BREAKTHROUGH PAIN. HE FURTHER STATES THE PAIN PREVENTS HIM FROM VISITING HIS FRIENDS AND GOING FOR WALKS. GENERAL: -. FALL RISK SCREENING: SCREENING : NO FALLS REPORTED IN THE LAST YEAR. PAIN SCREENING: PATIENT HAS A COMPLAINT OF ACUTE OR CHRONIC PAIN :YES LOCATION OF PAIN:LOW BACK INTENSITY OF PAIN (SCALE OF 1 TO 10):6 WHAT DOES YOUR PAIN FEEL LIKE:ACHING, BURNING, SORE DURATION:CONTINOUS, CONSTANT, ALL DAY PAIN IS INCREASED BY:ACTIVITIES, PROLONGED STANDING PAIN IS DECREASED BY:USE OF PAIN MEDICATIONS NURSING NOTE: -. PAIN CENTER INTAKE QUESTIONS: DO YOU HAVE A HISTORY OF MRSA? :NO DO YOU TAKE A BLOOD THINNERS? :NO DO YOU HAVE ANY BLEEDING DISORDERS? :NO ANY NEW NUMBNESS OR WEAKNESS IN YOUR LEGS OR ARMS? :NO ANY PACEMAKER,DEFIBRILLATOR, OR DORSAL COLUMN STIMULATOR? :NO DO YOU HAVE ANY RASHES OR OPEN SORES? :NO ECZEMA ARE YOU ALLERGIC TO IV DYE? :NO ARE YOU DIABETIC? :NO ANY NEW PROBLEMS WITH YOUR MEDICATIONS? :NO HAVE YOU RECEIVED A VACCINE IN THE PAST 30 DAYS? :YES IF SO WHAT VACCINE AND WHEN? 1ST COVID 06/24/2020 DO YOU PLAN TO RECEIVE A VACCINE IN THE NEXT 21 DAYS? :YES IF SO WHAT VACCINE AND WHEN? 2ND COVID 07/23/2020 DO YOU NEED ANY PRESCRIPTION? :NO DO YOU TAKE ANY IMMUNOSUPPRESSIVE MEDICATIONS? :NO IS THERE A CHANCE YOU COULD BE ? :NO ARE YOU BREAST FEEDING? :NO CURRENT MEDICATIONS TAKING TRAZODONE HCL 50 MG TABLET 1 TABLET AT BEDTIME NEEDED ORALLY ONCE A DAY TAKING ZOLPIDEM TARTRATE 10 MG TABLET 1 TABLET AT BEDTIME NEEDED ORALLY ONCE A DAY TAKING CLONIDINE HCL 0.2 MG TABLET 2 ORALLY BID TAKING METOPROLOL SUCCINATE 200 MG TABLET EXTENDED RELEASE ORALLY BEFORE BEDTIME TAKING OMEPRAZOLE 40 MG CAPSULE DELAYED RELEASE 1 CAPSULE ORALLY ONCE A DAY TAKING LATANOPROST 0.005 % SOLUTION 1 DROP INTO AFFECTED EYE IN THE EVENING OPHTHALMIC ONCE A DAY TAKING AMLODIPINE BESYLATE 10 MG TABLET 1 TABLET ORALLY ONCE A DAY TAKING LEVOTHROYXINE _ 300 MCGS 1 TAB ORALLY DAILY TAKING LEVOTHYROXINE SODIUM 75 MCG TABLET 1 TABLET ON AN EMPTY STOMACH IN THE MORNING ORALLY ONCE A DAY TAKING REQUIP 1 MG TABLET 1 TABLET 1 TO 3 HOURS BEFORE BEDTIME ORALLY ONCE A DAY NEEDED TAKING PAXIL 30 MG TABLET 1 TABLET IN THE MORNING ORALLY ONCE A DAY TAKING EPLERENONE 25 MG TABLET 1 TABLET ORALLY 50 MG ONCE A DAY TAKING ENALAPRIL MALEATE 10 MG TABLET 1 TABLET ORALLY ONCE A DAY TAKING BETAMETHASONE DIPROPIONATE 0.05 % CREAM 1 APPLICATION EXTERNALLY TWICE DAILY TO RASH ON ABDOMEN, BACK, ARMS AND LEGS FOR 2 WEEK. PLEASE COMPOUND INTO 1/2 JAR OF CERAVE CREAM TAKING VALIUM 10 MG TABLET 1 TABLET NEEDED ORALLY TAKE 1 TAB 1 HOUR PRIOR TO MRI, ONE ON ARRIVE AND 1 TAB DURING/AFTER IF NEEDED, NOTES: NONE RECENT, FOR MRI'S TAKING CARISOPRODOL 350 MG TABLET 1 TABLET NEEDED ORALLY FOUR TIMES A DAY TAKING BETAMETHASONE DIPROPIONATE 0.05 % LOTION 1 APPLICATION EXTERNALLY MIX ENTIRE 60ML TUBE INTO 1/2 JAR OF CERAVE CREAM, APPLY TWICE DAILY, NOT FOR FACE TAKING CARISOPRODOL 350 MG TABLET 1 TABLET NEEDED ORALLY BID FOR PAIN/SPASM MDD=2 TAKING LYRICA 200 MG CAPSULE 1 CAPSULE ORALLY TWICE DAILY TAKING OXYCODONE HCL 10 MG TABLET 1 TABLET NEEDED ORALLY EVERY 8 HRS MDD3 NOT-TAKING TRAMADOL HCL 50 MG TABLET 1 -2 TABLET ORALLY TAKE 1-2 TABS Q 6 HRS PRN MDD=6 NOT-TAKING BETAMETHASONE VALERATE 0.1 % LOTION 1 APPLICATION EXTERNALLY BID TO AREAS WITH RASH NOT-TAKING PANTOPRAZOLE SODIUM 40 MG TABLET DELAYED RELEASE 1 TABLET ORALLY ONCE A DAY NOT-TAKING CELEBREX 200 MG CAPSULE 1 CAPSULE WITH FOOD ORALLY FOR FOOD ONCE A DAY NOT-TAKING BENTYL 10 MG CAPSULE 1 CAPSULES ORALLY ONCE DAILY NOT-TAKING HYDROCODONE-ACETAMINOPHEN 5-325 MG TABLET 1 TABLET NEEDED ORALLY FOR PAIN EVERY 8 HRS MDD3 NOT-TAKING NUCYNTA ER 100 MG TABLET EXTENDED RELEASE 12 HOUR 1 TABLET ORALLY DAILY MEDICATION LIST REVIEWED AND RECONCILED WITH THE PATIENT PAST MEDICAL HISTORY HTN GERD BACK PAIN GLAUCOMA - PER PT 3 CYSTS ON THYROID RAYNAUD'S THYROID CANCER NECK PAIN BILATERAL HIP PAIN CHRONIC HEADACHES PSORIOSIS ALLERGIES SULFA (FOR ALLERGY USE ONLY): HIVES - ALLERGY CYMBALTA: LEGS TWITCHING - SIDE EFFECTS GABAPENTIN: ALTERED BALANCE - SIDE EFFECTS BACLOFEN: RESTLESS LEGS - SIDE EFFECTS ZANAFLEX: RESTLESS LEGS - SIDE EFFECTS TOPAMAX: "MESSED WITH HIS EYES" - SIDE EFFECTS ROBAXIN: NAUSEA/SEVERE DIARRHEA - SIDE EFFECTS SKELAXIN: NAUSEA/SEVERE DIARRHEA - SIDE EFFECTS DICLOFENAC: PUT HIM IN A BAD MOOD - SIDE EFFECTS SURGICAL HISTORY T&A APPENDECTOMY REPAIR OF RIGHT ELBOW FRACTURE REPAIR OF RIGHT ANKLE FRACTURE 1999 THYROID REMOVAL 2018 SOCIAL HISTORY GENERAL: TOBACCO USE ARE YOU A:FORMER SMOKER LATEX QUESTIONNAIRE LATEX ALLERGY : HAVE YOU EVER DEVELOPED ANY TYPE OF REACTION AFTER HANDLING LATEX PRODUCTS SUCH RUBBER GLOVES, CONDOMS, DIAPHRAGMS, BALLOONS, SOCKS, OR UNDERWEAR?NO LATEX ALLERGY : HAVE YOU EVER DEVELOPED ANY TYPE OF REACTION DURING OR AFTER DENTAL APPOINTMENT, VAGINAL/RECTAL EXAMINATION, SURGICAL PROCEDURE, OR ANY OTHER EXPOSURE?NO LATEX RISK : HAVE YOU EVER HAD ANY DIFFICULTY BREATHING OR HIVES AFTER EATING OR HANDLING ANY FRUITS, OR VEGETABLES; SUCH KIWI, BANANAS, STONE FRUITS, OR CHESTNUTSNO LATEX RISK : DO YOU HAVE A PREVIOUS PERSONAL HISTORY OF MORE THAN NINE SURGERIES, SPINA BIFIDA, OR REPEATED CATHERIZATIONS? NO LATEX RISK : ARE YOU FREQUENTLY EXPOSED TO LATEX PRODUCTS IN YOUR OCCUPATION?NO DATE ASKED : 06/30/2020 ALCOHOL USE: NO. LUNG CANCER SCREENING SMOKING STATUS:FORMER SMOKER ALCOHOL SCREENING DID YOU HAVE A DRINK CONTAINING ALCOHOL IN THE PAST YEAR?NO POINTS0 INTERPRETATIONNEGATIVE RECREATIONAL DRUG USE DRUG USE?NO CAFFEINE CAFFEINE USE?YES CONFUCIANIST [id number] AGNOSTIC LANGUAGE LANGUAGES SPOKEN:IRISH EDUCATION LEVEL OF EDUCATION:NOT FINISHED HIGH SCHOOL LEARNING BARRIERS / SPECIAL NEEDS CHANGE FROM LAST VISIT?NO BARRIERS TO LEARNING?NO HEARING IMPAIRED?NO VISION IMPAIRED?YES :CORRECTIVE LENSES COGNITIVELY IMPAIRED?NO READINESS TO LEARN?YES LEARNING PREFERENCES?NO LEARNING CAPABILITIES PRESENT?YES EMOTIONAL BARRIERS?NO SPECIAL DEVICES?NO CHICKEN HANGER NEEDED?NO DOMESTIC VIOLENCE DO YOU FEEL SAFE IN YOUR ENVIRONMENT?YES OCCUPATION: UNEMPLOYED. DIET: REGULAR. EXERCISE: NONE. MARITAL STATUS: SINGLE. OTHERS AT HOME: NONE. TODAY'S VISIT NOTES 08/19/19, PATIENT DESCRIBES PAIN : ACHING, BURNING, HAVE IT ALL THE TIME, STABBING, SHOOTING , FROM 0-10, WHAT LEVEL IS YOUR PAIN TODAY? 7 , PRECIPITATING FACTORS GETTING OUT OF BED, ALLEVIATING FACTORS OXY, IMPACT ON FUNCTION YES. - PFS REFERRAL NEEDED?NO CLERGY REFERRAL NEEDED?NO PUBLIC HEALTH REFERRAL NEEDED?NO HAS THE PATIENT BEEN EDUCATED REGARDING HIS/HER PLAN OF CARE?YES HAS THE PATIENT BEEN EDUCATED REGARDING PAIN, THE RISK FOR PAIN, THE IMPORTANCE OF EFFECTIVE PAIN MANAGEMENT, AND THE PAIN ASSESSMENT PROCESS?YES ADVANCE DIRECTIVE ADVANCE DIRECTIVE DISCUSSED WITH PATIENT:YES PT HAS HCP-NARENDRA AMOS-[facility] [place] [phone] HOSPITALIZATION/MAJOR DIAGNOSTIC PROCEDURE SEVERAL [facility] THYROID SURGERY REVIEW OF SYSTEMS CONSTITUTIONAL: ANY RECENT FEVER NO . CHILLS NO . WEIGHT CHANGE OF UNKNOWN REASONS NO . GASTROENTEROLOGY: NEW UNEXPLAINABLE CHANGES IN BOWEL CONTROL NO . CONSTIPATION NO . GENITOURINARY: ANY NEW CHANGE IN BLADDER CONTROL? NO . NEUROLOGY: NEW ONSET DIZZINESS OR NEUROLOGICAL CHANGES NOT MENTIONED NO . NEW NUMBNESS OR PAIN PATTERNS NOT MENTIONED AND PERTINENT TO TODAY'S VISIT NO . CARDIOLOGY: NEW CHEST PRESSURE NO . PATIENT DENIES NO . RESPIRATORY: UNEXPLAINABLE COUGH NO . NEW SHORTNESS OF BREATH NO . VITAL SIGNS WT 443 LBS, HT 6'8", BMI 48.66 INDEX, BP 152/93 MM HG, HR 70 /MIN, RR 18 /MIN, TEMP 97.2 F, OXYGEN SAT % 100%, SAFE IN ENV? (Y/N) YEST.CHRIS BROOKS. EXAMINATION GENERAL EXAMINATION: GENERALNO ACUTE DISTRESS, WELL NOURISHED AND HYDRATED. PSYCHAPPROPRIATE MOOD AND AFFECT . LUNGS:CLEAR TO AUSCULTATION BILATERALLY, NO WHEEZES, RHONCHI, RALES. HEART:NO MURMURS, REGULAR RATE AND RHYTHM. ASSESSMENTS INTERVERTEBRAL DISC DISORDERS WITH RADICULOPATHY, LUMBOSACRAL REGION - M51.17 (PRIMARY) FINANCIAL REPORTING SPECIALIST (CURRENT) USE OF OPIATE ANALGESIC - Z79.891 TREATMENT INTERVERTEBRAL DISC DISORDERS WITH RADICULOPATHY, LUMBOSACRAL REGION CONTINUE OXYCODONE HCL TABLET, 15 MG, 1 TABLET NEEDED, ORALLY, EVERY 8 HRS MDD3, 30 DAYS, 90, REFILLS 0 NOTES: 39-YEAR-OLD MALE IN FOR CHRONIC PAIN FOLLOW-UP. DISCUSSED CONTINUED PAIN WITH PATIENT AND INFORMED HIM THAT WE HAD JUST RECENTLY INCREASED HIS MEDICATIONS AND SHOULD WE CONTINUE TO INCREASE HIS MEDICATIONS HE WOULD EVENTUALLY REACH A PLATEAU HIS BODY WILL BECOME TOLERANT TO THE HIGHER DOSAGES OF MEDICATIONS. PATIENT DID BECOME DEFENSIVE WHEN THIS WAS DISCUSSED WITH HIM. HE THEN STARTED TO DISRESPECT ONE OF THIS CO OP'S COLLEAGUES. THIS CO OP THEN SPOKE WITH PATIENT AND INFORMED HIM THAT WHILE THAT MAY BE HIS OPINION HE SHOULD NOT DISRESPECT MY COLLEAGUE IN FRONT OF ME. WE FURTHER DISCUSSED MEDICATIONS AND DECIDED TO INCREASE MEDICATIONS TO 15 MG OF OXYCODONE 1 TABLET 3 TIMES A DAY NEEDED FOR PAIN. PATIENT WAS INFORMED THAT AT NEXT VISIT WE WOULD HAVE TO SEE IMPROVEMENT WITH ADLS AND/OR MOBILITY GIVEN THIS INCREASE IN MEDICATION. PATIENT WAS INSTRUCTED TO DESTROY HIS 10 MG TABLETS AND BRING BACK PROOF OF THE DESTRUCTION. PATIENT HAS EXPRESSED UNDERSTANDING OF AND WAS IN AGREEMENT WITH TREATMENT PLAN. GIVEN TIME TO ASK QUESTIONS AND EXPRESS CONCERNS. , ISTOP REGISTRY REVIEWED AND DEMONSTRATES COMPLLIANCE. (REF # [id number] ) BRINGS IN MEDICATIONS WHICH IS APPROPRIATE FOR WHAT WAS DISPENSED. RECENT URINE TOXICOLOGY REVIEWED. NO UNAUTHORIZED MEDICATIONS. NO ILLICIT SUBSTANCES AND PRESCRIBED MEDICATIONS WERE PRESENT. SNF (CURRENT) USE OF OPIATE ANALGESIC LAB: URINE TEST GROUP 6-ACETYLMORPHINE SCREEN NEGATIVE (10 - NG/ML) BENZODIAZEPINES SCREEN NEGATIVE (200 - NG/ML) AMPHETAMINE SCREEN NEGATIVE (1000 - NG/ML) BARBITURATES SCREEN NEGATIVE (200 - NG/ML) BUPRENORPHINE SCREEN NEGATIVE (5 - NG/ML) COCAINE SCREEN NEGATIVE (300 - NG/ML) CARISOPRODOL SCREEN POSITIVE (100 - NG/ML) FENTANYL SCREEN NEGATIVE (2 - NG/ML) GABAPENTIN SCREEN NEGATIVE (1000 - NG/ML) METHADONE SCREEN NEGATIVE (300 - NG/ML) OPIATES SCREEN NEGATIVE (300 - NG/ML) OXYCODONE SCREEN POSITIVE (100 - NG/ML) PHENCYCLIDINE SCREEN NEGATIVE (25 - NG/ML) CREATININE 76.4 (>= 20 MG/DL - MG/DL) PH 5.3 (4.5 - 8.9 - ) CREATININE/SPECIFIC GRAVITY NORMAL (>= 20 MG/DL - ) PH NORMAL (4.5 - 8.9 - ) TCA ANTIDEPRESSANTS SCREEN NEGATIVE (150 - NG/ML) CANNABINOIDS SCREEN NEGATIVE (20 - NG/ML) MDMA SCREEN NEGATIVE (500 - NG/ML) TRAMADOL SCREEN NEGATIVE (100 - NG/ML) SIRI BECKER 06/30/2020 3:28:18 PM > LAST DOSE; LYRICA 06/30/2020, OXYCODONE 06/30/2020, AMBIEN 06/30/2020 LABS LAB: CARISOPRODOL REFLEX SHS, UR CARISOPRODOL 416 (100 - NG/ML) MEPROBAMATE 8575 (100 - NG/ML) [employer], SUPPORT 07/07/2020 09:35:04 : THIS ORDER WAS CREATED BY THE INTERFACE. LAB: OXYCODONE REFLEX SHS, UR OXYCODONE 544 (25 - NG/ML) OXYMORPHONE NEGATIVE (25 - NG/ML) NOROXYCODONE 1652 (50 - NG/ML) [employer], SUPPORT 07/07/2020 09:35:05 : THIS ORDER WAS CREATED BY THE INTERFACE. LAB: MED PREGABALIN CONF, UR PREGABALIN >47540 (500 - NG/ML) [employer], SUPPORT 07/07/2020 09:35:05 : THIS ORDER WAS CREATED BY THE INTERFACE. LAB: MED ZOLPIDEM CONF, UR ZOLPIDEM 35.5 (2.5 - NG/ML) [employer], SUPPORT 07/07/2020 09:35:05 : THIS ORDER WAS CREATED BY THE INTERFACE. PROCEDURE CODES FA211 ESTABILISHED PATIENT [facility] CHARGE DISPOSITION & COMMUNICATION FOLLOW UP 3 MONTHS (REASON: BACK PAIN ) ELECTRONICALLY SIGNED BY JAYDON HENRY ON 07/09/2020 AT 08:29 AM EDT DISCLAIMER : THIS IS A VISIT SUMMARY EXTRACTED FROM THE [facility] CHART. IT IS NOT A COPY OF THE [facility] PROGRESS NOTE. MTDD
== END ==
LOC: M PAIN 14:30
PROVIDERS: ATTEND Family Medicine
DX: M51.17 Intervertebral disc disorders with radiculopathy, lumbosacral region (principal); G89.29 Other chronic pain; K21.9 Gastro-esophageal reflux disease without esophagitis; Z87.891 Personal history of nicotine dependence; Z88.2 Allergy status to sulfonamides; Z88.8 Allergy status to other drugs, medicaments and biological substances; E66.01 Morbid (severe) obesity due to excess calories; Z68.42 Body mass index [BMI] 45.0-49.9, adult; Z79.899 Other long term (current) drug therapy

== ENCOUNTER → 2020-07-16 | Outpatient (CLI) | payer OTHER ==
[2020-07-16 17:18] LABS: FREE T4 1.16 NG/DL (0.76-1.46); THYROID STIMULATING HORMONE 0.247 uIU/ML (0.358-3.740)
== END ==
LOC: M LAB 15:32
PROVIDERS: ATTEND Nurse Practitioner Family
DX: E89.0 Postprocedural hypothyroidism (principal); C73 Malignant neoplasm of thyroid gland

== ENCOUNTER → 2020-10-02 | Outpatient (CLI) | payer OTHER ==
--- NOTE | 2020-10-06 04:53 | ECWPNPC ---
PATIENT NAME: MARCY AMOS : 1980 GENDER: MALE VISIT DATE: 10/02/2020 DISCHARGE DATE: 10/02/20 1510 VISIT LOCKED DATE TIME: PHYSICIAN: LONA HOLLOWAY RESOURCE: LONA HOLLOWAY REASON FOR APPOINTMENT 1. BACK PAIN HISTORY OF PRESENT ILLNESS GENERAL: HPI 39-YEAR-OLD MALE IN FOR CHRONIC PAIN FOLLOW-UP. HE FEELS HIS MEDICATIONS ARE HELPFUL AND DENIES MED SIDE EFFECTS AT THIS TIME. HE RATES HIS PAIN CURRENTLY AT A 7 OUT OF 10 AND DESCRIBES IT ACHING, BURNING, AND CONTINUOUS.. -. FALL RISK SCREENING: SCREENING : NO FALLS REPORTED IN THE LAST YEAR. PAIN SCREENING: PATIENT HAS A COMPLAINT OF ACUTE OR CHRONIC PAIN :YES LOCATION OF PAIN:UPPER BACK, MID BACK, LOW BACK INTENSITY OF PAIN (SCALE OF 1 TO 10):7 AVERAGE IS 7 WHAT DOES YOUR PAIN FEEL LIKE:ACHING, BURNING, CONTINOUS DURATION:CONTINOUS, CONSTANT PAIN IS INCREASED BY:ACTIVITIES, PROLONGED STANDING PAIN IS DECREASED BY:USE OF PAIN MEDICATIONS, SITTING PAIN MEDS HELP WITH SLEEP NURSING NOTE: -. PAIN CENTER INTAKE QUESTIONS: DO YOU HAVE A HISTORY OF MRSA? :NO DO YOU TAKE A BLOOD THINNERS? :NO DO YOU HAVE ANY BLEEDING DISORDERS? :NO ANY NEW NUMBNESS OR WEAKNESS IN YOUR LEGS OR ARMS? :NO ANY PACEMAKER,DEFIBRILLATOR, OR DORSAL COLUMN STIMULATOR? :NO DO YOU HAVE ANY RASHES OR OPEN SORES? :NO ECZEMA ARE YOU ALLERGIC TO IV DYE? :NO ARE YOU DIABETIC? :NO ANY NEW PROBLEMS WITH YOUR MEDICATIONS? :NO HAVE YOU RECEIVED A VACCINE IN THE PAST 30 DAYS? :NO SECOND COVID VACCINATION 07/23/2020 DO YOU PLAN TO RECEIVE A VACCINE IN THE NEXT 21 DAYS? :NO DO YOU NEED ANY PRESCRIPTION? :YES CARISPORADOL, PREGABALIN DO YOU TAKE ANY IMMUNOSUPPRESSIVE MEDICATIONS? :NO IS THERE A CHANCE YOU COULD BE ? :NO ARE YOU BREAST FEEDING? :NO CURRENT MEDICATIONS TAKING TRAZODONE HCL 50 MG TABLET 1 TABLET AT BEDTIME NEEDED ORALLY ONCE A DAY TAKING ZOLPIDEM TARTRATE 10 MG TABLET 1 TABLET AT BEDTIME NEEDED ORALLY ONCE A DAY TAKING CLONIDINE HCL 0.2 MG TABLET 2 ORALLY BID TAKING METOPROLOL SUCCINATE 200 MG TABLET EXTENDED RELEASE ORALLY BEFORE BEDTIME TAKING OMEPRAZOLE 40 MG CAPSULE DELAYED RELEASE 1 CAPSULE ORALLY ONCE A DAY TAKING LATANOPROST 0.005 % SOLUTION 1 DROP INTO AFFECTED EYE IN THE EVENING OPHTHALMIC ONCE A DAY TAKING AMLODIPINE BESYLATE 10 MG TABLET 1 TABLET ORALLY ONCE A DAY TAKING LEVOTHROYXINE _ 300 MCGS 1 TAB ORALLY DAILY TAKING LEVOTHYROXINE SODIUM 75 MCG TABLET 1 TABLET ON AN EMPTY STOMACH IN THE MORNING ORALLY ONCE A DAY TAKING REQUIP 1 MG TABLET 1 TABLET 1 TO 3 HOURS BEFORE BEDTIME ORALLY ONCE A DAY NEEDED TAKING PAXIL 30 MG TABLET 1 TABLET IN THE MORNING ORALLY ONCE A DAY TAKING EPLERENONE 25 MG TABLET 1 TABLET ORALLY 50 MG ONCE A DAY TAKING ENALAPRIL MALEATE 10 MG TABLET 1 TABLET ORALLY ONCE A DAY TAKING VALIUM 10 MG TABLET 1 TABLET NEEDED ORALLY TAKE 1 TAB 1 HOUR PRIOR TO MRI, ONE ON ARRIVE AND 1 TAB DURING/AFTER IF NEEDED, NOTES: NONE RECENT, FOR MRI'S TAKING CARISOPRODOL 350 MG TABLET 1 TABLET NEEDED ORALLY BID FOR PAIN/SPASM MDD=2 TAKING CARISOPRODOL 350 MG TABLET 1 TABLET NEEDED ORALLY TWICE DAILY NEEDED TAKING LYRICA 200 MG CAPSULE 1 CAPSULE ORALLY TWICE DAILY TAKING BETAMETHASONE DIPROPIONATE 0.05 % CREAM 1 APPLICATION EXTERNALLY TWICE DAILY TO RASH ON ABDOMEN, BACK, ARMS AND LEGS FOR 2 WEEK. PLEASE COMPOUND INTO 1/2 JAR OF CERAVE CREAM TAKING OXYCODONE HCL 15 MG TABLET 1 TABLET NEEDED ORALLY EVERY 8 HRS MDD3 TAKING LEVOCETIRIZINE DIHYDROCHLORIDE 5 MG TABLET 1 TABLET ORALLY ONCE A DAY TAKING TRIAMCINOLONE ACETONIDE 0.1 % CREAM 1 APPLICATION EXTERNALLY TWICE A DAY DISP 1LB JAR NOT-TAKING TRAMADOL HCL 50 MG TABLET 1 -2 TABLET ORALLY TAKE 1-2 TABS Q 6 HRS PRN MDD=6 NOT-TAKING BETAMETHASONE VALERATE 0.1 % LOTION 1 APPLICATION EXTERNALLY BID TO AREAS WITH RASH NOT-TAKING PANTOPRAZOLE SODIUM 40 MG TABLET DELAYED RELEASE 1 TABLET ORALLY ONCE A DAY NOT-TAKING CELEBREX 200 MG CAPSULE 1 CAPSULE WITH FOOD ORALLY FOR FOOD ONCE A DAY NOT-TAKING BENTYL 10 MG CAPSULE 1 CAPSULES ORALLY ONCE DAILY NOT-TAKING HYDROCODONE-ACETAMINOPHEN 5-325 MG TABLET 1 TABLET NEEDED ORALLY FOR PAIN EVERY 8 HRS MDD3 NOT-TAKING NUCYNTA ER 100 MG TABLET EXTENDED RELEASE 12 HOUR 1 TABLET ORALLY DAILY MEDICATION LIST REVIEWED AND RECONCILED WITH THE PATIENT PAST MEDICAL HISTORY HTN GERD BACK PAIN GLAUCOMA - PER PT 3 CYSTS ON THYROID RAYNAUD'S THYROID CANCER NECK PAIN BILATERAL HIP PAIN CHRONIC HEADACHES PSORIOSIS ALLERGIES SULFA (FOR ALLERGY USE ONLY): HIVES - ALLERGY CYMBALTA: LEGS TWITCHING GABAPENTIN: ALTERED BALANCE - SIDE EFFECTS BACLOFEN: RESTLESS LEGS - SIDE EFFECTS ZANAFLEX: RESTLESS LEGS - SIDE EFFECTS TOPAMAX: "MESSED WITH HIS EYES" - SIDE EFFECTS ROBAXIN: NAUSEA/SEVERE DIARRHEA - SIDE EFFECTS SKELAXIN: NAUSEA/SEVERE DIARRHEA - SIDE EFFECTS DICLOFENAC: PUT HIM IN A BAD MOOD - SIDE EFFECTS SOCIAL HISTORY GENERAL: TOBACCO USE ARE YOU A:FORMER SMOKER LATEX QUESTIONNAIRE LATEX ALLERGY : HAVE YOU EVER DEVELOPED ANY TYPE OF REACTION AFTER HANDLING LATEX PRODUCTS SUCH RUBBER GLOVES, CONDOMS, DIAPHRAGMS, BALLOONS, SOCKS, OR UNDERWEAR?NO LATEX ALLERGY : HAVE YOU EVER DEVELOPED ANY TYPE OF REACTION DURING OR AFTER DENTAL APPOINTMENT, VAGINAL/RECTAL EXAMINATION, SURGICAL PROCEDURE, OR ANY OTHER EXPOSURE?NO LATEX RISK : HAVE YOU EVER HAD ANY DIFFICULTY BREATHING OR HIVES AFTER EATING OR HANDLING ANY FRUITS, OR VEGETABLES; SUCH KIWI, BANANAS, STONE FRUITS, OR CHESTNUTSNO LATEX RISK : DO YOU HAVE A PREVIOUS PERSONAL HISTORY OF MORE THAN NINE SURGERIES, SPINA BIFIDA, OR REPEATED CATHERIZATIONS? NO LATEX RISK : ARE YOU FREQUENTLY EXPOSED TO LATEX PRODUCTS IN YOUR OCCUPATION?NO DATE ASKED : 10/02/2020 ALCOHOL USE: NO. LUNG CANCER SCREENING SMOKING STATUS:FORMER SMOKER ALCOHOL SCREENING DID YOU HAVE A DRINK CONTAINING ALCOHOL IN THE PAST YEAR?NO POINTS0 INTERPRETATIONNEGATIVE RECREATIONAL DRUG USE DRUG USE?NO CAFFEINE CAFFEINE USE?YES TAOISM [id number] AGNOSTIC LANGUAGE LANGUAGES SPOKEN:CZECH EDUCATION LEVEL OF EDUCATION:NOT FINISHED HIGH SCHOOL LEARNING BARRIERS / SPECIAL NEEDS CHANGE FROM LAST VISIT?NO BARRIERS TO LEARNING?NO HEARING IMPAIRED?NO VISION IMPAIRED?YES :CORRECTIVE LENSES COGNITIVELY IMPAIRED?NO READINESS TO LEARN?YES LEARNING PREFERENCES?NO LEARNING CAPABILITIES PRESENT?YES EMOTIONAL BARRIERS?NO SPECIAL DEVICES?NO ADVANCED MANUFACTURING ASSOCIATE NEEDED?NO DOMESTIC VIOLENCE DO YOU FEEL SAFE IN YOUR ENVIRONMENT?YES OCCUPATION: UNEMPLOYED. DIET: REGULAR. EXERCISE: NONE. MARITAL STATUS: SINGLE. OTHERS AT HOME: NONE. TODAY'S VISIT NOTES 08/19/19, PATIENT DESCRIBES PAIN : ACHING, BURNING, HAVE IT ALL THE TIME, STABBING, SHOOTING , FROM 0-10, WHAT LEVEL IS YOUR PAIN TODAY? 7 , PRECIPITATING FACTORS GETTING OUT OF BED, ALLEVIATING FACTORS OXY, IMPACT ON FUNCTION YES. - PFS REFERRAL NEEDED?NO CLERGY REFERRAL NEEDED?NO PUBLIC HEALTH REFERRAL NEEDED?NO HAS THE PATIENT BEEN EDUCATED REGARDING HIS/HER PLAN OF CARE?YES HAS THE PATIENT BEEN EDUCATED REGARDING PAIN, THE RISK FOR PAIN, THE IMPORTANCE OF EFFECTIVE PAIN MANAGEMENT, AND THE PAIN ASSESSMENT PROCESS?YES ADVANCE DIRECTIVE ADVANCE DIRECTIVE DISCUSSED WITH PATIENT:YES PT HAS HCP-NARENDRA AMOS-[facility] [place] [phone] REVIEW OF SYSTEMS CONSTITUTIONAL: ANY RECENT FEVER NO . CHILLS NO . WEIGHT CHANGE OF UNKNOWN REASONS NO . GASTROENTEROLOGY: NEW UNEXPLAINABLE CHANGES IN BOWEL CONTROL NO . CONSTIPATION NO . GENITOURINARY: ANY NEW CHANGE IN BLADDER CONTROL? NO . NEUROLOGY: NEW ONSET DIZZINESS OR NEUROLOGICAL CHANGES NOT MENTIONED NO . NEW NUMBNESS OR PAIN PATTERNS NOT MENTIONED AND PERTINENT TO TODAY'S VISIT NO . CARDIOLOGY: NEW CHEST PRESSURE NO . PATIENT DENIES NO . RESPIRATORY: UNEXPLAINABLE COUGH NO . NEW SHORTNESS OF BREATH NO . VITAL SIGNS WT 451.5 LBS, HT 6'8", BMI 49.59 INDEX, BP 168/89 MM HG, REPEAT BP 138/92 MANUAL BP, HR 76 /MIN, RR 18 /MIN, TEMP 97.8 F, OXYGEN SAT % 100%, SAFE IN ENV? (Y/N) YES, NA INITIALS [id number], REVIEWED BY: ESTHER JHAVERI. EXAMINATION GENERAL EXAMINATION: GENERALNO ACUTE DISTRESS, WELL NOURISHED AND HYDRATED. PSYCHAPPROPRIATE MOOD AND AFFECT . LUNGS:CLEAR TO AUSCULTATION BILATERALLY, NO WHEEZES, RHONCHI, RALES. HEART:NO MURMURS, REGULAR RATE AND RHYTHM. ASSESSMENTS INTERVERTEBRAL DISC DISORDERS WITH RADICULOPATHY, LUMBOSACRAL REGION - M51.17 (PRIMARY), RISK: (NULL) TREATMENT INTERVERTEBRAL DISC DISORDERS WITH RADICULOPATHY, LUMBOSACRAL REGION REFILL LYRICA CAPSULE, 200 MG, 1 CAPSULE, ORALLY, TWICE DAILY, 30 DAYS, 60, REFILLS 0 NOTES: 39-YEAR-OLD MALE IN FOR CHRONIC PAIN FOLLOW-UP. GIVEN PRESENTING SYMPTOMS RECOMMEND CONTINUATION OF CURRENT MEDICATION REGIMEN WITH FOLLOW-UP IN 3 MONTHS. PATIENT HAS EXPRESSED UNDERSTANDING OF AND WAS IN AGREEMENT WITH TREATMENT PLAN. GIVEN TIME TO ASK QUESTIONS AND EXPRESS CONCERNS. ISTOP REGISTRY REVIEWED AND DEMONSTRATES COMPLLIANCE. (REF # [id number] ) BRINGS IN MEDICATIONS WHICH IS APPROPRIATE FOR WHAT WAS DISPENSED. RECENT URINE TOXICOLOGY REVIEWED. NO UNAUTHORIZED MEDICATIONS. NO ILLICIT SUBSTANCES AND PRESCRIBED MEDICATIONS WERE PRESENT. OTHERS REFILL CARISOPRODOL TABLET, 350 MG, 1 TABLET NEEDED, ORALLY, TWICE DAILY NEEDED, 30 DAYS, 60 PROCEDURE CODES FA211 ESTABILISHED PATIENT [facility] CHARGE DISPOSITION & COMMUNICATION FOLLOW UP 3 MONTHS (REASON: BACK PAIN ) ELECTRONICALLY SIGNED BY JAYDON HENRY ON 10/05/2020 AT 01:00 PM EDT DISCLAIMER : THIS IS A VISIT SUMMARY EXTRACTED FROM THE [employer] CHART. IT IS NOT A COPY OF THE [employer] PROGRESS NOTE. ERENDIRA
== END ==
LOC: M PAIN 14:45
PROVIDERS: ATTEND Family Medicine
DX: M51.17 Intervertebral disc disorders with radiculopathy, lumbosacral region (principal); I10 Essential (primary) hypertension; K21.9 Gastro-esophageal reflux disease without esophagitis; H40.9 Unspecified glaucoma; I73.00 Raynaud's syndrome without gangrene; L40.9 Psoriasis, unspecified; R51.9 Headache, unspecified; Z85.850 Personal history of malignant neoplasm of thyroid; Z87.891 Personal history of nicotine dependence; Z88.2 Allergy status to sulfonamides; Z88.8 Allergy status to other drugs, medicaments and biological substances

== ENCOUNTER → 2021-02-01 | Outpatient (CLI) | payer OTHER | LOC: M LAB 15:28 | PROVIDERS: ATTEND Nurse Practitioner Family | DX: C73 Malignant neoplasm of thyroid gland (principal) ==

== ENCOUNTER → 2021-02-15 | Outpatient (CLI) | payer OTHER ==
[2021-02-15 17:37] LABS: FREE T4 1.02 NG/DL (0.76-1.46); THYROID STIMULATING HORMONE 0.186 uIU/ML (0.358-3.740)
== END ==
LOC: M LAB 15:38
PROVIDERS: ATTEND Nurse Practitioner Family
DX: E89.0 Postprocedural hypothyroidism (principal)

== ENCOUNTER → 2021-03-31 | Outpatient (CLI) | payer OTHER | LOC: M PAIN 14:30 | PROVIDERS: ATTEND Anesthesiology | DX: M79.18 Myalgia, other site (principal); M54.6 Pain in thoracic spine; I10 Essential (primary) hypertension; K21.9 Gastro-esophageal reflux disease without esophagitis; H40.9 Unspecified glaucoma; I73.00 Raynaud's syndrome without gangrene; M54.2 Cervicalgia; L40.9 Psoriasis, unspecified; R51.9 Headache, unspecified; M25.551 Pain in right hip; M25.552 Pain in left hip; E89.0 Postprocedural hypothyroidism; Z79.891 Long term (current) use of opiate analgesic; Z79.899 Other long term (current) drug therapy; Z87.891 Personal history of nicotine dependence; Z88.2 Allergy status to sulfonamides; Z88.8 Allergy status to other drugs, medicaments and biological substances; Z85.850 Personal history of malignant neoplasm of thyroid ==

== ENCOUNTER → 2021-04-07 | Outpatient (CLI) | payer OTHER | LOC: M PAIN 15:00 | PROVIDERS: ATTEND Nurse Practitioner Family | DX: M79.18 Myalgia, other site (principal); M54.6 Pain in thoracic spine; I10 Essential (primary) hypertension; K21.9 Gastro-esophageal reflux disease without esophagitis; H40.9 Unspecified glaucoma; I73.00 Raynaud's syndrome without gangrene; R51.9 Headache, unspecified; L40.9 Psoriasis, unspecified; Z85.850 Personal history of malignant neoplasm of thyroid; Z88.2 Allergy status to sulfonamides; Z88.8 Allergy status to other drugs, medicaments and biological substances ==

== ENCOUNTER → 2021-05-13 | Outpatient (CLI) | payer OTHER | LOC: M PAIN 14:45 | PROVIDERS: ATTEND Anesthesiology | DX: M51.14 Intervertebral disc disorders with radiculopathy, thoracic region (principal); I10 Essential (primary) hypertension; K21.9 Gastro-esophageal reflux disease without esophagitis; H40.9 Unspecified glaucoma; I73.00 Raynaud's syndrome without gangrene; L40.9 Psoriasis, unspecified; F32.A Depression, unspecified; Z79.899 Other long term (current) drug therapy; R51.9 Headache, unspecified; Z88.2 Allergy status to sulfonamides; Z88.8 Allergy status to other drugs, medicaments and biological substances ==

== ENCOUNTER → 2021-07-27 | Outpatient (CLI) | payer OTHER ==
[2021-07-27 17:42] LABS: FREE T4 0.98 NG/DL (0.76-1.46); THYROID STIMULATING HORMONE 1.71 uIU/ML (0.358-3.740)
[2021-07-29 11:11] LABS: THRYOGLOBULIN ANTIBODIES (ATA) < 1.0 IU/mL (0.0-0.9); THYROGLOBULIN QUANTITATIVE 0.6 ng/mL (1.4-29.2)
== END ==
LOC: M LAB 15:42
PROVIDERS: ATTEND Nurse Practitioner Family
DX: E89.0 Postprocedural hypothyroidism (principal); C73 Malignant neoplasm of thyroid gland

== ENCOUNTER → 2021-08-09 | Outpatient (CLI) | payer OTHER | LOC: M PAIN 14:45 | PROVIDERS: ATTEND Nurse Practitioner Family | DX: M51.14 Intervertebral disc disorders with radiculopathy, thoracic region (principal); I10 Essential (primary) hypertension; K21.9 Gastro-esophageal reflux disease without esophagitis; H40.9 Unspecified glaucoma; E04.2 Nontoxic multinodular goiter; I73.00 Raynaud's syndrome without gangrene; M54.2 Cervicalgia; R51.9 Headache, unspecified; L40.9 Psoriasis, unspecified; F32.A Depression, unspecified; E89.0 Postprocedural hypothyroidism; Z87.891 Personal history of nicotine dependence; Z85.850 Personal history of malignant neoplasm of thyroid; Z79.899 Other long term (current) drug therapy; Z88.2 Allergy status to sulfonamides; Z88.8 Allergy status to other drugs, medicaments and biological substances ==

== ENCOUNTER → 2021-09-22 | Outpatient (CLI) | payer OTHER ==
[2021-09-22 18:10] LABS: FREE T4 1.01 NG/DL (0.76-1.46); THYROID STIMULATING HORMONE 0.638 uIU/ML (0.358-3.740)
== END ==
LOC: M LAB 16:38
PROVIDERS: ATTEND Nurse Practitioner Family
DX: E89.0 Postprocedural hypothyroidism (principal)

== ENCOUNTER → 2021-10-27 | Outpatient (CLI) | payer OTHER | LOC: M PAIN 14:45 | PROVIDERS: ATTEND Anesthesiology | DX: M51.14 Intervertebral disc disorders with radiculopathy, thoracic region (principal); M47.816 Spondylosis without myelopathy or radiculopathy, lumbar region; I10 Essential (primary) hypertension; K21.9 Gastro-esophageal reflux disease without esophagitis; H40.9 Unspecified glaucoma; I73.00 Raynaud's syndrome without gangrene; E04.2 Nontoxic multinodular goiter; M54.2 Cervicalgia; M25.551 Pain in right hip; M25.552 Pain in left hip; L40.9 Psoriasis, unspecified; R51.9 Headache, unspecified; F32.A Depression, unspecified; E89.0 Postprocedural hypothyroidism; Z79.891 Long term (current) use of opiate analgesic; Z85.850 Personal history of malignant neoplasm of thyroid; Z79.890 Hormone replacement therapy; Z79.899 Other long term (current) drug therapy; Z87.891 Personal history of nicotine dependence; Z88.2 Allergy status to sulfonamides; Z88.8 Allergy status to other drugs, medicaments and biological substances ==

== ENCOUNTER → 2021-11-01 | Outpatient (CLI) | payer OTHER | LOC: M RAD 14:44 | PROVIDERS: ATTEND Nurse Practitioner Family | DX: C73 Malignant neoplasm of thyroid gland (principal); Z90.89 Acquired absence of other organs ==

== ENCOUNTER → 2022-01-25 | Outpatient (CLI) | payer OTHER ==
[2022-01-25 19:15] LABS: FREE T4 1.06 NG/DL (0.76-1.46); THYROID STIMULATING HORMONE 1.11 uIU/ML (0.358-3.740)
== END ==
LOC: M LAB 16:46
PROVIDERS: ATTEND Nurse Practitioner Family
DX: E89.0 Postprocedural hypothyroidism (principal)

== ENCOUNTER → 2022-04-14 | Outpatient (CLI) | payer OTHER | LOC: M PAIN 14:30 | PROVIDERS: ATTEND Nurse Practitioner Family | DX: M51.14 Intervertebral disc disorders with radiculopathy, thoracic region (principal); I10 Essential (primary) hypertension; K21.9 Gastro-esophageal reflux disease without esophagitis; H40.9 Unspecified glaucoma; E04.2 Nontoxic multinodular goiter; I73.00 Raynaud's syndrome without gangrene; M54.2 Cervicalgia; R51.9 Headache, unspecified; L40.9 Psoriasis, unspecified; F32.A Depression, unspecified; Z85.850 Personal history of malignant neoplasm of thyroid; E89.0 Postprocedural hypothyroidism; Z87.891 Personal history of nicotine dependence; Z79.890 Hormone replacement therapy; Z79.891 Long term (current) use of opiate analgesic; Z79.899 Other long term (current) drug therapy; Z88.2 Allergy status to sulfonamides; Z88.8 Allergy status to other drugs, medicaments and biological substances ==

== ENCOUNTER → 2022-04-18 | Outpatient (CLI) | payer OTHER | LOC: M LABSMTC 11:59 | PROVIDERS: ATTEND Anesthesiology | DX: Z11.52 Encounter for screening for COVID-19 (principal) ==

== ENCOUNTER → 2022-04-22 | Outpatient (CLI) | payer OTHER | LOC: M RAD 15:04 | PROVIDERS: ATTEND Anesthesiology | DX: M47.814 Spondylosis without myelopathy or radiculopathy, thoracic region (principal) ==

== ENCOUNTER → 2022-04-22 | Outpatient (CLI) | payer OTHER ==
[~2022-04-22] MED LIST changes: +BUPIVACAINE HCL 0.25% 30ML VIAL As Ordered ONE; +ISOVUE-M 300 61% 15ML VIAL As Ordered ONE; +LIDOCAINE 1% SDV 30ML VIAL As Ordered ONE
== END ==
LOC: M PAIN 12:30
PROVIDERS: ATTEND Anesthesiology
DX: M47.814 Spondylosis without myelopathy or radiculopathy, thoracic region (principal); M51.14 Intervertebral disc disorders with radiculopathy, thoracic region; I10 Essential (primary) hypertension; K21.9 Gastro-esophageal reflux disease without esophagitis; H40.9 Unspecified glaucoma; E04.2 Nontoxic multinodular goiter; I73.00 Raynaud's syndrome without gangrene; M54.2 Cervicalgia; R51.9 Headache, unspecified; L40.9 Psoriasis, unspecified; F32.A Depression, unspecified; Z85.850 Personal history of malignant neoplasm of thyroid; E89.0 Postprocedural hypothyroidism; Z87.891 Personal history of nicotine dependence; Z79.890 Hormone replacement therapy; Z79.891 Long term (current) use of opiate analgesic; Z79.899 Other long term (current) drug therapy; Z88.2 Allergy status to sulfonamides; Z88.8 Allergy status to other drugs, medicaments and biological substances

== ENCOUNTER → 2022-05-23 | Outpatient (CLI) | payer OTHER ==
[~2022-05-23] MED LIST changes: -BUPIVACAINE HCL 0.25% 30ML VIAL As Ordered ONE; -ISOVUE-M 300 61% 15ML VIAL As Ordered ONE; -LIDOCAINE 1% SDV 30ML VIAL As Ordered ONE
== END ==
LOC: M PLAIMG 10:36
PROVIDERS: ATTEND Nurse Practitioner Family
DX: M51.14 Intervertebral disc disorders with radiculopathy, thoracic region (principal)

== ENCOUNTER → 2022-06-01 | Outpatient (CLI) | payer OTHER | LOC: M PAIN 15:00 | PROVIDERS: ATTEND Anesthesiology | DX: G89.29 Other chronic pain (principal); M51.14 Intervertebral disc disorders with radiculopathy, thoracic region; I10 Essential (primary) hypertension; K21.9 Gastro-esophageal reflux disease without esophagitis; E04.2 Nontoxic multinodular goiter; Z85.850 Personal history of malignant neoplasm of thyroid; R51.9 Headache, unspecified; L40.9 Psoriasis, unspecified; F32.A Depression, unspecified; M25.551 Pain in right hip; M25.552 Pain in left hip; E89.0 Postprocedural hypothyroidism; Z79.890 Hormone replacement therapy; Z79.891 Long term (current) use of opiate analgesic; Z79.899 Other long term (current) drug therapy; Z87.891 Personal history of nicotine dependence; Z88.2 Allergy status to sulfonamides; Z88.8 Allergy status to other drugs, medicaments and biological substances ==

== ENCOUNTER → 2022-06-17 | Outpatient (CLI) | payer OTHER ==
[2022-06-17 16:58] LABS: FREE T4 1.95 NG/DL (0.89-1.76); THYROID STIMULATING HORMONE 0.008 uIU/ML (0.55-4.78)
== END ==
LOC: M LAB 16:03
PROVIDERS: ATTEND Nurse Practitioner Family
DX: E89.0 Postprocedural hypothyroidism (principal)

== ENCOUNTER → 2022-06-22 | Outpatient (CLI) | payer OTHER | LOC: M PLAIMG 07:17 | PROVIDERS: ATTEND Anesthesiology | DX: M54.14 Radiculopathy, thoracic region (principal) ==

== ENCOUNTER → 2022-07-01 | Outpatient (CLI) | payer OTHER | LOC: M PAIN 15:15 | PROVIDERS: ATTEND Anesthesiology | DX: M54.6 Pain in thoracic spine (principal); M54.14 Radiculopathy, thoracic region; I10 Essential (primary) hypertension; K21.9 Gastro-esophageal reflux disease without esophagitis; H40.9 Unspecified glaucoma; E04.2 Nontoxic multinodular goiter; M54.2 Cervicalgia; M25.551 Pain in right hip; M25.552 Pain in left hip; R51.9 Headache, unspecified; L40.9 Psoriasis, unspecified; F32.A Depression, unspecified; Z87.891 Personal history of nicotine dependence; Z79.890 Hormone replacement therapy; Z79.891 Long term (current) use of opiate analgesic; Z79.899 Other long term (current) drug therapy; Z88.2 Allergy status to sulfonamides; Z88.8 Allergy status to other drugs, medicaments and biological substances ==

== ENCOUNTER → 2022-07-14 | Outpatient (CLI) | payer OTHER | LOC: M PAIN 14:45 | PROVIDERS: ATTEND Anesthesiology | DX: M54.6 Pain in thoracic spine (principal); M79.18 Myalgia, other site; I10 Essential (primary) hypertension; K21.9 Gastro-esophageal reflux disease without esophagitis; H40.9 Unspecified glaucoma; I73.00 Raynaud's syndrome without gangrene; L40.9 Psoriasis, unspecified; R51.9 Headache, unspecified; F32.A Depression, unspecified; E89.0 Postprocedural hypothyroidism; Z79.890 Hormone replacement therapy; Z79.891 Long term (current) use of opiate analgesic; Z79.899 Other long term (current) drug therapy; Z87.891 Personal history of nicotine dependence; Z88.2 Allergy status to sulfonamides; Z88.8 Allergy status to other drugs, medicaments and biological substances ==

== ENCOUNTER → 2022-08-18 | Outpatient (CLI) | payer OTHER | LOC: M PAIN 16:00 | PROVIDERS: ATTEND Anesthesiology | DX: M51.16 Intervertebral disc disorders with radiculopathy, lumbar region (principal); I10 Essential (primary) hypertension; K21.9 Gastro-esophageal reflux disease without esophagitis; L40.9 Psoriasis, unspecified; F32.A Depression, unspecified; I73.00 Raynaud's syndrome without gangrene; R51.9 Headache, unspecified; Z85.850 Personal history of malignant neoplasm of thyroid; Z87.891 Personal history of nicotine dependence; Z79.890 Hormone replacement therapy; Z79.899 Other long term (current) drug therapy; Z79.891 Long term (current) use of opiate analgesic; Z88.2 Allergy status to sulfonamides; Z88.8 Allergy status to other drugs, medicaments and biological substances ==

== ENCOUNTER → 2022-08-18 | Outpatient (CLI) | payer OTHER ==
[2022-08-18 18:51] LABS: FREE T4 1.79 NG/DL (0.89-1.76); THYROGLOBULIN ANTIBODY < 15.0 U/ML (<60.0); THYROID STIMULATING HORMONE 0.008 uIU/ML (0.55-4.78)
[2022-08-20 11:08] LABS: THRYOGLOBULIN ANTIBODIES (ATA) < 1.0 IU/mL (0.0-0.9); THYROGLOBULIN QUANTITATIVE 0.5 ng/mL (1.4-29.2)
== END ==
LOC: M LAB 17:45
PROVIDERS: ATTEND Nurse Practitioner Family
DX: E89.0 Postprocedural hypothyroidism (principal); C73 Malignant neoplasm of thyroid gland

== ENCOUNTER → 2022-10-13 | Outpatient (CLI) | payer OTHER ==
[~2022-10-13] MED LIST changes: +DICY-61; -DICY10CA13; -ROPI1TAB3; +ROPI1TAB73
== END ==
LOC: M PAIN 14:30
PROVIDERS: ATTEND Anesthesiology
DX: M54.6 Pain in thoracic spine (principal); M54.14 Radiculopathy, thoracic region; G89.29 Other chronic pain; I10 Essential (primary) hypertension; K21.9 Gastro-esophageal reflux disease without esophagitis; Z86.59 Personal history of other mental and behavioral disorders; Z87.891 Personal history of nicotine dependence; Z88.2 Allergy status to sulfonamides; Z88.8 Allergy status to other drugs, medicaments and biological substances; E66.01 Morbid (severe) obesity due to excess calories; Z68.41 Body mass index [BMI] 40.0-44.9, adult; Z79.899 Other long term (current) drug therapy

== ENCOUNTER → 2022-11-14 | Outpatient (CLI) | payer OTHER ==
[2022-11-14 16:24] LABS: FREE T4 1.94 NG/DL (0.89-1.76); THYROID STIMULATING HORMONE 0.013 uIU/ML (0.55-4.78)
== END ==
LOC: M LAB 14:51
PROVIDERS: ATTEND Nurse Practitioner Family
DX: E89.0 Postprocedural hypothyroidism (principal)

== ENCOUNTER → 2022-12-19 | Outpatient (CLI) | payer OTHER | LOC: M PAIN 16:30 | PROVIDERS: ATTEND Anesthesiology | DX: M54.6 Pain in thoracic spine (principal); M47.814 Spondylosis without myelopathy or radiculopathy, thoracic region; I10 Essential (primary) hypertension; K21.9 Gastro-esophageal reflux disease without esophagitis; H40.9 Unspecified glaucoma; I73.00 Raynaud's syndrome without gangrene; M54.2 Cervicalgia; M25.551 Pain in right hip; M25.552 Pain in left hip; R51.9 Headache, unspecified; L40.9 Psoriasis, unspecified; F32.A Depression, unspecified; E89.0 Postprocedural hypothyroidism; Z87.891 Personal history of nicotine dependence; Z79.890 Hormone replacement therapy; Z79.891 Long term (current) use of opiate analgesic; Z79.899 Other long term (current) drug therapy; Z88.2 Allergy status to sulfonamides; Z88.8 Allergy status to other drugs, medicaments and biological substances ==

== ENCOUNTER → 2023-01-23 | Outpatient (REF) | payer OTHER ==
[2023-01-23 17:23] LABS: FREE T3 3.4 PG/ML (2.3-4.2)
== END ==
LOC: M LAB REF 16:23
PROVIDERS: ATTEND Nurse Practitioner Adult Health
DX: R63.4 Abnormal weight loss (principal)

== ENCOUNTER → 2023-02-01 | Outpatient (CLI) | payer OTHER | LOC: M PAIN 17:00 | PROVIDERS: ATTEND Anesthesiology | DX: Z53.29 Procedure and treatment not carried out because of patient's decision for other reasons (principal) ==

== ENCOUNTER → 2023-02-02 | Outpatient (CLI) | payer OTHER | LOC: M PAIN 11:30 | PROVIDERS: ATTEND Anesthesiology | DX: M54.6 Pain in thoracic spine (principal); M47.814 Spondylosis without myelopathy or radiculopathy, thoracic region; I10 Essential (primary) hypertension; K21.9 Gastro-esophageal reflux disease without esophagitis; H40.9 Unspecified glaucoma; E04.2 Nontoxic multinodular goiter; M54.2 Cervicalgia; R51.9 Headache, unspecified; M25.551 Pain in right hip; M25.552 Pain in left hip; L40.9 Psoriasis, unspecified; F32.A Depression, unspecified; Z87.891 Personal history of nicotine dependence; Z79.890 Hormone replacement therapy; Z79.899 Other long term (current) drug therapy; Z88.2 Allergy status to sulfonamides; Z88.8 Allergy status to other drugs, medicaments and biological substances ==

== ENCOUNTER → 2023-04-28 | Outpatient (CLI) | payer OTHER ==
[2023-04-28 16:41] LABS: THYROID STIMULATING HORMONE 0.133 uIU/ML (0.55-4.78)
[2023-04-28 16:42] LABS: FREE T4 1.51 NG/DL (0.89-1.76)
== END ==
LOC: M LAB 15:29
PROVIDERS: ATTEND Nurse Practitioner Family
DX: E89.0 Postprocedural hypothyroidism (principal)

== ENCOUNTER → 2023-05-10 | Outpatient (CLI) | payer OTHER | LOC: M PAIN 15:30 | PROVIDERS: ATTEND Anesthesiology | DX: M79.18 Myalgia, other site (principal); M54.2 Cervicalgia; M54.6 Pain in thoracic spine; I10 Essential (primary) hypertension; K21.9 Gastro-esophageal reflux disease without esophagitis; H40.9 Unspecified glaucoma; E04.2 Nontoxic multinodular goiter; I73.00 Raynaud's syndrome without gangrene; M25.551 Pain in right hip; M25.552 Pain in left hip; R51.9 Headache, unspecified; L40.9 Psoriasis, unspecified; F32.A Depression, unspecified; Z87.891 Personal history of nicotine dependence; Z79.890 Hormone replacement therapy; Z79.891 Long term (current) use of opiate analgesic; Z79.899 Other long term (current) drug therapy; Z88.2 Allergy status to sulfonamides; Z88.8 Allergy status to other drugs, medicaments and biological substances ==

== ENCOUNTER 2023-05-13 11:11 | Emergency (ER) | payer OTHER ==
[~2023-05-13] VITALS: Ht 203.2 cm; Wt 148.2 kg
[2023-05-13] MEDS ORDERED: ARIP1TAB4 (11:32)
[2023-05-13] MEDS ORDERED: AMLO1TAB25 (11:32)
[2023-05-13] MEDS ORDERED: ONDA-83 (11:41)
[2023-05-13] MEDS ORDERED: MORP15TA2 (11:41)
[2023-05-13] MEDS ORDERED: IBUP80TA PO (13:39)
[2023-05-13] MEDS ORDERED: ACET325C5 PO (13:39)
[2023-05-13 13:49] VITALS: BP 108/65; TEMP 97.5; O2SAT 97
== END 2023-05-13 13:50 | disposition home or self-care (01) ==
LOC: M ED 11:11
DX: S82.54XA Nondisplaced fracture of medial malleolus of right tibia, initial encounter for closed fracture (principal); X50.0XXA Overexertion from strenuous movement or load, initial encounter; Y92.009 Unspecified place in unspecified non-institutional (private) residence as the place of occurrence of the external cause; Y93.9 Activity, unspecified; Y99.9 Unspecified external cause status; Z88.2 Allergy status to sulfonamides; I10 Essential (primary) hypertension; E03.9 Hypothyroidism, unspecified; G62.9 Polyneuropathy, unspecified

== ENCOUNTER → 2023-05-25 | Outpatient (CLI) | payer OTHER ==
[~2023-05-25] MED LIST changes: +ACET325C5 PO; +AMLO1TAB25; +ARIP1TAB4; +IBUP80TA PO; +MORP15TA2; +ONDA-83
== END ==
LOC: M RAD 14:41
PROVIDERS: ATTEND Physician Assistant
DX: M25.561 Pain in right knee (principal)

== ENCOUNTER → 2023-05-30 | Outpatient (CLI) | payer OTHER | LOC: M PAIN 16:30 | PROVIDERS: ATTEND Nurse Practitioner Family | DX: M54.6 Pain in thoracic spine (principal); M79.18 Myalgia, other site; G89.29 Other chronic pain; I10 Essential (primary) hypertension; K21.9 Gastro-esophageal reflux disease without esophagitis; H40.9 Unspecified glaucoma; I73.00 Raynaud's syndrome without gangrene; M54.2 Cervicalgia; L40.9 Psoriasis, unspecified; R51.9 Headache, unspecified; F32.A Depression, unspecified; E89.0 Postprocedural hypothyroidism; Z79.890 Hormone replacement therapy; Z79.891 Long term (current) use of opiate analgesic; Z79.899 Other long term (current) drug therapy; Z88.2 Allergy status to sulfonamides; Z88.8 Allergy status to other drugs, medicaments and biological substances ==

== ENCOUNTER 2023-06-22 09:49 | Day surgery (SDC) | payer OTHER ==
[~2023-06-22] VITALS: Ht 203.2 cm; Wt 140.5 kg
[~2023-06-22 09:49] MED LIST changes: -AMLO1TAB25; +AMLO1TAB25 PO; +CARI1TAB7 PO; +CLON0.2T PO; +ENAL1TAB50 PO; +EPLE25TA PO; +LEVO2TA PO; +LEVOTAB10 PO; +LYRI200C PO; +METO200T28 PO; +MORP15TA2 PO; +OMEP40CA4 PO; +ONDA-83 PO; +PARO30TA65 PO; +ROPI1TAB73 PO; +XALA0.007 OU; +ZOLP10TA2 PO
[2023-06-22] MEDS: NS 1,000 ML IV ONE (10:15)
[2023-06-22] MEDS ORDERED: fentaNYL 100 MCG/2 ML INJECTION As Ordered ONE (10:46)
[2023-06-22] MEDS ORDERED: GLYCOPYRROLATE INJ 0.2 MG/ML 2 ML VIAL As Ordered ONE (11:06)
[2023-06-22] MEDS ORDERED: propofoL 200 MG/20 ML VIAL As Ordered ONE (11:06)
[2023-06-22 11:26] VITALS: TEMP 97
[2023-06-22 11:50] VITALS: BP 105/70; O2SAT 99
== END 2023-06-22 12:00 | disposition home or self-care (01) ==
LOC: M OPP 09:49
PROVIDERS: ATTEND Internal Medicine Gastroenterology
DX: D12.5 Benign neoplasm of sigmoid colon (principal); D12.8 Benign neoplasm of rectum; Z80.0 Family history of malignant neoplasm of digestive organs; R63.4 Abnormal weight loss; F17.220 Nicotine dependence, chewing tobacco, uncomplicated; Z79.1 Long term (current) use of non-steroidal anti-inflammatories (NSAID); Z79.890 Hormone replacement therapy; Z79.891 Long term (current) use of opiate analgesic; Z79.899 Other long term (current) drug therapy; Z88.2 Allergy status to sulfonamides
CPT/HCPCS: 43235; 45385; 88305; J3010

== ENCOUNTER → 2023-07-19 | Outpatient (CLI) | payer OTHER ==
[~2023-07-19] MED LIST changes: +METO200T15 PO; -METO200T28 PO
== END ==
LOC: M PAIN 15:30
PROVIDERS: ATTEND Anesthesiology
DX: M54.6 Pain in thoracic spine (principal); Z79.891 Long term (current) use of opiate analgesic; M54.14 Radiculopathy, thoracic region; G89.29 Other chronic pain; I10 Essential (primary) hypertension; Z79.890 Hormone replacement therapy; Z79.899 Other long term (current) drug therapy; Z88.5 Allergy status to narcotic agent; Z88.6 Allergy status to analgesic agent; Z88.8 Allergy status to other drugs, medicaments and biological substances

== ENCOUNTER → 2023-08-23 | Outpatient (CLI) | payer OTHER ==
[~2023-08-23] MED LIST changes: -EPLE25TA PO; +EPLE25TA2 PO
== END ==
LOC: M PAIN 15:30
PROVIDERS: ATTEND Anesthesiology
DX: M54.6 Pain in thoracic spine (principal); Z79.891 Long term (current) use of opiate analgesic; M79.18 Myalgia, other site; I10 Essential (primary) hypertension; K21.9 Gastro-esophageal reflux disease without esophagitis; H40.9 Unspecified glaucoma; E04.2 Nontoxic multinodular goiter; I73.00 Raynaud's syndrome without gangrene; M54.2 Cervicalgia; L40.9 Psoriasis, unspecified; F32.A Depression, unspecified; R51.9 Headache, unspecified; Z87.891 Personal history of nicotine dependence; Z79.890 Hormone replacement therapy; Z79.899 Other long term (current) drug therapy; Z88.2 Allergy status to sulfonamides; Z88.8 Allergy status to other drugs, medicaments and biological substances

== ENCOUNTER → 2023-09-06 | Outpatient (REF) | payer OTHER | LOC: M LAB REF 16:43 | PROVIDERS: ATTEND Nurse Practitioner Adult Health | DX: E89.0 Postprocedural hypothyroidism (principal); R63.4 Abnormal weight loss ==

== ENCOUNTER → 2023-09-21 | Outpatient (CLI) | payer OTHER ==
[2023-09-21 10:51] LABS: FREE T4 1.44 NG/DL (0.89-1.76)
[2023-09-21 10:52] LABS: THYROGLOBULIN ANTIBODY < 15.0 U/ML (<60.0); THYROID STIMULATING HORMONE 1.461 uIU/ML (0.55-4.78)
[2023-09-22 16:27] LABS: THRYOGLOBULIN ANTIBODIES (ATA) < 1 IU/mL (< or = 1); THYROGLOBULIN QUANTITATIVE 1.5 ng/mL (2.8-40.9)
== END ==
LOC: M LAB 09:32
PROVIDERS: ATTEND Nurse Practitioner Family
DX: E89.0 Postprocedural hypothyroidism (principal); C73 Malignant neoplasm of thyroid gland

== ENCOUNTER → 2023-09-27 | Outpatient (CLI) | payer OTHER | LOC: M PAIN 17:00 | PROVIDERS: ATTEND Anesthesiology | DX: M54.6 Pain in thoracic spine (principal); M79.10 Myalgia, unspecified site; M79.18 Myalgia, other site; M54.16 Radiculopathy, lumbar region; I10 Essential (primary) hypertension; K21.9 Gastro-esophageal reflux disease without esophagitis; E04.2 Nontoxic multinodular goiter; I73.00 Raynaud's syndrome without gangrene; F32.A Depression, unspecified; R51.9 Headache, unspecified; L40.9 Psoriasis, unspecified; Z87.891 Personal history of nicotine dependence; Z79.890 Hormone replacement therapy; Z79.899 Other long term (current) drug therapy; Z88.2 Allergy status to sulfonamides; Z88.8 Allergy status to other drugs, medicaments and biological substances ==

== ENCOUNTER → 2023-10-25 | Outpatient (CLI) | payer OTHER | LOC: M PAIN 17:00 | PROVIDERS: ATTEND Anesthesiology | DX: M54.6 Pain in thoracic spine (principal); Z79.891 Long term (current) use of opiate analgesic; M47.814 Spondylosis without myelopathy or radiculopathy, thoracic region; M54.50 Low back pain, unspecified; I10 Essential (primary) hypertension; K21.9 Gastro-esophageal reflux disease without esophagitis; H40.9 Unspecified glaucoma; I73.00 Raynaud's syndrome without gangrene; Z85.850 Personal history of malignant neoplasm of thyroid; M54.2 Cervicalgia; M25.551 Pain in right hip; M25.552 Pain in left hip; L40.9 Psoriasis, unspecified; F32.A Depression, unspecified; Z87.891 Personal history of nicotine dependence; Z79.890 Hormone replacement therapy; Z79.899 Other long term (current) drug therapy; Z88.2 Allergy status to sulfonamides; Z88.8 Allergy status to other drugs, medicaments and biological substances ==

== ENCOUNTER → 2023-11-30 | Outpatient (CLI) | payer OTHER | LOC: M PAIN 15:00 | PROVIDERS: ATTEND Anesthesiology | DX: M54.6 Pain in thoracic spine (principal); M47.814 Spondylosis without myelopathy or radiculopathy, thoracic region; I10 Essential (primary) hypertension; K21.9 Gastro-esophageal reflux disease without esophagitis; L40.9 Psoriasis, unspecified; F32.A Depression, unspecified; R51.9 Headache, unspecified; M25.551 Pain in right hip; M25.552 Pain in left hip; M54.2 Cervicalgia; Z79.891 Long term (current) use of opiate analgesic; Z79.890 Hormone replacement therapy; Z79.899 Other long term (current) drug therapy; Z87.891 Personal history of nicotine dependence; Z88.2 Allergy status to sulfonamides; Z88.8 Allergy status to other drugs, medicaments and biological substances ==

== ENCOUNTER → 2023-12-15 | Outpatient (CLI) | payer OTHER | LOC: M PAIN 17:00 | PROVIDERS: ATTEND Anesthesiology | DX: M54.6 Pain in thoracic spine (principal); M47.814 Spondylosis without myelopathy or radiculopathy, thoracic region; I10 Essential (primary) hypertension; K21.9 Gastro-esophageal reflux disease without esophagitis; H40.9 Unspecified glaucoma; E04.2 Nontoxic multinodular goiter; I73.00 Raynaud's syndrome without gangrene; M54.2 Cervicalgia; M25.551 Pain in right hip; M25.552 Pain in left hip; R51.9 Headache, unspecified; L40.9 Psoriasis, unspecified; F32.A Depression, unspecified; Z87.891 Personal history of nicotine dependence; Z79.891 Long term (current) use of opiate analgesic; Z79.899 Other long term (current) drug therapy; Z88.2 Allergy status to sulfonamides; Z88.8 Allergy status to other drugs, medicaments and biological substances ==

== ENCOUNTER → 2023-12-29 | Outpatient (CLI) | payer OTHER | LOC: M PAIN 17:00 | PROVIDERS: ATTEND Anesthesiology | DX: M54.6 Pain in thoracic spine (principal); Z79.891 Long term (current) use of opiate analgesic; M79.18 Myalgia, other site; I10 Essential (primary) hypertension; K21.9 Gastro-esophageal reflux disease without esophagitis; H40.9 Unspecified glaucoma; L40.9 Psoriasis, unspecified; F32.A Depression, unspecified; Z79.899 Other long term (current) drug therapy; Z87.891 Personal history of nicotine dependence; Z88.2 Allergy status to sulfonamides; Z88.8 Allergy status to other drugs, medicaments and biological substances ==

== ENCOUNTER → 2024-01-12 | Outpatient (CLI) | payer OTHER ==
[~2024-01-12] MED LIST changes: +GABA-1172; -GABA-282
== END ==
LOC: M PAIN 18:00
PROVIDERS: ATTEND Anesthesiology
DX: M54.6 Pain in thoracic spine (principal); M54.50 Low back pain, unspecified; I10 Essential (primary) hypertension; K21.9 Gastro-esophageal reflux disease without esophagitis; M54.2 Cervicalgia; L40.9 Psoriasis, unspecified; Z87.891 Personal history of nicotine dependence; Z79.891 Long term (current) use of opiate analgesic; Z79.899 Other long term (current) drug therapy; Z88.2 Allergy status to sulfonamides; Z88.8 Allergy status to other drugs, medicaments and biological substances

== ENCOUNTER → 2024-02-29 | Outpatient (REF) | payer OTHER ==
[~2024-02-29] MED LIST changes: +EPLE25TA15 PO; -EPLE25TA2 PO
== END ==
LOC: M LAB REF 17:25
PROVIDERS: ATTEND Nurse Practitioner Adult Health
DX: E89.0 Postprocedural hypothyroidism (principal)

== ENCOUNTER → 2024-06-10 | Outpatient (CLI) | payer OTHER ==
[~2024-06-10] MED LIST changes: +CARI-555; +CARI-555 PO; -CARI1TAB7; -CARI1TAB7 PO
== END ==
LOC: M PLAIMG 11:07
PROVIDERS: ATTEND Nurse Practitioner Adult Health
DX: M54.14 Radiculopathy, thoracic region (principal)

== ENCOUNTER 2024-06-13 18:50 | Emergency (ER) | payer OTHER ==
[~2024-06-13] VITALS: Ht 203.2 cm; Wt 147.5 kg
[2024-06-13 20:42] VITALS: BP 164/90; TEMP 97.6; O2SAT 100
[2024-06-13] MEDS: AUGMENTIN 875 MG TAB PO ONE (20:51)
[2024-06-13] MEDS: KETOROLAC 30 MG/ML 1ML VIAL IM ONE (20:52)
[2024-06-13] MEDS ORDERED: KETO10TAB PO (21:01)
[2024-06-13] MEDS ORDERED: AMOX875T2 PO (21:01)
== END 2024-06-13 21:05 | disposition home or self-care (01) ==
LOC: M ED 18:50
DX: K08.89 Other specified disorders of teeth and supporting structures (principal); Z88.2 Allergy status to sulfonamides; Z79.2 Long term (current) use of antibiotics; Z79.899 Other long term (current) drug therapy
CPT/HCPCS: 96372; 99283; J1885

== ENCOUNTER → 2024-08-21 | Outpatient (CLI) | payer OTHER ==
[~2024-08-21] MED LIST changes: +AMOX875T2 PO; +KETO10TAB PO
[2024-08-21 18:43] LABS: CK-MB VALUE MASS < 1.0 NG/ML (<3.6)
[2024-08-21 18:45] LABS: CPK CREATINE PHOSPHOKINASE 58 U/L (46-171); MB/CK RELATIVE INDEX 1.72 (< OR =4)
== END ==
LOC: M RAD 15:23
PROVIDERS: ATTEND Physician Assistant Medical
DX: R06.02 Shortness of breath (principal)

== ENCOUNTER → 2024-11-21 | Outpatient (CLI) | payer OTHER ==
[~2024-11-21] MED LIST changes: +BARIUM SULFATE 700 MG TABLET As Ordered ONE; +CODE30TA PO; +E-Z-PAQUE 96% w/w SUSP 176 GM BTL As Ordered ONE; +VARIBAR NECTAR 40% w/v 240ML SUSP BTL As Ordered ONE; +VARIBAR PUDDING 40% w/v 230ML TUBE As Ordered ONE
== END ==
LOC: M RAD 11:22
PROVIDERS: ATTEND Internal Medicine Gastroenterology
DX: R13.12 Dysphagia, oropharyngeal phase (principal); R13.14 Dysphagia, pharyngoesophageal phase

== ENCOUNTER 2024-12-12 11:39 | Emergency (ER) | payer OTHER ==
[~2024-12-12] VITALS: Ht 203.2 cm; Wt 131.8 kg
[~2024-12-12 11:39] MED LIST changes: -BARIUM SULFATE 700 MG TABLET As Ordered ONE; -E-Z-PAQUE 96% w/w SUSP 176 GM BTL As Ordered ONE; -VARIBAR NECTAR 40% w/v 240ML SUSP BTL As Ordered ONE; -VARIBAR PUDDING 40% w/v 230ML TUBE As Ordered ONE
[2024-12-12 11:48] VITALS: BP 138/85
[2024-12-12 11:53] VITALS: TEMP 96.2; O2SAT 100
[2024-12-12] MEDS ORDERED: LEVO25TA5 (12:02)
[2024-12-12] MEDS ORDERED: OXYC-141 (12:02)
[2024-12-13] MEDS ORDERED: IBUP600T42 PO (15:23)
== END 2024-12-12 13:02 | disposition left against medical advice (07) ==
LOC: M ED 11:39 → EDBD 11:39 → M ED 13:02
DX: Z53.21 Procedure and treatment not carried out due to patient leaving prior to being seen by health care provider (principal)

== ENCOUNTER 2024-12-13 13:15 | Emergency (ER) | payer OTHER ==
[~2024-12-13] VITALS: Ht 203.2 cm; Wt 138.1 kg
[~2024-12-13 13:15] MED LIST changes: +LEVO25TA5; +OXYC-141
[2024-12-13] MEDS ORDERED: IBUP600T42 PO (15:23)
[2024-12-13] MEDS: KETOROLAC 60 MG/2 ML VIAL IM ONE (15:29)
[2024-12-13 15:34] VITALS: BP 110/72; TEMP 97.6; O2SAT 99
== END 2024-12-13 15:36 | disposition home or self-care (01) ==
LOC: EDBD 13:15 → M ED 13:15
DX: M54.6 Pain in thoracic spine (principal); I10 Essential (primary) hypertension; K21.9 Gastro-esophageal reflux disease without esophagitis; E03.9 Hypothyroidism, unspecified; F31.9 Bipolar disorder, unspecified; Z88.2 Allergy status to sulfonamides; Z79.1 Long term (current) use of non-steroidal anti-inflammatories (NSAID); Z79.899 Other long term (current) drug therapy
CPT/HCPCS: 96372; 99284; J1885

== ENCOUNTER 2024-12-15 20:30 | Emergency (ER) | payer OTHER ==
[~2024-12-15] VITALS: Ht 203.2 cm; Wt 150.0 kg
[~2024-12-15 20:30] MED LIST changes: +IBUP600T42 PO
[2024-12-15] MEDS: KETOROLAC 60 MG/2 ML VIAL IM ONE (22:04)
[2024-12-15] MEDS: MORPHINE 2 MG/ML 1 ML VIAL IM ONE (22:04)
[2024-12-15 22:19] VITALS: BP 124/87; TEMP 97.3; O2SAT 97
== END 2024-12-15 22:21 | disposition home or self-care (01) ==
LOC: M ED 20:30
DX: M54.6 Pain in thoracic spine (principal); I10 Essential (primary) hypertension; K21.9 Gastro-esophageal reflux disease without esophagitis; F31.9 Bipolar disorder, unspecified; F41.9 Anxiety disorder, unspecified; Z88.2 Allergy status to sulfonamides; Z79.1 Long term (current) use of non-steroidal anti-inflammatories (NSAID); Z79.899 Other long term (current) drug therapy
CPT/HCPCS: 96372; 99284; J1885

== ENCOUNTER 2024-12-15 23:36 | Emergency (ER) | payer OTHER ==
[~2024-12-15] VITALS: Ht 203.2 cm; Wt 136.4 kg
[2024-12-15 23:33] VITALS: BP 141/71; TEMP 97.9; O2SAT 100
[~2024-12-15 23:36] MED LIST changes: -LEVO25TA5; +LEVO25TA5 PO; -OXYC-141; +OXYC-141 PO; +ZOLP10TA11; +ZOLP10TA11 PO; -ZOLP10TA2; -ZOLP10TA2 PO
== END 2024-12-16 04:15 | disposition left against medical advice (07) ==
LOC: M ED 23:36
DX: M54.6 Pain in thoracic spine (principal); I10 Essential (primary) hypertension; K21.9 Gastro-esophageal reflux disease without esophagitis; F17.210 Nicotine dependence, cigarettes, uncomplicated; Z88.2 Allergy status to sulfonamides; Z79.1 Long term (current) use of non-steroidal anti-inflammatories (NSAID); Z79.899 Other long term (current) drug therapy; Z53.9 Procedure and treatment not carried out, unspecified reason
CPT/HCPCS: 96372; 99284; J1885

== ENCOUNTER 2025-01-03 10:43 | Inpatient (IN) | payer OTHER ==
[~2025-01-03] VITALS: Ht 203.2 cm; Wt 132.0 kg
[2025-01-03 11:13] LABS: PLATELET COUNT, AUTOMATED 307 10^3/uL (150-450)
[2025-01-03 12:01] LABS: ALT/SGPT 12 U/L (7.0-40); AST/SGOT 16 U/L (<34); CALCIUM LEVEL 8.9 MG/DL (8.5-10.1); CARBON DIOXIDE LEVEL 24 MMOL/L (20-31); CHLORIDE LEVEL 104 MMOL/L (98-107); CREATININE FOR GFR 1.23 MG/DL (0.70-1.30); ETHYL ALCOHOL (ETHANOL) < 0.003 % (0.000-0.010); GLOMERULAR FILTRATION RATE 74.7 (>60); POTASSIUM SERUM 3.5 MMOL/L (3.5-5.1); SALICYLATE LEVEL < 3.0 MG/DL (<30); SODIUM LEVEL 135 MMOL/L (136-145)
[2025-01-03] MEDS: LIDOCAINE W/EPINEPHrine 1% 20 ML VIAL SC ONE (13:00)
[2025-01-03] MEDS: TETANUS/DIPHTH/ACEL. PERTUSSIS 0.5 ML SYR IM.IMMUN ONE (13:23)
[2025-01-03 14:23] LABS: AMPHETAMINES LEVEL URINE NEGATIVE (NEGATIVE); BARBITURATES URINE NEGATIVE (NEGATIVE); BENZODIAZEPINES URINE NEGATIVE (NEGATIVE); COCAINE METABOLITE URINE NEGATIVE (NEGATIVE); METHADONE URINE NEGATIVE (NEGATIVE); PHENCYCLIDINE URINE NEGATIVE (NEGATIVE)
[2025-01-03 14:29] LABS: CANNABINOIDS URINE POSITIVE (NEGATIVE); OPIATES URINE POSITIVE (NEGATIVE)
[2025-01-03] MEDS ORDERED: PREG100C2 PO (15:11)
[2025-01-03] MEDS ORDERED: OXYC10TA12 PO (15:11)
[2025-01-03] MEDS ORDERED: EPLE50TA12 PO (15:11)
[2025-01-03] MEDS ORDERED: HOME MED LIST COMPLETE! XX SCH (15:15)
[2025-01-03] MEDS ORDERED: MAALOX 30 ML SUSP *UDC PO PRN (16:35)
[2025-01-03 17:47] VITALS: BP 136/82; TEMP 97.9; O2SAT 100
[2025-01-03] MEDS: PREGABALIN 100 MG CAP PO SCH (20:15)
[2025-01-03] MEDS: IBUPROFEN 400 MG TAB PO PRN (20:15)
[2025-01-03] MEDS: LATANOPROST 0.005% OPHTH SOLN 2.5 ML OU SCH (21:00)
[2025-01-04 06:02] VITALS: BP 139/89; TEMP 97; O2SAT 100
[2025-01-04] MEDS: LEVOTHYROXINE 100 MCG TABLET (0.1 MG) PO SCH (06:08)
[2025-01-04 08:28] VITALS: BP 144/83
[2025-01-04] MEDS: OMEPRAZOLE 20MG CAP PO SCH (08:33)
[2025-01-04] MEDS: PARoxetine 10MG TABLET PO SCH (08:34)
[2025-01-04] MEDS: ENALAPRIL MALEATE 10 MG TAB PO SCH (08:34)
[2025-01-04] MEDS: METOPROLOL SUCC. 100 MG *XL* TAB PO SCH (08:34)
[2025-01-04] MEDS ORDERED: oxyCODONE 20MG CR TAB PO PRN ×2 (09:50→12:35)
[2025-01-04] MEDS: ACETAMINOPHEN 325 MG TAB PO PRN (10:17)
[2025-01-04 14:47] VITALS: BP 119/65; TEMP 98; O2SAT 100
[2025-01-04] MEDS: amLODIPine 5 MG TAB PO SCH (15:16)
[2025-01-04] MEDS: NICOTINE 14 MG/24 HR TRANSDERMAL TD SCH (15:18)
[2025-01-04] MEDS: AUGMENTIN 875 MG TAB PO ONE (15:19)
[2025-01-04] MEDS: NAPROXEN 250 MG TAB PO PRN (15:21)
[2025-01-04] MEDS: traZODone 50 MG TAB PO PRN (20:41)
[2025-01-04] MEDS: MIRTAZAPINE 7.5 MG PER 1/2 TABLET PO SCH (20:41)
[2025-01-04] MEDS: AUGMENTIN 875 MG TAB PO SCH (20:45)
[2025-01-04] MEDS ORDERED: NAPROXEN 250 MG TAB PO SCH (21:00)
[2025-01-05 06:49] VITALS: BP 119/77; TEMP 98; O2SAT 97
[2025-01-05 08:23] VITALS: BP 120/78
[2025-01-05] MEDS: oxyCODONE 10 MG CR TAB PO PRN (10:53)
[2025-01-05 16:00] VITALS: BP 110/64; TEMP 97.4; O2SAT 99
[2025-01-06 06:36] VITALS: BP 153/91; TEMP 97.3; O2SAT 100
[2025-01-06 08:19] VITALS: BP 114/76
[2025-01-06 09:33] VITALS: BP 114/76; TEMP 97.3; O2SAT 100
[2025-01-06] MEDS: PREGABALIN 100 MG CAP PO SCH (15:46)
[2025-01-06 16:35] VITALS: BP 121/75; TEMP 97.1; O2SAT 100
[2025-01-07 06:30] VITALS: BP 156/92; TEMP 97; O2SAT 100
[2025-01-07 14:53] VITALS: BP 117/63; TEMP 97; O2SAT 100
[2025-01-08 06:27] VITALS: BP 137/64; TEMP 99; O2SAT 100
[2025-01-08 08:08] VITALS: BP 127/90
[2025-01-08 14:51] VITALS: BP 114/77; TEMP 97.6; O2SAT 100
[2025-01-09 06:26] VITALS: BP 145/68; TEMP 97.6; O2SAT 100
[2025-01-09] MEDS ORDERED: OXYC-141 PO (13:17)
[2025-01-09 15:33] VITALS: BP 134/87; TEMP 97.7; O2SAT 100
[2025-01-10] MEDS ORDERED: MIRT-10 PO (03:28)
[2025-01-10] MEDS ORDERED: CELE100C PO (03:28)
[2025-01-10] MEDS ORDERED: TRAZ-252 PO (03:28)
[2025-01-10] MEDS: MOM 30 ML SUSPENSION UDC PO PRN (05:41)
[2025-01-10 06:25] VITALS: BP 124/73; TEMP 96.8; O2SAT 100
[2025-01-10 08:18] VITALS: BP 120/81
== END 2025-01-10 12:52 | disposition home or self-care (01) | DRG 756 ==
LOC: M ED 10:43 → M ED INP 16:31 → M PSY 17:39
PROVIDERS: ADMIT General Practice; ATTEND Internal Medicine
DX: F41.1 Generalized anxiety disorder (principal); F33.1 Major depressive disorder, recurrent, moderate; F11.20 Opioid dependence, uncomplicated; I10 Essential (primary) hypertension; G47.00 Insomnia, unspecified; G89.29 Other chronic pain; F10.20 Alcohol dependence, uncomplicated; F12.20 Cannabis dependence, uncomplicated; S51.812A Laceration without foreign body of left forearm, initial encounter; M54.6 Pain in thoracic spine; F17.220 Nicotine dependence, chewing tobacco, uncomplicated; E03.9 Hypothyroidism, unspecified; K21.9 Gastro-esophageal reflux disease without esophagitis; Z79.890 Hormone replacement therapy; Z79.899 Other long term (current) drug therapy; X78.0XXA Intentional self-harm by sharp glass, initial encounter; Y99.8 Other external cause status; Y93.9 Activity, unspecified; Y92.9 Unspecified place or not applicable; Z88.2 Allergy status to sulfonamides

== ENCOUNTER 2025-03-18 14:21 | Emergency (ER) | payer MEDICAID, OTHER ==
[~2025-03-18] VITALS: Ht 203.2 cm; Wt 142.0 kg
[~2025-03-18 14:21] MED LIST changes: +CELE100C PO; +EPLE50TA12 PO; +MIRT-10 PO; +OXYC10TA12 PO; +PREG100C2 PO; +TRAZ-252 PO
[2025-03-18 14:25] VITALS: TEMP 97.6
[2025-03-18 16:09] LABS: BASO # 0.1 10^3/uL (0.0-0.2); BASO % 0.6 % (0.0-1.0); EOS # 0.2 10^3/uL (0.0-0.5); EOS % 2.3 % (0.0-3.0); LYMPH # 2.0 10^3/uL (1.5-5.0); LYMPH % 25.1 % (24.0-44.0); MONO # 0.5 10^3/uL (0.0-0.8); MONO % 6.7 % (2.0-8.0); NEUTROPHILS # 5.3 10^3/uL (1.5-8.5); NEUTROPHILS % 65.1 % (36.0-66.0); PLATELET COUNT, AUTOMATED 257 10^3/uL (150-450)
[2025-03-18 16:31] LABS: CALCIUM LEVEL 8.7 MG/DL (8.5-10.1); CARBON DIOXIDE LEVEL 26.0 MMOL/L (20-31); CHLORIDE LEVEL 109.0 MMOL/L (98-107); CREATININE FOR GFR 1.11 MG/DL (0.70-1.30); GLOMERULAR FILTRATION RATE 84.5 (>60); POTASSIUM SERUM 4.3 MMOL/L (3.5-5.1); SODIUM LEVEL 141.0 MMOL/L (136-145)
[2025-03-18 17:55] VITALS: BP 153/86; O2SAT 100
[2025-03-18] MEDS: LIDOCAINE 5% PATCH TD ONE (18:10)
[2025-03-18] MEDS ORDERED: LIDO1PAD TOP (18:10)
[2025-03-18] MEDS ORDERED: LIDOCAINE 5% PATCH TD ONE (18:15)
== END 2025-03-18 18:16 | disposition home or self-care (01) ==
LOC: M ED 14:21
DX: G62.9 Polyneuropathy, unspecified (principal); F41.9 Anxiety disorder, unspecified; F32.A Depression, unspecified; Z88.2 Allergy status to sulfonamides; Z79.899 Other long term (current) drug therapy